=== PATIENT | male | born 1950 | race Caucasian/White ===

== ENCOUNTER 2017-06-10 05:47 | Inpatient (IN) | payer MEDICARE, OTHER ==
[2017-06-10] VITALS (53 sets, daily range): BP systolic 74–131; BP diastolic 60–101
[~2017-06-10] VITALS: Ht 167.6 cm; Wt 81.6 kg
[2017-06-10] MEDS ORDERED: METHYLPREDNISOLONE SOD SUCC 125 MG/2ML VIAL IV STA (05:57)
[2017-06-10] MEDS ORDERED: SODIUM CHLORIDE 0.9% 1000ML 1,000 ML IV STA (05:57)
[2017-06-10] MEDS ORDERED: CEFEPIME HCL 2 GM VIAL IV STA (06:01)
[2017-06-10] MEDS ORDERED: VANCOMYCIN 1GM/NS 250 ML 250 ML IV STA (06:01)
[2017-06-10] MEDS ORDERED: ACETAMINOPHEN 1000 MG/100 ML IV STA (06:11)
[2017-06-10 06:14] LABS: ABG HCO3 30 mmol/L (23-28); ABG PCO2 52 mmHg (41-51); ABG PH 7.37 (7.31-7.41); ABG PO2 81 mmHg (80-105)
[2017-06-10] MEDS ORDERED: LEVALBUTEROL HCL SOLN NEBU 0.63 MG/3 ML NEB INH ONE (06:15)
[2017-06-10] MEDS ORDERED: IPRATROPIUM BROMIDE 0.02% 2.5 ML NEB NEB ONE (06:15)
[2017-06-10 06:18] LABS: BASOPHILS % 0.2 % (0.0-1.0); HEMATOCRIT 38.1 % (38.2-49.6); HEMOGLOBIN 11.7 g/dL (14.0-18.0); LYMPHOCYTES # (AUTO) 0.1 (1.0-3.2); LYMPHOCYTES % 2.5 % (18.0-39.1); MEAN CORPUSCULAR HEMOGLOBIN 25.7 pg (28-32); MEAN CORPUSCULAR HGB CONC 30.7 g/dL (31-35); MEAN CORPUSCULAR VOLUME 83.7 fL (81-99); MONOCYTES # (AUTO) 0.1 (0.2-0.8); MONOCYTES % 2.3 % (4.4-11.3); NEUTROPHILS # (AUTO) 4.5 (2.1-6.9); NEUTROPHILS % 94.8 % (38.7-80.0); PLATELET COUNT 92 x10e3/uL (140-360); RED BLOOD COUNT 4.55 x10e6/uL (4.3-5.7)
[2017-06-10 06:30] LABS: KETONES,URINE NEGATIVE (NEGATIVE); LEUKOCYTE ESTERASE ,URINE TRACE (NEGATIVE); NITRITE,URINE NEGATIVE (NEGATIVE); URINE UROBILINOGEN 12 mg/dL (0.2 - 1)
[2017-06-10 06:31] LABS: BILIRUBIN,URINE 2+ (NEGATIVE); CLARITY,URINE CLOUDY (CLEAR); COLOR,URINE YELLOW (YELLOW); PROTEIN,URINE DIPSTICK 2+ (NEGATIVE)
[2017-06-10 06:32] LABS: INR 1.45; PROTHROMBIN TIME 16.6 seconds (11.9-14.5)
--- NOTE | 2017-06-10 06:35 | Diagnostic Imaging Report ---
EXAM: XR CHEST 1 VIEW DATE: 06/10/2017 5:57 AM INDICATION: Shortness of breath COMPARISON: None FINDINGS: Lines and Tubes: None Heart and Mediastinum: Poorly evaluated due to low lung volumes. Sternotomy wires. Lungs and Pleura: Significant elevation the right hemidiaphragm. Extensive bilateral airspace opacities. Bones and Soft Tissues: No acute findings. IMPRESSION: 1. Extensive bilateral airspace opacities could represent edema and/or pneumonia. Underlying malignancy not excluded. Close follow-up recommended. Signed by: Dr. Malik Lees MD on 06/10/2017 6:31 AM
[2017-06-10 06:39] LABS: ALANINE AMINOTRANSFERASE 43 IU/L (0-55); ALBUMIN 2.3 g/dL (3.5-5.0); ALBUMIN/GLOBULIN RATIO 0.6 (0.8-2.0); ALKALINE PHOSPHATASE 90 IU/L (40-150); BLOOD UREA NITROGEN 48 mg/dL (7-26); BUN/CREATININE RATIO 41 (6-25); CALCIUM 9.1 mg/dL (8.4-10.2); CARBON DIOXIDE 29 mmol/L (22-29); CHLORIDE 97 mmol/L (98-107); CREATINE KINASE 94 IU/L (30-200); CREATININE, SERUM 1.18 mg/dL (0.72-1.25); EST GLOMERULAR FILTRATION RATE > 60 ML/MIN (60-); GLUCOSE 81 mg/dL (74-118); MAGNESIUM 1.9 MG/DL (1.3-2.1); SODIUM 135 mmol/L (136-145)
[2017-06-10 06:43] LABS: B-TYPE NATRIURETIC PEPTIDE2 272.5 pg/mL (0-100)
[2017-06-10 06:45] LABS: RBC,URINE 0-5 /HPF (0-5)
[2017-06-10 06:46] LABS: BACTERIA,URINE MODERATE /HPF; EPITHELIAL CELLS,URINE RARE /LPF
[2017-06-10] MEDS ORDERED: MS CONTIN30 MG PO (06:56)
[2017-06-10] MEDS ORDERED: CYMBALTA30 MG PO (06:56)
[2017-06-10] MEDS ORDERED: SPIRIVA18 MCG INH (06:56)
[2017-06-10] MEDS ORDERED: REGLAN10 MG PO (06:56)
[2017-06-10] MEDS ORDERED: VITAMIN C100 MG PO (06:56)
[2017-06-10] MEDS ORDERED: CARAFATE1 GM/10 ML PO (06:56)
[2017-06-10] MEDS ORDERED: ARICEPT5 MG PO (06:56)
[2017-06-10] MEDS ORDERED: DOXEPIN HCL25 MG PO (06:56)
[2017-06-10] MEDS ORDERED: VITAMIN B12 IM (06:56)
[2017-06-10] MEDS ORDERED: PROAIR HFA INH8.5 GM INH (06:56)
[2017-06-10] MEDS ORDERED: ATORVASTATIN CA10 MG PO (06:56)
[2017-06-10] MEDS ORDERED: GABAPENTIN400 MG PO (06:56)
[2017-06-10] MEDS ORDERED: DEXAMETHASONE4 MG PO (06:56)
[2017-06-10] MEDS ORDERED: MIRALAX17 GM PO (06:56)
[2017-06-10] MEDS ORDERED: MYRBETRIQ25 MG PO (06:56)
[2017-06-10] MEDS ORDERED: PANTOPRAZOLE SO40 MG PO (06:56)
[2017-06-10] MEDS ORDERED: FERROUS SULFAT325 MG PO (06:56)
[2017-06-10] MEDS ORDERED: MELOXICAM7.5 MG PO (06:56)
[2017-06-10] MEDS ORDERED: ASPIR 8181 MG PO (06:56)
[2017-06-10] MEDS ORDERED: POTASSIUM99 MG PO (06:56)
[2017-06-10] MEDS ORDERED: SENNA LAX8.6 MG PO (06:56)
[2017-06-10] MEDS ORDERED: LEVOTHYROXINE50 MCG PO (06:56)
[2017-06-10] MEDS ORDERED: MULTIPLE VITAM1 EAC1 PO (06:56)
[2017-06-10] MEDS ORDERED: FINASTERIDE5 MG PO (06:56)
[2017-06-10] MEDS ORDERED: MORPHINE SULFAT30 M2 PO (06:56)
[2017-06-10] MEDS ORDERED: MIRTAZAPINE15 MG PO (06:56)
[2017-06-10] MEDS ORDERED: IPRATROPIUM BRO15 ML (06:56)
[2017-06-10] MEDS ORDERED: FOLIC ACID1 MG PO (06:56)
[2017-06-10] MEDS ORDERED: GLUCOSAMINE CH1 EAC5 PO (06:56)
[2017-06-10] MEDS ORDERED: FISH OIL 1,0001 EAC2 PO (06:56)
[2017-06-10] MEDS ORDERED: TRELEGY ELLIPTA (06:56)
[2017-06-10] MEDS ORDERED: AZITHROMYCIN 500MG/NS 250 ML 250 ML IV STA (07:05)
[2017-06-10] MEDS: FAMOTIDINE 20 MG/2 ML VIAL IV SCH ×2 (07:30→21:32)
[2017-06-10 07:39] LABS: ANISOCYTOSIS MODERATE; POIKILOCYTOSIS SLIGHT
[2017-06-10 07:40] LABS: ELLIPTOCYTE, RBC SLIGHT; PLATELET ESTIMATE SLIGHTLY DECREASED; RBC MORPHOLOGY COMMENT ABNORMAL
[2017-06-10 07:41] LABS: PLATELET MORPHOLOGY COMMENT FEW GIANT
[2017-06-10] MEDS ORDERED: ETOMIDATE 2 MG/ML 10 ML INJ IV STA (07:54)
[2017-06-10] MEDS ORDERED: SUCCINYLCHOLINE 200 MG/10 ML SYR IV STA (07:54)
[2017-06-10] MEDS ORDERED: MIDAZOLAM HCL 25 MG in SODIUM CHLORIDE 0.9% 50ML 45 ML IV STA (07:54)
--- OUTSIDE RECORDS SUMMARY | 2017-06-10 07:59 | XMS REPORT ---
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 Allergies, Adverse Reactions, Alerts This patient has no known allergies or adverse reactions. Medications This patient has no known medications. Results Test Description Test Time Test Comments Text Results Atomic Results Result Comments MAGNESIUM 2017-01-08 05:07:00 MAGNESIUM (BEAKER) (test rcvz=798) 1.9 mg/dL 1.6-2.6 BASIC METABOLIC [id number] 05:07:00* Test Item Value Reference Range Comments SODIUM (BEAKER) (test taon=161) 140 meq/L 136-145 POTASSIUM (BEAKER) (test jsra=252) 3.8 meq/L 3.5-5.1 CHLORIDE (BEAKER) (test dsfz=018) 97 meq/L 98-107 CO2 (BEAKER) (test eqku=375) 36 meq/L 22-29 BLOOD UREA NITROGEN (BEAKER) (test scpg=913) 16 mg/dL 7-21 CREATININE (BEAKER) (test bztp=185) 0.82 mg/dL 0.57-1.25 GLUCOSE RANDOM (BEAKER) (test wuuh=732) 102 mg/dL 70-105 CALCIUM (BEAKER) (test vjsx=412) 9.0 mg/dL 8.4-10.2 EGFR (BEAKER) (test uyzz=2635) 94 mL/min/1.73 sq m ESTIMATED GFR IS NOT ACCURATE CREATININE CLEARANCE IN PREDICTING GLOMERULAR FILTRATION RATE. ESTIMATED GFR IS NOT APPLICABLE FOR DIALYSIS PATIENTS. RAD, CHEST, 1 VIEW, NON [id number] 09:13:00Reason for exam:->s/p thoracotomyShould this be performed at the bedside?->YesFINAL REPORT Chest one view INDICATION: Status post thoracotomy COMPARISON: IMPRESSION: Two frontal images of the chest were provided. The right diaphragm is elevated. Bilateral mixed interstitial and left greater than right airspace opacities are improved which could reflect decreased edema and atelectasis. Superimposed pneumonitis should be excluded clinically. There is pleural thickening and possible dependent effusions. The cardiomediastinal contours are stable. Median sternotomy changes and spinal stimulator electrodes are noted. No pneumothorax is seen. Signed: Richard Richardson MDReport Verified Date/Time: 01/07/2017 09:13:34 Reading Location: [facility] Radiology Reading Room , CHEST, 1 VIEW, NON [id number] 15:35:00Reason for exam:->s/p thoracotomyShould this be performed at the bedside?->YesFINAL REPORT Comparison: 01/05/2017 TECHNIQUE: Single view of the chest FINDINGS: Lung volumes are low. Prominent interstitial markings bilaterally, nonspecific have somewhat increased. There may be small pleural effusions. No gross pneumothorax. Cardiac silhouette is within normal limits. Postsurgical changes in the mediastinum noted. No acute skeletal abnormality. Signed: Remington Paige MDReport Verified Date/Time: 01/06/2017 15:35:28 Reading Location: [facility] C013 Transitional Reading Room [id number] 12:46:00* Test Item Value Reference Range Comments MAGNESIUM (BEAKER) (test eftq=406) 2.0 mg/dL 1.6-2.6 BASIC METABOLIC [id number] 12:46:00* Test Item Value Reference Range Comments SODIUM (BEAKER) (test qrap=109) 139 meq/L 136-145 POTASSIUM (BEAKER) (test rfjt=609) 4.0 meq/L 3.5-5.1 CHLORIDE (BEAKER) (test wgmf=366) 94 meq/L 98-107 CO2 (BEAKER) (test fxps=989) 38 meq/L 22-29 BLOOD UREA NITROGEN (BEAKER) (test qabj=521) 12 mg/dL 7-21 CREATININE (BEAKER) (test wfox=546) 0.72 mg/dL 0.57-1.25 GLUCOSE RANDOM (BEAKER) (test tmhq=670) 138 mg/dL 70-105 CALCIUM (BEAKER) (test dwtm=026) 9.2 mg/dL 8.4-10.2 EGFR (BEAKER) (test nytq=3877) 109 mL/min/1.73 sq m ESTIMATED GFR IS NOT ACCURATE CREATININE CLEARANCE IN PREDICTING GLOMERULAR FILTRATION RATE. ESTIMATED GFR IS NOT APPLICABLE FOR DIALYSIS PATIENTS. LACTIC ACID, ARTERIAL, WHOLE [id number] 12:42:00* Test Item Value Reference Range Comments LACTATE BLOOD ARTERIAL (2) (BEAKER) (test byuo=0919) 0.7 mmol/L 0.5-2.2 Effective 07/20/2015: Units/Reference Range ChangeNew: 0.5-2.2 mmol/L Previous: 5 -20 mg/dLCBC W/PLT COUNT & AUTO [id number] 12:39:00* Test Item Value Reference Range Comments WHITE BLOOD CELL COUNT (BEAKER) (test lvha=879) 11.9 K/ L 3.5-10.5 RED BLOOD CELL COUNT (BEAKER) (test oone=477) 3.85 M/ L 4.63-6.08 HEMOGLOBIN (BEAKER) (test gukf=194) 9.0 GM/DL 13.7-17.5 HEMATOCRIT (BEAKER) (test gpth=474) 30.8 % 40.1-51.0 MEAN CORPUSCULAR VOLUME (BEAKER) (test fgji=343) 80.0 fL 79.0-92.2 MEAN CORPUSCULAR HEMOGLOBIN (BEAKER) (test tnxl=840) 23.4 pg 25.7-32.2 MEAN CORPUSCULAR HEMOGLOBIN CONC (BEAKER) (test xogi=817) 29.2 GM/DL 32.3- 36.5 RED CELL DISTRIBUTION WIDTH (BEAKER) (test sfhh=978) 15.9 % 11.6-14.4 PLATELET COUNT (BEAKER) (test cxus=582) 263 K/CU MM 150-450 This is a corrected result. Previous result was 189 K/CU MM on 01/06/2017 at 1221 CDT MEAN PLATELET VOLUME (BEAKER) (test wqbr=426) 11.5 fL 9.4-12.4 NUCLEATED RED BLOOD CELLS (BEAKER) (test khto=939) 0 /100 WBC 0-0 NEUTROPHILS RELATIVE PERCENT (BEAKER) (test kwee=714) 88 % LYMPHOCYTES RELATIVE PERCENT (BEAKER) (test dfpb=909) 4 % MONOCYTES RELATIVE PERCENT (BEAKER) (test sjgs=277) 5 % EOSINOPHILS RELATIVE PERCENT (BEAKER) (test izcm=424) 3 % BASOPHILS RELATIVE PERCENT (BEAKER) (test qzyu=378) 1 % NEUTROPHILS ABSOLUTE COUNT (BEAKER) (test mcsj=029) 10.47 K/ L 1.78-5.38 LYMPHOCYTES ABSOLUTE COUNT (BEAKER) (test icrk=396) 0.44 K/ L 1.32-3.57 MONOCYTES ABSOLUTE COUNT (BEAKER) (test jkdu=724) 0.57 K/ L 0.30-0.82 EOSINOPHILS ABSOLUTE COUNT (BEAKER) (test wwrb=753) 0.30 K/ L 0.04-0.54 BASOPHILS ABSOLUTE COUNT (BEAKER) (test oacl=195) 0.07 K/ L 0.01-0.08 IMMATURE GRANULOCYTES-RELATIVE PERCENT (BEAKER) (test ligl=5413) 1 % 0-1 POCT-LACTIC ACID, [id number] 12:21:00* Test Item Value Reference Range Comments POC-LACTIC ACID, ARTERIAL (BEAKER) (test kjra=8303) 0.6 mmol/L 0.4-1.[address] [address] POCT-BLOOD GASES, [id number] 12:21:00* Test Item Value Reference Range Comments TEMP, CELSIUS-POC (BEAKER) (test lfpt=2922) 37.0 FIO2-POC (BEAKER) (test oqfr=2743) TESTED AT [place] [id number] [facility] [address] PH, ARTERIAL-POC (BEAKER) (test ghru=4945) 7.409 7.350-7.450 PCO2, ARTERIAL-POC (BEAKER) (test rkdo=5200) 64.9 mm Hg 35.0-45.0 PO2, ARTERIAL-POC (BEAKER) (test nrbu=6338) 77.0 mm Hg 80.0-90.0 SO2, ARTERIAL-POC (BEAKER) (test zsti=2210) 95.0 % 96.0-97.0 HCO3, ARTERIAL-POC (BEAKER) (test hxak=0362) 41.1 meq/L 21.0-29.0 BASE EXCESS, ARTERIAL-POC (BEAKER) (test jcpe=6614) 16.0 meq/L -2.0-3.0 [id number] 12:21:00* Test Item Value Reference Range Comments POC-SODIUM (BEAKER) (test fuyi=6756) 137 meq/L 135-148 TESTED AT [place] [address] [id number] 12:21:00* Test Item Value Reference Range Comments POC-POTASSIUM (BEAKER) (test rsgm=1309) 3.7 meq/L 3.6-5.5 TESTED AT [place] [id number] 12:21:00* Test Item Value Reference Range Comments POC-GLUCOSE (BEAKER) (test qhhy=1979) 139 mg/dL 70-110 TESTED AT [place] [id number] POCT-CALCIUM [id number] 12:21:00* Test Item Value Reference Range Comments POC-CALCIUM IONIZED (BEAKER) (test hfha=6316) 1.20 mmol/L 1.12-1.27 TESTED AT [place] [id number] 12:21:00* Test Item Value Reference Range Comments POC-HEMATOCRIT (BEAKER) (test nxlr=4290) 30 % 40-50 TESTED AT [place] [id number] [id number] 12:21:00* Test Item Value Reference Range Comments POC-HEMOGLOBIN (BEAKER) (test drlt=8385) 10.2 g/dL 13.0-16.8 TESTED AT [place] [id number] POCT-GLUCOSE [id number] 11:49:00* Test Item Value Reference Range Comments POC-GLUCOSE METER (BEAKER) (test ejnw=6271) 147 mg/dL 70-110 TESTED AT [place] [address] RAD, CHEST, 1 VIEW, NON [id number] 13:08:00Reason for exam:->CT removalShould this be performed at the bedside?->YesFINAL REPORT AP view of the chest dated 01/05/2017 COMPARISON: January 05, 2017 CLINICAL INFORMATION: CT removal Comment: Since prior imaging, there is interval removal of the left chest tube. No pneumothorax is noted. There is pleural thickening in the left hemithorax. Nonspecific parenchymal disease is seen in the left upper lobe may represent scarring or pneumonitis improved since prior study. The rest of the lungs are clear. Right hemidiaphragm remains elevated. Signed: Kulwant Soler MDReport Verified Date/Time: 01/05/2017 13:08:18 Reading Location: [place] [address]X Ortho Consult Reading Room [id number] 12:27: 00* Test Item Value Reference Range Comments POTASSIUM (BEAKER) (test gksk=907) 3.7 meq/L 3.5-5.1 [id number] 12:27:00* Test Item Value Reference Range Comments MAGNESIUM (BEAKER) (test dbxn=796) 1.8 mg/dL 1.6-2.6 CALCIUM, [id number] 12:12:00* Test Item Value Reference Range Comments CALCIUM IONIZED (BEAKER) (test drlw=229) 1.14 mmol/L 1.12-1.27 PH, BLOOD (BEAKER) (test bnhi=8657) 7.37 CBC W/PLT COUNT & AUTO [id number] 06:49:00* Test Item Value Reference Range Comments WHITE BLOOD CELL COUNT (BEAKER) (test qbfm=809) 12.5 K/ L 3.5-10.5 RED BLOOD CELL COUNT (BEAKER) (test brlj=590) 3.69 M/ L 4.63-6.08 HEMOGLOBIN (BEAKER) (test zdbb=286) 8.7 GM/DL 13.7-17.5 HEMATOCRIT (BEAKER) (test gsgp=247) 30.0 % 40.1-51.0 MEAN CORPUSCULAR VOLUME (BEAKER) (test lzgf=437) 81.3 fL 79.0-92.2 MEAN CORPUSCULAR HEMOGLOBIN (BEAKER) (test wdby=739) 23.6 pg 25.7-32.2 MEAN CORPUSCULAR HEMOGLOBIN CONC (BEAKER) (test sxyc=137) 29.0 GM/DL 32.3- 36.5 RED CELL DISTRIBUTION WIDTH (BEAKER) (test gvqv=529) 15.9 % 11.6-14.4 PLATELET COUNT (BEAKER) (test llli=246) 273 K/CU MM 150-450 MEAN PLATELET VOLUME (BEAKER) (test wcvp=093) 10.6 fL 9.4-12.4 NUCLEATED RED BLOOD CELLS (BEAKER) (test cvne=831) 0 /100 WBC 0-0 NEUTROPHILS RELATIVE PERCENT (BEAKER) (test hvam=152) 77 % LYMPHOCYTES RELATIVE PERCENT (BEAKER) (test hmer=544) 8 % MONOCYTES RELATIVE PERCENT (BEAKER) (test wckw=201) 9 % EOSINOPHILS RELATIVE PERCENT (BEAKER) (test ejaf=317) 5 % BASOPHILS RELATIVE PERCENT (BEAKER) (test gzia=186) 1 % NEUTROPHILS ABSOLUTE COUNT (BEAKER) (test trpo=279) 9.59 K/ L 1.78-5.38 LYMPHOCYTES ABSOLUTE COUNT (BEAKER) (test dnsx=677) 0.97 K/ L 1.32-3.57 MONOCYTES ABSOLUTE COUNT (BEAKER) (test dxik=443) 1.15 K/ L 0.30-0.82 EOSINOPHILS ABSOLUTE COUNT (BEAKER) (test ravv=177) 0.67 K/ L 0.04-0.54 BASOPHILS ABSOLUTE COUNT (BEAKER) (test wsuf=864) 0.08 K/ L 0.01-0.08 IMMATURE GRANULOCYTES-RELATIVE PERCENT (BEAKER) (test wujp=6582) 0 % 0-1 RAD, CHEST, 1 VIEW, NON [id number] 06:36:00Reason for exam:->s/p thoracotomyShould this be performed at the bedside?->YesFINAL REPORT RAD, CHEST, 1 VIEW, NON DEPT INDICATION: s/p thoracotomy COMPARISON : Prior day's exam FINDINGS: Portable frontal view of the chest. IMPRESSION: Support Lines: Left thoracostomy tube positioning is unchanged. Lungs and pleura : Inspiratory effort is decreased with associated subsegmental atelectasis and central vascular crowding. Stable eventration of the right hemidiaphragm. Apical pleural capping versus lateral effusions again noted on the left. No pneumothorax.Heart and mediastinum: Stable contours. Stable surgical changes.Additional findings: None. Signed: JR Novak Robert MDReport Verified Date/Time: 01/05/2017 06:36:55 Reading Location: [address] Transitional Reading Room [id number] 05:54:00* Test Item Value Reference Range Comments MAGNESIUM (BEAKER) (test qpsr=725) 1.9 mg/dL 1.6-2.6 BASIC METABOLIC [id number] 05:54:00* Test Item Value Reference Range Comments SODIUM (BEAKER) (test nsdp=413) 137 meq/L 136-145 POTASSIUM (BEAKER) (test lmgf=870) 3.9 meq/L 3.5-5.1 CHLORIDE (BEAKER) (test aapl=217) 95 meq/L 98-107 CO2 (BEAKER) (test ewpq=067) 33 meq/L 22-29 BLOOD UREA NITROGEN (BEAKER) (test fxbq=285) 15 mg/dL 7-21 CREATININE (BEAKER) (test bxwj=526) 0.73 mg/dL 0.57-1.25 GLUCOSE RANDOM (BEAKER) (test xsrq=083) 100 mg/dL 70-105 CALCIUM (BEAKER) (test yrcz=888) 9.0 mg/dL 8.4-10.2 EGFR (BEAKER) (test lrde=8724) 107 mL/min/1.73 sq m ESTIMATED GFR IS NOT ACCURATE CREATININE CLEARANCE IN PREDICTING GLOMERULAR FILTRATION RATE. ESTIMATED GFR IS NOT APPLICABLE FOR DIALYSIS PATIENTS. TISSUE [id number] 11:40:00Surgical Pathology Report Case: [id number] Authorizing Provider: Aramis Álvarez, Collected: 01/01/2017 0947 Ordering Location: [facility] Received: 1001 [employer]OPER[employer] SERVICES Pathologist: Ralph Enciso MD Specimens: A) - Chest, Left, Sub Carinal Node frozen section B) - Chest, Left, subcarinal node #2 frozen section C) - Chest, Left, sub carinal node #3 and peritracheal tissue A. LYMPH NODE, SUBCARINAL, EXCISION: - ONE BENIGN LYMPH NODE (0/1)B. LYMPH NODE, SUBCARINAL#2, EXCISION: - ONE LYMPH NODE POSITIVE FOR METASTATIC SQUAMOUS CELL CARCINOMA (1/1)C. LYMPH NODE, SUBCARINAL#3 AND PERITRACHEAL TISSUE, EXCISION: - ONE LYMPH NODE POSITIVE FOR METASTATIC SQUAMOUS CELL CARCINOMA (1/1) (SEE COMMENT) Signing Pathologist Direct Phone Line: [phone] signed by Ralph Enciso MD on 01/04/2017 at 11:40 [facility] [place]. Immunohistochemistry staining performed with adequate control. The neoplastic cells are positive for P40 that is suggesting a metastatic squamous cell carcinoma.69692 X 3, 65444, 67631Ltmkclxvp neoplasm of upper lobe of left lungA. Chest, left, subcarinal node; B. Chest, left, subcarinal node #2; C. Subcarinal node #3 and peritracheal tissueA. The specimen is received fresh for frozen labeled with the patient's name and accession number as "chest, left" with description "subcarinal node" and consists of a 1.6 x 0.8 x 0.5 cm lymph node. On cut section, it is red-barriga and unremarkable. Small piece of tissue is submitted in RPMI for possible flow cytometry. The rest of the specimen submitted in A1FS for frozen evaluation. B. The specimen is received fixed in formalin labeled with the patient's name and accession number as "chest, left" with description "subcarinal node #2" and consists of multiple fragments of barriga and red soft tissue with an aggregate measurement of 1.5 x 1.5 x 0.4 cm. The specimen is submitted entirely in cassette B1FS. SM/plC. Received fresh labeled "chest, left ", description "subcarinal node #3 and peritracheal tissue" is a 2.1 x 2.0 x 0.3 cm aggregate of pink-barriga to black, anthracotic soft tissue. The specimen is entirely submitted in cassette cassette C1. DB/Godfrey. A1FS - LYMPH NODE, SUBCARINAL, EXCISION: - NEGATIVE FOR CARCINOMAB. B1FS - LYM[PH NODE, SUBCARINAL #2, EXCISION: - POSITIVE FOR MALIGNANCYRESULTS HAVE BEEN REPORTED BY DR. YANG AT 1030. A to C. Performed.The following special studies were performed on this case and the interpretation is incorporated in the diagnostic report above:The immunohistochemistry test was developed and its performance characteristics determined by [facility], Pathology Laboratory. It has not been cleared or approved by the U.S. Food and Drug Administration. The FDA has determined that such clearance or approval is not necessary. The test is used for clinical purposes. It should not be regarded as investigational or for research. This laboratory is certified under the Clinical Laboratory Improvement Amendments of 1988 (CLIA-88) as qualified to perform high complexity clinical laboratory testing.RAD, CHEST, 1 VIEW, NON [id number] 06:35:00Reason for exam:->s/p thoracotomyShould this be performed at the bedside?->YesFINAL REPORT RAD, CHEST, 1 VIEW, NON DEPT INDICATION: s/p thoracotomy COMPARISON: Prior day's exam FINDINGS : Portable frontal view of the chest. IMPRESSION: Support Lines: Stable. Lungs and pleura: Unchanged airspace and pleural opacities. No pneumothorax.Heart and mediastinum: Stable contours. Stable surgical changes.Additional findings: None. Signed: JR Novak Robert MDReport Verified Date/Time: 01/04/2017 06:35:23 Reading Location: [place] [address] CT Body Reading Room [id number] 03:40:00* Test Item Value Reference Range Comments POTASSIUM (BEAKER) (test nlit=175) 4.4 meq/L 3.5-5.1 [id number] 03:40:00* Test Item Value Reference Range Comments MAGNESIUM (BEAKER) (test nsyc=956) 1.8 mg/dL 1.6-2.6 BASIC METABOLIC [id number] 03:40:00* Test Item Value Reference Range Comments SODIUM (BEAKER) (test lspv=050) 139 meq/L 136-145 POTASSIUM (BEAKER) (test auez=502) 4.4 meq/L 3.5-5.1 CHLORIDE (BEAKER) (test nmiu=583) 98 meq/L 98-107 CO2 (BEAKER) (test vuqd=513) 33 meq/L 22-29 BLOOD UREA NITROGEN (BEAKER) (test rkit=906) 13 mg/dL 7-21 CREATININE (BEAKER) (test fttf=185) 0.75 mg/dL 0.57-1.25 GLUCOSE RANDOM (BEAKER) (test gnfa=792) 104 mg/dL 70-105 CALCIUM (BEAKER) (test dsit=050) 8.9 mg/dL 8.4-10.2 EGFR (BEAKER) (test iuhj=0087) 104 mL/min/1.73 sq m ESTIMATED GFR IS NOT ACCURATE CREATININE CLEARANCE IN PREDICTING GLOMERULAR FILTRATION RATE. ESTIMATED GFR IS NOT APPLICABLE FOR DIALYSIS PATIENTS. CBC W/PLT COUNT & AUTO [id number] 03:31:00* Test Item Value Reference Range Comments WHITE BLOOD CELL COUNT (BEAKER) (test xmkz=923) 12.7 K/ L 3.5-10.5 RED BLOOD CELL COUNT (BEAKER) (test tetm=652) 3.62 M/ L 4.63-6.08 HEMOGLOBIN (BEAKER) (test rfpl=414) 8.4 GM/DL 13.7-17.5 HEMATOCRIT (BEAKER) (test iwyd=217) 30.0 % 40.1-51.0 MEAN CORPUSCULAR VOLUME (BEAKER) (test dbio=619) 82.9 fL 79.0-92.2 MEAN CORPUSCULAR HEMOGLOBIN (BEAKER) (test setn=696) 23.2 pg 25.7-32.2 MEAN CORPUSCULAR HEMOGLOBIN CONC (BEAKER) (test qpug=759) 28.0 GM/DL 32.3- 36.5 RED CELL DISTRIBUTION WIDTH (BEAKER) (test vtlm=450) 15.8 % 11.6-14.4 PLATELET COUNT (BEAKER) (test xjqn=389) 204 K/CU MM 150-450 MEAN PLATELET VOLUME (BEAKER) (test lcbr=611) 10.8 fL 9.4-12.4 NUCLEATED RED BLOOD CELLS (BEAKER) (test apot=690) 0 /100 WBC 0-0 NEUTROPHILS RELATIVE PERCENT (BEAKER) (test bwbq=656) 81 % LYMPHOCYTES RELATIVE PERCENT (BEAKER) (test viyb=640) 7 % MONOCYTES RELATIVE PERCENT (BEAKER) (test bsjn=399) 8 % EOSINOPHILS RELATIVE PERCENT (BEAKER) (test osyq=610) 4 % BASOPHILS RELATIVE PERCENT (BEAKER) (test gnbe=362) 0 % NEUTROPHILS ABSOLUTE COUNT (BEAKER) (test lfub=816) 10.25 K/ L 1.78-5.38 LYMPHOCYTES ABSOLUTE COUNT (BEAKER) (test fnji=174) 0.85 K/ L 1.32-3.57 MONOCYTES ABSOLUTE COUNT (BEAKER) (test sedu=746) 1.02 K/ L 0.30-0.82 EOSINOPHILS ABSOLUTE COUNT (BEAKER) (test ycyn=953) 0.48 K/ L 0.04-0.54 BASOPHILS ABSOLUTE COUNT (BEAKER) (test fakl=395) 0.04 K/ L 0.01-0.08 IMMATURE GRANULOCYTES-RELATIVE PERCENT (BEAKER) (test jtkn=6143) 0 % 0-1 CALCIUM, [id number] 03:21:00* Test Item Value Reference Range Comments CALCIUM IONIZED (BEAKER) (test oxvx=540) 1.10 mmol/L 1.12-1.27 PH, BLOOD (BEAKER) (test dxfj=7783) 7.35 POCT-GLUCOSE [id number] 22:25:00* Test Item Value Reference Range Comments POC-GLUCOSE METER (BEAKER) (test vhqc=8742) 171 mg/dL 70-110 TESTED AT [place] [id number] [facility] [address] RAD, CHEST, 1 VIEW, NON [id number] 08:43:00Reason for exam:->s/p thoracotomyShould this be performed at the bedside?->YesFINAL REPORT Chest one view compared to January 02 Discussion: Left greater than right interstitial opacities are similar. Probable left-sided effusion along the upper chest is similar with left chest tube in place. Elevated right hemidiaphragm unchanged. No pneumothorax. IMPRESSIONS: No significant change Signed: Cameron Mccoy Verified Date/Time: 01/03/2017 08:43:03 Reading Location: [facility] Radiology Reading Room C METABOLIC [id number] 03:22 :00* Test Item Value Reference Range Comments SODIUM (BEAKER) (test kfgm=991) 135 meq/L 136-145 POTASSIUM (BEAKER) (test pnhm=012) 4.3 meq/L 3.5-5.1 CHLORIDE (BEAKER) (test icuh=638) 99 meq/L 98-107 CO2 (BEAKER) (test zwue=953) 29 meq/L 22-29 BLOOD UREA NITROGEN (BEAKER) (test eqka=889) 14 mg/dL 7-21 CREATININE (BEAKER) (test tltf=421) 0.76 mg/dL 0.57-1.25 GLUCOSE RANDOM (BEAKER) (test itta=619) 113 mg/dL 70-105 CALCIUM (BEAKER) (test rure=530) 8.9 mg/dL 8.4-10.2 EGFR (BEAKER) (test kacg=3393) 103 mL/min/1.73 sq m ESTIMATED GFR IS NOT ACCURATE CREATININE CLEARANCE IN PREDICTING GLOMERULAR FILTRATION RATE. ESTIMATED GFR IS NOT APPLICABLE FOR DIALYSIS PATIENTS. CBC W/PLT COUNT & AUTO [id number] 03:20:00* Test Item Value Reference Range Comments WHITE BLOOD CELL COUNT (BEAKER) (test eupd=333) 16.9 K/ L 3.5-10.5 RED BLOOD CELL COUNT (BEAKER) (test vodj=467) 3.32 M/ L 4.63-6.08 HEMOGLOBIN (BEAKER) (test fosl=746) 7.8 GM/DL 13.7-17.5 HEMATOCRIT (BEAKER) (test ffha=681) 27.1 % 40.1-51.0 MEAN CORPUSCULAR VOLUME (BEAKER) (test ofkg=643) 81.6 fL 79.0-92.2 MEAN CORPUSCULAR HEMOGLOBIN (BEAKER) (test mlob=349) 23.5 pg 25.7-32.2 MEAN CORPUSCULAR HEMOGLOBIN CONC (BEAKER) (test mcth=577) 28.8 GM/DL 32.3- 36.5 RED CELL DISTRIBUTION WIDTH (BEAKER) (test igzy=477) 15.9 % 11.6-14.4 PLATELET COUNT (BEAKER) (test wotl=530) 234 K/CU MM 150-450 MEAN PLATELET VOLUME (BEAKER) (test jsbr=153) 10.8 fL 9.4-12.4 NUCLEATED RED BLOOD CELLS (BEAKER) (test oabs=988) 0 /100 WBC 0-0 NEUTROPHILS RELATIVE PERCENT (BEAKER) (test ytxg=922) 85 % LYMPHOCYTES RELATIVE PERCENT (BEAKER) (test qjjw=294) 6 % MONOCYTES RELATIVE PERCENT (BEAKER) (test lphp=794) 8 % EOSINOPHILS RELATIVE PERCENT (BEAKER) (test tobf=661) 0 % BASOPHILS RELATIVE PERCENT (BEAKER) (test pepc=919) 0 % NEUTROPHILS ABSOLUTE COUNT (BEAKER) (test lphm=043) 14.35 K/ L 1.78-5.38 LYMPHOCYTES ABSOLUTE COUNT (BEAKER) (test jetk=920) 0.98 K/ L 1.32-3.57 MONOCYTES ABSOLUTE COUNT (BEAKER) (test ggke=670) 1.41 K/ L 0.30-0.82 EOSINOPHILS ABSOLUTE COUNT (BEAKER) (test ycmp=049) 0.06 K/ L 0.04-0.54 BASOPHILS ABSOLUTE COUNT (BEAKER) (test xdjb=774) 0.04 K/ L 0.01-0.08 IMMATURE GRANULOCYTES-RELATIVE PERCENT (BEAKER) (test toej=9328) 0 % 0-1 CALCIUM, [id number] 22:28:00* Test Item Value Reference Range Comments CALCIUM IONIZED (BEAKER) (test bqqg=381) 0.99 mmol/L 1.12-1.27 PH, BLOOD (BEAKER) (test vacw=7888) 7.40 [id number] 22:17:00* Test Item Value Reference Range Comments POTASSIUM (BEAKER) (test pdts=249) 3.8 meq/L 3.5-5.1 [id number] 22:17:00* Test Item Value Reference Range Comments MAGNESIUM (BEAKER) (test qhjj=240) 1.7 mg/dL 1.6-2.6 CALCIUM, [id number] 22:06:00* Test Item Value Reference Range Comments CALCIUM IONIZED (BEAKER) (test yvml=489) 0.66 mmol/L 1.12-1.27 PH, BLOOD (BEAKER) (test bpqg=9016) 7.40 RAD, CHEST, 1 VIEW, NON [id number] 06:20:00Reason for exam:->CTShould this be performed at the bedside?->YesFINAL REPORT RAD, CHEST , 1 VIEW, NON DEPT INDICATION: CT COMPARISON: Prior day's exam FINDINGS: Portable frontal view of the chest. IMPRESSION: Support Lines: Stable positioning of left thoracostomy tube. The endotracheal tube has been removed.Lungs and pleura: Unchanged airspace and pleural opacities. No pneumothorax. Redemonstration of right hemidiaphragmatic eventration.Heart and mediastinum: Stable contours. Stable surgical changes.Additional findings: None. Signed: JR Novak Robert MDReport Verified Date/Time: 01/02/2017 06:20:32 Reading Location: [facility] B1 C013Y CT Body Reading Room C METABOLIC [id number] 05:34:00* Test Item Value Reference Range Comments SODIUM (BEAKER) (test uzcx=457) 138 meq/L 136-145 POTASSIUM (BEAKER) (test iaiw=387) 4.7 meq/L 3.5-5.1 CHLORIDE (BEAKER) (test gaze=127) 105 meq/L 98-107 CO2 (BEAKER) (test vbru=800) 24 meq/L 22-29 BLOOD UREA NITROGEN (BEAKER) (test roec=348) 14 mg/dL 7-21 CREATININE (BEAKER) (test aoyl=557) 0.85 mg/dL 0.57-1.25 GLUCOSE RANDOM (BEAKER) (test uncd=791) 131 mg/dL 70-105 CALCIUM (BEAKER) (test flir=628) 8.5 mg/dL 8.4-10.2 EGFR (BEAKER) (test tvck=2883) 90 mL/min/1.73 sq m ESTIMATED GFR IS NOT ACCURATE CREATININE CLEARANCE IN PREDICTING GLOMERULAR FILTRATION RATE. ESTIMATED GFR IS NOT APPLICABLE FOR DIALYSIS PATIENTS. CBC W/PLT COUNT & AUTO [id number] 05:19:00* Test Item Value Reference Range Comments WHITE BLOOD CELL COUNT (BEAKER) (test ljyi=323) 16.8 K/ L 3.5-10.5 RED BLOOD CELL COUNT (BEAKER) (test dwjq=221) 3.31 M/ L 4.63-6.08 HEMOGLOBIN (BEAKER) (test jsgi=621) 7.9 GM/DL 13.7-17.5 HEMATOCRIT (BEAKER) (test hmji=411) 27.2 % 40.1-51.0 MEAN CORPUSCULAR VOLUME (BEAKER) (test icrk=574) 82.2 fL 79.0-92.2 MEAN CORPUSCULAR HEMOGLOBIN (BEAKER) (test rjth=134) 23.9 pg 25.7-32.2 MEAN CORPUSCULAR HEMOGLOBIN CONC (BEAKER) (test mdtv=891) 29.0 GM/DL 32.3- 36.5 RED CELL DISTRIBUTION WIDTH (BEAKER) (test npxi=551) 15.8 % 11.6-14.4 PLATELET COUNT (BEAKER) (test kbey=346) 219 K/CU MM 150-450 MEAN PLATELET VOLUME (BEAKER) (test foaq=739) 10.8 fL 9.4-12.4 NUCLEATED RED BLOOD CELLS (BEAKER) (test cmho=118) 0 /100 WBC 0-0 NEUTROPHILS RELATIVE PERCENT (BEAKER) (test lgfu=364) 88 % LYMPHOCYTES RELATIVE PERCENT (BEAKER) (test uclx=170) 3 % MONOCYTES RELATIVE PERCENT (BEAKER) (test iest=290) 8 % EOSINOPHILS RELATIVE PERCENT (BEAKER) (test zjnj=163) 0 % BASOPHILS RELATIVE PERCENT (BEAKER) (test azjt=050) 0 % NEUTROPHILS ABSOLUTE COUNT (BEAKER) (test kzxf=900) 14.81 K/ L 1.78-5.38 LYMPHOCYTES ABSOLUTE COUNT (BEAKER) (test bclf=439) 0.58 K/ L 1.32-3.57 MONOCYTES ABSOLUTE COUNT (BEAKER) (test jkvi=861) 1.28 K/ L 0.30-0.82 EOSINOPHILS ABSOLUTE COUNT (BEAKER) (test hpcy=198) 0.01 K/ L 0.04-0.54 BASOPHILS ABSOLUTE COUNT (BEAKER) (test xoat=865) 0.04 K/ L 0.01-0.08 IMMATURE GRANULOCYTES-RELATIVE PERCENT (BEAKER) (test galv=0217) 1 % 0-1 BLOOD GAS, [id number] 14:48:00* Test Item Value Reference Range Comments PH ARTERIAL (BEAKER) (test djkz=774) 7.32 7.35-7.45 PCO2 ARTERIAL (BEAKER) (test ghxf=674) 56 mmHg 35-45 PO2 ARTERIAL (BEAKER) (test lgvh=812) 71 mmHg 80-90 O2 SATURATION ARTERIAL (BEAKER) (test dplp=771) 93.2 % 96.0-97.0 HCO3 ARTERIAL (BEAKER) (test ndqi=230) 29 mmol/L 21-29 BASE EXCESS ARTERIAL (BEAKER) (test jsht=533) 1.8 mmol/L -2.0-3.0 PATIENT TEMPERATURE (BEAKER) (test tgje=5100) 36.4 C FIO2 (BEAKER) (test hxvy=2915) 80.0 % RAD, CHEST, 1 VIEW, NON [id number] 14:38:00Reason for exam:->hypoxiaReason for exam:->intubationShould this be performed at the bedside?->YesFINAL REPORT TECHNIQUE: Frontal chest radiograph dated 01/01/2017. CLINICAL HISTORY: Hypoxia COMPARISON STUDY: Chest radiograph dated 12/28/2016 IMPRESSION:Endotracheal tube is approximately 3 cm above the panfilo. A left- sided chest tube is present. There is subcutaneous emphysema in the lateral left chest wall. A spinal stimulator projects over the mid thoracic spine. There is elevation of the right hemidiaphragm, unchanged. Airspace opacity in the left upper lobe has increased. It is unclear if the lucency seen over the left upper lobe are in the subcutaneous tissues or represent loculated pleural air. There is pulmonary vascular congestion. No pleural effusion. Cardiomediastinal silhouette is normal in size. Midline sternotomy wires are intact and well aligned. Signed: Surjit Galdamezeport Verified Date/Time : 01/01/2017 14:38:11 Reading Location: [facility] Radiology Reading Room [id number] 14:16:00* Test Item Value Reference Range Comments MAGNESIUM (BEAKER) (test jaqq=883) 1.9 mg/dL 1.6-2.6 BASIC METABOLIC [id number] 13:42:00* Test Item Value Reference Range Comments SODIUM (BEAKER) (test tjle=589) 138 meq/L 136-145 POTASSIUM (BEAKER) (test pufp=903) 4.5 meq/L 3.5-5.1 CHLORIDE (BEAKER) (test quzt=492) 107 meq/L 98-107 CO2 (BEAKER) (test nrdz=710) 24 meq/L 22-29 BLOOD UREA NITROGEN (BEAKER) (test lbmx=564) 14 mg/dL 7-21 CREATININE (BEAKER) (test dcqp=253) 0.85 mg/dL 0.57-1.25 GLUCOSE RANDOM (BEAKER) (test khxm=070) 135 mg/dL 70-105 CALCIUM (BEAKER) (test luug=843) 9.2 mg/dL 8.4-10.2 EGFR (BEAKER) (test enqy=6381) 90 mL/min/1.73 sq m ESTIMATED GFR IS NOT ACCURATE CREATININE CLEARANCE IN PREDICTING GLOMERULAR FILTRATION RATE. ESTIMATED GFR IS NOT APPLICABLE FOR DIALYSIS PATIENTS. CBC W/PLT COUNT & AUTO [id number] 13:31:00* Test Item Value Reference Range Comments WHITE BLOOD CELL COUNT (BEAKER) (test frva=717) 13.5 K/ L 3.5-10.5 RED BLOOD CELL COUNT (BEAKER) (test uasq=326) 3.45 M/ L 4.63-6.08 HEMOGLOBIN (BEAKER) (test olla=105) 8.1 GM/DL 13.7-17.5 HEMATOCRIT (BEAKER) (test wkqd=847) 28.4 % 40.1-51.0 MEAN CORPUSCULAR VOLUME (BEAKER) (test rdin=068) 82.3 fL 79.0-92.2 MEAN CORPUSCULAR HEMOGLOBIN (BEAKER) (test fjya=337) 23.5 pg 25.7-32.2 MEAN CORPUSCULAR HEMOGLOBIN CONC (BEAKER) (test qfsr=657) 28.5 GM/DL 32.3- 36.5 RED CELL DISTRIBUTION WIDTH (BEAKER) (test lskw=759) 15.8 % 11.6-14.4 PLATELET COUNT (BEAKER) (test yuhy=299) 238 K/CU MM 150-450 MEAN PLATELET VOLUME (BEAKER) (test pkdn=920) 10.9 fL 9.4-12.4 NUCLEATED RED BLOOD CELLS (BEAKER) (test ston=386) 0 /100 WBC 0-0 NEUTROPHILS RELATIVE PERCENT (BEAKER) (test qqhc=282) 91 % LYMPHOCYTES RELATIVE PERCENT (BEAKER) (test rbzw=740) 4 % MONOCYTES RELATIVE PERCENT (BEAKER) (test tmda=979) 4 % EOSINOPHILS RELATIVE PERCENT (BEAKER) (test gmyf=434) 1 % BASOPHILS RELATIVE PERCENT (BEAKER) (test iuhh=487) 0 % NEUTROPHILS ABSOLUTE COUNT (BEAKER) (test ogwo=360) 12.22 K/ L 1.78-5.38 LYMPHOCYTES ABSOLUTE COUNT (BEAKER) (test pqwf=101) 0.58 K/ L 1.32-3.57 MONOCYTES ABSOLUTE COUNT (BEAKER) (test dyuj=602) 0.52 K/ L 0.30-0.82 EOSINOPHILS ABSOLUTE COUNT (BEAKER) (test onuo=171) 0.08 K/ L 0.04-0.54 BASOPHILS ABSOLUTE COUNT (BEAKER) (test hhwk=758) 0.04 K/ L 0.01-0.08 IMMATURE GRANULOCYTES-RELATIVE PERCENT (BEAKER) (test xvqh=3178) 0 % 0-1 BLOOD GAS, [id number] 13:23:00* Test Item Value Reference Range Comments PH ARTERIAL (BEAKER) (test eqwj=648) 7.45 7.35-7.45 PCO2 ARTERIAL (BEAKER) (test siuk=660) 38 mmHg 35-45 PO2 ARTERIAL (BEAKER) (test fuxu=057) 186 mmHg 80-90 O2 SATURATION ARTERIAL (BEAKER) (test msyh=478) 99.3 % 96.0-97.0 HCO3 ARTERIAL (BEAKER) (test pkhr=500) 26 mmol/L 21-29 BASE EXCESS ARTERIAL (BEAKER) (test xrrm=217) 1.7 mmol/L -2.0-3.0 PATIENT TEMPERATURE (BEAKER) (test bshb=9237) 36.4 C FIO2 (BEAKER) (test uhtx=6373) 60.0 % BLOOD GAS, [id number] 12:39:00* Test Item Value Reference Range Comments PH ARTERIAL (BEAKER) (test dtjn=771) 7.32 7.35-7.45 PCO2 ARTERIAL (BEAKER) (test gntg=063) 52 mmHg 35-45 PO2 ARTERIAL (BEAKER) (test zzsu=619) 88 mmHg 80-90 O2 SATURATION ARTERIAL (BEAKER) (test qlib=328) 96.1 % 96.0-97.0 HCO3 ARTERIAL (BEAKER) (test rsyl=187) 26 mmol/L 21-29 BASE EXCESS ARTERIAL (BEAKER) (test ehqd=039) -0.4 mmol/L -2.0-3.0 PATIENT TEMPERATURE (BEAKER) (test obmy=8802) 36.6 C FIO2 (BEAKER) (test cnkm=6539) 80.0 % GLUCOSE-STAT [id number] 10:27:00* Test Item Value Reference Range Comments GLUCOSE RANDOM (BEAKER) (test oujh=032) 117 mg/dL 70-110 HGB/HCT (H&H) - STAT [id number] 10:27:00* Test Item Value Reference Range Comments HEMOGLOBIN (BEAKER) (test djmb=324) 8.6 g/dL 13.0-16.8 HEMATOCRIT (BEAKER) (test fobs=215) 25.0 % 40.0-50.0 BLOOD GAS, [id number] 10:26:00* Test Item Value Reference Range Comments PH ARTERIAL (BEAKER) (test nyem=703) 7.39 7.35-7.45 PCO2 ARTERIAL (BEAKER) (test stkt=469) 43 mmHg 35-45 PO2 ARTERIAL (BEAKER) (test scuo=798) 82 mmHg 80-90 O2 SATURATION ARTERIAL (BEAKER) (test witz=020) 96.4 % 96.0-97.0 HCO3 ARTERIAL (BEAKER) (test vynm=638) 26 mmol/L 21-29 BASE EXCESS ARTERIAL (BEAKER) (test etnl=743) 0.4 mmol/L -2.0-3.0 PATIENT TEMPERATURE (BEAKER) (test yxra=1094) 36.1 C FIO2 (BEAKER) (test aejx=1446) 100.0 % SODIUM NA-STAT [id number] 10:26:00* Test Item Value Reference Range Comments SODIUM (BEAKER) (test ctli=320) 135 meq/L 135-148 POTASSIUM-STAT [id number] 10:26:00* Test Item Value Reference Range Comments POTASSIUM (BEAKER) (test zmre=249) 3.6 meq/L 3.6-5.5 CALCIUM, [id number] 10:26:00* Test Item Value Reference Range Comments CALCIUM IONIZED (BEAKER) (test fhgj=624) 1.02 mmol/L 1.12-1.27 PH, BLOOD (BEAKER) (test rczh=3214) 7.39 SODIUM NA-STAT [id number] 09:29:00* Test Item Value Reference Range Comments SODIUM (BEAKER) (test pcvy=040) 135 meq/L 135-148 POTASSIUM-STAT [id number] 09:29:00* Test Item Value Reference Range Comments POTASSIUM (BEAKER) (test gdga=471) 4.1 meq/L 3.6-5.5 CALCIUM, [id number] 09:29:00* Test Item Value Reference Range Comments CALCIUM IONIZED (BEAKER) (test uoeg=981) 1.10 mmol/L 1.12-1.27 PH, BLOOD (BEAKER) (test grjy=9555) 7.44 BLOOD GAS, [id number] 09:29:00* Test Item Value Reference Range Comments PH ARTERIAL (BEAKER) (test zcwy=259) 7.44 7.35-7.45 PCO2 ARTERIAL (BEAKER) (test flor=431) 42 mmHg 35-45 PO2 ARTERIAL (BEAKER) (test twkf=130) 64 mmHg 80-90 O2 SATURATION ARTERIAL (BEAKER) (test fmhs=631) 93.7 % 96.0-97.0 HCO3 ARTERIAL (BEAKER) (test auzg=185) 28 mmol/L 21-29 BASE EXCESS ARTERIAL (BEAKER) (test jpjo=782) 3.7 mmol/L -2.0-3.0 PATIENT TEMPERATURE (BEAKER) (test qlse=6443) 36.6 C FIO2 (BEAKER) (test oitp=2195) 100.0 % GLUCOSE-STAT [id number] 09:29:00* Test Item Value Reference Range Comments GLUCOSE RANDOM (BEAKER) (test qnow=816) 117 mg/dL 70-110 HGB/HCT (H&H) - STAT [id number] 09:29:00* Test Item Value Reference Range Comments HEMOGLOBIN (BEAKER) (test ofmj=090) 9.5 g/dL 13.0-16.8 HEMATOCRIT (BEAKER) (test btet=616) 28.0 % 40.0-50.0 CBC W/PLT COUNT & AUTO [id number] 15:15:00* Test Item Value Reference Range Comments WHITE BLOOD CELL COUNT (BEAKER) (test lfxe=272) 11.3 K/ L 3.5-10.5 RED BLOOD CELL COUNT (BEAKER) (test iszi=027) 4.39 M/ L 4.63-6.08 HEMOGLOBIN (BEAKER) (test eilk=303) 10.6 GM/DL 13.7-17.5 HEMATOCRIT (BEAKER) (test lmcn=085) 36.4 % 40.1-51.0 MEAN CORPUSCULAR VOLUME (BEAKER) (test hslq=449) 82.9 fL 79.0-92.2 MEAN CORPUSCULAR HEMOGLOBIN (BEAKER) (test adqv=521) 24.1 pg 25.7-32.2 MEAN CORPUSCULAR HEMOGLOBIN CONC (BEAKER) (test hnex=298) 29.1 GM/DL 32.3- 36.5 RED CELL DISTRIBUTION WIDTH (BEAKER) (test hzux=059) 15.6 % 11.6-14.4 PLATELET COUNT (BEAKER) (test kcwr=183) 283 K/CU MM 150-450 MEAN PLATELET VOLUME (BEAKER) (test bcrn=333) 11.2 fL 9.4-12.4 NUCLEATED RED BLOOD CELLS (BEAKER) (test xkzj=672) 0 /100 WBC 0-0 NEUTROPHILS RELATIVE PERCENT (BEAKER) (test gziy=504) 81 % LYMPHOCYTES RELATIVE PERCENT (BEAKER) (test cabo=181) 8 % MONOCYTES RELATIVE PERCENT (BEAKER) (test njqj=590) 7 % EOSINOPHILS RELATIVE PERCENT (BEAKER) (test xcwe=938) 2 % BASOPHILS RELATIVE PERCENT (BEAKER) (test nrpg=845) 1 % NEUTROPHILS ABSOLUTE COUNT (BEAKER) (test ciaw=975) 9.13 K/ L 1.78-5.38 LYMPHOCYTES ABSOLUTE COUNT (BEAKER) (test enld=081) 0.92 K/ L 1.32-3.57 MONOCYTES ABSOLUTE COUNT (BEAKER) (test bjlr=251) 0.80 K/ L 0.30-0.82 EOSINOPHILS ABSOLUTE COUNT (BEAKER) (test iwuo=506) 0.26 K/ L 0.04-0.54 BASOPHILS ABSOLUTE COUNT (BEAKER) (test vqhk=264) 0.09 K/ L 0.01-0.08 IMMATURE GRANULOCYTES-RELATIVE PERCENT (BEAKER) (test ordd=3952) 1 % 0-1 COMPREHENSIVE METABOLIC [id number] 14:47:00* Test Item Value Reference Range Comments TOTAL PROTEIN (BEAKER) (test hjig=133) 7.5 gm/dL 6.0-8.3 ALBUMIN (BEAKER) (test dsdp=5012) 4.1 g/dL 3.5-5.0 ALKALINE PHOSPHATASE (BEAKER) (test uwwk=129) 156 U/L 40-150 BILIRUBIN TOTAL (BEAKER) (test kmfh=044) 0.5 mg/dL 0.2-1.2 SODIUM (BEAKER) (test jcgg=304) 140 meq/L 136-145 POTASSIUM (BEAKER) (test vimi=450) 3.6 meq/L 3.5-5.1 CHLORIDE (BEAKER) (test cbbj=888) 100 meq/L 98-107 CO2 (BEAKER) (test kobo=058) 29 meq/L 22-29 BLOOD UREA NITROGEN (BEAKER) (test okqi=162) 14 mg/dL 7-21 CREATININE (BEAKER) (test ixhi=435) 0.98 mg/dL 0.57-1.25 GLUCOSE RANDOM (BEAKER) (test pujc=671) 102 mg/dL 70-105 CALCIUM (BEAKER) (test lawz=530) 9.3 mg/dL 8.4-10.2 AST (SGOT) (BEAKER) (test gyoy=282) 20 U/L 5-34 ALT (SGPT) (BEAKER) (test efdk=169) 9 U/L 6-55 EGFR (BEAKER) (test qyis=7497) 77 mL/min/1.73 sq m ESTIMATED GFR IS NOT ACCURATE CREATININE CLEARANCE IN PREDICTING GLOMERULAR FILTRATION RATE. ESTIMATED GFR IS NOT APPLICABLE FOR DIALYSIS PATIENTS. [id number] 14:28:00* Test Item Value Reference Range Comments PROTIME (BEAKER) (test kbpy=033) 14.4 seconds 11.7-14.7 INR (BEAKER) (test mdwv=066) 1.1 <=5.9 PARTIAL THROMBOPLASTIN TIME (BEAKER) (test ggci=841) 24.7 seconds 22.5-36.0 RECOMMENDED COUMADIN/WARFARIN INR THERAPY RANGESSTANDARD DOSE: 2.0 - 3.0 Includes: PROPHYLAXIS for venous thrombosis, systemic embolization; TREATMENT for venous thrombosis and/or pulmonary embolus.HIGH RISK: Target INR is 2.5-3.5 for patients with mechanical heart valves.RAD, CHEST, 2 [id number] 12:58: 00Reason for Exam:->Encounter for preprocedural cardiovascular examinationFINAL REPORT Two views chest compared to October 24 Discussion: Bilateral interstitial opacities are persistent but improved. Focal left upper lobe opacity is more conspicuous than on previous imaging. Etiology is uncertain. There is a blunted right costophrenic angle or small effusion cannot be excluded. No pneumothorax. Thoracic level spinal stimulator in place. IMPRESSIONS: Interstitial opacities are improved but left upper lobe dominant opacity is worse. CT chest is again be ordered if indicated. Imaging discussed with the ordering physician. Signed: Cameron Mccoy Verified Date/Time: 12/28/2016 12:58:21 Reading Location: [facility] Radiology Reading Room OR 5 LEIDEN PCR (THROMBOTIC RISK)2016-10-31 11:16:00* Test Item Value Reference Range Comments FACTOR V LEIDEN (BEAKER) (test lxzh=604) Negative for the R506Q (Factor V Leiden) mutation [id number] (Possible Web) (test mqog=9954) Carla Alford MD (electronic signature) This test is a genotyping assay which evaluates the DNA sequence corresponding to Codon 506 of the Factor V Gene. A region of the Factor V Gene is amplified by polymerase chain reaction followed by fluorescent monitoring of a specific pair of hybridized probes. Since genetic variation and other factors can affect the accuracy of direct mutation testing, these results should be interpreted in light of clinical and familial data.This test was developed and its performance characteristics determined by the [facility] Pathology Department, Section of Molecular Pathology. It has not been cleared or approved by the U.S. Food and Drug Administration (FDA), since FDA approval is not required for clinical use of the test. Validation was done as required by the Clinical Laboratory Improvement Amendments of 1988.POCT-GLUCOSE [id number] 17:10:00* Test Item Value Reference Range Comments POC-GLUCOSE METER (BEAKER) (test eefu=3011) 143 mg/dL 70-[address] [facility] [address] [place] [address] POCT-GLUCOSE [id number] 08:35:00* Test Item Value Reference Range Comments POC-GLUCOSE METER (BEAKER) (test clyy=7582) 111 mg/dL 70-[address] [facility] [address] [facility] [address] CBC W/PLT COUNT & AUTO [id number] 06:16:00* Test Item Value Reference Range Comments WHITE BLOOD CELL COUNT (BEAKER) (test pfnf=149) 12.4 K/ L 3.5-10.5 RED BLOOD CELL COUNT (BEAKER) (test ikcc=731) 3.05 M/ L 4.63-6.08 HEMOGLOBIN (BEAKER) (test sahv=517) 8.5 GM/DL 13.7-17.5 HEMATOCRIT (BEAKER) (test gvez=183) 27.9 % 40.1-51.0 MEAN CORPUSCULAR VOLUME (BEAKER) (test ygrk=021) 91.5 fL 79.0-92.2 MEAN CORPUSCULAR HEMOGLOBIN (BEAKER) (test xfds=925) 27.9 pg 25.7-32.2 MEAN CORPUSCULAR HEMOGLOBIN CONC (BEAKER) (test lbzt=462) 30.5 GM/DL 32.3- 36.5 RED CELL DISTRIBUTION WIDTH (BEAKER) (test onig=591) 15.4 % 11.6-14.4 PLATELET COUNT (BEAKER) (test cwep=911) 227 K/CU MM 150-450 MEAN PLATELET VOLUME (BEAKER) (test wpfp=570) 10.2 fL 9.4-12.4 NUCLEATED RED BLOOD CELLS (BEAKER) (test xrzb=606) 0 /100 WBC 0-0 NEUTROPHILS RELATIVE PERCENT (BEAKER) (test mtqq=459) 76 % LYMPHOCYTES RELATIVE PERCENT (BEAKER) (test xmct=343) 10 % MONOCYTES RELATIVE PERCENT (BEAKER) (test kpma=873) 8 % EOSINOPHILS RELATIVE PERCENT (BEAKER) (test mbvb=312) 4 % BASOPHILS RELATIVE PERCENT (BEAKER) (test krjv=857) 1 % NEUTROPHILS ABSOLUTE COUNT (BEAKER) (test aflk=606) 9.46 K/ L 1.78-5.38 LYMPHOCYTES ABSOLUTE COUNT (BEAKER) (test etcr=772) 1.21 K/ L 1.32-3.57 MONOCYTES ABSOLUTE COUNT (BEAKER) (test pnjq=326) 1.03 K/ L 0.30-0.82 EOSINOPHILS ABSOLUTE COUNT (BEAKER) (test eyzn=561) 0.51 K/ L 0.04-0.54 BASOPHILS ABSOLUTE COUNT (BEAKER) (test lbil=436) 0.07 K/ L 0.01-0.08 IMMATURE GRANULOCYTES-RELATIVE PERCENT (BEAKER) (test sbgf=0336) 1 % 0-1 POCT-GLUCOSE [id number] 21:04:00* Test Item Value Reference Range Comments POC-GLUCOSE METER (BEAKER) (test syjo=9098) 115 mg/dL 70-[address] [facility] [address] [facility] [address] POCT-GLUCOSE [id number] 08:22:00* Test Item Value Reference Range Comments POC-GLUCOSE METER (BEAKER) (test omfp=6443) 121 mg/dL 70-[address] [facility] [address] [facility] [address] [id number] 08:08:00* Test Item Value Reference Range Comments FERRITIN (BEAKER) (test bxnx=238) 94 ng/mL 5-275 Effective 02/02/2014: Reference Range ChangeNew: Male 5-275 Previous: Male 22-322 Female 5-275 Female 10-291 [id number] 07:12 :00* Test Item Value Reference Range Comments FIBRINOGEN LEVEL (BEAKER) (test fdbp=297) 542 mg/dl 225-434 CBC W/PLT COUNT & AUTO [id number] 07:07:00* Test Item Value Reference Range Comments WHITE BLOOD CELL COUNT (BEAKER) (test pxyc=077) 10.5 K/ L 3.5-10.5 RED BLOOD CELL COUNT (BEAKER) (test ctrx=081) 3.16 M/ L 4.63-6.08 HEMOGLOBIN (BEAKER) (test jikd=414) 8.8 GM/DL 13.7-17.5 HEMATOCRIT (BEAKER) (test ekrb=780) 28.3 % 40.1-51.0 MEAN CORPUSCULAR VOLUME (BEAKER) (test ecdb=565) 89.6 fL 79.0-92.2 MEAN CORPUSCULAR HEMOGLOBIN (BEAKER) (test kagx=644) 27.8 pg 25.7-32.2 MEAN CORPUSCULAR HEMOGLOBIN CONC (BEAKER) (test jqti=535) 31.1 GM/DL 32.3- 36.5 RED CELL DISTRIBUTION WIDTH (BEAKER) (test ftab=291) 14.9 % 11.6-14.4 PLATELET COUNT (BEAKER) (test uszv=098) 193 K/CU MM 150-450 MEAN PLATELET VOLUME (BEAKER) (test xeff=250) 10.5 fL 9.4-12.4 NUCLEATED RED BLOOD CELLS (BEAKER) (test tizz=679) 0 /100 WBC 0-0 NEUTROPHILS RELATIVE PERCENT (BEAKER) (test xkir=813) 72 % LYMPHOCYTES RELATIVE PERCENT (BEAKER) (test puub=723) 13 % MONOCYTES RELATIVE PERCENT (BEAKER) (test vtri=155) 9 % EOSINOPHILS RELATIVE PERCENT (BEAKER) (test tiho=361) 5 % BASOPHILS RELATIVE PERCENT (BEAKER) (test ugmc=608) 0 % NEUTROPHILS ABSOLUTE COUNT (BEAKER) (test onir=845) 7.59 K/ L 1.78-5.38 LYMPHOCYTES ABSOLUTE COUNT (BEAKER) (test akbg=611) 1.34 K/ L 1.32-3.57 MONOCYTES ABSOLUTE COUNT (BEAKER) (test adsl=132) 0.91 K/ L 0.30-0.82 EOSINOPHILS ABSOLUTE COUNT (BEAKER) (test tomz=368) 0.49 K/ L 0.04-0.54 BASOPHILS ABSOLUTE COUNT (BEAKER) (test rfew=392) 0.04 K/ L 0.01-0.08 IMMATURE GRANULOCYTES-RELATIVE PERCENT (BEAKER) (test ulmk=4093) 1 % 0-1 POCT-GLUCOSE [id number] 21:17:00* Test Item Value Reference Range Comments POC-GLUCOSE METER (BEAKER) (test jkrt=3474) 101 mg/dL 70-[address] [facility] [address] [facility] [address] POCT-GLUCOSE [id number] 17:27:00* Test Item Value Reference Range Comments POC-GLUCOSE METER (BEAKER) (test bwri=6977) 148 mg/dL 70-[address] [facility] [address] [facility] [address] IRON, TIBC, % SAT. (WITHOUT FERRITIN)2016-10-24 17:08:00* Test Item Value Reference Range Comments IRON (BEAKER) (test gzrl=439) 28 ug/dL 40-160 TOTAL IRON BINDING CAPACITY (BEAKER) (test verd=285) 243 ug/dL 250-450 IRON % SATURATION (2) (BEAKER) (test febe=4810) 12 % 20-55 POCT-GLUCOSE [id number] 11:58:00* Test Item Value Reference Range Comments POC-GLUCOSE METER (BEAKER) (test uldr=2302) 154 mg/dL 70-[address] [facility] [address] [facility] [address] CBC W/PLT COUNT & AUTO [id number] 09:45:00* Test Item Value Reference Range Comments WHITE BLOOD CELL COUNT (BEAKER) (test hibq=447) 9.7 K/ L 3.5-10.5 RED BLOOD CELL COUNT (BEAKER) (test cucn=053) 3.19 M/ L 4.63-6.08 HEMOGLOBIN (BEAKER) (test tcne=328) 9.1 GM/DL 13.7-17.5 HEMATOCRIT (BEAKER) (test ztdo=024) 28.8 % 40.1-51.0 MEAN CORPUSCULAR VOLUME (BEAKER) (test lejn=223) 90.3 fL 79.0-92.2 MEAN CORPUSCULAR HEMOGLOBIN (BEAKER) (test chwm=169) 28.5 pg 25.7-32.2 MEAN CORPUSCULAR HEMOGLOBIN CONC (BEAKER) (test xhsk=500) 31.6 GM/DL 32.3- 36.5 RED CELL DISTRIBUTION WIDTH (BEAKER) (test ojbz=241) 15.0 % 11.6-14.4 PLATELET COUNT (BEAKER) (test pmyv=032) 141 K/CU MM 150-450 MEAN PLATELET VOLUME (BEAKER) (test frem=906) 10.6 fL 9.4-12.4 NUCLEATED RED BLOOD CELLS (BEAKER) (test jukz=453) 0 /100 WBC 0-0 NEUTROPHILS RELATIVE PERCENT (BEAKER) (test tuln=978) 76 % LYMPHOCYTES RELATIVE PERCENT (BEAKER) (test zmlr=908) 12 % MONOCYTES RELATIVE PERCENT (BEAKER) (test acah=332) 7 % EOSINOPHILS RELATIVE PERCENT (BEAKER) (test yhlm=683) 4 % BASOPHILS RELATIVE PERCENT (BEAKER) (test tobm=181) 1 % NEUTROPHILS ABSOLUTE COUNT (BEAKER) (test hcvy=285) 7.36 K/ L 1.78-5.38 LYMPHOCYTES ABSOLUTE COUNT (BEAKER) (test xgbu=124) 1.13 K/ L 1.32-3.57 MONOCYTES ABSOLUTE COUNT (BEAKER) (test fdos=848) 0.71 K/ L 0.30-0.82 EOSINOPHILS ABSOLUTE COUNT (BEAKER) (test rnaj=763) 0.38 K/ L 0.04-0.54 BASOPHILS ABSOLUTE COUNT (BEAKER) (test nzzv=137) 0.05 K/ L 0.01-0.08 IMMATURE GRANULOCYTES-RELATIVE PERCENT (BEAKER) (test mygh=6227) 1 % 0-1 POCT-GLUCOSE [id number] 21:36:00* Test Item Value Reference Range Comments POC-GLUCOSE METER (BECYDNEY) (test rhsz=9884) 130 mg/dL 70-110 [address]ED AT [address] [address] POCT-GLUCOSE [id number] 12:57:00* Test Item Value Reference Range Comments POC-GLUCOSE METER ([facility]) (test plmk=4852) 163 mg/dL 70-110 TESTED AT [address] [address] [id number] 12:50:00* Test Item Value Reference Range Comments HAPTOGLOBIN (ALEXAKER) (test ewaa=477) 231 mg/dL 14-258 Effective 02/02/2014: Reference Range ChangeNew: 14-258 Previous: 36- 195VITAMIN B12 AND [id number] 12:46:00* Test Item Value Reference Range Comments VITAMIN B12 (BEAKER) (test qzye=244) 623 pg/mL 213-816 FOLATE (BEAKER) (test foxq=305) 14.1 ng/mL >=7.0 Effective 02/02/2014: Folate Reference Range ChangeNew: >=7.0 Previous: >= 5.4RETICULOCYTE [id number] 12:29:00* Test Item Value Reference Range Comments RETICULOCYTE COUNT PCT (BEAKER) (test vzwc=468) 2.3 % 0.5-1.8 [id number] 12:10:00* Test Item Value Reference Range Comments D-DIMER QUANTITATIVE (BEAKER) (test rfno=594) 1.86 MG/L FEU <0.50 Intended Use: The D-Dimer Assay can be used to aid in the diagnosis of Deep Vein Thrombosis (DVT) and Pulmonary Embolism Disease (PED).In patients with low pre-test probability, various studies concerning STA Liatest D-dimer test have reported that with a cutoff value of 0.50 MG/L FEU, the Negative Predictive Value (NPV) regarding the exclusion of thrombosis is within 95-100% range.HEPATIC FUNCTION [id number] 11:20:00* Test Item Value Reference Range Comments TOTAL PROTEIN (BEAKER) (test opop=232) 4.6 gm/dL 6.0-8.3 ALBUMIN (BEAKER) (test qdoq=1782) 2.5 g/dL 3.5-5.0 BILIRUBIN TOTAL (BEAKER) (test sxdl=798) 0.4 mg/dL 0.2-1.2 BILIRUBIN DIRECT (BEAKER) (test llbu=758) 0.2 mg/dL 0.1-0.5 ALKALINE PHOSPHATASE (BEAKER) (test ypdu=252) 51 U/L 40-150 AST (SGOT) (BEAKER) (test iwip=505) 32 U/L 5-34 ALT (SGPT) (BEAKER) (test vjmz=165) 21 U/L 6-55 LACTATE DEHYDROGENASE (LDH)2016-10-23 11:20:00* Test Item Value Reference Range Comments LACTATE DEHYDROGENASE (BEAKER) (test kiia=609) 262 U/L 125-220 CBC W/PLT COUNT & AUTO [id number] 06:48:00* Test Item Value Reference Range Comments WHITE BLOOD CELL COUNT (BEAKER) (test bpvt=627) 11.4 K/ L 3.5-10.5 RED BLOOD CELL COUNT (BEAKER) (test zyis=349) 3.01 M/ L 4.63-6.08 HEMOGLOBIN (BEAKER) (test ijsp=808) 8.4 GM/DL 13.7-17.5 HEMATOCRIT (BEAKER) (test conb=845) 27.1 % 40.1-51.0 MEAN CORPUSCULAR VOLUME (BEAKER) (test wukg=683) 90.0 fL 79.0-92.2 MEAN CORPUSCULAR HEMOGLOBIN (BEAKER) (test dteb=175) 27.9 pg 25.7-32.2 MEAN CORPUSCULAR HEMOGLOBIN CONC (BEAKER) (test rajr=170) 31.0 GM/DL 32.3- 36.5 RED CELL DISTRIBUTION WIDTH (BEAKER) (test xruu=669) 14.8 % 11.6-14.4 PLATELET COUNT (BEAKER) (test ihlf=957) 121 K/CU MM 150-450 MEAN PLATELET VOLUME (BEAKER) (test iwxl=775) 10.9 fL 9.4-12.4 NUCLEATED RED BLOOD CELLS (BEAKER) (test pebd=807) 0 /100 WBC 0-0 NEUTROPHILS RELATIVE PERCENT (BEAKER) (test imdi=608) 75 % LYMPHOCYTES RELATIVE PERCENT (BEAKER) (test bvla=716) 13 % MONOCYTES RELATIVE PERCENT (BEAKER) (test cbgi=307) 7 % EOSINOPHILS RELATIVE PERCENT (BEAKER) (test usmv=680) 4 % BASOPHILS RELATIVE PERCENT (BEAKER) (test whll=671) 0 % NEUTROPHILS ABSOLUTE COUNT (BEAKER) (test pklp=159) 8.53 K/ L 1.78-5.38 LYMPHOCYTES ABSOLUTE COUNT (BEAKER) (test cxya=495) 1.43 K/ L 1.32-3.57 MONOCYTES ABSOLUTE COUNT (BEAKER) (test pxyp=368) 0.83 K/ L 0.30-0.82 EOSINOPHILS ABSOLUTE COUNT (BEAKER) (test adzq=076) 0.44 K/ L 0.04-0.54 BASOPHILS ABSOLUTE COUNT (BEAKER) (test jvtj=552) 0.05 K/ L 0.01-0.08 IMMATURE GRANULOCYTES-RELATIVE PERCENT (BEAKER) (test kpfa=1384) 1 % 0-1 BASIC METABOLIC [id number] 06:08:00* Test Item Value Reference Range Comments SODIUM (BEAKER) (test kyna=677) 143 meq/L 136-145 POTASSIUM (BEAKER) (test clfb=182) 3.9 meq/L 3.5-5.1 CHLORIDE (BEAKER) (test aeez=999) 106 meq/L 98-107 CO2 (BEAKER) (test asnh=485) 36 meq/L 22-29 BLOOD UREA NITROGEN (BEAKER) (test odhy=847) 10 mg/dL 7-21 CREATININE (BEAKER) (test ffpn=662) 0.76 mg/dL 0.57-1.25 GLUCOSE RANDOM (BEAKER) (test zbed=174) 87 mg/dL 70-105 CALCIUM (BEAKER) (test iirm=248) 8.2 mg/dL 8.4-10.2 EGFR (BEAKER) (test uxkx=0571) 103 mL/min/1.73 sq m ESTIMATED GFR IS NOT ACCURATE CREATININE CLEARANCE IN PREDICTING GLOMERULAR FILTRATION RATE. ESTIMATED GFR IS NOT APPLICABLE FOR DIALYSIS PATIENTS. POCT-GLUCOSE [id number] 21:01:00* Test Item Value Reference Range Comments POC-GLUCOSE METER (BEAKER) (test zzrg=3299) 153 mg/dL 70-110 TESTED AT [address] [address] [id number] 18:36:00* Test Item Value Reference Range Comments PROTIME (BEAKER) (test cqop=094) 13.7 seconds 11.7-14.7 INR (BEAKER) (test emuu=732) 1.1 <=5.9 PARTIAL THROMBOPLASTIN TIME (BEAKER) (test dhsy=481) 34.2 seconds 22.5-36.0 RECOMMENDED COUMADIN/WARFARIN INR THERAPY RANGESSTANDARD DOSE: 2.0 - 3.0 Includes: PROPHYLAXIS for venous thrombosis, systemic embolization; TREATMENT for venous thrombosis and/or pulmonary embolus.HIGH RISK: Target INR is 2.5-3.5 for patients with mechanical heart valves.POCT-GLUCOSE [id number] 18:15:00 * Test Item Value Reference Range Comments POC-GLUCOSE METER (BEAKER) (test klln=5992) 95 mg/dL 70-110 TESTED AT [address] [address] BASIC METABOLIC [id number] 05:08:00* Test Item Value Reference Range Comments SODIUM (BEAKER) (test axeb=020) 141 meq/L 136-145 POTASSIUM (BEAKER) (test fraq=278) 3.9 meq/L 3.5-5.1 CHLORIDE (BEAKER) (test cier=232) 103 meq/L 98-107 CO2 (BEAKER) (test vucm=725) 34 meq/L 22-29 BLOOD UREA NITROGEN (BEAKER) (test jxif=893) 16 mg/dL 7-21 CREATININE (BEAKER) (test inkd=779) 0.88 mg/dL 0.57-1.25 GLUCOSE RANDOM (BEAKER) (test pjpx=272) 99 mg/dL 70-105 CALCIUM (BEAKER) (test sxqh=494) 8.7 mg/dL 8.4-10.2 EGFR (BEAKER) (test muxf=7637) 87 mL/min/1.73 sq m ESTIMATED GFR IS NOT ACCURATE CREATININE CLEARANCE IN PREDICTING GLOMERULAR FILTRATION RATE. ESTIMATED GFR IS NOT APPLICABLE FOR DIALYSIS PATIENTS. CBC W/PLT COUNT & AUTO [id number] 04:44:00* Test Item Value Reference Range Comments WHITE BLOOD CELL COUNT (BEAKER) (test rtwj=715) 14.5 K/ L 3.5-10.5 RED BLOOD CELL COUNT (BEAKER) (test ukoi=575) 3.31 M/ L 4.63-6.08 HEMOGLOBIN (BEAKER) (test pyaj=713) 9.2 GM/DL 13.7-17.5 HEMATOCRIT (BEAKER) (test omna=741) 29.0 % 40.1-51.0 MEAN CORPUSCULAR VOLUME (BEAKER) (test thxx=876) 87.6 fL 79.0-92.2 MEAN CORPUSCULAR HEMOGLOBIN (BEAKER) (test zvyi=448) 27.8 pg 25.7-32.2 MEAN CORPUSCULAR HEMOGLOBIN CONC (BEAKER) (test qvms=365) 31.7 GM/DL 32.3- 36.5 RED CELL DISTRIBUTION WIDTH (BEAKER) (test nwsa=197) 14.8 % 11.6-14.4 PLATELET COUNT (BEAKER) (test plrz=811) 102 K/CU MM 150-450 MEAN PLATELET VOLUME (BEAKER) (test yiks=231) 11.6 fL 9.4-12.4 NUCLEATED RED BLOOD CELLS (BEAKER) (test nwae=505) 0 /100 WBC 0-0 NEUTROPHILS RELATIVE PERCENT (BEAKER) (test bivm=677) 81 % LYMPHOCYTES RELATIVE PERCENT (BEAKER) (test acrr=947) 9 % MONOCYTES RELATIVE PERCENT (BEAKER) (test apxr=878) 8 % EOSINOPHILS RELATIVE PERCENT (BEAKER) (test spqp=819) 1 % BASOPHILS RELATIVE PERCENT (BEAKER) (test ugvf=580) 0 % NEUTROPHILS ABSOLUTE COUNT (BEAKER) (test eiio=917) 11.67 K/ L 1.78-5.38 LYMPHOCYTES ABSOLUTE COUNT (BEAKER) (test blul=421) 1.33 K/ L 1.32-3.57 MONOCYTES ABSOLUTE COUNT (BEAKER) (test zxdg=584) 1.16 K/ L 0.30-0.82 EOSINOPHILS ABSOLUTE COUNT (BEAKER) (test rhvw=209) 0.17 K/ L 0.04-0.54 BASOPHILS ABSOLUTE COUNT (BEAKER) (test wxjs=186) 0.05 K/ L 0.01-0.08 IMMATURE GRANULOCYTES-RELATIVE PERCENT (BEAKER) (test yrvu=4466) 1 % 0-1 POCT-GLUCOSE [id number] 22:13:00* Test Item Value Reference Range Comments POC-GLUCOSE METER (BEAKER) (test azha=2326) 114 mg/dL 70-[address] [facility] [address] [place] [id number] B-TYPE NATRIURETIC FACTOR (BNP)2016-10-21 21:17:00* Test Item Value Reference Range Comments B-TYPE NATRIURETIC PEPTIDE (BEAKER) (test jwgj=350) 159 pg/mL 0-100 BASIC METABOLIC [id number] 21:10:00* Test Item Value Reference Range Comments SODIUM (BEAKER) (test myms=338) 137 meq/L 136-145 POTASSIUM (BEAKER) (test deqt=520) 4.0 meq/L 3.5-5.1 CHLORIDE (BEAKER) (test wtzq=156) 102 meq/L 98-107 CO2 (BEAKER) (test grkr=098) 30 meq/L 22-29 BLOOD UREA NITROGEN (BEAKER) (test wksb=598) 18 mg/dL 7-21 CREATININE (BEAKER) (test gfwg=674) 0.79 mg/dL 0.57-1.25 GLUCOSE RANDOM (BEAKER) (test rnmx=671) 106 mg/dL 70-105 CALCIUM (BEAKER) (test ecam=698) 8.5 mg/dL 8.4-10.2 EGFR (BEAKER) (test kzuz=2537) 98 mL/min/1.73 sq m ESTIMATED GFR IS NOT ACCURATE CREATININE CLEARANCE IN PREDICTING GLOMERULAR FILTRATION RATE. ESTIMATED GFR IS NOT APPLICABLE FOR DIALYSIS PATIENTS. CBC (HEMOGRAM ONLY)2016-10-21 20:57:00* Test Item Value Reference Range Comments WHITE BLOOD CELL COUNT (BEAKER) (test vbuc=655) 18.3 K/ L 3.5-10.5 RED BLOOD CELL COUNT (BEAKER) (test tuia=764) 3.47 M/ L 4.63-6.08 HEMOGLOBIN (BEAKER) (test dyfw=454) 9.7 GM/DL 13.7-17.5 HEMATOCRIT (BEAKER) (test pazi=849) 30.2 % 40.1-51.0 MEAN CORPUSCULAR VOLUME (BEAKER) (test iwtc=469) 87.0 fL 79.0-92.2 MEAN CORPUSCULAR HEMOGLOBIN (BEAKER) (test ragq=274) 28.0 pg 25.7-32.2 MEAN CORPUSCULAR HEMOGLOBIN CONC (BEAKER) (test cfjh=605) 32.1 GM/DL 32.3- 36.5 RED CELL DISTRIBUTION WIDTH (BEAKER) (test hjtf=340) 14.8 % 11.6-14.4 PLATELET COUNT (BEAKER) (test noer=563) 100 K/CU MM 150-450 MEAN PLATELET VOLUME (BEAKER) (test otfy=543) 11.1 fL 9.4-12.4 NUCLEATED RED BLOOD CELLS (BEAKER) (test gbss=889) 0 /100 WBC 0-0 POCT-GLUCOSE [id number] 06:22:00* Test Item Value Reference Range Comments POC-GLUCOSE METER (BEAKER) (test txuy=8931) 103 mg/dL 70-[address] [facility] [address] [facility] [address] [id number] 03:41:00* Test Item Value Reference Range Comments MAGNESIUM (BEAKER) (test fgmm=385) 1.6 mg/dL 1.6-2.6 BASIC METABOLIC [id number] 03:41:00* Test Item Value Reference Range Comments SODIUM (BEAKER) (test ajyr=676) 138 meq/L 136-145 POTASSIUM (BEAKER) (test dlqb=220) 4.6 meq/L 3.5-5.1 CHLORIDE (BEAKER) (test ijmw=465) 107 meq/L 98-107 CO2 (BEAKER) (test ftfm=293) 27 meq/L 22-29 BLOOD UREA NITROGEN (BEAKER) (test mvmj=059) 20 mg/dL 7-21 CREATININE (BEAKER) (test mmof=600) 0.78 mg/dL 0.57-1.25 GLUCOSE RANDOM (BEAKER) (test yjqg=069) 102 mg/dL 70-105 CALCIUM (BEAKER) (test jlhw=497) 8.4 mg/dL 8.4-10.2 EGFR (BEAKER) (test yrfl=5891) 100 mL/min/1.73 sq m ESTIMATED GFR IS NOT ACCURATE CREATININE CLEARANCE IN PREDICTING GLOMERULAR FILTRATION RATE. ESTIMATED GFR IS NOT APPLICABLE FOR DIALYSIS PATIENTS. CBC (HEMOGRAM ONLY)2016-10-21 03:24:00* Test Item Value Reference Range Comments WHITE BLOOD CELL COUNT (BEAKER) (test eigl=340) 20.1 K/ L 3.5-10.5 RED BLOOD CELL COUNT (BEAKER) (test qwth=120) 3.52 M/ L 4.63-6.08 HEMOGLOBIN (BEAKER) (test rmeu=418) 9.8 GM/DL 13.7-17.5 HEMATOCRIT (BEAKER) (test gkxt=341) 30.2 % 40.1-51.0 MEAN CORPUSCULAR VOLUME (BEAKER) (test wgix=656) 85.8 fL 79.0-92.2 MEAN CORPUSCULAR HEMOGLOBIN (BEAKER) (test ziua=009) 27.8 pg 25.7-32.2 MEAN CORPUSCULAR HEMOGLOBIN CONC (BEAKER) (test ybed=929) 32.5 GM/DL 32.3- 36.5 RED CELL DISTRIBUTION WIDTH (BEAKER) (test imub=809) 14.9 % 11.6-14.4 PLATELET COUNT (BEAKER) (test jlwa=449) 88 K/CU MM 150-450 MEAN PLATELET VOLUME (BEAKER) (test gjxi=173) 11.7 fL 9.4-12.4 NUCLEATED RED BLOOD CELLS (BEAKER) (test doda=947) 0 /100 WBC 0-0 POCT-GLUCOSE [id number] 22:13:00* Test Item Value Reference Range Comments POC-GLUCOSE METER (BEAKER) (test mxyi=5078) 130 mg/dL 70-[address] [facility] [address] [facility] [address] THROMBIN [id number] 21:48:00* Test Item Value Reference Range Comments THROMBIN TIME (BEAKER) (test zxob=716) 14.2 secs 13.8-20.0 Draw coags just prior to next sc heparin [id number] 21:46:00* Test Item Value Reference Range Comments PARTIAL THROMBOPLASTIN TIME (BEAKER) (test ymrw=813) 38.1 seconds 22.5-36.0 Draw coags just prior to next sc heparin dosePROTHROMBIN TIME/[id number] 21: 45:00* Test Item Value Reference Range Comments PROTIME (BEAKER) (test zoag=072) 17.7 seconds 11.7-14.7 INR (BEAKER) (test yeue=221) 1.5 <=5.9 RECOMMENDED COUMADIN/WARFARIN INR THERAPY RANGESSTANDARD DOSE: 2.0 - 3.0 Includes: PROPHYLAXIS for venous thrombosis, systemic embolization; TREATMENT for venous thrombosis and/or pulmonary embolus.HIGH RISK: Target INR is 2.5-3.5 for patients with mechanical heart valves.Draw coags just prior to next sc heparin dosePOCT-GLUCOSE [id number] 09:01:00* Test Item Value Reference Range Comments POC-GLUCOSE METER (BEAKER) (test cplg=0690) 130 mg/dL 70-[address] [facility] [address] [facility] [address] POCT-GLUCOSE [id number] 09:01:00* Test Item Value Reference Range Comments POC-GLUCOSE METER (BEAKER) (test bewn=4776) 159 mg/dL 70-[address] [facility] [address] [facility] [address] POCT-GLUCOSE [id number] 09:01:00* Test Item Value Reference Range Comments POC-GLUCOSE METER (BEAKER) (test vrkc=8674) 169 mg/dL 70-110 TESTED AT [address] [address] [id number] 05:19:00* Test Item Value Reference Range Comments MAGNESIUM (BEAKER) (test bkjd=243) 1.4 mg/dL 1.6-2.6 BASIC METABOLIC [id number] 05:19:00* Test Item Value Reference Range Comments SODIUM (BEAKER) (test hxnl=107) 141 meq/L 136-145 POTASSIUM (BEAKER) (test kpxx=585) 4.7 meq/L 3.5-5.1 CHLORIDE (BEAKER) (test tkdk=761) 110 meq/L 98-107 CO2 (BEAKER) (test boyd=247) 26 meq/L 22-29 BLOOD UREA NITROGEN (BEAKER) (test kdmj=528) 12 mg/dL 7-21 CREATININE (BEAKER) (test chsv=798) 0.84 mg/dL 0.57-1.25 GLUCOSE RANDOM (BEAKER) (test cpzx=923) 132 mg/dL 70-105 CALCIUM (BEAKER) (test gyal=794) 8.9 mg/dL 8.4-10.2 EGFR (BEAKER) (test hcgc=9562) 91 mL/min/1.73 sq m ESTIMATED GFR IS NOT ACCURATE CREATININE CLEARANCE IN PREDICTING GLOMERULAR FILTRATION RATE. ESTIMATED GFR IS NOT APPLICABLE FOR DIALYSIS PATIENTS. OXYGEN SATURATION, [id number] 05:17:00* Test Item Value Reference Range Comments O2 SATURATION (MEASURED) (BEAKER) (test nrzb=0820) 71.4 % BLOOD GAS, [id number] 05:05:00* Test Item Value Reference Range Comments PH ARTERIAL (BEAKER) (test xcib=169) 7.33 7.35-7.45 PCO2 ARTERIAL (BEAKER) (test nzur=041) 51 mmHg 35-45 PO2 ARTERIAL (BEAKER) (test dhls=038) 98 mmHg 80-90 O2 SATURATION ARTERIAL (BEAKER) (test nleh=422) 96.6 % 96.0-97.0 HCO3 ARTERIAL (BEAKER) (test jvhk=772) 26 mmol/L 21-29 BASE EXCESS ARTERIAL (BEAKER) (test olbg=541) 0.1 mmol/L -2.0-3.0 PATIENT TEMPERATURE (BEAKER) (test huth=6796) 38.0 C FIO2 (BEAKER) (test vbuw=4776) 50.0 % LACTIC ACID, ARTERIAL, WHOLE [id number] 05:02:00* Test Item Value Reference Range Comments LACTATE BLOOD ARTERIAL (2) (BEAKER) (test kpjo=4886) 1.9 mmol/L 0.5-2.2 Effective 07/20/2015: Units/Reference Range ChangeNew: 0.5-2.2 mmol/L Previous: 5 -20 mg/dLCBC (HEMOGRAM ONLY)2016-10-20 04:48:00* Test Item Value Reference Range Comments WHITE BLOOD CELL COUNT (BEAKER) (test czdj=017) 22.1 K/ L 3.5-10.5 RED BLOOD CELL COUNT (BEAKER) (test veyg=198) 4.72 M/ L 4.63-6.08 HEMOGLOBIN (BEAKER) (test fmtf=736) 13.2 GM/DL 13.7-17.5 HEMATOCRIT (BEAKER) (test mqro=103) 39.8 % 40.1-51.0 MEAN CORPUSCULAR VOLUME (BEAKER) (test vaim=451) 84.3 fL 79.0-92.2 MEAN CORPUSCULAR HEMOGLOBIN (BEAKER) (test ljcf=396) 28.0 pg 25.7-32.2 MEAN CORPUSCULAR HEMOGLOBIN CONC (BEAKER) (test nscf=971) 33.2 GM/DL 32.3- 36.5 RED CELL DISTRIBUTION WIDTH (BEAKER) (test pyww=210) 14.8 % 11.6-14.4 PLATELET COUNT (BEAKER) (test polc=942) 88 K/CU MM 150-450 MEAN PLATELET VOLUME (BEAKER) (test msxc=125) 11.4 fL 9.4-12.4 NUCLEATED RED BLOOD CELLS (BEAKER) (test joni=733) 0 /100 WBC 0-0 [id number] 04:43:00* Test Item Value Reference Range Comments ACTIVATED CLOTTING TIME (BEAKER) (test otua=787) 114 sec TESTED AT [place] [address] [id number] 04:43:00* Test Item Value Reference Range Comments ACTIVATED CLOTTING TIME (BEAKER) (test hcsp=740) 912 sec TESTED AT [place] [address] [id number] 04:43:00* Test Item Value Reference Range Comments ACTIVATED CLOTTING TIME (BEAKER) (test yuut=213) 417 sec TESTED AT [place] [address] [id number] 04:43:00* Test Item Value Reference Range Comments ACTIVATED CLOTTING TIME (BEAKER) (test waof=411) 329 sec TESTED AT [place] [address] [id number] 04:43:00* Test Item Value Reference Range Comments ACTIVATED CLOTTING TIME (BEAKER) (test pcty=706) 395 sec TESTED AT [address] [address] [id number] 04:43:00* Test Item Value Reference Range Comments ACTIVATED CLOTTING TIME (BEAKER) (test gklu=335) 439 sec TESTED AT [place] [address] [id number] 04:43:00* Test Item Value Reference Range Comments ACTIVATED CLOTTING TIME (BEAKER) (test btji=800) 373 sec TESTED AT [place] [address] [id number] 04:43:00* Test Item Value Reference Range Comments ACTIVATED CLOTTING TIME (BEAKER) (test gqun=708) 444 sec TESTED AT [place] [address] [id number] 04:43:00* Test Item Value Reference Range Comments ACTIVATED CLOTTING TIME (BEAKER) (test fwpb=485) 439 sec TESTED AT [place] [address] [id number] 04:43:00* Test Item Value Reference Range Comments ACTIVATED CLOTTING TIME (BEAKER) (test nlrs=544) 378 sec TESTED AT [place] [address] [id number] 04:43:00* Test Item Value Reference Range Comments ACTIVATED CLOTTING TIME (BEAKER) (test gnxx=865) 433 sec TESTED AT [place] [address] [id number] 04:43:00* Test Item Value Reference Range Comments ACTIVATED CLOTTING TIME (BEAKER) (test usfc=487) 373 sec TESTED AT [place] [address] [id number] 04:43:00* Test Item Value Reference Range Comments ACTIVATED CLOTTING TIME (BEAKER) (test lcnp=829) 345 sec TESTED AT [place] [address] TROPONIN [id number] 02:21:00* Test Item Value Reference Range Comments TROPONIN I (BEAKER) (test sume=224) 1.73 ng/mL 0.00-0.03 Effective 02/02/2014: Reference Range ChangeNew: 0.00-0.03 Previous 0.00- 0.15Troponin I (TnI) levels must be interpreted in the context of the presenting symptoms and the clinical findings. Elevated TnI levels indicate myocardial damage, but are not specific for ischemic heart disease. Elevated TnI levels are seen in patients with other cardiac conditions (including myocarditis and congestive heart failure), and slight TnI elevations occur in patients with other conditions, including sepsis, renal failure, acidosis, acute neurological disease, and persistent tachyarrhythmia.CREATINE KINASE (CK) , TOTAL AND [id number] 01:24:00* Test Item Value Reference Range Comments CREATINE KINASE TOTAL (BEAKER) (test sgti=972) 960 U/L 29-200 CREATINE KINASE-MB (BEAKER) (test uiut=597) 22.2 ng/mL 0.0-6.6 CREATINE KINASE-MB INDEX (BEAKER) (test cxtc=770) 2.3 % Effective 02/02/2014: CK-MB Reference Range ChangeNew: 0.0-6.6 Previous: 0.0- 4.9CK-MB Reference Range:<6.7 Normal6.7-10.0 Borderline>10.0 AbnormalBLOOD GAS, [id number] 00:58:00* Test Item Value Reference Range Comments PH ARTERIAL (BEAKER) (test mgle=775) 7.31 7.35-7.45 PCO2 ARTERIAL (BEAKER) (test ltun=009) 51 mmHg 35-45 PO2 ARTERIAL (BEAKER) (test kxan=989) 77 mmHg 80-90 O2 SATURATION ARTERIAL (BEAKER) (test iaoi=676) 92.9 % 96.0-97.0 HCO3 ARTERIAL (BEAKER) (test ilik=154) 25 mmol/L 21-29 BASE EXCESS ARTERIAL (BEAKER) (test uzha=663) -1.8 mmol/L -2.0-3.0 PATIENT TEMPERATURE (BEAKER) (test kwxi=2765) 38.2 C FIO2 (BEAKER) (test hqbg=5210) 36.0 % GLUCOSE-STAT [id number] 00:58:00* Test Item Value Reference Range Comments GLUCOSE RANDOM (BEAKER) (test jhog=367) 146 mg/dL 70-110 POTASSIUM-STAT [id number] 00:57:00* Test Item Value Reference Range Comments POTASSIUM (BEAKER) (test cgch=405) 4.2 meq/L 3.6-5.5 BLOOD GAS, [id number] 23:18:00* Test Item Value Reference Range Comments PH ARTERIAL (BEAKER) (test fwrn=717) 7.36 7.35-7.45 PCO2 ARTERIAL (BEAKER) (test pgzl=869) 42 mmHg 35-45 PO2 ARTERIAL (BEAKER) (test xdjl=597) 71 mmHg 80-90 O2 SATURATION ARTERIAL (BEAKER) (test qgfl=227) 92.8 % 96.0-97.0 HCO3 ARTERIAL (BEAKER) (test zmjw=571) 23 mmol/L 21-29 BASE EXCESS ARTERIAL (BEAKER) (test cznl=042) -2.4 mmol/L -2.0-3.0 PATIENT TEMPERATURE (BEAKER) (test vbht=6851) 37.9 C FIO2 (BEAKER) (test peeq=6750) 40.0 % TROPONIN [id number] 21:43:00* Test Item Value Reference Range Comments TROPONIN I (BEAKER) (test kuey=221) 1.62 ng/mL 0.00-0.03 Effective 02/02/2014: Reference Range ChangeNew: 0.00-0.03 Previous 0.00- 0.15Troponin I (TnI) levels must be interpreted in the context of the presenting symptoms and the clinical findings. Elevated TnI levels indicate myocardial damage, but are not specific for ischemic heart disease. Elevated TnI levels are seen in patients with other cardiac conditions (including myocarditis and congestive heart failure), and slight TnI elevations occur in patients with other conditions, including sepsis, renal failure, acidosis, acute neurological disease, and persistent tachyarrhythmia.CREATINE KINASE (CK) , TOTAL AND [id number] 21:41:00* Test Item Value Reference Range Comments CREATINE KINASE TOTAL (BEAKER) (test osoo=986) 550 U/L 29-200 CREATINE KINASE-MB (BEAKER) (test essh=772) 19.4 ng/mL 0.0-6.6 CREATINE KINASE-MB INDEX (BEAKER) (test gakd=344) 3.5 % Effective 02/02/2014: CK-MB Reference Range ChangeNew: 0.0-6.6 Previous: 0.0- 4.9CK-MB Reference Range:<6.7 Normal6.7-10.0 Borderline>10.0 AbnormalBLOOD GAS, [id number] 21:21:00* Test Item Value Reference Range Comments PH ARTERIAL (BEAKER) (test xrwd=920) 7.31 7.35-7.45 PCO2 ARTERIAL (BEAKER) (test xiwg=501) 46 mmHg 35-45 PO2 ARTERIAL (BEAKER) (test hgsu=690) 76 mmHg 80-90 O2 SATURATION ARTERIAL (BEAKER) (test gjcq=340) 93.6 % 96.0-97.0 HCO3 ARTERIAL (BEAKER) (test etpt=823) 22 mmol/L 21-29 BASE EXCESS ARTERIAL (BEAKER) (test wlvb=242) -4.0 mmol/L -2.0-3.0 PATIENT TEMPERATURE (BEAKER) (test rido=8813) 37.3 C FIO2 (BEAKER) (test qlsd=0307) 40.0 % GLUCOSE-STAT [id number] 21:21:00* Test Item Value Reference Range Comments GLUCOSE RANDOM (BEAKER) (test lhqe=954) 165 mg/dL 70-110 SODIUM NA-STAT [id number] 21:20:00* Test Item Value Reference Range Comments SODIUM (BEAKER) (test dwpt=056) 137 meq/L 135-148 POTASSIUM-STAT [id number] 21:20:00* Test Item Value Reference Range Comments POTASSIUM (BEAKER) (test wonf=410) 4.7 meq/L 3.6-5.5 HGB/HCT (H&H) - STAT [id number] 21:20:00* Test Item Value Reference Range Comments HEMOGLOBIN (BEAKER) (test fofn=834) 15.9 g/dL 13.0-16.8 HEMATOCRIT (BEAKER) (test skrn=822) 47.0 % 40.0-50.0 THROMBOELASTOGRAPH (TEG)2016-10-19 19:48:00* Test Item Value Reference Range Comments TEG ACTIVATED CLOTTING TIME (BEAKER) (test kxer=7751) 5.4 minutes 4.0-7.0 TEG FIBRINOGEN ACTIVITY (BEAKER) (test xwxd=8933) 49.1 degrees 61.0-73.0 [address]T. AGGREGATION (BEAKER) (test hmyd=0622) 45.2 MM 55.0-65.0 TEG FIBRINOLYSIS (BEAKER) (test fcqg=2379) 0.0 % 0.0-5.0 TGH ACTIVATED CLOTTING TIME (BEAKER) (test ulkx=6051) 5.6 minutes 4.0-7.0 TGH FIBRINOGEN ACTIVITY (BEAKER) (test cjud=2763) 48.6 degrees 61.0-73.0 TGH PLT. AGGREGATION (BEAKER) (test npqm=7376) 44.8 MM 55.0-65.0 TGH FIBRINOLYSIS (BEAKER) (test rebp=8390) 0.0 % 0.0-5.0 BLOOD GAS, [id number] 19:14:00* Test Item Value Reference Range Comments PH ARTERIAL (BEAKER) (test jism=816) 7.33 7.35-7.45 PCO2 ARTERIAL (BEAKER) (test ftau=293) 42 mmHg 35-45 PO2 ARTERIAL (BEAKER) (test xrbd=601) 102 mmHg 80-90 O2 SATURATION ARTERIAL (BEAKER) (test gnum=346) 97.4 % 96.0-97.0 HCO3 ARTERIAL (BEAKER) (test etkv=277) 22 mmol/L 21-29 BASE EXCESS ARTERIAL (BEAKER) (test javo=566) -4.1 mmol/L -2.0-3.0 PATIENT TEMPERATURE (BEAKER) (test fpsv=2828) 36.6 C FIO2 (BEAKER) (test ajxs=1440) 60.0 % CBC W/PLT COUNT & AUTO [id number] 19:00:00* Test Item Value Reference Range Comments WHITE BLOOD CELL COUNT (BEAKER) (test byvy=240) 22.7 K/ L 3.5-10.5 RED BLOOD CELL COUNT (BEAKER) (test mmir=494) 5.07 M/ L 4.63-6.08 HEMOGLOBIN (BEAKER) (test xtxj=964) 14.3 GM/DL 13.7-17.5 HEMATOCRIT (BEAKER) (test emrn=511) 43.9 % 40.1-51.0 MEAN CORPUSCULAR VOLUME (BEAKER) (test rnbl=005) 86.6 fL 79.0-92.2 MEAN CORPUSCULAR HEMOGLOBIN (BEAKER) (test ethe=412) 28.2 pg 25.7-32.2 MEAN CORPUSCULAR HEMOGLOBIN CONC (BEAKER) (test bkas=167) 32.6 GM/DL 32.3- 36.5 RED CELL DISTRIBUTION WIDTH (BEAKER) (test nbdt=549) 14.6 % 11.6-14.4 PLATELET COUNT (BEAKER) (test eszi=532) 75 K/CU MM 150-450 MEAN PLATELET VOLUME (BEAKER) (test lfnr=365) 10.9 fL 9.4-12.4 NUCLEATED RED BLOOD CELLS (BEAKER) (test sxxm=682) 0 /100 WBC 0-0 NEUTROPHILS RELATIVE PERCENT (BEAKER) (test ddok=658) 86 % LYMPHOCYTES RELATIVE PERCENT (BEAKER) (test qboo=162) 5 % MONOCYTES RELATIVE PERCENT (BEAKER) (test nscu=904) 7 % EOSINOPHILS RELATIVE PERCENT (BEAKER) (test fuau=336) 0 % BASOPHILS RELATIVE PERCENT (BEAKER) (test ufdj=667) 0 % NEUTROPHILS ABSOLUTE COUNT (BEAKER) (test muyl=734) 19.56 K/ L 1.78-5.38 LYMPHOCYTES ABSOLUTE COUNT (BEAKER) (test ouvp=520) 1.23 K/ L 1.32-3.57 MONOCYTES ABSOLUTE COUNT (BEAKER) (test crtd=774) 1.66 K/ L 0.30-0.82 EOSINOPHILS ABSOLUTE COUNT (BEAKER) (test rhzi=575) 0.02 K/ L 0.04-0.54 BASOPHILS ABSOLUTE COUNT (BEAKER) (test ayfa=622) 0.07 K/ L 0.01-0.08 IMMATURE GRANULOCYTES-RELATIVE PERCENT (BEAKER) (test ytaf=2018) 1 % 0-1 BASIC METABOLIC [id number] 18:54:00* Test Item Value Reference Range Comments SODIUM (BEAKER) (test lsbs=628) 141 meq/L 136-145 POTASSIUM (BEAKER) (test rvsj=842) 5.2 meq/L 3.5-5.1 Specimen moderately hemolyzed CHLORIDE (BEAKER) (test yqne=932) 112 meq/L 98-107 CO2 (BEAKER) (test yphg=259) 20 meq/L 22-29 BLOOD UREA NITROGEN (BEAKER) (test bvxk=277) 8 mg/dL 7-21 CREATININE (BEAKER) (test xmtp=379) 0.71 mg/dL 0.57-1.25 Specimen moderately hemolyzed GLUCOSE RANDOM (BEAKER) (test clmy=745) 153 mg/dL 70-105 CALCIUM (BEAKER) (test pjpb=855) 9.2 mg/dL 8.4-10.2 EGFR (BEAKER) (test xyyi=2044) 111 mL/min/1.73 sq m ESTIMATED GFR IS NOT ACCURATE CREATININE CLEARANCE IN PREDICTING GLOMERULAR FILTRATION RATE. ESTIMATED GFR IS NOT APPLICABLE FOR DIALYSIS PATIENTS. [id number] 18:53:00* Test Item Value Reference Range Comments FIBRINOGEN LEVEL (BEAKER) (test wonf=030) 122 mg/dl 225-434 LACTIC ACID, ARTERIAL, WHOLE [id number] 18:46:00* Test Item Value Reference Range Comments LACTATE BLOOD ARTERIAL (2) (BEAKER) (test mylo=9240) 2.3 mmol/L 0.5-2.2 Specimen slightly hemolyzed Effective 07/20/2015: Units/Reference Range ChangeNew: 0.5-2.2 mmol/L Previous: 5 -20 mg/dLPROTHROMBIN [id number] 18:44:00* Test Item Value Reference Range Comments PROTIME (BEAKER) (test ffhn=109) 20.5 seconds 11.7-14.7 INR (BEAKER) (test zjlj=014) 1.8 <=5.9 RECOMMENDED COUMADIN/WARFARIN INR THERAPY RANGESSTANDARD DOSE: 2.0 - 3.0 Includes: PROPHYLAXIS for venous thrombosis, systemic embolization; TREATMENT for venous thrombosis and/or pulmonary embolus.HIGH RISK: Target INR is 2.5-3.5 for patients with mechanical heart valves.[id number] 18:44:00* Test Item Value Reference Range Comments PARTIAL THROMBOPLASTIN TIME (BEAKER) (test fqrx=819) 38.3 seconds 22.5-36.0 CALCIUM, [id number] 18:26:00* Test Item Value Reference Range Comments CALCIUM IONIZED (BEAKER) (test rfxp=474) 1.31 mmol/L 1.12-1.27 PH, BLOOD (BEAKER) (test hyyo=3057) 7.26 BLOOD GAS, [id number] 18:25:00* Test Item Value Reference Range Comments PH ARTERIAL (BEAKER) (test mbrk=088) 7.26 7.35-7.45 PCO2 ARTERIAL (BEAKER) (test hnon=163) 58 mmHg 35-45 PO2 ARTERIAL (BEAKER) (test cihg=062) 89 mmHg 80-90 O2 SATURATION ARTERIAL (BEAKER) (test flbe=089) 95.7 % 96.0-97.0 HCO3 ARTERIAL (BEAKER) (test rdsu=403) 26 mmol/L 21-29 BASE EXCESS ARTERIAL (BEAKER) (test ghcw=012) -3.0 mmol/L -2.0-3.0 PATIENT TEMPERATURE (BEAKER) (test xeqw=2148) 36.2 C FIO2 (BEAKER) (test zfjc=0929) 60.0 % GLUCOSE-STAT [id number] 18:25:00* Test Item Value Reference Range Comments GLUCOSE RANDOM (BEAKER) (test tlwv=809) 154 mg/dL 70-110 HGB/HCT (H&H) - STAT [id number] 18:25:00* Test Item Value Reference Range Comments HEMOGLOBIN (BEAKER) (test rmoa=778) 15.3 g/dL 13.0-16.8 HEMATOCRIT (BEAKER) (test phkq=699) 45.0 % 40.0-50.0 OXYGEN SATURATION, [id number] 18:24:00* Test Item Value Reference Range Comments O2 SATURATION (MEASURED) (BEAKER) (test adpr=3601) 71.3 % SODIUM NA-STAT [id number] 18:24:00* Test Item Value Reference Range Comments SODIUM (BEAKER) (test beqw=925) 137 meq/L 135-148 POTASSIUM-STAT [id number] 18:24:00* Test Item Value Reference Range Comments POTASSIUM (BEAKER) (test cljx=586) 4.6 meq/L 3.6-5.5 BLOOD GAS, [id number] 16:08:00* Test Item Value Reference Range Comments PH ARTERIAL (BEAKER) (test fjsv=823) 7.32 7.35-7.45 PCO2 ARTERIAL (BEAKER) (test hhjs=699) 48 mmHg 35-45 PO2 ARTERIAL (BEAKER) (test xhai=250) 110 mmHg 80-90 O2 SATURATION ARTERIAL (BEAKER) (test vkmg=760) 98.0 % 96.0-97.0 HCO3 ARTERIAL (BEAKER) (test mxuy=218) 25 mmol/L 21-29 BASE EXCESS ARTERIAL (BEAKER) (test kahb=946) -1.8 mmol/L -2.0-3.0 PATIENT TEMPERATURE (BEAKER) (test lkxe=8512) 35.2 C FIO2 (BEAKER) (test zwal=7744) 97.0 % GLUCOSE-STAT [id number] 16:08:00* Test Item Value Reference Range Comments GLUCOSE RANDOM (BEAKER) (test vfpe=439) 186 mg/dL 70-110 HGB/HCT (H&H) - STAT [id number] 16:08:00* Test Item Value Reference Range Comments HEMOGLOBIN (BEAKER) (test wkvv=446) 9.8 g/dL 13.0-16.8 HEMATOCRIT (BEAKER) (test vvtj=174) 29.0 % 40.0-50.0 CALCIUM, [id number] 16:08:00* Test Item Value Reference Range Comments CALCIUM IONIZED (BEAKER) (test uenz=058) 1.72 mmol/L 1.12-1.27 PH, BLOOD (BEAKER) (test zhuc=6623) 7.30 SODIUM NA-STAT [id number] 16:07:00* Test Item Value Reference Range Comments SODIUM (BEAKER) (test exfp=091) 137 meq/L 135-148 POTASSIUM-STAT [id number] 16:07:00* Test Item Value Reference Range Comments POTASSIUM (BEAKER) (test xpvn=516) 4.1 meq/L 3.6-5.5 BLOOD GAS, [id number] 15:16:00* Test Item Value Reference Range Comments PH VENOUS (BEAKER) (test kmav=620) 6.98 7.32-7.42 PCO2 VENOUS (BEAKER) (test gpts=621) 79 mmHg 41-51 PO2 VENOUS (BEAKER) (test jkkx=060) 37 mmHg 25-40 O2 SATURATION VENOUS (BEAKER) (test nqzb=072) 50.7 % 40.0-70.0 HCO3 VENOUS (BEAKER) (test cdmd=591) 19 mmol/L 21-29 BASE EXCESS VENOUS (BEAKER) (test sfls=885) -14.8 mmol/L -2.0-3.0 PATIENT TEMPERATURE (BEAKER) (test hmum=4065) 35.1 C FIO2 (BEAKER) (test oepb=1313) 97.0 % HGB/HCT (H&H) - STAT [id number] 14:51:00* Test Item Value Reference Range Comments HEMOGLOBIN (BEAKER) (test fofg=262) 8.1 g/dL 13.0-16.8 HEMATOCRIT (BEAKER) (test oggv=053) 24.0 % 40.0-50.0 BLOOD GAS, [id number] 14:42:00* Test Item Value Reference Range Comments PH VENOUS (BEAKER) (test wmoj=673) 7.02 7.32-7.42 PCO2 VENOUS (BEAKER) (test wpvl=548) 37 mmHg 41-51 PO2 VENOUS (BEAKER) (test xpjy=907) 104 mmHg 25-40 O2 SATURATION VENOUS (BEAKER) (test snkr=788) 95.6 % 40.0-70.0 HCO3 VENOUS (BEAKER) (test encc=140) 10 mmol/L 21-29 BASE EXCESS VENOUS (BEAKER) (test ridb=866) -20.9 mmol/L -2.0-3.0 PATIENT TEMPERATURE (BEAKER) (test byxe=3116) 35.1 C FIO2 (BEAKER) (test kztn=6431) 100.0 % CALCIUM, [id number] 14:42:00* Test Item Value Reference Range Comments CALCIUM IONIZED (BEAKER) (test bats=660) 0.63 mmol/L 1.12-1.27 PH, BLOOD (BEAKER) (test rdkv=2053) 6.99 BLOOD GAS, [id number] 14:16:00* Test Item Value Reference Range Comments PH ARTERIAL (BEAKER) (test wgyj=250) 7.29 7.35-7.45 PCO2 ARTERIAL (BEAKER) (test wvzp=846) 49 mmHg 35-45 PO2 ARTERIAL (BEAKER) (test peud=897) 179 mmHg 80-90 O2 SATURATION ARTERIAL (BEAKER) (test plxk=588) 99.1 % 96.0-97.0 HCO3 ARTERIAL (BEAKER) (test tuea=353) 24 mmol/L 21-29 BASE EXCESS ARTERIAL (BEAKER) (test obfd=351) -3.5 mmol/L -2.0-3.0 PATIENT TEMPERATURE (BEAKER) (test xaea=8699) 35.1 C FIO2 (BEAKER) (test unoj=3112) 97.0 % SODIUM NA-STAT [id number] 14:16:00* Test Item Value Reference Range Comments SODIUM (BEAKER) (test pgte=660) 136 meq/L 135-148 POTASSIUM-STAT [id number] 14:16:00* Test Item Value Reference Range Comments POTASSIUM (BEAKER) (test llad=566) 4.2 meq/L 3.6-5.5 GLUCOSE-STAT [id number] 14:16:00* Test Item Value Reference Range Comments GLUCOSE RANDOM (BEAKER) (test qqgi=927) 191 mg/dL 70-110 HGB/HCT (H&H) - STAT [id number] 14:16:00* Test Item Value Reference Range Comments HEMOGLOBIN (BEAKER) (test knam=242) 8.1 g/dL 13.0-16.8 HEMATOCRIT (BEAKER) (test xfpf=469) 24.0 % 40.0-50.0 CALCIUM, [id number] 14:16:00* Test Item Value Reference Range Comments CALCIUM IONIZED (BEAKER) (test kukg=692) 1.06 mmol/L 1.12-1.27 PH, BLOOD (BEAKER) (test syqw=4802) 7.26 POTASSIUM-STAT [id number] 13:55:00* Test Item Value Reference Range Comments POTASSIUM (BEAKER) (test vcyc=536) 2.1 meq/L 3.6-5.5 CALCIUM, [id number] 13:54:00* Test Item Value Reference Range Comments CALCIUM IONIZED (BEAKER) (test kuqo=510) 0.49 mmol/L 1.12-1.27 PH, BLOOD (BEAKER) (test ffpt=4765) 7.25 HGB/HCT (H&H) - STAT [id number] 13:54:00* Test Item Value Reference Range Comments HEMOGLOBIN (BEAKER) (test ayce=751) 5.5 g/dL 13.0-16.8 HEMATOCRIT (BEAKER) (test gsrv=109) 16.0 % 40.0-50.0 BLOOD GAS, [id number] 13:53:00* Test Item Value Reference Range Comments PH ARTERIAL (BEAKER) (test umkq=648) 7.28 7.35-7.45 PCO2 ARTERIAL (BEAKER) (test slqi=424) 31 mmHg 35-45 PO2 ARTERIAL (BEAKER) (test fdrf=371) 195 mmHg 80-90 O2 SATURATION ARTERIAL (BEAKER) (test qdrh=255) 99.2 % 96.0-97.0 HCO3 ARTERIAL (BEAKER) (test kqvx=500) 15 mmol/L 21-29 BASE EXCESS ARTERIAL (BEAKER) (test mqdx=839) -11.5 mmol/L -2.0-3.0 PATIENT TEMPERATURE (BEAKER) (test dfuh=7224) 35.1 C FIO2 (BEAKER) (test hqsr=3175) 97.0 % SODIUM NA-STAT [id number] 13:53:00* Test Item Value Reference Range Comments SODIUM (BEAKER) (test kazf=326) 149 meq/L 135-148 GLUCOSE-STAT [id number] 13:53:00* Test Item Value Reference Range Comments GLUCOSE RANDOM (BEAKER) (test zcbk=368) 122 mg/dL 70-110 BLOOD GAS, [id number] 12:21:00* Test Item Value Reference Range Comments PH ARTERIAL (BEAKER) (test rwid=719) 7.37 7.35-7.45 PCO2 ARTERIAL (BEAKER) (test bnda=398) 47 mmHg 35-45 PO2 ARTERIAL (BEAKER) (test dqkl=068) 133 mmHg 80-90 O2 SATURATION ARTERIAL (BEAKER) (test lwwe=249) 98.7 % 96.0-97.0 HCO3 ARTERIAL (BEAKER) (test uhjc=174) 27 mmol/L 21-29 BASE EXCESS ARTERIAL (BEAKER) (test gqux=628) 0.8 mmol/L -2.0-3.0 PATIENT TEMPERATURE (BEAKER) (test qzdx=5851) 35.3 C FIO2 (BEAKER) (test hjlg=3974) 100.0 % SODIUM NA-STAT [id number] 12:21:00* Test Item Value Reference Range Comments SODIUM (BEAKER) (test xxvx=354) 137 meq/L 135-148 GLUCOSE-STAT [id number] 12:21:00* Test Item Value Reference Range Comments GLUCOSE RANDOM (BEAKER) (test mvkg=847) 152 mg/dL 70-110 HGB/HCT (H&H) - STAT [id number] 12:21:00* Test Item Value Reference Range Comments HEMOGLOBIN (BEAKER) (test axae=693) 9.2 g/dL 13.0-16.8 HEMATOCRIT (BEAKER) (test zrke=563) 27.0 % 40.0-50.0 CALCIUM, [id number] 12:21:00* Test Item Value Reference Range Comments CALCIUM IONIZED (BEAKER) (test itiz=778) 1.05 mmol/L 1.12-1.27 PH, BLOOD (BEAKER) (test hjxt=4420) 7.34 POTASSIUM-STAT [id number] 12:20:00* Test Item Value Reference Range Comments POTASSIUM (BEAKER) (test fuhl=896) 3.7 meq/L 3.6-5.5 BLOOD GAS, [id number] 12:04:00* Test Item Value Reference Range Comments PH ARTERIAL (BEAKER) (test clxy=770) 7.32 7.35-7.45 PCO2 ARTERIAL (BEAKER) (test fowr=977) 37 mmHg 35-45 PO2 ARTERIAL (BEAKER) (test pisv=735) 150 mmHg 80-90 O2 SATURATION ARTERIAL (BEAKER) (test nybg=781) 98.9 % 96.0-97.0 HCO3 ARTERIAL (BEAKER) (test unnd=908) 19 mmol/L 21-29 BASE EXCESS ARTERIAL (BEAKER) (test hoaz=659) -6.7 mmol/L -2.0-3.0 PATIENT TEMPERATURE (BEAKER) (test ojwm=8332) 35.4 C FIO2 (BEAKER) (test ptjt=6451) 100.0 % SODIUM NA-STAT [id number] 12:04:00* Test Item Value Reference Range Comments SODIUM (BEAKER) (test nzag=328) 146 meq/L 135-148 HGB/HCT (H&H) - STAT [id number] 12:04:00* Test Item Value Reference Range Comments HEMOGLOBIN (BEAKER) (test ofhn=533) 7.2 g/dL 13.0-16.8 HEMATOCRIT (BEAKER) (test yomx=207) 21.0 % 40.0-50.0 POTASSIUM-STAT [id number] 12:04:00* Test Item Value Reference Range Comments POTASSIUM (BEAKER) (test qklr=527) 2.4 meq/L 3.6-5.5 GLUCOSE-STAT [id number] 12:02:00* Test Item Value Reference Range Comments GLUCOSE RANDOM (BEAKER) (test nydj=745) 108 mg/dL 70-110 GLUCOSE-STAT [id number] 10:49:00* Test Item Value Reference Range Comments GLUCOSE RANDOM (BEAKER) (test dkdj=800) 102 mg/dL 70-110 SODIUM NA-STAT [id number] 10:49:00* Test Item Value Reference Range Comments SODIUM (BEAKER) (test olqy=361) 136 meq/L 135-148 POTASSIUM-STAT [id number] 10:49:00* Test Item Value Reference Range Comments POTASSIUM (BEAKER) (test vlbe=950) 3.8 meq/L 3.6-5.5 BLOOD GAS, [id number] 10:49:00* Test Item Value Reference Range Comments PH ARTERIAL (BEAKER) (test lulx=743) 7.42 7.35-7.45 PCO2 ARTERIAL (BEAKER) (test ruzb=790) 46 mmHg 35-45 PO2 ARTERIAL (BEAKER) (test ukol=141) 213 mmHg 80-90 O2 SATURATION ARTERIAL (BEAKER) (test myky=735) 99.4 % 96.0-97.0 HCO3 ARTERIAL (BEAKER) (test hpkg=687) 29 mmol/L 21-29 BASE EXCESS ARTERIAL (BEAKER) (test omes=491) 3.7 mmol/L -2.0-3.0 PATIENT TEMPERATURE (BEAKER) (test bmua=8590) 36.0 C FIO2 (BEAKER) (test gfla=2533) 97.0 % HGB/HCT (H&H) - STAT [id number] 10:49:00* Test Item Value Reference Range Comments HEMOGLOBIN (BEAKER) (test ohks=598) 10.7 g/dL 13.0-16.8 HEMATOCRIT (BEAKER) (test mlug=779) 31.0 % 40.0-50.0 [id number] 10:46:00* Test Item Value Reference Range Comments SODIUM (BEAKER) (test sdet=458) 137 meq/L 136-145 POTASSIUM (BEAKER) (test fuhv=586) 4.3 meq/L 3.5-5.1 CHLORIDE (BEAKER) (test vlhj=116) 101 meq/L 98-107 CO2 (BEAKER) (test kuid=738) 31 meq/L 22-29 BUN AND [id number] 10:46:00* Test Item Value Reference Range Comments BLOOD UREA NITROGEN (BEAKER) (test wglf=271) 9 mg/dL 7-21 CREATININE (BEAKER) (test cyiy=854) 0.91 mg/dL 0.57-1.25 EGFR (BEAKER) (test nisr=2672) 83 mL/min/1.73 sq m ESTIMATED GFR IS NOT ACCURATE CREATININE CLEARANCE IN PREDICTING GLOMERULAR FILTRATION RATE. ESTIMATED GFR IS NOT APPLICABLE FOR DIALYSIS PATIENTS. [id number] 10:38:00* Test Item Value Reference Range Comments HEMOGLOBIN (BEAKER) (test lkel=230) 11.4 GM/DL 13.7-17.5 PLATELET [id number] 10:38:00* Test Item Value Reference Range Comments PLATELET COUNT (BEAKER) (test mkho=906) 194 K/CU MM 150-450 BASIC METABOLIC [id number] 17:02:00* Test Item Value Reference Range Comments SODIUM (BEAKER) (test phjn=229) 139 meq/L 136-145 POTASSIUM (BEAKER) (test xpck=926) 4.6 meq/L 3.5-5.1 CHLORIDE (BEAKER) (test foxp=638) 103 meq/L 98-107 CO2 (BEAKER) (test qlev=078) 30 meq/L 22-29 BLOOD UREA NITROGEN (BEAKER) (test vppp=030) 10 mg/dL 7-21 CREATININE (BEAKER) (test lxoe=703) 0.94 mg/dL 0.57-1.25 GLUCOSE RANDOM (BEAKER) (test vrbd=360) 113 mg/dL 70-105 CALCIUM (BEAKER) (test pvvv=998) 9.2 mg/dL 8.4-10.2 EGFR (BEAKER) (test cgdg=5511) 80 mL/min/1.73 sq m ESTIMATED GFR IS NOT ACCURATE CREATININE CLEARANCE IN PREDICTING GLOMERULAR FILTRATION RATE. ESTIMATED GFR IS NOT APPLICABLE FOR DIALYSIS PATIENTS. [id number] 16:53:00* Test Item Value Reference Range Comments HEMOGLOBIN (BEAKER) (test mqtw=107) 12.0 GM/DL 13.0-16.8 PLATELET [id number] 16:53:00* Test Item Value Reference Range Comments PLATELET COUNT (BEAKER) (test ypeh=768) 209 K/CU MM 150-430 CHEST SINGLE (PORTABLE) [facility] [address] [place] [address] Patient Name: JOSE BARRIOS MR #: [id number] : 1950 Age/Sex: 67/M Req #: [id number] Adm Physician: Ordered by: RICHY ESQUIVEL MD Report #: [id number] Location: ER Room/Bed: Procedure: [id number] DX/CHEST SINGLE (PORTABLE) Exam Date: 06/10/17 Exam Time: 0615 REPORT STATUS: Signed EXAM: XR CHEST 1 VIEW DATE: 2017 5:57 AM INDICATION: Shortness of breath COMPARISON: None FINDINGS: Lines and Tubes: None Heart and Mediastinum: Poorly evaluated due to low lung volumes. Sternotomy wires. Lungs and Pleura: Significant elevation the right hemidiaphragm. Extensive bilateral airspace opacities. Bones and Soft Tissues: No acute findings. IMPRESSION: 1. Extensive bilateral airspace opacities could represent edema and/or pneumonia. Underlying malignancy not excluded. Close follow-up recommended. Signed by: Dr. Jonatan Lees MD on 06/10/2017 6:31 AM Dictated By: JONATAN LEES MD 0 Transcribed By: JOANNA on 06/10/17630 COPY TO: RICHY ESQUIVEL MD
[2017-06-10] MEDS ORDERED: ROCURONIUM BROMIDE 10 MG/ML 5ML VIAL IV ONE (08:00)
[2017-06-10] MEDS ORDERED: MIDAZOLAM HCL 25 MG in SODIUM CHLORIDE 0.9% 45 ML IV STA (08:08)
[2017-06-10] MEDS ORDERED: ROCURONIUM BROMIDE 1 ML ONE (08:11)
[2017-06-10] MEDS ORDERED: MIDAZOLAM HCL 25 MG in SODIUM CHLORIDE 0.9% 50ML 45 ML IV PRN (08:30)
[2017-06-10] MEDS ORDERED: NOREPINEPHRINE INJ 4MG/4ML 8 MG in DEXTROSE 5% 250ML 250 ML IV PRN (09:15)
[2017-06-10] MEDS ORDERED: SODIUM CHLORIDE 0.9% 1000ML 1,000 ML IV ONE ×2 (09:15)
[2017-06-10] MEDS ORDERED: NOREPINEPHRINE 8 MG/D5W 250 ML 250 ML IV PRN (09:30)
[2017-06-10 10:09] LABS: ABG HCO3 24 mmol/L (23-28); ABG PCO2 42 mmHg (41-51); ABG PH 7.36 (7.31-7.41); ABG PO2 91 mmHg (80-105)
[2017-06-10] MEDS: LEVALBUTEROL HCL SOLN NEBU 0.63 MG/3 ML NEB INH SCH ×4 (11:00→23:30)
[2017-06-10] MEDS: IPRATROPIUM BROMIDE 0.02% 2.5 ML NEB NEB SCH ×4 (11:00→23:30)
--- NOTE | 2017-06-10 12:41 | Consultation ---
DATE OF CONSULTATION: June 10, 2017 PULMONARY MEDICINE/CRITICAL CARE MEDICINE CONSULT REFERRING PHYSICIAN: Dr. Martins. REASON FOR REFERRAL: Respiratory failure. HISTORY: Mr. Luna is a pleasant 67-year-old gentleman well known to me from clinical care with acute respiratory failure. Patient was in recent usual state of health. Patient normally ambulates inside the house but takes wheelchair outside of the house to mobilize. Patient on home oxygen with combined COPD and some restrictive lung disease with hemidiaphragm elevation. Patient with known cancer and was under a recent study where it was unblinded that he is currently on dexamethasone steroid starting at 4 mg b.i.d. and he was just going to cut down to 2 mg b.i.d. as part of the study regarding dexamethasone effect in dyspnea in patients with cancer and COPD. Patient was at home on Saturday when he started to feel worse. He was having a lot of nasal congestion. Some shortness of breath that he got better from. On Saturday he went to sleep not feeling so well but without significant escalated condition. However, in the middle of the night his woke up at 3:30 a.m. and found him half-way out of the bed and unarousable. Oxygen saturation 76% on his home oxygen at 6 liters per minute. He was given nonrebreather and a BiPAP trial in the emergency room. However, patient was eventually intubated due to failure of BiPAP. Patient with well-known left upper lobe lung cancer with hilar and mediastinal lymph node spread that prevented full resective surgery. Station 4L has been known to be positive when he underwent exploratory mediastinoscopy. However, he had a CAT scan on May 14, 2016, showing decreased AP node lymph node which has resolved and decreased size of the left upper lobe cancerous lesion. PAST MEDICAL HISTORY: Hypertension, heart disease status post CABG, pneumonia, emphysema, lung cancer, hypothyroid, BPH, early Alzheimer's. MEDICATIONS: Medication list reviewed per electronic record. ALLERGIES: PENICILLIN NOTED. SOCIAL HISTORY: Patient formerly smoked but quit. No alcohol, no drugs. Lives with his . FAMILY HISTORY: Noncontributory to this. REVIEW OF SYSTEMS: Cannot get reliably as he is not talking. PHYSICAL EXAMINATION VITAL SIGNS: Noted, unstable per record. He has now been escalated to pressors. Intubated with IV fluid boluses going in. GENERALLY: Pale, in bed but well sedated. LUNGS: Bilateral air entry is decreased. A few rhonchi. CARDIOVASCULAR: S1 and S2. No murmurs, rubs or gallops. ABDOMINAL: Soft, obese. EXTREMITIES: There is 1+ edema. INTEGUMENT: No rash, no purpura. LABS: Potassium 5.0, BUN 48, creatinine 1.1. White count 4.8, hematocrit 38. Albumin 2.3. BNP 272. IMPRESSION AND PLAN 1. Acute respiratory failure. 2. Pneumonitis, left lung marked. Either opportunistic pneumonia versus aspiration due to obtundation. 3. Recently on steroids, immunosuppressed. 4. Chronic obstructive pulmonary disease. 5. Restrictive lung disease, hemidiaphragm elevation. 6. Lung cancer, mediastinal lymph node positive status post radiation therapy. 7. Coronary artery disease status post coronary artery bypass graft. 8. Borderline low urine output, acute kidney injury risk. 9. Shock. 10. Encephalopathy, under evaluation. Continue stabilization of blood pressure. Will do serial neurologic exams. Eventually he needs to go for a CAT scan of chest and the head. Patient has 7.5 ET tube at this time, and we will consider bronchoscopy to ensure there is no obstruction of the airways intrinsically. Given he has had recent improvement in the lung cancer and he is on recent steroids, it is more likely that he has infection rather than progression of cancer causing this. Will follow along closely. I discussed at length with the family. Reviewed outside records. Thank you very much, Dr. Martins, for allowing me the chance to participate in the care of Mr. Luna. Do not hesitate to contact me if I could help in any way. Greater than 30 minutes of direct care today, multiple evaluations and coordination. Job#: [id number] EV
--- NOTE | 2017-06-10 13:48 | Diagnostic Imaging Report ---
PROCEDURE: CHEST XRAY LINE PLACEMENT COMPARISON: 06/10/2017 at 0835 hours INDICATIONS: STATUS POST CENTRAL LINE PLACEMENT FINDINGS: See conclusion CONCLUSION: Interval placement of a right internal jugular central venous catheter, with the tip projecting over the superior cavoatrial junction. No pneumothorax. Endotracheal and enteric tube are unchanged in position. No interval change in bilateral consolidative opacities relative to 06/10/2017 at 0835 hours. Dictated by: Kole Barrett M.D. on 06/10/2017 at 13:48 Electronically approved by: Kole Barrett M.D. on 06/10/2017 at 13:48
--- NOTE | 2017-06-10 14:43 | Diagnostic Imaging Report ---
PROCEDURE:ULTRASOUND GUIDANCE FOR VASCULAR ACCESS COMPARISON:None. INDICATIONS:CENTRAL LINE PLACEMENT FINDINGS:Right internal jugular vein is noted to be patent. Ultrasound guidance was utilized for access for central line placement. CONCLUSION:Patent right internal jugular vein. Successful ultrasound guidance for central line placement. Dictated by: Kole Barrett M.D. on 06/10/2017 at 14:43 Electronically approved by: Kole Barrett M.D. on 06/10/2017 at 14:43
--- NOTE | 2017-06-10 14:43 | Diagnostic Imaging Report ---
PROCEDURE:NON-TUNNELLED CVC CATH PLACMNT COMPARISON:None. INDICATIONS: Poor intravenous access, lung cancer, pneumonia. COMPLICATIONS: No immediate Blood products administered: None Specimens: None Implants/grafts: 7 Korean 16 cm triple lumen central venous catheter MEDICATIONS: Lidocaine 1% for local anesthesia BLOOD LOSS: Minimal Condition on completion of procedure: Stable Disposition: Remain in ICU PROCEDURE: Informed consent was obtained from the patient's next of kin and documented in the medical record after discussion of risks and benefits. Preliminary sonographic evaluation confirmed patency of the right internal jugular vein, evidenced by compressibility. The right cervical region was then prepped and draped in the standard sterile fashion. 1% lidocaine was infiltrated into the skin and subcutaneous tissues for local anesthesia. Then under continuous sonographic guidance, an 18 gauge single wall needle was used to access the right internal jugular vein. A permanent sonographic image was stored in the medical record. A 0.035 inch J-wire was advanced centrally to a depth of 25 cm with continuous cardiac rhythm monitoring. The needle was removed and the tract was dilated. Then, a 7 Korean, 16 cm triple-lumen central venous catheter was advanced over the wire to full depth. The wire was removed. Each lumen showed adequate bidirectional flow and was flushed with sterile saline. The catheter was secured to skin with monofilament nylon suture and a sterile dressing was applied. The patient tolerated the procedure well without immediate complication. Findings: Patent right internal jugular vein. CONCLUSION: Successful placement of a 7 Korean, 16 cm triple lumen central venous catheter via a right internal jugular approach under sonographic guidance. A portable chest radiograph was requested upon completion of the procedure to document line positioning prior to use. Dictated by: Kole Barrett M.D. on 06/10/2017 at 14:42 Electronically approved by: Kole Barrett M.D. on 06/10/2017 at 14:42
[2017-06-10] MEDS ORDERED: SUCCINYLCHOLINE CHLORIDE 20 MG/ML 10ML VIAL ONE (15:07)
[2017-06-10] MEDS ORDERED: ETOMIDATE 40 MG/ 20ML VIAL IV ONE (15:07)
[2017-06-10] MEDS: MIDAZOLAM HCL 25 MG in SODIUM CHLORIDE 0.9% 45 ML IV PRN ×3 (16:23→23:58)
[2017-06-10] MEDS: ENOXAPARIN SOD INJ 40 MG/0.4 ML SYR SC SCH (18:00)
[2017-06-10] MEDS: PIPER-TAZ 3.375 GM 50 ML IV SCH ×2 (18:00→23:56)
[2017-06-10] MEDS ORDERED: SODIUM CHLORIDE 0.9% 1000ML 300 ML IV ONE (18:15)
[2017-06-10] MEDS ORDERED: DEXTROSE 50% SYRINGE 50 ML IV PRN (18:15)
[2017-06-10 19:16] LABS: CREATINE KINASE MB 0.8 ng/mL (0-5.0)
--- NOTE | 2017-06-10 21:35 | Diagnostic Imaging Report ---
ABDOMEN-1VIEW (KUB) Clinical history: Obstruction, blockage, verify NG tube Technique: AP view abdomen Comparison: None Findings: Limited by motion artifact, portable technique and body habitus. Right hemiabdomen/diaphragm is excluded from view. NG/OG tube terminates over the left upper quadrant. Neurostimulator device and leads are noted. No dilated loops of bowel. Impression: 1. NG/OG tube terminates over the expected stomach. 2. Limited study. Grossly nonobstructive bowel gas pattern. Signed by: Dr Jamila Rivera MD on 06/10/2017 9:32 PM
[2017-06-10] MEDS: SODIUM CHLORIDE 0.45% 1,000 ML IV SCH (21:41)
[2017-06-10] MEDS: MORPHINE SULFATE 2 MG/ML SYR IV PRN (22:30)
--- NOTE | 2017-06-10 23:03 | Diagnostic Imaging Report ---
History:Dementia Comparison studies:Head CT on 05/19/2014 Technique: Axial images were obtained from the skull base to the vertex. Coronal and sagittal images reconstructed from the axial data. Intravenous contrast: None Findings: Scalp/skull: No abnormalities. Extra-axial spaces: No masses. No fluid collections. Brain sulci: Mildly prominent. Ventricles: Mild compensatory dilatation. No hydrocephalus. Parenchyma: Subtle hypodensities in the supratentorial white matter are small vessel ischemic changes. No masses, hemorrhage, acute or chronic cortical vascular insults. Sellar/suprasellar region: No abnormalities. Craniocervical junction: Patent foramen magnum. No Chiari one malformation. Incidental findings: Atherosclerotic calcifications in the carotid siphons and left vertebral artery. Impression: No acute abnormalities. No changes when compared to the head CT on 05/19/2014. Chronic findings: 1. Mild generalized volume loss. 2. Mild supratentorial white matter small vessel ischemic changes. Signed by: Dr. Noe Ty M.D. on 06/10/2017 10:59 PM
[2017-06-11] VITALS (79 sets, daily range): BP systolic 101–130; BP diastolic 76–102
--- NOTE | 2017-06-11 00:22 | Diagnostic Imaging Report ---
EXAM: CT CHEST WO DATE: 06/10/2017 12:20 PM INDICATION: Dimension, Lung cancer, reportedly in the left upper lobe status post radiation treatment COMPARISON: None TECHNIQUE: Multidetector CT scanning of the chest was performed. Coronal and sagittal multiplanar reformations were obtained. IV Contrast: 0 ml Isovue 370/300 FINDINGS: The endotracheal tube is at the panfilo and should be retracted. NG tube terminates within the gastric body. Right IJ central venous catheter terminates in the distal SVC. LUNGS AND PLEURA: There is underlying emphysema. There are extensive bilateral pulmonary opacities involving the right greater than left lung. A more discrete 3.3 x 2.5 cm mass is seen in the left upper lobe on image 19 which presumably corresponds to primary malignancy. Small left pleural effusion and trace right pleural fluid. HEART, MEDIASTINUM, VESSELS: Normal heart size with coronary artery calcifications status post sternotomy. No pericardial effusion. Main pulmonary artery is mildly enlarged, 3.1 cm. Tortuous aorta with prominent ductus bump and atherosclerotic calcification. Difficult to evaluate for adenopathy given noncontrast evaluation; scattered prominent mediastinal nodes for example 1.1 cm precarinal node. UPPER ABDOMEN: Elevated right hemidiaphragm. Trace perihepatic ascites. MUSCULOSKELETAL: Multilevel degenerative changes. Healed right second rib fracture and left thoracotomy. Partially imaged neurostimulator within the back soft tissues and leads within the thoracic spinal canal IMPRESSION: Note the ET tube is at the panfilo and should be retracted. 1. Extensive bilateral pulmonary opacities most suspicious for infection in the setting of emphysema. 2. Left upper lobe mass presumably corresponds to known malignancy. Recommend comparison with priors and attention on follow-up with IV contrast after the acute insult has resolved to better assess. Signed by: Dr Jamila Rivera MD on 06/11/2017 12:18 AM
[2017-06-11] MEDS: MORPHINE SULFATE 2 MG/ML SYR IV PRN ×7 (02:10→21:09)
[2017-06-11] MEDS: LEVALBUTEROL HCL SOLN NEBU 0.63 MG/3 ML NEB INH SCH ×5 (02:45→19:45)
[2017-06-11] MEDS: IPRATROPIUM BROMIDE 0.02% 2.5 ML NEB NEB SCH ×5 (02:45→19:45)
[2017-06-11] MEDS: MIDAZOLAM HCL 25 MG in SODIUM CHLORIDE 0.9% 45 ML IV PRN ×7 (04:21→23:08)
[2017-06-11] MEDS: FENTANYL CITRATE/PF 100MCG/2 ML INJ IV PRN ×3 (04:21→22:50)
[2017-06-11 04:51] LABS: BASOPHILS # (AUTO) 0.1 (0.0-0.1); BASOPHILS % 1.1 % (0.0-1.0); HEMATOCRIT 30.7 % (38.2-49.6); HEMOGLOBIN 9.7 g/dL (14.0-18.0); LYMPHOCYTES # (AUTO) 0.1 (1.0-3.2); LYMPHOCYTES % 2.1 % (18.0-39.1); MEAN CORPUSCULAR HEMOGLOBIN 25.9 pg (28-32); MEAN CORPUSCULAR HGB CONC 31.6 g/dL (31-35); MEAN CORPUSCULAR VOLUME 82.1 fL (81-99); MONOCYTES # (AUTO) 0.2 (0.2-0.8); MONOCYTES % 3.2 % (4.4-11.3); NEUTROPHILS # (AUTO) 4.3 (2.1-6.9); NEUTROPHILS % 92.7 % (38.7-80.0); PLATELET COUNT 73 x10e3/uL (140-360); RED BLOOD COUNT 3.74 x10e6/uL (4.3-5.7); RED CELL DISTRIBUTION WIDTH 18.7 % (11.7-14.4)
[2017-06-11 05:12] LABS: ALANINE AMINOTRANSFERASE 32 IU/L (0-55); ALBUMIN 1.7 g/dL (3.5-5.0); ALBUMIN/GLOBULIN RATIO 0.5 (0.8-2.0); ALKALINE PHOSPHATASE 74 IU/L (40-150); ANION GAP 12.5 mmol/L (8-16); BLOOD UREA NITROGEN 44 mg/dL (7-26); BUN/CREATININE RATIO 56 (6-25); CALCIUM 9.2 mg/dL (8.4-10.2); CARBON DIOXIDE 26 mmol/L (22-29); CHLORIDE 106 mmol/L (98-107); CHOLESTEROL 87 MD/DL (0-199); CREATININE, SERUM 0.79 mg/dL (0.72-1.25); EST GLOMERULAR FILTRATION RATE > 60 ML/MIN (60-); GLUCOSE 105 mg/dL (74-118); HDL CHOLESTEROL 43 MG/DL (40-60); LDL CHOLESTEROL 31 MG/DL (60-130); POTASSIUM 4.5 mmol/L (3.5-5.1); SODIUM 140 mmol/L (136-145); TRIGLYCERIDES 66 MG/DL (0-149)
[2017-06-11 05:19] LABS: CREATINE KINASE MB 0.5 ng/mL (0-5.0)
[2017-06-11 05:31] LABS: ANISOCYTOSIS SLIGHT; OVALOCYTES FEW; PLATELET ESTIMATE MODERATELY DECREASED; PLATELET MORPHOLOGY COMMENT NORMAL; RBC MORPHOLOGY COMMENT ABNORMAL
[2017-06-11 05:32] LABS: HYPOCHROMASIA SLIGHT
--- NOTE | 2017-06-11 06:24 | Diagnostic Imaging Report ---
CHEST SINGLE (PORTABLE), 06/11/2017 5:00 AM Technique: CHEST SINGLE (PORTABLE) Comparison: CT 06/10/2017 Clinical history: Respiratory failure Findings: See Impression Impression: Limited portable technique with motion artifact 1. Lines/Tubes: NG tube extends subdiaphragmatically. ET tube approximately 3 cm above the panfilo. Right IJ CVC projects near the cavoatrial junction. 2. Elevated right hemidiaphragm with bilateral pulmonary opacities which may be due to infection. Known left upper lobe malignancy better assessed on recent CT. Small effusions. 3. Normal heart size status post sternotomy. Signed by: Dr Jamila Rivera MD on 06/11/2017 6:21 AM
[2017-06-11] MEDS: PIPER-TAZ 3.375 GM 50 ML IV SCH ×4 (06:38→23:28)
[2017-06-11] MEDS: VANCOMYCIN 1GM/NS 250 ML 250 ML IV SCH (06:38)
[2017-06-11] MEDS ORDERED: METHYLPREDNISOLONE SOD SUCC 40 MG/ML VIAL IV ONE (09:00)
[2017-06-11] MEDS: FAMOTIDINE 20 MG/2 ML VIAL IV SCH ×2 (09:45→20:16)
[2017-06-11] MEDS ORDERED: FUROSEMIDE INJ 10 MG/ML 2 ML VIAL IV ONE (11:00)
[2017-06-11] MEDS ORDERED: METHYLPREDNISOLONE SOD SUCC 40 MG/ML VIAL ONE (12:15)
--- NOTE | 2017-06-11 13:15 | Progress Note ---
DATE: June 11, 2017 PULMONARY MEDICINE PROGRESS NOTE SUBJECTIVE: Mr. Luna was seen and examined at bedside. He continues to have ventilator dependence. He is sedated with Versed 10 mg per hour. He is getting intermittent fentanyl. His urine output did miner pick yesterday after more fluids, and currently he is on one-half NS continuous at 50 mL per hour IV fluids. Ventilator at 18/500/70%/8. Minute ventilation 10 L per minute. Respiratory rate 20. Peak pressure 24. Moderate amount of secretions. CT head reviewed which was good with no acute findings. CT of the chest is consistent with bilateral significant pneumonitis. REVIEW OF SYSTEMS: Cannot get as he is on a ventilator. OBJECTIVE VITALS: Afebrile. Vital signs noted per electronic record. Levophed came off at 9 a.m. today. GENERAL: He reportedly awoke with nursing. HEENT: Normocephalic and atraumatic. NECK: Supple. Throat is midline. LUNGS: Bilateral air entry, a few rhonchi, mostly decreased breath sounds. CARDIOVASCULAR: S1 and S2. No murmurs, rubs or gallops. ABDOMEN: Soft, nontender. EXTREMITIES: No clubbing. No cyanosis. There is trace edema in the legs. INTEGUMENT: No rash, no purpura. LABS: 44 BUN, 0.8 creatinine, 4.5 potassium, 5 white count, 31 hematocrit, 73 platelets. IMPRESSION AND PLAN 1. Acute respiratory failure, intubated. 2. Endotracheal tube malpositioned, corrected. 3. Shock, resolved. 4. Bilateral pneumonitis. 5. Early acute kidney failure, improved. 6. Lung cancer, recently in remission, last evaluated 1 month ago. 7. Baseline debility and weakness. Continue IV antibiotics for pneumonia. Consider checking vancomycin level 1 or 2 days. Start tube feeds. Wean down the oxygen and ventilator. Trial of 1 dose of Lasix. The patient will continue to get comfort medications. Considerations were discussed with the , and she was notified that this hospitalization may not be easy given his baseline weakness. While this is likely survivable, it is unclear how long he will need to rehab from it. Continue to toilet the airway. No early bronchoscopy for now as CAT scan suggested this is likely just infectious. It is unlikely to be a radiation pneumonitis since it is in both lungs. The patient remains in critical condition. I discussed with the at length. DAVID: 06/11/2017 12:31 Job#: [id number] MH
[2017-06-11] MEDS: ENOXAPARIN SOD INJ 40 MG/0.4 ML SYR SC SCH (18:25)
[2017-06-11] MEDS: ONDANSETRON HCL INJ 2 MG/ML VIAL IV PRN (19:50)
[2017-06-11] MEDS: SODIUM CHLORIDE 0.45% 1,000 ML IV SCH (20:16)
[2017-06-12] VITALS (43 sets, daily range): BP systolic 105–132; BP diastolic 77–96
--- NOTE | 2017-06-12 00:39 | Diagnostic Imaging Report ---
CHEST SINGLE (PORTABLE), 06/11/2017 11:42 PM Technique: CHEST SINGLE (PORTABLE) Comparison: Previous day Clinical history: ET tube verification Findings: See Impression Impression: Markedly limited by portable technique and body habitus and rotation 1. Lines/Tubes: NG tube extends subdiaphragmatically. ET tube tip and panfilo poorly seen, but about 2 cm above the expected panfilo. Right IJ CVC projects near the cavoatrial junction. 2. Otherwise stable with elevated right hemidiaphragm, bilateral pulmonary opacities, known left lung malignancy and small effusions. Signed by: Dr Jamila Rivera MD on 06/12/2017 12:36 AM
[2017-06-12] MEDS: FENTANYL CITRATE/PF 100MCG/2 ML INJ IV PRN ×10 (00:50→21:08)
[2017-06-12] MEDS: MIDAZOLAM HCL 25 MG in SODIUM CHLORIDE 0.9% 45 ML IV PRN ×5 (01:20→23:35)
[2017-06-12] MEDS: MORPHINE SULFATE 2 MG/ML SYR IV PRN ×3 (02:58→06:20)
[2017-06-12] MEDS: IPRATROPIUM BROMIDE 0.02% 2.5 ML NEB NEB SCH ×7 (03:00→23:20)
[2017-06-12] MEDS: LEVALBUTEROL HCL SOLN NEBU 0.63 MG/3 ML NEB INH SCH ×7 (03:00→23:20)
[2017-06-12] MEDS: ONDANSETRON HCL INJ 2 MG/ML VIAL IV PRN (04:19)
[2017-06-12] MEDS: VANCOMYCIN 1GM/NS 250 ML 250 ML IV SCH (05:14)
[2017-06-12] MEDS: PIPER-TAZ 3.375 GM 50 ML IV SCH ×3 (05:14→17:16)
--- NOTE | 2017-06-12 05:42 | Diagnostic Imaging Report ---
CHEST SINGLE (PORTABLE), 06/12/2017 5:00 AM Technique: CHEST SINGLE (PORTABLE) Comparison: Previous day Clinical history: Respiratory failure Findings: See Impression Impression: Markedly limited by portable technique and body habitus and rotation 1. Lines/Tubes: NG tube extends subdiaphragmatically. ET tube 4.5 cm above the panfilo. Right IJ CVC projects near the cavoatrial junction. Median sternotomy wires and neurostimulator leads. 2. No significant change. Elevated right hemidiaphragm, bilateral pulmonary opacities, known left lung malignancy and small effusions. Signed by: Dr Jamila Rivera MD on 06/12/2017 5:39 AM
[2017-06-12 05:54] LABS: BASOPHILS % 0.5 % (0.0-1.0); HEMATOCRIT 29.7 % (38.2-49.6); HEMOGLOBIN 9.5 g/dL (14.0-18.0); LYMPHOCYTES # (AUTO) 0.1 (1.0-3.2); LYMPHOCYTES % 1.9 % (18.0-39.1); MEAN CORPUSCULAR VOLUME 81.4 fL (81-99); MONOCYTES # (AUTO) 0.2 (0.2-0.8); MONOCYTES % 3.8 % (4.4-11.3); NEUTROPHILS # (AUTO) 3.9 (2.1-6.9); NEUTROPHILS % 92.1 % (38.7-80.0); PLATELET COUNT 78 x10e3/uL (140-360); RED BLOOD COUNT 3.65 x10e6/uL (4.3-5.7); RED CELL DISTRIBUTION WIDTH 18.9 % (11.7-14.4)
[2017-06-12 06:11] LABS: ANION GAP 11.9 mmol/L (8-16); BLOOD UREA NITROGEN 48 mg/dL (7-26); BUN/CREATININE RATIO 59 (6-25); CALCIUM 9.5 mg/dL (8.4-10.2); CARBON DIOXIDE 28 mmol/L (22-29); CHLORIDE 103 mmol/L (98-107); CREATININE, SERUM 0.81 mg/dL (0.72-1.25); EST GLOMERULAR FILTRATION RATE > 60 ML/MIN (60-); GLUCOSE 84 mg/dL (74-118); POTASSIUM 3.9 mmol/L (3.5-5.1); SODIUM 139 mmol/L (136-145)
[2017-06-12 07:48] LABS: BAND NEUTROPHILS % (MANUAL) 1 %; EOSINOPHILS % (MANUAL) 1 % (0-7); LYMPHOCYTES % (MANUAL) 2 % (19-48); METAMYELOCYTES % (MANUAL) 1 % (0-0); NEUTROPHILS % (MANUAL) 95 % (40-74)
[2017-06-12 07:49] LABS: ANISOCYTOSIS SLIGHT; ELLIPTOCYTE, RBC SLIGHT; OVALOCYTES FEW; POIKILOCYTOSIS SLIGHT; RBC MORPHOLOGY COMMENT ABNORMAL
[2017-06-12 07:50] LABS: PLATELET ESTIMATE MODERATELY DECREASED; PLATELET MORPHOLOGY COMMENT NORMAL
[2017-06-12] MEDS: FAMOTIDINE 20 MG/2 ML VIAL IV SCH ×2 (08:30→18:01)
[2017-06-12] MEDS: SODIUM CHLORIDE 0.45% 1,000 ML IV SCH (10:24)
[2017-06-12] MEDS: ENOXAPARIN SOD INJ 40 MG/0.4 ML SYR SC SCH (16:19)
[2017-06-12] MEDS: DEXMEDETOMIDINE HCL 200 MCG in SODIUM CHLORIDE 0.9% 50ML 48 ML IV PRN (20:28)
[2017-06-12] MEDS ORDERED: FENTANYL CITRATE/PF 100MCG/2 ML INJ IV PRN (21:15)
[2017-06-12] MEDS ORDERED: POTASSIUM CHLORIDE 20MEQ/15ML UDC NG NR (21:30)
[2017-06-12] MEDS ORDERED: FUROSEMIDE INJ 10 MG/ML 2 ML VIAL IV NR (21:30)
[2017-06-12] MEDS ORDERED: MORPHINE SULFATE 2 MG/ML SYR IV PRN (22:30)
--- NOTE | 2017-06-12 23:05 | Progress Note ---
DATE: June 12, 2017 PULMONARY MEDICINE PROGRESS NOTE SUBJECTIVE: Mr. Luna was seen and examined at bedside. He continues to be on a ventilator. He is on Versed at 10 mg per hour. Intermittent fentanyl being given. He is on IV fluid at 50 per hour. Feeds have been increased and started to 40 mL an hour. He had 2 bowel movements. Secretions are not excessive. Chest x-ray continues to have a lot of infiltrate being present. Oxygen weaned down to 55% FIO2 with 8 of PEEP. REVIEW OF SYSTEMS: Cannot get as he is on a ventilator. OBJECTIVE VITAL SIGNS: Afebrile. Vital signs noted per electronic record. GENERALLY: No acute distress, well sedated. HEENT: Normocephalic, atraumatic. NECK: Supple. Throat midline. LUNGS: Bilateral air entry, a few rhonchi. CARDIOVASCULAR: S1 and S2. No murmurs, rubs or gallops. ABDOMINAL: Soft, nontender. EXTREMITIES: No clubbing, no cyanosis. There is trace edema. INTEGUMENT: No rash. No purpura. LABS: Potassium 3.9, bicarbonate 20, BUN 48, creatinine 0.8. White count 4.2, hematocrit 38, platelets 78. Chest radiography with good ET tube placement, still with bilateral infiltrates. IMPRESSION AND PLAN 1. Acute respiratory failure, intubated. 2. Bilateral acute infectious pneumonitis. 3. Shock, resolved. 4. Acute kidney injury, resolved. 5. Known left upper lobe lung cancer in remission. 6. Chronic pain. 7. Baseline debility and weakness. 8. Chronic hypoxemic respiratory failure. Continue ventilator support. I have updated the . Patient remained on sedation. Continue IV antibiotics. Await sputum cultures for better evaluation of the respiratory jigar, but for now there is no growth to date that is significant. Blood cultures still no growth to date. Continue to wean down the oxygen is a proximal goal of our situation. It is the hope that we try to extubate early although given the size of pneumonia, it may not be feasible. Increase tube feeds slightly and decrease IV fluid. Very guarded prognosis as it has become patient will have difficulty rehabilitating. Job#: [id number] EV
[2017-06-12] MEDS: AZITHROMYCIN 500MG/NS 250 ML 250 ML IV SCH (23:09)
[2017-06-13] VITALS (49 sets, daily range): BP systolic 98–133; BP diastolic 70–101
[2017-06-13] MEDS: PIPER-TAZ 3.375 GM 50 ML IV SCH ×5 (01:13→23:03)
[2017-06-13] MEDS: DEXMEDETOMIDINE HCL 200 MCG in SODIUM CHLORIDE 0.9% 50ML 48 ML IV PRN ×2 (01:19→22:59)
[2017-06-13] MEDS: MIDAZOLAM HCL 25 MG in SODIUM CHLORIDE 0.9% 45 ML IV PRN ×5 (01:20→22:59)
[2017-06-13] MEDS: LEVALBUTEROL HCL SOLN NEBU 0.63 MG/3 ML NEB INH SCH ×6 (03:11→23:30)
[2017-06-13] MEDS: IPRATROPIUM BROMIDE 0.02% 2.5 ML NEB NEB SCH ×6 (03:11→23:30)
[2017-06-13 05:57] LABS: BASOPHILS % 0.4 % (0.0-1.0); EOSINOPHILS % 0.4 % (0.0-6.0); HEMATOCRIT 32.6 % (38.2-49.6); HEMOGLOBIN 10.4 g/dL (14.0-18.0); LYMPHOCYTES # (AUTO) 0.1 (1.0-3.2); LYMPHOCYTES % 2.1 % (18.0-39.1); MEAN CORPUSCULAR HEMOGLOBIN 25.7 pg (28-32); MEAN CORPUSCULAR HGB CONC 31.9 g/dL (31-35); MEAN CORPUSCULAR VOLUME 80.7 fL (81-99); MONOCYTES # (AUTO) 0.2 (0.2-0.8); MONOCYTES % 3.5 % (4.4-11.3); NEUTROPHILS # (AUTO) 4.8 (2.1-6.9); NEUTROPHILS % 92.4 % (38.7-80.0); PLATELET COUNT 90 x10e3/uL (140-360); RED BLOOD COUNT 4.04 x10e6/uL (4.3-5.7); RED CELL DISTRIBUTION WIDTH 18.9 % (11.7-14.4)
--- NOTE | 2017-06-13 06:13 | Diagnostic Imaging Report ---
CHEST SINGLE (PORTABLE), 06/13/2017 5:00 AM Technique: CHEST SINGLE (PORTABLE) Comparison: Previous day Clinical history: Pneumonia Findings: See Impression Impression: Markedly limited by portable technique and body habitus and rotation 1. Lines/Tubes: Grossly stable visualized NG tube, ET tube, right IJ CVC. Median sternotomy wires and neurostimulator leads. 2. No significant change. Elevated right hemidiaphragm, bilateral pulmonary opacities, known left lung malignancy and small effusions. Signed by: Dr Jamila Rivera MD on 06/13/2017 6:09 AM
[2017-06-13 06:18] LABS: ALANINE AMINOTRANSFERASE 34 IU/L (0-55); ALBUMIN 1.8 g/dL (3.5-5.0); ALBUMIN/GLOBULIN RATIO 0.5 (0.8-2.0); ALKALINE PHOSPHATASE 74 IU/L (40-150); ANION GAP 11.7 mmol/L (8-16); BLOOD UREA NITROGEN 43 mg/dL (7-26); BUN/CREATININE RATIO 51 (6-25); CARBON DIOXIDE 28 mmol/L (22-29); CHLORIDE 105 mmol/L (98-107); CREATININE, SERUM 0.84 mg/dL (0.72-1.25); EST GLOMERULAR FILTRATION RATE > 60 ML/MIN (60-); GLUCOSE 92 mg/dL (74-118); MAGNESIUM 1.5 MG/DL (1.3-2.1); PHOSPHORUS 2.7 MG/DL (2.3-4.7); POTASSIUM 3.7 mmol/L (3.5-5.1); SODIUM 141 mmol/L (136-145)
[2017-06-13] MEDS: FAMOTIDINE 20 MG/2 ML VIAL IV SCH ×2 (08:02→19:11)
[2017-06-13] MEDS: VANCOMYCIN 1GM/NS 250 ML 250 ML IV SCH (08:02)
--- NOTE | 2017-06-13 11:11 | Progress Note ---
DATE: June 13, 2017 PULMONARY MEDICINE PROGRESS NOTE SUBJECTIVE: Mr. Luna was seen and examined at bedside. Feeds are ongoing at 40 mL per hour and are tolerated. Water at 150 mL every 6 hours tolerated. Patient with intermittent secretions usually dry but sometimes with a moderate amount being suctioned. He remains orally intubated on the ventilator. He is intermittently awakening on medicine so we have added Precedex to help moderate some of the behavior control. The FiO2 was increased to 60% due to desaturation that is transient and not common but occurred when the patient was being manipulated. REVIEW OF SYSTEMS: Cannot get as he is on a ventilator. OBJECTIVE VITAL SIGNS: Afebrile. Vital signs noted per electronic record. GENERAL: No acute distress, alert and calm. HEENT: Normocephalic, atraumatic. NECK: Supple. Throat midline. LUNGS: Bilateral air entry, a few small rhonchi. CARDIOVASCULAR: S1 and S2. No murmurs, rubs or gallops. ABDOMEN: Soft, nontender. EXTREMITIES: No clubbing, no cyanosis. There is no edema. INTEGUMENT: No rash. No purpura. LABS: 2.7 potassium, 43 BUN, creatinine 0.8, 5 white count, 90 platelets, 33 hematocrit. IMPRESSION AND PLAN 1. Acute respiratory failure. 2. Severe pneumonia. 3. Chronic obstructive pulmonary disease with exacerbation. 4. Additional lung cancer in remission as of last assessment 1 month ago at outside hospital and with no evidence of recurrence based on what studies we have so far. 5. Acute kidney injury, better. 6. Shock, septic, better. Will modify the water intake and decrease the IV fluids as he is getting good amounts consistently by GI tract. The patient furthermore with continued efforts to try to wean the FiO2. The patient is not extubatable today, but we will try to get the oxygen down. Wean attempts to begin as oxygenation improves. Continue enhancement of sensory behavior and continue nutrition. Job#: [id number]
[2017-06-13] MEDS: SODIUM CHLORIDE 0.45% 1,000 ML IV SCH (12:45)
[2017-06-13] MEDS: ENOXAPARIN SOD INJ 40 MG/0.4 ML SYR SC SCH (19:19)
[2017-06-13] MEDS: AZITHROMYCIN 500MG/NS 250 ML 250 ML IV SCH (20:18)
[2017-06-13] MEDS ORDERED: POTASSIUM CHLORIDE 20MEQ/15ML UDC NG ONE (22:30)
[2017-06-14] VITALS (56 sets, daily range): BP systolic 95–133; BP diastolic 65–126
[2017-06-14] MEDS: IPRATROPIUM BROMIDE 0.02% 2.5 ML NEB NEB SCH ×6 (02:45→23:02)
[2017-06-14] MEDS: LEVALBUTEROL HCL SOLN NEBU 0.63 MG/3 ML NEB INH SCH ×6 (02:45→23:02)
[2017-06-14] MEDS: MIDAZOLAM HCL 25 MG in SODIUM CHLORIDE 0.9% 45 ML IV PRN ×5 (02:58→18:18)
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
[2017-06-14] MEDS: PIPER-TAZ 3.375 GM 50 ML IV SCH ×4 (06:00→23:57)
[2017-06-14 07:17] LABS: ANION GAP 9.6 mmol/L (8-16); BLOOD UREA NITROGEN 23 mg/dL (7-26); BUN/CREATININE RATIO 33 (6-25); CALCIUM 8.5 mg/dL (8.4-10.2); CARBON DIOXIDE 30 mmol/L (22-29); CHLORIDE 101 mmol/L (98-107); CREATININE, SERUM 0.69 mg/dL (0.72-1.25); EST GLOMERULAR FILTRATION RATE > 60 ML/MIN (60-); GLUCOSE 89 mg/dL (74-118); POTASSIUM 3.6 mmol/L (3.5-5.1); SODIUM 137 mmol/L (136-145)
[2017-06-14] MEDS: FAMOTIDINE 20 MG/2 ML VIAL IV SCH ×2 (07:30→19:49)
[2017-06-14] MEDS: DEXMEDETOMIDINE HCL 200 MCG in SODIUM CHLORIDE 0.9% 50ML 48 ML IV PRN ×2 (15:38→18:10)
[2017-06-14] MEDS: ENOXAPARIN SOD INJ 40 MG/0.4 ML SYR SC SCH (17:00)
--- NOTE | 2017-06-14 17:07 | Diagnostic Imaging Report ---
PROCEDURE: A single AP view of the chest. COMPARISON: Chest radiograph 06/14/2017 at 5:18 AM. INDICATIONS: ETT ADJUSTMENT FINDINGS: See impression. IMPRESSION: Limited by portable technique and body habitus and rotation. 1. Lines/Tubes: * ET tube 4.6 cm above the panfilo. * NG tube extends below the diaphragm, out of the field of view. * Right IJ CVC tip projects over the superior vena cava. * Median sternotomy wires and neurostimulator leads. 2. Elevated right hemidiaphragm. Bilateral pulmonary opacities, slightly increased on the left and decreased on the right, in keeping with pneumonia. 3. Known left lung malignancy obscured. Dictated by: Darci Ernandez M.D. on 06/14/2017 at 17:07 Electronically approved by: Darci Ernandez M.D. on 06/14/2017 at 17:07
[2017-06-14] MEDS ORDERED: POTASSIUM CHLORIDE 20MEQ/15ML UDC NG SCH (20:29)
[2017-06-14] MEDS ORDERED: FUROSEMIDE INJ 10 MG/ML 2 ML VIAL IV SCH (20:30)
[2017-06-14] MEDS: AZITHROMYCIN 500MG/NS 250 ML 250 ML IV SCH (21:24)
[2017-06-15] VITALS (49 sets, daily range): BP systolic 100–135; BP diastolic 69–98
[2017-06-15] MEDS ORDERED: POTASSIUM CHLORIDE 20MEQ/15ML UDC NG SCH (02:00)
[2017-06-15] MEDS: IPRATROPIUM BROMIDE 0.02% 2.5 ML NEB NEB SCH ×4 (03:10→22:40)
[2017-06-15] MEDS: LEVALBUTEROL HCL SOLN NEBU 0.63 MG/3 ML NEB INH SCH ×5 (03:10→22:40)
[2017-06-15] MEDS: PIPER-TAZ 3.375 GM 50 ML IV SCH ×3 (05:37→18:44)
[2017-06-15 06:07] LABS: BASOPHILS # (AUTO) 0.1 (0.0-0.1); BASOPHILS % 0.7 % (0.0-1.0); EOSINOPHILS # (AUTO) 0.1 (0.0-0.4); EOSINOPHILS % 1.7 % (0.0-6.0); HEMATOCRIT 35.9 % (38.2-49.6); HEMOGLOBIN 11.4 g/dL (14.0-18.0); LYMPHOCYTES # (AUTO) 0.4 (1.0-3.2); LYMPHOCYTES % 4.6 % (18.0-39.1); MEAN CORPUSCULAR HEMOGLOBIN 25.6 pg (28-32); MEAN CORPUSCULAR HGB CONC 31.8 g/dL (31-35); MEAN CORPUSCULAR VOLUME 80.7 fL (81-99); MONOCYTES # (AUTO) 0.1 (0.2-0.8); MONOCYTES % 1.7 % (4.4-11.3); NEUTROPHILS # (AUTO) 6.9 (2.1-6.9); NEUTROPHILS % 82.8 % (38.7-80.0); PLATELET COUNT 106 x10e3/uL (140-360); RED BLOOD COUNT 4.45 x10e6/uL (4.3-5.7); RED CELL DISTRIBUTION WIDTH 19.3 % (11.7-14.4)
--- NOTE | 2017-06-15 06:10 | Diagnostic Imaging Report ---
CHEST SINGLE (PORTABLE), 06/15/2017 5:00 AM Technique: CHEST SINGLE (PORTABLE) Comparison: Previous day Clinical history: Respiratory failure Findings: See Impression Impression: Limited by portable technique and body habitus 1. Lines/Tubes: ET tube 3.4 cm above the panfilo. Stable visualized NG tube, right IJ CVC. Median sternotomy wires and neurostimulator leads. 2. Stable bilateral pulmonary opacities, in keeping with pneumonia. Known left lung malignancy obscured. Signed by: Dr Jamila Rivera MD on 06/15/2017 6:07 AM
[2017-06-15 06:25] LABS: ANION GAP 12.7 mmol/L (8-16); BLOOD UREA NITROGEN 17 mg/dL (7-26); BUN/CREATININE RATIO 22 (6-25); CALCIUM 8.9 mg/dL (8.4-10.2); CARBON DIOXIDE 29 mmol/L (22-29); CHLORIDE 99 mmol/L (98-107); CREATININE, SERUM 0.76 mg/dL (0.72-1.25); EST GLOMERULAR FILTRATION RATE > 60 ML/MIN (60-); GLUCOSE 99 mg/dL (74-118); POTASSIUM 3.7 mmol/L (3.5-5.1); SODIUM 137 mmol/L (136-145)
[2017-06-15] MEDS: FAMOTIDINE 20 MG/2 ML VIAL IV SCH ×2 (09:25→20:04)
[2017-06-15 11:45] LABS: BAND NEUTROPHILS % (MANUAL) 2 %; EOSINOPHILS % (MANUAL) 1 % (0-7); LYMPHOCYTES % (MANUAL) 6 % (19-48); METAMYELOCYTES % (MANUAL) 1 % (0-0); MONOCYTES % (MANUAL) 3 % (3.4-9.0); MYELOCYTES % (MANUAL) 1 % (0-0); NEUTROPHILS % (MANUAL) 84 % (40-74); PLATELET ESTIMATE SLIGHTLY DECREASED; PLATELET MORPHOLOGY COMMENT NORMAL; RBC MORPHOLOGY COMMENT NORMAL
--- NOTE | 2017-06-15 13:03 | Progress Note ---
DATE: June 14, 2017 PULMONARY MEDICINE PROGRESS NOTE SUBJECTIVE: Mr. Luna was seen and examined at bedside. Chest x-ray shows continued improvement in the bilateral infiltrates. Ultrasound showed no evidence of DVT. Echo with good ejection fraction. Currently on Versed of 7 mg per hour, Precedex 0.2 mcg/kg per minute. Patient with a high amount of urine output by Summers. Feeds at 45 mL per hour with very small water flushes. Remains intubated on ventilator. REVIEW OF SYSTEMS: Cannot get as he is intubated. OBJECTIVE VITAL SIGNS: Afebrile. Vital signs noted per electronic record. GENERALLY: No acute distress, alert on excess stimulation but now sedated. HEENT: Normocephalic, atraumatic. NECK: Supple. Throat midline. LUNGS: Bilateral air entry, decreased breath sounds, rare rhonchi. CARDIOVASCULAR: S1 and S2. No murmurs, rubs or gallops. ABDOMINAL: Soft, nontender. EXTREMITIES: No clubbing, no cyanosis. There is trace edema. INTEGUMENT: No rash. No purpura. LABS: White count 5, hematocrit 33, platelets 90. Potassium 3.6, bicarbonate 30, BUN 22, creatinine 0.7. IMPRESSION AND PLAN 1. Acute respiratory failure, intubated. 2. Bilateral pneumonitis. 3. Chronic obstructive pulmonary disease with exacerbation. 4. Underlying lung cancer regional, but under remission. 5. Cardiomyopathy, 40% to 45% left ventricular ejection fraction. 6. Acute kidney failure, resolving. 7. Obesity. 8. Septic shock, resolved. placed today. Give additional potassium. Start weaning on ventilator. Extubation will be considered as early as tomorrow. Continue tube feeds. Follow up on current treatment. Antibiotics as indicated including Zosyn and azithromycin. Vancomycin was stopped since cultures have not shown any resistant gram-positives. Job#: [id number] EV
[2017-06-15] MEDS ORDERED: POTASSIUM CHLORIDE 20MEQ/100ML 100 ML IV ONE (15:30)
--- NOTE | 2017-06-15 15:57 | Progress Note ---
DATE: June 15, 2017 PULMONARY MEDICINE PROGRESS NOTE SUBJECTIVE: Mr. Luna was seen and examined at bedside. He continues to have steady progress. Chest x-ray continues to show improvement. Today, on weaning he had RSVI of 85. His NIF was negative 50 cm water pressure. The patient with cuff leak active. He was given a chance to awaken fully and then we had him extubated. He was seen to spontaneously breathe and do okay over the next hour and a half. The patient with 3.2 liters incoming and 6.0 liters out. Secretions are small to moderate. REVIEW OF SYSTEMS: Cannot get reliably as he is not speaking yet and was intubated most of the day. OBJECTIVE VITAL SIGNS: Afebrile. Vital signs noted per electronic record. GENERAL: No acute distress. Alert. Eventually extubated and off the ventilator towards the HEENT: Normocephalic, atraumatic. NECK: Supple. Throat midline. LUNGS: Bilateral air entry, few rhonchi. CARDIOVASCULAR: S1 and S2 and no murmurs, rubs or gallops. ABDOMEN: Soft and nontender. EXTREMITIES: No cyanosis, clubbing. There is really no edema. INTEGUMENT: No rash, no purpura. LABORATORY DATA: Potassium 3.7, BUN 17, creatinine 0.8, white count 8, hematocrit 35, platelets 106,000. IMPRESSION 1. Acute respiratory failure, intubated, then extubated later today. 2. Bilateral large pneumonitis. 3. Chronic obstructive pulmonary disease exacerbation. 4. Underlying regional lung cancer, under remission. 5. Cardiomyopathy, 45% LVEF. 6. Acute kidney injury, resolved. 7. Shock, resolved. 8. Elevated right hemidiaphragm, ____, thoracic restriction. PLAN: The patient given trial of extubation today after evaluation. Give more potassium. We will work on lung expansion protocol. If the patient gets short of breath, the patient will benefit from having extra PEEP by any modality to maintain lung opening and decreased airway shunting. Continue close followup. IV antibiotics will be continued. Will follow along closely. Greater than 30 minutes of direct care today, multiple evaluations. Job#: [id number]
[2017-06-15] MEDS: ENOXAPARIN SOD INJ 40 MG/0.4 ML SYR SC SCH (18:44)
[2017-06-15] MEDS: AZITHROMYCIN 500MG/NS 250 ML 250 ML IV SCH (21:00)
[2017-06-16] VITALS (48 sets, daily range): BP systolic 101–137; BP diastolic 71–96
[2017-06-16] MEDS: PIPER-TAZ 3.375 GM 50 ML IV SCH ×4 (00:46→17:14)
[2017-06-16] MEDS: LEVALBUTEROL HCL SOLN NEBU 0.63 MG/3 ML NEB INH SCH ×7 (02:29→22:55)
[2017-06-16] MEDS: IPRATROPIUM BROMIDE 0.02% 2.5 ML NEB NEB SCH ×6 (02:59→22:55)
[2017-06-16 06:33] LABS: BASOPHILS % 0.2 % (0.0-1.0); EOSINOPHILS # (AUTO) 0.2 (0.0-0.4); EOSINOPHILS % 1.9 % (0.0-6.0); HEMATOCRIT 37.2 % (38.2-49.6); HEMOGLOBIN 11.8 g/dL (14.0-18.0); LYMPHOCYTES # (AUTO) 0.6 (1.0-3.2); LYMPHOCYTES % 5.6 % (18.0-39.1); MEAN CORPUSCULAR HGB CONC 31.7 g/dL (31-35); MEAN CORPUSCULAR VOLUME 82.1 fL (81-99); MONOCYTES # (AUTO) 0.3 (0.2-0.8); MONOCYTES % 2.5 % (4.4-11.3); NEUTROPHILS # (AUTO) 7.9 (2.1-6.9); PLATELET COUNT 152 x10e3/uL (140-360); RED BLOOD COUNT 4.53 x10e6/uL (4.3-5.7)
[2017-06-16 07:11] LABS: ANION GAP 11.9 mmol/L (8-16); BLOOD UREA NITROGEN 17 mg/dL (7-26); BUN/CREATININE RATIO 25 (6-25); CALCIUM 9.1 mg/dL (8.4-10.2); CARBON DIOXIDE 28 mmol/L (22-29); CHLORIDE 101 mmol/L (98-107); CREATININE, SERUM 0.69 mg/dL (0.72-1.25); EST GLOMERULAR FILTRATION RATE > 60 ML/MIN (60-); GLUCOSE 81 mg/dL (74-118); POTASSIUM 3.9 mmol/L (3.5-5.1); SODIUM 137 mmol/L (136-145)
[2017-06-16] MEDS ORDERED: FUROSEMIDE INJ 10 MG/ML 4 ML VIAL IV ONE (07:45)
[2017-06-16] MEDS: FAMOTIDINE 20 MG/2 ML VIAL IV SCH ×2 (07:46→20:41)
--- NOTE | 2017-06-16 08:03 | Diagnostic Imaging Report ---
EXAMINATION: CHEST SINGLE (PORTABLE) INDICATION: \S\pneumonia \S\[id number] \S\0635 COMPARISON: 06/15/2017 FINDINGS: AP view TUBES and LINES: Stable right internal jugular central line. Interval removal of endotracheal and nasogastric tubes. Unchanged median sternotomy wires and distal leads of spine stimulator device. See impression. IMPRESSION: Unchanged elevated right hemidiaphragm with bilateral bandlike airspace opacities, representing atelectasis/scarring and/or pneumonia. Other differential consideration is malignancy, considering history. Small right pleural effusion suspected. Enlarged cardiac mediastinal silhouette. Signed by: Dr. Richard Molina MD on 06/16/2017 7:59 AM
[2017-06-16] MEDS ORDERED: CYANOCOBALAMIN INJ 1,000 MCG/ML VIAL IM SCH (08:30)
[2017-06-16 11:30] LABS: BAND NEUTROPHILS % (MANUAL) 9 %; EOSINOPHILS % (MANUAL) 1 % (0-7); LYMPHOCYTES % (MANUAL) 9 % (19-48); MONOCYTES % (MANUAL) 7 % (3.4-9.0); NEUTROPHILS % (MANUAL) 74 % (40-74); PLATELET ESTIMATE ADEQUATE; PLATELET MORPHOLOGY COMMENT NORMAL; RBC MORPHOLOGY COMMENT NORMAL
[2017-06-16] MEDS: ONDANSETRON HCL INJ 2 MG/ML VIAL IV PRN (13:35)
[2017-06-16] MEDS: MORPHINE SULFATE 2 MG/ML SYR IV PRN (14:09)
[2017-06-16] MEDS: ENOXAPARIN SOD INJ 40 MG/0.4 ML SYR SC SCH (17:14)
[2017-06-16] MEDS: ACETAMINOPHEN 325 MG TAB PO PRN (19:03)
[2017-06-16] MEDS ORDERED: POTASSIUM CHLORIDE 20 MEQ TAB CR PO STA (20:04)
[2017-06-16] MEDS: DONEPEZIL HCL 5 MG TAB PO SCH (20:41)
[2017-06-16] MEDS: AZITHROMYCIN 500MG/NS 250 ML 250 ML IV SCH (20:41)
[2017-06-16] MEDS ORDERED: GABAPENTIN 400 MG CAP PO SCH (21:00)
[2017-06-17] VITALS (45 sets, daily range): BP systolic 82–126; BP diastolic 48–96
[2017-06-17] MEDS: PIPER-TAZ 3.375 GM 50 ML IV SCH ×3 (00:40→12:27)
--- NOTE | 2017-06-17 01:04 | Progress Note ---
DATE: June 16, 2017 PULMONARY MEDICINE PROGRESS NOTE SUBJECTIVE: Mr. Luna was seen and examined at bedside. Patient sat up and dangled at bedside yesterday, but he requires moderate assist. He has an episode of increased shortness of breath and he has to go back on respiratory failure prevention with BiPAP salvage. However, we gave him Lasix and he diuresed a lot. Chest x-ray showed slightly decreased air entry today. REVIEW OF SYSTEMS: No headaches, no bleeding. OBJECTIVE: VITAL SIGNS: Afebrile, vital signs noted per electronic record. GENERAL: In no acute distress, alert and calm when I see him now. Extremely weak. HEENT: Normocephalic, atraumatic. NECK: Supple. Throat midline. LUNGS: Bilateral air entry is limited and decreased to the right base, rare rhonchi. CARDIOVASCULAR: S1, S2. No murmurs, rubs, or gallops. ABDOMEN: Soft, nontender. EXTREMITIES: No clubbing, no cyanosis, no edema. INTEGUMENT: No rash, no purpura. LABS: 10 white count, 37 hematocrit, 152 platelets. 3.9 potassium, 0.7 creatinine. Glucose 207. IMPRESSION AND PLAN: 1. Acute respiratory failure, recurrent, status post extubation and then bilevel positive airway pressure salvage. 2. Possible fluid overload. 3. Significant atelectasis and restrictive thoracic disorder with elevated diaphragm. 4. Bilateral pneumonitis, significant. 5. Weakness. 6. Lung cancer, regional, left upper lobe, and lymph nodes, but in remission. Give more Lasix. Increase diet to full liquids. Restart some pain medicines at a lower dose and his home medicines. Will follow along closely. Deep venous thrombosis prophylaxis. Continue antibiotics for his severe infection. Aggressive physical therapy and occupational therapy. Job#: [id number]
[2017-06-17] MEDS: IPRATROPIUM BROMIDE 0.02% 2.5 ML NEB NEB SCH ×6 (02:29→22:53)
[2017-06-17] MEDS: FLUCONAZOLE 100 MG/NS 50 ML 50 ML IV SCH ×2 (04:30→06:30)
[2017-06-17] MEDS ORDERED: SUCRALFATE 1 GM/10 ML SUSP PO PRN (06:00)
[2017-06-17] MEDS: LEVOTHYROXINE SODIUM 100 MCG TAB PO SCH (06:15)
--- NOTE | 2017-06-17 06:28 | Diagnostic Imaging Report ---
CHEST SINGLE (PORTABLE), 06/17/2017 5:00 AM Technique: CHEST SINGLE (PORTABLE) Comparison: Previous day Clinical history: Pneumonia Findings: See Impression Impression: Limited by portable technique and body habitus 1. Lines/Tubes: Stable right IJ CVC. Median sternotomy wires and neurostimulator leads. 2. Persistent bilateral pulmonary opacities, in keeping with pneumonia. Known left lung malignancy obscured. Signed by: Dr Jamila Rivera MD on 06/17/2017 6:24 AM
[2017-06-17 06:32] LABS: ANION GAP 10.1 mmol/L (8-16); BLOOD UREA NITROGEN 16 mg/dL (7-26); BUN/CREATININE RATIO 21 (6-25); CALCIUM 8.8 mg/dL (8.4-10.2); CARBON DIOXIDE 32 mmol/L (22-29); CHLORIDE 102 mmol/L (98-107); CREATININE, SERUM 0.78 mg/dL (0.72-1.25); EST GLOMERULAR FILTRATION RATE > 60 ML/MIN (60-); GLUCOSE 86 mg/dL (74-118); MAGNESIUM 1.8 MG/DL (1.3-2.1); POTASSIUM 4.1 mmol/L (3.5-5.1); SODIUM 140 mmol/L (136-145)
[2017-06-17] MEDS: LEVALBUTEROL HCL SOLN NEBU 0.63 MG/3 ML NEB INH SCH ×5 (06:53→22:53)
[2017-06-17] MEDS ORDERED: TIOTROPIUM 18 MCG INH POWDER INH SCH (09:00)
[2017-06-17] MEDS: MORPHINE SULFATE 2 MG/ML SYR IV PRN ×2 (09:35→20:10)
[2017-06-17] MEDS: ASPIRIN 81 MG CHEW TAB PO SCH (09:42)
[2017-06-17] MEDS: FUROSEMIDE INJ 10 MG/ML 2 ML VIAL IV SCH (09:42)
[2017-06-17] MEDS: ONDANSETRON HCL INJ 2 MG/ML VIAL IV PRN (09:42)
[2017-06-17] MEDS: FAMOTIDINE 20 MG/2 ML VIAL IV SCH ×2 (09:42→21:30)
[2017-06-17] MEDS: FINASTERIDE 5 MG TAB PO SCH (09:43)
[2017-06-17] MEDS: METOCLOPRAMIDE HCL 10 MG TAB PO SCH ×3 (09:43→21:30)
[2017-06-17] MEDS: GABAPENTIN 400 MG CAP PO SCH ×3 (09:43→21:30)
[2017-06-17] MEDS: FOLIC ACID 1 MG TAB PO SCH (09:43)
[2017-06-17] MEDS: ACETAMINOPHEN 325 MG TAB PO PRN (20:09)
[2017-06-17] MEDS: AZITHROMYCIN 500MG/NS 250 ML 250 ML IV SCH (20:45)
[2017-06-17] MEDS: DONEPEZIL HCL 5 MG TAB PO SCH (21:30)
[2017-06-17] MEDS: ATORVASTATIN 10 MG TAB PO SCH (21:30)
[2017-06-17] MEDS: DULOXETINE HCL 30 MG DELAYED RELEASE PO SCH (21:30)
[2017-06-17] MEDS: MIRTAZAPINE 15 MG TAB PO SCH (21:30)
[2017-06-17] MEDS: FERROUS SULFATE 325 MG TAB PO SCH (21:30)
[2017-06-17] MEDS: DOXEPIN HCL 25 MG CAP PO SCH (21:30)
--- NOTE | 2017-06-17 21:38 | Progress Note ---
DATE: June 17, 2017 PULMONARY MEDICINE PROGRESS NOTE SUBJECTIVE: Mr. Luna was seen and examined at bedside. He continues to have a lot of weakness; however, there is slight progress. Today, he was able to sit up for 4 hours out of bed. He is max assist in bed and [id number] assist standing. Patient was able to use BiPAP at night with good adherence. Chest x-ray looking stable with stable bilateral pulmonary opacities. Urine output reasonable from Summers catheter. REVIEW OF SYSTEMS: No headaches, no rash. OBJECTIVE VITAL SIGNS: Noted per electronic record. GENERAL: In no acute distress, alert and calm, looks weak. HEENT: Normocephalic, atraumatic. NECK: Supple. Throat midline. LUNGS: Bilateral air entry, few rhonchi. CARDIOVASCULAR: S1, S2. No murmurs, rubs or gallops. ABDOMEN: Soft, nontender. EXTREMITIES: No clubbing, no cyanosis, there is no edema. INTEGUMENT: No rash, no purpura. LABS: 4.1 potassium, 16 BUN, 0.8 creatinine, 32 bicarbonate, 10 white count, 37 hematocrit, 152,000 platelets. CHEST X-RAY: Stable bilateral opacities. IMPRESSIONS AND PLAN 1. Significant weakness. 2. Chronic hypoxemia. 3. Acute respiratory failure, slowly resolving. 4. Chronic obstructive pulmonary disease with exacerbation. 5. Bilateral pneumonitis, acute community-acquired organisms. 6. Functionally immunosuppressed, on recent steroids from study. 7. Mild fluid overload component, intermittent. 8. 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 9. History of lung cancer. Continue aggressive PT and OT. We discussed with rehab expert regarding maximizing care and maximizing devices as family and patient have a few precise considerations as they need for continued rehab. Tylenol for headaches. Wean steroids and this time, will continue budesonide startup. Will follow along closely. Job#: [id number] CQ
[2017-06-18] VITALS (50 sets, daily range): BP systolic 78–124; BP diastolic 48–95
[2017-06-18] MEDS: LEVALBUTEROL HCL SOLN NEBU 0.63 MG/3 ML NEB INH SCH ×6 (03:02→22:20)
[2017-06-18] MEDS: IPRATROPIUM BROMIDE 0.02% 2.5 ML NEB NEB SCH ×6 (03:02→22:20)
[2017-06-18] MEDS: LEVOTHYROXINE SODIUM 100 MCG TAB PO SCH (06:29)
[2017-06-18] MEDS: FLUCONAZOLE 100 MG/NS 50 ML 50 ML IV SCH (06:29)
--- NOTE | 2017-06-18 06:32 | Diagnostic Imaging Report ---
EXAMINATION: CHEST SINGLE (PORTABLE) INDICATION: Pneumonia. COMPARISON: 06/17/2017 and 06/16/2017 FINDINGS: TUBES and LINES: Right IJ central line catheter is stable in good position. Partially visualized spinal stimulators reaching the level of the mid thoracic spine. LUNGS: Lungs are not well inflated. There are bibasilar atelectasis. Confluent opacities in the left upper lobe and into a lesser extent right upper lobe. PLEURA: No pleural effusion or pneumothorax. HEART AND MEDIASTINUM: The cardiomediastinal silhouette is unremarkable. There are atherosclerotic calcifications within the aorta. BONES AND SOFT TISSUES: No acute osseous lesion. Soft tissues are unremarkable. UPPER ABDOMEN: No free air under the diaphragm. IMPRESSION: Findings are compatible with stable bilateral multifocal pneumonia. Low lung volumes. Signed by: Dr. Odin Sherman M.D. on 06/18/2017 6:28 AM
[2017-06-18] MEDS ORDERED: CHLORASEPTIC SPRAY 177 ML BTL MM PRN (06:45)
[2017-06-18 07:01] LABS: ANION GAP 9.8 mmol/L (8-16); BLOOD UREA NITROGEN 17 mg/dL (7-26); BUN/CREATININE RATIO 20 (6-25); CALCIUM 8.6 mg/dL (8.4-10.2); CARBON DIOXIDE 33 mmol/L (22-29); CHLORIDE 103 mmol/L (98-107); CREATININE, SERUM 0.83 mg/dL (0.72-1.25); EST GLOMERULAR FILTRATION RATE > 60 ML/MIN (60-); GLUCOSE 87 mg/dL (74-118); MAGNESIUM 1.9 MG/DL (1.3-2.1); POTASSIUM 3.8 mmol/L (3.5-5.1); SODIUM 142 mmol/L (136-145)
[2017-06-18] MEDS ORDERED: MORPHINE SULFATE 2 MG/ML SYR IV STA (07:28)
[2017-06-18] MEDS ORDERED: MORPHINE SULFATE 2 MG/ML SYR ONE (07:50)
[2017-06-18] MEDS: FUROSEMIDE INJ 10 MG/ML 2 ML VIAL IV SCH (09:43)
[2017-06-18] MEDS: MORPHINE SULFATE 30 MG TAB ER PO SCH (09:43)
[2017-06-18] MEDS: FAMOTIDINE 20 MG/2 ML VIAL IV SCH ×2 (09:43→19:15)
[2017-06-18] MEDS: ASPIRIN 81 MG CHEW TAB PO SCH ×3 (09:43→17:49)
[2017-06-18] MEDS: METOCLOPRAMIDE HCL 10 MG TAB PO SCH ×3 (09:44→21:06)
[2017-06-18] MEDS: GABAPENTIN 400 MG CAP PO SCH ×3 (09:44→21:06)
[2017-06-18] MEDS: FINASTERIDE 5 MG TAB PO SCH (09:44)
[2017-06-18] MEDS: FOLIC ACID 1 MG TAB PO SCH (17:53)
[2017-06-18] MEDS ORDERED: MORPHINE SULFATE 30 MG TAB ER PO SCH (21:00)
[2017-06-18] MEDS: FERROUS SULFATE 325 MG TAB PO SCH (21:05)
[2017-06-18] MEDS: ATORVASTATIN 10 MG TAB PO SCH (21:05)
[2017-06-18] MEDS: DULOXETINE HCL 30 MG DELAYED RELEASE PO SCH (21:05)
[2017-06-18] MEDS: DONEPEZIL HCL 5 MG TAB PO SCH (21:05)
[2017-06-18] MEDS: DOXEPIN HCL 25 MG CAP PO SCH (21:06)
[2017-06-18] MEDS: MIRTAZAPINE 15 MG TAB PO SCH (21:06)
[2017-06-18] MEDS: AZITHROMYCIN 500MG/NS 250 ML 250 ML IV SCH (21:14)
[2017-06-18] MEDS ORDERED: POTASSIUM CHLORIDE 20 MEQ TAB CR PO ONE (22:05)
--- NOTE | 2017-06-18 22:49 | Progress Note ---
DATE: June 18, 2017 PULMONARY MEDICINE PROGRESS NOTE SUBJECTIVE: Mr. Luna was seen and examined at bedside. He was able to stand up. He sat up for 3 hours. Summers came out. He does not like BiPAP very much, he has trouble tolerating. Other than that, he is eating very well. No bowel movements yet. REVIEW OF SYSTEMS: No headaches, no double vision. OBJECTIVE VITAL SIGNS: Afebrile. Vital signs noted per electronic record. GENERAL: No acute distress. Alert and calm. HEENT: Normocephalic, atraumatic. NECK: Supple. Throat midline. LUNGS: Bilateral air entry, a few rhonchi. Decreased breath sounds especially at the right base. CARDIOVASCULAR: S1, S2. No murmurs, rubs or gallops. ABDOMEN: Soft, nontender. EXTREMITIES: No clubbing, no cyanosis. There is no edema. INTEGUMENT: No rash. No purpura. LABS: BUN 17, creatinine 0.8, potassium 3.8. White count 7, hematocrit 32. IMPRESSION 1. Slow constipation, worsening. 2. Chronic pain. 3. Severe bilateral pneumonitis. 4. Acute respiratory failure, exacerbated. 5. Lung cancer, regional, but in remission. 6. Shock, resolved. 7. Acute kidney failure, resolved. 8. Chronic obstructive pulmonary disease with exacerbation. 9. Restrictive lung, right hemidiaphragm elevation. PLAN: Continue to mobilize the patient. PT and OT continue. Increase constipation preventive medications. Patient gradually with more and more pain medicines being restarted. Will follow along closely. He can leave the ICU. Follow up to ensure appropriate voiding. Job#: [id number]
[2017-06-19] VITALS: BP 93/55
[2017-06-19] MEDS: PIPER-TAZ 3.375 GM 50 ML IV SCH ×4 (01:00→18:00)
[2017-06-19] MEDS ORDERED: SODIUM CHLORIDE 0.9% 100 ML 100 ML ONE (01:01)
[2017-06-19] MEDS: LEVALBUTEROL HCL SOLN NEBU 0.63 MG/3 ML NEB INH SCH ×5 (03:00→20:52)
[2017-06-19 04:00] VITALS: BP 107/64
[2017-06-19] MEDS: FLUCONAZOLE 100 MG/NS 50 ML 50 ML IV SCH (05:16)
[2017-06-19] MEDS: LEVOTHYROXINE SODIUM 100 MCG TAB PO SCH (06:15)
[2017-06-19] MEDS: IPRATROPIUM BROMIDE 0.02% 2.5 ML NEB NEB SCH ×4 (07:00→20:54)
[2017-06-19] MEDS ORDERED: SODIUM CHLORIDE 0.9% 250ML 250 ML ONE (08:12)
[2017-06-19] MEDS: FAMOTIDINE 20 MG/2 ML VIAL IV SCH (08:30)
[2017-06-19] MEDS ORDERED: POLYETHYLENE GLYCOL 3350 17 GM PACK PO SCH (09:00)
[2017-06-19] MEDS ORDERED: SENNOSIDES 8.6 MG TAB PO SCH (09:00)
[2017-06-19 09:24] VITALS: BP 113/66
[2017-06-19] MEDS: GABAPENTIN 400 MG CAP PO SCH ×2 (09:45→16:00)
[2017-06-19] MEDS: METOCLOPRAMIDE HCL 10 MG TAB PO SCH ×2 (09:45→16:00)
[2017-06-19] MEDS: MORPHINE SULFATE 30 MG TAB ER PO SCH (09:45)
[2017-06-19] MEDS: ASPIRIN 81 MG CHEW TAB PO SCH ×2 (09:45→18:00)
[2017-06-19] MEDS: FINASTERIDE 5 MG TAB PO SCH (09:45)
[2017-06-19] MEDS: FUROSEMIDE INJ 10 MG/ML 2 ML VIAL IV SCH (09:45)
[2017-06-19] MEDS: FOLIC ACID 1 MG TAB PO SCH (09:45)
[2017-06-19 10:00] VITALS: BP 113/66
[2017-06-19 13:35] VITALS: BP 105/68
[2017-06-19] MEDS ORDERED: LEVAQUIN500 MG PO (17:11)
[2017-06-19] MEDS ORDERED: FAMOTIDINE 20 MG TAB PO SCH (19:30)
[2017-06-19 20:00] VITALS: BP 102/60
--- NOTE | 2017-06-20 01:59 | Progress Note ---
DATE: June 19, 2017 PULMONARY MEDICINE PROGRESS NOTE SUBJECTIVE: Mr. Luna was seen and examined at bedside. He was able to walk 300 feet. He is on 5 liters per minute nasal cannula. He did desaturate to 80% while walking, but he was only on 3 liters per minute nasal cannula. Of note, patient with 6 liter per minute oxygen concentrator device at home. He continues to feel better. Eating well and having bowel movements. REVIEW OF SYSTEMS: No bleeding. OBJECTIVE: VITAL SIGNS: Afebrile, vital signs noted per electronic record. GENERAL: In no acute distress. HEENT: Normocephalic. NECK: Supple. LUNGS: Bilateral air entry. CARDIOVASCULAR: S1, S2. ABDOMEN: Soft. EXTREMITIES: No edema. INTEGUMENT: No rash. IMPRESSION AND PLAN: 1. Lung cancer, in remission. 2. Advanced chronic obstructive pulmonary disease with exacerbation. 3. Bilateral large pneumonia. 4. Weakness, recovering well. 5. Chronic hypoxemia. Continue to mobilize patient. Continue pain medicines. Treat and prevent constipation. Will follow along closely. He will be discharged later today likely. He will continue pulmonary rehabilitation. Job#: [id number]
== END 2017-06-19 20:42 | disposition home or self-care (01) | DRG 870 ==
LOC: ER 05:47 → ERHOLD 07:56 → ICU 09:20 → MED/SURG 06-18 23:50
PROVIDERS: ADMIT Internal Medicine; ATTEND Internal Medicine
PROC: 0BH17EZ Insertion of Endotracheal Airway into Trachea, Via Natural or Artificial Opening (ICD-10-PCS; principal; 2017-06-10)
PROC: 5A1955Z Respiratory Ventilation, Greater than 96 Consecutive Hours (ICD-10-PCS; 2017-06-10)
PROC: 02HV33Z Insertion of Infusion Device into Superior Vena Cava, Percutaneous Approach (ICD-10-PCS; 2017-06-10)
PROC: 3E043XZ Introduction of Vasopressor into Central Vein, Percutaneous Approach (ICD-10-PCS; 2017-06-10)
PROC: 5A09357 Assistance with Respiratory Ventilation, Less than 24 Consecutive Hours, Continuous Positive Airway Pressure (ICD-10-PCS; 2017-06-16)
DX: A41.9 Sepsis, unspecified organism (principal); J96.21 Acute and chronic respiratory failure with hypoxia; R65.21 Severe sepsis with septic shock; G93.40 Encephalopathy, unspecified; I50.23 Acute on chronic systolic (congestive) heart failure; Q79.1 Other congenital malformations of diaphragm; J18.9 Pneumonia, unspecified organism; N17.9 Acute kidney failure, unspecified; J44.1 Chronic obstructive pulmonary disease with (acute) exacerbation; J44.0 Chronic obstructive pulmonary disease with (acute) lower respiratory infection; J98.11 Atelectasis; I11.0 Hypertensive heart disease with heart failure; I25.10 Atherosclerotic heart disease of native coronary artery without angina pectoris; Z95.1 Presence of aortocoronary bypass graft; Z78.1 Physical restraint status; D64.9 Anemia, unspecified; E03.9 Hypothyroidism, unspecified; N40.0 Benign prostatic hyperplasia without lower urinary tract symptoms; G30.9 Alzheimer's disease, unspecified; F02.80 Dementia in other diseases classified elsewhere, unspecified severity, without behavioral disturbance, psychotic disturbance, mood disturbance, and anxiety; Z87.891 Personal history of nicotine dependence; Z85.118 Personal history of other malignant neoplasm of bronchus and lung; R53.81 Other malaise; Z99.81 Dependence on supplemental oxygen; K59.00 Constipation, unspecified; E66.9 Obesity, unspecified; Z68.29 Body mass index [BMI] 29.0-29.9, adult; Z79.82 Long term (current) use of aspirin
CPT/HCPCS: 31500; 36415; 36556; 36600; 70450; 71045; 71250; 74018; 74470; 76937; 80048; 80053; 80061; 80202; 81001; 82140; 82550; 82553; 82805; 82948; 83605; 83735; 83880; 84100; 84484; 85025; 85610; 85730; 86850; 86900; 87040; 87070; 87086; 87205; 87400; 93005; 93306; 93970; 94002; 94003; 94640; 94660; 96361; 96366; 96367; 96372; 96375; 96376; 97139; 99285; C1751; J0330; J0456; J0692; J1450; J1650; J1940; J2250; J2270; J2405; J2543; J2920; J2930; J3370; J3420; J3480; J7030; J7050; J7799

== ENCOUNTER → 2017-07-15 | Outpatient (CLI) | payer MEDICARE, OTHER ==
[~2017-07-15] MED LIST: ARICEPT5 MG PO; ASPIR 8181 MG PO; ATORVASTATIN CA10 MG PO; CARAFATE1 GM/10 ML PO; CYMBALTA30 MG PO; DEXAMETHASONE4 MG PO; DOXEPIN HCL25 MG PO; FERROUS SULFAT325 MG PO; FINASTERIDE5 MG PO; FISH OIL 1,0001 EAC2 PO; FOLIC ACID1 MG PO; GABAPENTIN400 MG PO; GLUCOSAMINE CH1 EAC5 PO; IPRATROPIUM BRO15 ML; LEVAQUIN500 MG PO; LEVOTHYROXINE50 MCG PO; MELOXICAM7.5 MG PO; MIRALAX17 GM PO; MIRTAZAPINE15 MG PO; MORPHINE SULFAT30 M2 PO; MS CONTIN30 MG PO; MULTIPLE VITAM1 EAC1 PO; MYRBETRIQ25 MG PO; PANTOPRAZOLE SO40 MG PO; POTASSIUM99 MG PO; PROAIR HFA INH8.5 GM INH; REGLAN10 MG PO; SENNA LAX8.6 MG PO; SPIRIVA18 MCG INH; TRELEGY ELLIPTA; VITAMIN B12 IM; VITAMIN C100 MG PO
--- NOTE | 2017-07-15 15:56 | Diagnostic Imaging Report ---
PROCEDURE: Frontal and lateral views of the chest. COMPARISON: Patients [facility], DX, CHEST SINGLE (PORTABLE), 06/18/2017, 6:36. INDICATIONS: PNEUMONIA FINDINGS: Lines/tubes: None. Right IJ central venous catheter has been removed. Lungs: Interval increase in patchy density in the right upper lobe with volume loss and moderate elevation of the right hemidiaphragm. No significant change in patchy consolidation in the left midlung with air bronchograms. Pleura: There is no pleural effusion or pneumothorax. Heart and mediastinum: The cardiac silhouette is normal in size. Calcification of the aortic arch. Median sternotomy wires.. Bones: No acute bony abnormality. IMPRESSION: 1. Interval increase in patchy density in the right upper lobe with volume loss and moderate elevation of the right hemidiaphragm. No significant change in patchy consolidation in the left midlung with air bronchograms. Ken Malin M.D. Dictated by: Ken Malin M.D. on 07/15/2017 at 15:57 Electronically approved by: Ken Malin M.D. on 07/15/2017 at 15:57
== END ==
LOC: RAD 15:00
PROVIDERS: ATTEND Internal Medicine
DX: J18.9 Pneumonia, unspecified organism (principal)
CPT/HCPCS: 71046

== ENCOUNTER → 2017-07-23 | Outpatient (CLI) | payer MEDICARE, OTHER ==
[~2017-07-23] MED LIST changes: +IOPAMIDOL 370 MG/ML 200 ML INFUS..BTL INJ ONE; +SODIUM CHLORIDE 0.9% 50ML 50 ML ONE
[2017-07-23 08:57] LABS: BLOOD UREA NITROGEN 10 mg/dL (7-26); BUN/CREATININE RATIO 13 (6-25); CREATININE, SERUM 0.78 mg/dL (0.72-1.25); EST GLOMERULAR FILTRATION RATE > 60 ML/MIN (60-)
--- NOTE | 2017-07-23 11:08 | Diagnostic Imaging Report ---
PROCEDURE:CT CHEST WITH CONTRAST COMPARISON:Patients [facility], DX, CHEST SINGLE (PORTABLE), 06/11/2017, 5:52. [facility], DX, CHEST 2 VIEWS, 07/15/2017, 15:09. INDICATIONS:Shortness of breath TECHNIQUE: Routine protocol Volumetric CT chest after administration of 100 mL Isovue 370 intravenous contrast. Multiplanar reformatted images. DLP: 531.19 FINDINGS: Lungs: Upper lobe predominant cystic and cavitary changes, with thin, smooth barreto. Combination atelectasis and air space opacity predominantly within the left upper lobe, and lesser so within the right upper lobe and right lower lobe. No focal cavitation. Pleura: Small pleural effusions bilaterally. Right hemidiaphragm elevation. Airways: Patent; normal caliber. Lymph nodes: 1.3 cm nodes in the AP window, with additional small nodes in the mediastinum. Pulmonary arteries: Normal caliber. No filling defects. Thoracic aorta and great vessels: Normal caliber. Mild atherosclerosis. Tortuous descending thoracic aorta. Heart: Postoperative sequela of CABG. Extensive qagan tayagungin coronary artery calcification. Subdiaphragmatic organs: Unremarkable. Skeleton: Intact. Indwelling spine stimulator. Soft tissues: Normal CONCLUSION: 1. Bilateral (left upper lobe predominant) airspace opacities consistent with a combination of atelectasis and pneumonia. Thin-walled cysts in the upper lobes bilaterally (right greater than left) are most in keeping with sequela of infection. 2. Small pleural effusions. Right hemidiaphragm elevation. 3. Mediastinal lymphadenopathy is likely reactive in the setting of pneumonia. Dictated by: Lonnie Ponce M.D. on 07/23/2017 at 11:10 Electronically approved by: Lonnie Ponce M.D. on 07/23/2017 at 11:10
== END ==
LOC: CT 08:14
PROVIDERS: ATTEND Internal Medicine Critical Care Medicine
DX: C34.90 Malignant neoplasm of unspecified part of unspecified bronchus or lung (principal); R09.02 Hypoxemia; R06.02 Shortness of breath; Q79.1 Other congenital malformations of diaphragm; G30.9 Alzheimer's disease, unspecified; M13.0 Polyarthritis, unspecified; E66.9 Obesity, unspecified; G89.29 Other chronic pain; I67.89 Other cerebrovascular disease; R22.2 Localized swelling, mass and lump, trunk; R76.9 Abnormal immunological finding in serum, unspecified; R94.2 Abnormal results of pulmonary function studies; Z87.891 Personal history of nicotine dependence
CPT/HCPCS: 36415; 71260; 82565; 84520; Q9967

== ENCOUNTER 2018-03-08 13:58 | Inpatient (IN) | payer MEDICARE, OTHER ==
[~2018-03-08] VITALS: Ht 167.6 cm; Wt 100.5 kg
[~2018-03-08 13:58] MED LIST changes: -IOPAMIDOL 370 MG/ML 200 ML INFUS..BTL INJ ONE; -SODIUM CHLORIDE 0.9% 50ML 50 ML ONE
--- OUTSIDE RECORDS SUMMARY | 2018-03-08 14:01 | XMS REPORT | Clinical Summary ---
Author Author MOHIT [employer] [facility] [place] [facility] Address Unknown Phone Unavailable Care Team Providers Care Machine Sneller Name Role Phone Sabas Celeste A PCP Raji Reid Samantha Unavailable Allergies Comments Active Allergy Reactions Severity Noted Date Adhesive Tape Swelling, Low 07/11/2016 Rash Unknown reaction as child Penicillins Other (See 07/11/2016 Comments) Medications End Date Status Medication Sig Dispensed Refills Start Date Active atorvastatin (LIPITOR) 10 Take 10 mg by 0 MG tablet mouth daily. Active fluticasone-vilanterol Inhale 1 puff 0 (BREO ELLIPTA) 100-25 by mouth via mcg/dose DsDv inhaler daily. Active cyanocobalamin (VITAMIN Inject 1,000 0 B-12) 1,000 mcg/mL mcg injection intramuscular ly every 14 (fourteen) days. Active donepezil (ARICEPT) 10 MG Take 10 mg by 0 tablet mouth daily. Active doxepin (SINEQUAN) 75 MG Take 75 mg by 0 capsule mouth nightly. Active finasteride (PROSCAR) 5 Take 5 mg by 0 mg tablet mouth daily. Active folic acid (FOLVITE) 1 MG Take 1 mg by 0 tablet mouth 5 (five) times daily. Active gabapentin (NEURONTIN) Take 400 mg 0 400 MG capsule by mouth 3 (three) times daily. Active levothyroxine (SYNTHROID, Take 100 mcg 0 LEVOTHROID) 100 MCG by mouth tablet Every morning on an empty stomach. Active meclizine (ANTIVERT) 12.5 Take 12.5 mg 0 mg tablet by mouth 2 (two) times daily. Active meloxicam (MOBIC) 15 MG Take 15 mg by 0 tablet mouth daily. Active morphine (MSIR) 30 MG Take 30 mg by 0 tablet mouth every 4 (four) hours as needed for Pain. Active morphine (AVINZA) 60 MG Take 60 mg by 0 24 hr capsule mouth nightly. Active mirabegron (MYRBETRIQ) 25 Take by mouth 0 mg Tb24 ER tablet daily. Active pantoprazole (PROTONIX) Take 40 mg by 0 40 MG tablet mouth nightly. Active traMADol (ULTRAM) 50 mg Take 50 mg by 0 tablet mouth every 6 (six) hours as needed for Pain. Active aspirin 81 MG EC tablet Take 81 mg by 0 mouth 2 (two) times daily. Active PSYLLIUM SEED (FIBER Take by mouth 0 THERAPY, PSYLLIUM, ORAL) 3 (three) times daily. Active omega-3 fatty Take 1 0 acids-vitamin E (FISH capsule by OIL) 1,000 mg Cap mouth every evening. Active GINKGO BILOBA ORAL Take 1 tablet 0 by mouth 2 (two) times daily. Active GLUC MALONE/CHONDRO MALONE A/VIT Take 1 tablet 0 C/MN (GLUCOSAMINE by mouth 2 CHONDROITIN MAXSTR ORAL) (two) times daily. Active melatonin 10 mg Cap Take 2 0 capsules by mouth nightly. Active multivitamin per tablet Take 1 tablet 0 by mouth daily. Active ascorbic acid, vitamin C, Take 1,000 mg 0 (ASCORBIC ACID WITH MELY by mouth HIPS) 1000 MG tablet nightly. Active sucralfate (CARAFATE) 100 Take 1 g by 0 mg/mL suspension mouth 4 (four) times daily. Active lidocaine (XYLOCAINE) 4 % Use as 0 (40 mg/mL) mucosal directed in solution the mouth or throat as needed. Active albuterol HFA (VENTOLIN Inhale 1 puff 0 HFA) 90 mcg/actuation by mouth via inhaler inhaler every 6 (six) hours as needed for Wheezing. Active salmeterol (SEREVENT) 50 Inhale 1 puff 0 mcg/dose diskus inhaler by mouth via inhaler 2 (two) times daily. Active triamcinolone (KENALOG) Apply 0 0.05 % ointment topically as needed. 01/08/2018 metoprolol (LOPRESSOR) 25 Take 0.5 30 tablet 1 01/08/201 MG tablet tablets (12.5 7 mg total) by mouth 2 (two) times daily. Active Problems Problem Noted Date Lung cancer 01/01/2017 Respiratory insufficiency 01/01/2017 Acute postoperative respiratory insufficiency 01/01/2017 Chronic pain syndrome 10/20/2016 Acquired hypothyroidism 10/20/2016 Acute postoperative pain 10/20/2016 SIRS (systemic inflammatory response syndrome) 10/20/2016 Opiate dependence, continuous 10/20/2016 CAD (coronary artery disease) 10/19/2016 Acute pulmonary insufficiency following thoracic surgery 10/19/2016 Shock circulatory 10/19/2016 Hyperglycemia 10/19/2016 Postoperative anemia due to acute blood loss 10/19/2016 Factor V deficiency 10/19/2016 Thrombocytopenia 10/19/2016 Social History Date Tobacco Use Types Packs/Day Years Used Quit: 08/2013 Former Smoker Smokeless Tobacco: Never Used Alcohol Use Drinks/Week oz/Week Comments Yes rarely Sex Assigned at Date Recorded Not on file Industry Job Start Date Occupation Not on file Not on file Not on file Travel End Travel History Travel Start No recent travel history available. Last Filed Vital Signs Not on file Plan of Treatment Not on file Results Not on fileafter 03/07/2017 Insurance Payer Benefit Subscriber ID Type Phone Address Plan / Group MEDICARE MEDICARE A xxxxxxxxxx Medicare B [facility] [place] xxxxxxxxx CARE COMMERCIAL HEALTHCARE INDEMNITY Advance Directives Patient has advance care planning documents, and code status on file. For more i nformation, please contact: [facility] [address] [place] [address] Date Inactivated Comments Code Status Date Activated 10/26/2016 6:38 PM Full Code 10/19/2016 6:01 PM This code status was determined by: Person holding Power of Patient Accounts Specialist 10/19/2016 6:01 PM Full Code 10/19/2016 6:06 AM This code status was determined by: Patient
[2018-03-08] MEDS ORDERED: ASPIRIN 81 MG CHEW TAB PO ONE (14:15)
--- NOTE | 2018-03-08 14:42 | NUR ---
Xray is currently in with the pt.
[2018-03-08 14:55] LABS: BASOPHILS # (AUTO) 0.1 (0.0-0.1); BASOPHILS % 0.6 % (0.0-1.0); EOSINOPHILS # (AUTO) 0.1 (0.0-0.4); EOSINOPHILS % 1.6 % (0.0-6.0); HEMATOCRIT 37.4 % (38.2-49.6); LYMPHOCYTES # (AUTO) 0.4 (1.0-3.2); LYMPHOCYTES % 4.7 % (18.0-39.1); MEAN CORPUSCULAR HEMOGLOBIN 27.4 pg (28-32); MEAN CORPUSCULAR HGB CONC 29.4 g/dL (31-35); MEAN CORPUSCULAR VOLUME 93.3 fL (81-99); MONOCYTES # (AUTO) 0.7 (0.2-0.8); MONOCYTES % 8.8 % (4.4-11.3); NEUTROPHILS # (AUTO) 6.6 (2.1-6.9); NEUTROPHILS % 83.5 % (38.7-80.0); PLATELET COUNT 214 x10e3/uL (140-360); RED BLOOD COUNT 4.01 x10e6/uL (4.3-5.7); RED CELL DISTRIBUTION WIDTH 15.3 % (11.7-14.4)
[2018-03-08] MEDS ORDERED: ONDANSETRON HCL INJ 2 MG/ML VIAL IV ONE (15:00)
[2018-03-08] MEDS ORDERED: HYDROMORPHONE 1MG/1ML INJ IV ONE (15:00)
[2018-03-08 15:08] LABS: INR 1.15; PARTIAL THROMBOPLASTIN TIME 37.7 seconds (23.8-35.5); PROTHROMBIN TIME 15.7 seconds (11.9-14.5)
[2018-03-08 15:16] LABS: ALANINE AMINOTRANSFERASE 15 IU/L (0-55); ALBUMIN 3.3 g/dL (3.5-5.0); ALBUMIN/GLOBULIN RATIO 0.9 (0.8-2.0); ALKALINE PHOSPHATASE 84 IU/L (40-150); BLOOD UREA NITROGEN 19 mg/dL (7-26); BUN/CREATININE RATIO 21 (6-25); CALCIUM 9.5 mg/dL (8.4-10.2); CHLORIDE 94 mmol/L (98-107); CREATINE KINASE 31 IU/L (30-200); CREATININE, SERUM 0.91 mg/dL (0.72-1.25); EST GLOMERULAR FILTRATION RATE > 60 ML/MIN (60-); GLUCOSE 147 mg/dL (74-118); LIPASE 113 U/L (8-78); MAGNESIUM 2.2 MG/DL (1.3-2.1); POTASSIUM 3.6 mmol/L (3.5-5.1); SODIUM 142 mmol/L (136-145)
--- NOTE | 2018-03-08 15:25 | Diagnostic Imaging Report ---
EXAMINATION: CHEST SINGLE (PORTABLE) INDICATION: Chest pain and shortness of breath ^ERMD ORDER ^[id number] ^[id number] ^Y COMPARISON: Chest CT dated 07/23/2017 FINDINGS: AP view TUBES and LINES: None. LUNGS: Limited by body habitus. Elevated right hemidiaphragm. Left upper lobe opacification. Pulmonary vascular congestion and mild interstitial edema. PLEURA: No visible pneumothorax. Trace bilateral pleural effusions suspected. HEART AND MEDIASTINUM: The cardiomediastinal silhouette is unremarkable. BONES AND SOFT TISSUES: No acute osseous lesion. Soft tissues are unremarkable. UPPER ABDOMEN: No free air under the diaphragm. IMPRESSION: Limited by body habitus. Left upper lobe opacification, representing atelectasis and/or pneumonia. Pulmonary vascular congestion and mild interstitial edema. Trace bilateral pleural effusions suspected. Again seen elevated right hemidiaphragm. Signed by: Dr. Richard Molina MD on 03/08/2018 3:22 PM
[2018-03-08 15:27] LABS: ANION GAP 12.6 mmol/L (8-16); CARBON DIOXIDE 39 mmol/L (22-29)
[2018-03-08] MEDS ORDERED: CEFTRIAXONE SOD 1 GM VIAL IV SCH (16:00)
[2018-03-08] MEDS ORDERED: SODIUM CHLORIDE 0.9% 500ML 500 ML IV ONE (16:00)
--- NOTE | 2018-03-08 16:21 | NUR ---
Pt taken to CT by Radiology via stretcher
[2018-03-08 16:58] LABS: CLARITY,URINE HAZY (CLEAR); COLOR,URINE YELLOW (YELLOW); LEUKOCYTE ESTERASE ,URINE TRACE (NEGATIVE); NITRITE,URINE NEGATIVE (NEGATIVE); PROTEIN,URINE DIPSTICK TRACE (NEGATIVE)
[2018-03-08 16:59] LABS: BILIRUBIN,URINE NEGATIVE (NEGATIVE); KETONES,URINE TRACE (NEGATIVE); URINE UROBILINOGEN 8 mg/dL (0.2 - 1)
[2018-03-08] MEDS ORDERED: HYDROMORPHONE 2MG/ML 2 MG/ML ML IV ONE (17:00)
[2018-03-08 17:04] LABS: RBC,URINE 0-5 /HPF (0-5)
[2018-03-08 17:05] LABS: BACTERIA,URINE RARE /HPF; MUCUS,URINE MODERATE (RARE)
--- NOTE | 2018-03-08 17:24 | NUR ---
Pt states "my pain is a 5, but I can rest comfortably at a five." Pt is resting comfortably in bed at this time watching a movie on his cellphone.
[2018-03-08] MEDS: CEFTRIAXONE SOD 1 GM/NS 50 ML 50 ML IV SCH (17:31)
--- NOTE | 2018-03-08 17:31 | Diagnostic Imaging Report ---
EXAM: CT Chest WITH contrast 03/08/2018 3:50 PM INDICATION: ^PE PROTOCOL, LEFT PLEURITIC CP, POS D-DIMER, H/O LUNG CA ^[id number] ^[id number] COMPARISON: Chest CT dated 07/23/2017 TECHNIQUE: Chest was scanned utilizing a multidetector helical scanner from the lung apex through the level of the diaphragm after administration of IV contrast. Thin section reconstructions were obtained with special concentration on the pulmonary arteries. Coronal and sagittal reformations were obtained. Dose modulation, iterative reconstruction, and/or weight based adjustment of the mA/kV was utilized to reduce the radiation dose to as low as reasonably achievable. Pulmonary embolism protocol was performed. IV CONTRAST: 100 mL of Isovue-370 COMPLICATIONS: None RADIATION DOSE: Total DLP: 627.96 mGy*cm Estimated effective dose: (DLP x 0.014 x size factor) mSv CTDIvol has been reviewed. It is below the limits set by the Radiation Protocol Committee (RPC). FINDINGS: LINES/ TUBES: None. LUNGS, PLEURA, AND AIRWAYS: No filling defects within pulmonary arteries up to subsegmental levels. Bilateral small pleural effusions, left more than with adjacent compressive atelectasis. Atelectasis of the most of the left upper lobe with mediastinal shift to the left, obscuring the previously noted left upper lobe mass. Pulmonary vascular congestion and mild interstitial edema. Right upper lobe cystic changes are again seen. Airways are normal. PLEURA: The pleural spaces are clear. HEART AND MEDIASTINUM: The thyroid gland is normal. Scattered nonspecific subcentimeter mediastinal lymph nodes. No mediastinal, hilar or axillary lymphadenopathy. The heart is normal in size.. There is no pericardial effusion. Main pulmonary artery measures 3 cm. Severe atherosclerotic calcification of coronary arteries. UPPER ABDOMEN: Again seen elevated right hemidiaphragm. BONES: Multilevel advanced degenerative changes of thoracic spine. Median sternotomy wires. Distal tip of the spine stimulator device is visualized. SOFT TISSUES: Unremarkable. IMPRESSION: No evidence of pulmonary embolism. Atelectasis of the most of the left upper lobe with mediastinal shift to the left. Small bilateral pleural effusions, left greater than right. Pulmonary vascular congestion and mild interstitial edema. Unchanged elevated right hemidiaphragm. Signed by: Dr. Richard Molina MD on 03/08/2018 5:28 PM
[2018-03-08] MEDS ORDERED: IOPAMIDOL 370 MG/ML 200 ML INFUS..BTL INJ ONE (18:07)
[2018-03-08] MEDS ORDERED: SODIUM CHLORIDE 0.9% 50ML 50 ML ONE (18:08)
[2018-03-08] MEDS: AZITHROMYCIN 500MG/NS 250 ML 250 ML IV SCH (18:30)
[2018-03-08] MEDS ORDERED: CLINDAMYCIN PHOS 900MG/ 50ML 50 ML IV SCH ×2 (18:45→21:00)
[2018-03-08] MEDS ORDERED: FAMOTIDINE 20 MG/2 ML VIAL IV SCH (19:00)
--- NOTE | 2018-03-08 19:00 | NUR ---
Pt report handoff at bedside
--- OUTSIDE RECORDS SUMMARY | 2018-03-08 19:08 | XMS REPORT | Clinical Summary ---
Author Author MOHIT [employer] [facility] [employer] [facility] Address Unknown Phone Unavailable Care Team Providers Care Online Trader Name Role Phone Sabas Celeste A PCP [...] Group MEDICARE MEDICARE A xxxxxxxxxx Medicare B [facility] xxxxxxxxx CARE COMMERCIAL HEALTHCARE INDEMNITY Advance Directives Patient has advance care planning documents, and code status on file. For more i nformation, please contact: [facility] [address] [place] [address] Date Inactivated Comments Code Status Date Activated 10/26/2016 6:38 PM Full Code 10/19/2016 6:01 PM This code status was determined by: Person holding Power of Resident Surgeon 10/19/2016 6:01 PM Full Code 10/19/2016 6:06 AM This code status was determined by: Patient
--- NOTE | 2018-03-08 19:11 | NUR ---
RT notified of neb treatment.
[2018-03-08] MEDS: HYDROMORPHONE 2MG/ML 2 MG/ML ML IV PRN ×2 (19:45→23:17)
--- NOTE | 2018-03-08 19:48 | NUR ---
MEDICATED PT FOR PAIN ORDERED. ROOM ASSIGNMENT GIVEN AND PT AWARE OF THIS.
--- NOTE | 2018-03-08 19:50 | NUR ---
attempted to call report to second floor
[2018-03-08] MEDS: ALBUTEROL SULF 0.083% NEB SOLN 3 ML NEB NEB SCH ×2 (20:05→23:20)
[2018-03-08] MEDS: IPRATROPIUM BROMIDE 0.02% 2.5 ML NEB NEB SCH ×2 (20:05→23:20)
[2018-03-08] MEDS ORDERED: PREDNISONE5 MG (20:57)
[2018-03-08] MEDS ORDERED: LASIX20 MG PO (20:57)
[2018-03-08] MEDS ORDERED: DILTIAZEM 24HR120 MG (20:57)
[2018-03-08 21:10] VITALS: BP 114/92
--- NOTE | 2018-03-08 21:15 | NUR ---
PATIENT RECEIVED FROM ER. PATIENT IS RESTING IN BED, AAOX3. RESP EVEN AND UNLABORED. NO ACUTE DISTRESS NOTED. TELE IN PLACE. ORIENTED TO ROOM. CALL LIGHT WITHIN REACH. INSTRUCT TO CALL FOR ASSISTANCE. BED LOW/LOCKED. CONTINUE TO MONITOR CLOSELY
--- NOTE | 2018-03-08 21:27 | NUR ---
SPOKE TO DR SALINAS ABOUT CONSULTATION. PATIENT IS STABLE AT THIS TIME. NO ORDER RECEIVED
[2018-03-08] MEDS ORDERED: SODIUM CHLORIDE 0.9% 250ML 250 ML ONE (22:44)
[2018-03-08] MEDS: FAMOTIDINE 20 MG/2 ML VIAL IV SCH (22:45)
[2018-03-08] MEDS: ONDANSETRON HCL INJ 2 MG/ML VIAL IV PRN (23:17)
[2018-03-09] VITALS (7 sets, daily range): BP systolic 98–133; BP diastolic 53–82
[2018-03-09] MEDS: ALBUTEROL SULF 0.083% NEB SOLN 3 ML NEB NEB SCH ×6 (02:50→23:20)
[2018-03-09] MEDS: IPRATROPIUM BROMIDE 0.02% 2.5 ML NEB NEB SCH ×6 (02:50→23:20)
[2018-03-09] MEDS: ONDANSETRON HCL INJ 2 MG/ML VIAL IV PRN (04:45)
[2018-03-09] MEDS: HYDROMORPHONE 2MG/ML 2 MG/ML ML IV PRN (04:45)
[2018-03-09 05:18] LABS: BASOPHILS # (AUTO) 0.1 (0.0-0.1); BASOPHILS % 0.6 % (0.0-1.0); EOSINOPHILS # (AUTO) 0.2 (0.0-0.4); EOSINOPHILS % 1.8 % (0.0-6.0); HEMATOCRIT 33.8 % (38.2-49.6); HEMOGLOBIN 9.7 g/dL (14.0-18.0); LYMPHOCYTES # (AUTO) 0.4 (1.0-3.2); LYMPHOCYTES % 4.8 % (18.0-39.1); MEAN CORPUSCULAR HEMOGLOBIN 26.8 pg (28-32); MEAN CORPUSCULAR HGB CONC 28.7 g/dL (31-35); MEAN CORPUSCULAR VOLUME 93.4 fL (81-99); MONOCYTES # (AUTO) 0.9 (0.2-0.8); NEUTROPHILS % 82.2 % (38.7-80.0); PLATELET COUNT 195 x10e3/uL (140-360); RED BLOOD COUNT 3.62 x10e6/uL (4.3-5.7); RED CELL DISTRIBUTION WIDTH 15.7 % (11.7-14.4)
[2018-03-09 05:49] LABS: CREATINE KINASE 44 IU/L (30-200)
[2018-03-09 05:57] LABS: ALANINE AMINOTRANSFERASE 12 IU/L (0-55); ALBUMIN 2.9 g/dL (3.5-5.0); ALBUMIN/GLOBULIN RATIO 0.9 (0.8-2.0); ALKALINE PHOSPHATASE 78 IU/L (40-150); ANION GAP 13.3 mmol/L (8-16); BLOOD UREA NITROGEN 23 mg/dL (7-26); BUN/CREATININE RATIO 27 (6-25); CALCIUM 9.1 mg/dL (8.4-10.2); CARBON DIOXIDE 35 mmol/L (22-29); CHLORIDE 97 mmol/L (98-107); CHOL/HDL RATIO 1.9 (3.9-4.7); CHOLESTEROL 118 MD/DL (0-199); CREATININE, SERUM 0.84 mg/dL (0.72-1.25); EST GLOMERULAR FILTRATION RATE > 60 ML/MIN (60-); GLUCOSE 103 mg/dL (74-118); HDL CHOLESTEROL 61 MG/DL (40-60); LDL CHOLESTEROL 46 MG/DL (60-130); POTASSIUM 4.3 mmol/L (3.5-5.1); SODIUM 141 mmol/L (136-145); TRIGLYCERIDES 53 MG/DL (0-149)
--- NOTE | 2018-03-09 06:20 | Diagnostic Imaging Report ---
CHEST SINGLE (PORTABLE), 03/09/2018 5:00 AM Technique: CHEST SINGLE (PORTABLE) Comparison: Previous day Clinical history: Left upper lobe atelectasis Findings: See Impression Impression: 1. Lines/Tubes: Median sternotomy wires again noted. Neurostimulator leads overlie the spine. 2. Stable appearance of the chest. Dominant left upper lobe opacity, minimal right lung opacity and small underlying pleural effusions. Signed by: Dr Jamila Rivera MD on 03/09/2018 6:17 AM
[2018-03-09 07:34] LABS: LYMPHOCYTES % (MANUAL) 4 % (19-48); MONOCYTES % (MANUAL) 7 % (3.4-9.0); NEUTROPHILS % (MANUAL) 87 % (40-74); RBC MORPHOLOGY COMMENT ABNORMAL
[2018-03-09 07:35] LABS: HYPOCHROMASIA SLIGHT; PLATELET ESTIMATE ADEQUATE; PLATELET MORPHOLOGY COMMENT NORMAL
[2018-03-09] MEDS ORDERED: ALBUTEROL SULFATE HFA 8GM INHALATION AEROSOL INH PRN (07:45)
[2018-03-09] MEDS ORDERED: IPRATROPIUM BROMIDE 0.06% 42 MCG NASPR NS PRN (07:45)
[2018-03-09] MEDS ORDERED: SUCRALFATE 1 GM/10 ML SUSP PO PRN (07:45)
--- NOTE | 2018-03-09 07:45 | NUR ---
PT RECEIVED FROM OUT GOING NURSE, ALERT AND AWAKE, NO DISTRESS NOTED
[2018-03-09] MEDS ORDERED: TIOTROPIUM 18 MCG INH POWDER INH SCH (09:00)
[2018-03-09] MEDS ORDERED: LEVOTHYROXINE SODIUM 50 MCG TAB PO SCH (09:00)
[2018-03-09] MEDS: FUROSEMIDE 20 MG TAB PO SCH (09:11)
[2018-03-09] MEDS: POLYETHYLENE GLYCOL 3350 17 GM PACK PO SCH (09:11)
[2018-03-09] MEDS: ASPIRIN 81 MG CHEW TAB PO SCH ×2 (09:11→17:55)
[2018-03-09] MEDS: FAMOTIDINE 20 MG/2 ML VIAL IV SCH ×2 (09:11→21:40)
[2018-03-09] MEDS: FOLIC ACID 1 MG TAB PO SCH (09:11)
[2018-03-09] MEDS: SENNOSIDES 8.6 MG TAB PO SCH (09:12)
[2018-03-09] MEDS: METOCLOPRAMIDE HCL 10 MG TAB PO SCH ×3 (09:12→21:40)
[2018-03-09] MEDS: GABAPENTIN 400 MG CAP PO SCH ×3 (09:12→21:40)
[2018-03-09] MEDS: FINASTERIDE 5 MG TAB PO SCH (09:12)
[2018-03-09] MEDS: MORPHINE SULFATE 30 MG TAB ER PO SCH ×2 (09:12→21:40)
[2018-03-09] MEDS: CLINDAMYCIN PHOS 900MG/ 50ML 50 ML IV SCH ×2 (09:30→18:50)
--- NOTE | 2018-03-09 10:24 | History and Physical ---
CHIEF COMPLAINT: This is a 67-year-old gentleman, comes in with chest pain. HISTORY OF PRESENTING ILLNESS: This is Mr. Liam Luna who is status post CABG, who was in his usual state of health until about 2 days prior to admission. The patient started with chest pain during rest. The patient's pain is located in the substernal area, left side, radiating to the shoulder and to the upper back with intensity of 7/10. It waxes and wanes, comes and goes, and the patient said it is worsened by exertion, deep breaths, and also positional to supine position. Patient's chest pain is not relieved by rest. Patient has had no diaphoresis, no shortness of breath, and no other symptoms associated with this. PAST MEDICAL HISTORY: History of COPD, history of Alzheimer's disease, history of benign prostatic hypertrophy, history of reflux esophagitis, history of hyperlipidemia, history of CABG, history of atrial fibrillation, history of coronary artery disease, history of lung cancer being removed. PAST SURGICAL HISTORY: History of CABG, history of appendectomy, and history of tonsillectomy. MEDICATIONS: Includes atorvastatin 10 mg, cyanocobalamin 1000 mg weekly, dicyclomine 20 mg 3 times a day as needed, Aricept 10 mg once a day, doxepin 75 mg at nighttime, duloxetine 60 mg once a day, Eliquis 2.5 mg twice a day, finasteride 5 mg once a day, fish oil twice a day, folic acid once a day, Lasix 20 mg once a day, gabapentin 400 mg 3 times a day, glucosamine chondroitin 3 times a day, iron sulfate 325 mg once a day, levothyroxine 100 mcg daily, meclizine as needed for nausea 25 mg, meloxicam 15 mg daily, memantine (Namenda) half tablet in the morning and half tablet in the evening of the 10 mg, Reglan 10 mg 4 times a day, and mirtazapine 15 mg. He takes morphine sulfate 30 mg one tablet in the morning and 2 in the evening, Myrbetriq 1 tablet 25 mg daily. The patient is taking pantoprazole 40 mg daily, polyethylene glycol for constipation one packet daily, potassium 99 mg, prednisone 5 mg daily, senna 8.6 mg daily, vitamin C 400 mg, vitamin D 25 mcg, and Carafate 2 teaspoons as needed. Also, patient uses ProAir as needed. REVIEW OF SYSTEMS: Positive for chest pain. No shortness of breath. No nausea, vomiting, or diarrhea. Positive for constipation. No rectal bleeding. No hematochezia. No hematemesis. SOCIAL HISTORY: No ETOH. Positive for history of smoking in the past. Lives with . No drug abuse. PHYSICAL EXAMINATION VITAL SIGNS: Temperature is 98.1, pulse of 90, respirations of 20, blood pressure is 98/53, pulse oximetry 96%. HEENT: Normocephalic, atraumatic. Pupils are reactive to light and accommodation. LUNGS: Positive for decreased air entry to left side of the lung. Positive for some crackles in the left side and also inspiratory wheezes. ABDOMEN: Nontender, nondistended. EXTREMITIES: Positive for trace edema. LABORATORY VALUES: Initial white count was 7.95, hemoglobin of 11, and hematocrit of 37.4. Chemistries: Sodium is 141, potassium is 4.3, BUN of 23, and creatinine of 0.84, with a GFR above 60. Lactic acid was normal. Troponin was negative. Total protein 6.2, LDL was 46, HDL of 61, lipase was not done. TSH is 1.24. IMAGING STUDIES: Initial chest x-ray done yesterday showed left upper lobe opacification representing atelectasis or pneumonia, pulmonary vascular congestion and interstitial edema, trace bilateral pleural effusion, and right pleural effusion. Patient's repeat chest x-ray this morning shows stable appearance of chest, dominant left upper lobe opacity, right lung opacity, and small underlying effusions. ASSESSMENT AND PLAN: The patient has been admitted for chest pain. Troponin will be trended. I do not think this is cardiac, but Dr. Fontana has been consulted. Patient also has been started on empiric antibiotic. Patient is on clindamycin and azithromycin and Rocephin. We will continue medication. Dr. Chaney, his nursing secretary, has been consulted. I doubt pneumonia. Patient has some mediastinal shift and that is probably secondary to fibrotic tissue and chest pain is probably secondary to fibrotic tissue. We will continue to monitor the patient. Patient has other comorbidities including coronary artery disease, atrial fibrillation, hypertension, and dementia. We will restart all his medications. Further recommendations per clinical course. The patient appears stable enough. Right now, we will continue antibiotics and depending on the consultants views, we will probably discharge the patient in 1 to 2 days. For further information, look in the chart and the medicines will reconsulted today. Job#: [id number] RAHEL
[2018-03-09 13:46] LABS: CREATINE KINASE MB 2.1 ng/mL (0-5.0)
[2018-03-09] MEDS ORDERED: CYANOCOBALAMIN INJ 1,000 MCG/ML VIAL SC ONE (15:00)
[2018-03-09] MEDS: AZITHROMYCIN 500MG/NS 250 ML 250 ML IV SCH (16:16)
[2018-03-09] MEDS: DILTIAZEM HCL ER 120 MG CAPCR PO SCH (16:17)
[2018-03-09] MEDS: MEMANTINE 10 MG TAB PO SCH (16:18)
[2018-03-09] MEDS: PREDNISONE 5 MG TAB PO SCH (17:55)
--- NOTE | 2018-03-09 18:20 | NUR ---
PT IN BED NO S/S OF DISTRESS NOTED. PT TO BE NPO AFTER MIDNIGHT, PT AWARE OF ORDERS. SPOUSE IN WITH HIM
[2018-03-09] MEDS: CEFTRIAXONE SOD 1 GM/NS 50 ML 50 ML IV SCH ×2 (19:00→21:40)
--- NOTE | 2018-03-09 19:06 | Consultation ---
DATE OF CONSULTATION: March 09, 2018 PULMONARY MEDICINE CONSULT REFERRING PHYSICIAN: Dr. Fleming. REASON FOR REFERRAL: Lung cancer. HISTORY: Mr. Luna is a pleasant 67-year-old gentleman with shortness of breath. Patient presented to [facility] on March 08, 2018 with chest pain. Patient is getting an early cardiac workup, which so far is not too remarkable. Patient did have CAT scan done, which demonstrates progression of left upper lobe collapse, mildly increased left-sided pleural effusion. Patient is known to have lung cancer with mediastinal lymph node involvement and he received radiation therapy. He had some complications of radiation pneumonitis and was placed on prednisone for this. Patient had last surveillance in December 2017 where the family said that the CAT scan looked good and there was no progression of disease. Patient further on was seen by Dr. Fontana of cardiology and he was given Eliquis and diltiazem for new diagnosis of atrial fibrillation in January. Last dose of Eliquis was on the morning of March 08, 2018, Saturday. PAST MEDICAL HISTORY: Hypertension, coronary artery disease status post CABG, pneumonia, lung cancer, hypothyroidism, BPH, early Alzheimer's, chronic respiratory failure, on home oxygen. MEDICATIONS: Medication list reviewed per record. ALLERGIES: ALLERGIES TO PENICILLIN AND ADHESIVE TAPE. SOCIAL HISTORY: Former smoker, but quit. No alcohol, no drugs. He lives with his . FAMILY HISTORY: Noncontributory. REVIEW OF SYSTEMS GENERAL: No weight changes. OPHTHALMOLOGIC: No double vision. ENT: No mouth ulcers. ENDOCRINE: No thyroid disorder. CARDIAC: No recent heart attacks. PULMONARY: No hemoptysis. GI: No constipation. : No blood in urine. NEUROLOGIC: No seizures. PSYCHIATRIC: No depression. PHYSICAL EXAMINATION VITALS: Afebrile. Vital signs noted per electronic record. GENERAL: In no acute distress, alert, and calm. HEENT: Normocephalic, atraumatic. NECK: Supple. Throat midline. LUNGS: Bilateral air entry, decreased breath sounds throughout, rare rhonchi. CARDIOVASCULAR: S1, S2. No murmurs, rubs, or gallops. ABDOMEN: Soft, nontender. EXTREMITIES: No clubbing, no cyanosis. There is no edema. INTEGUMENT: No rash. No purpura. LABS: Potassium 4.3, BUN 73, creatinine 0.8. White count 8.5, hematocrit 34, platelets 195. IMPRESSION AND PLAN 1. Chest pain, not otherwise specified. Under evaluation by other physician. 2. Abnormal chest radiography, mildly increased left-sided pleural effusion. 3. Abnormal chest radiography, progressive atelectasis, left upper lobe. 4. Possible infectious pneumonia. 5. History of radiation pneumonitis and probably some element of radiation fibrosis to the radiation window. 6. Prior steroid use, recently on 5 mg per day prednisone only. 7. Restrictive lung diseasem, hemidiaphragm elevation, right side. 8. Chronic hypoxemia. 9. Blood cancer with mediastinal lymph node positive, status post radiation therapy. 10. Coronary artery disease, status post coronary artery bypass graft. 11. Atrial fibrillation. 12. Other comorbidities as stated. Make him n.p.o. Patient will have ultrasound thoracentesis of left pleural effusion. Thereafter based on symptoms and postoperative x-ray, we will consider a need for a surveillance bronchoscopy. At this point, patient was decided about surveillance bronchoscopy here versus going straight to [facility]. Patient voices that he needs intervention and prefer interventional pulmonology at [facility], so we will follow up based on findings. I agree with antibiotics for the short-term cover for postobstructive pneumonia given the chest pain and increased pleural effusion. Follow along closely. Thank you very much, Dr. Fleming for allowing me the chance to participate in the care of Mr. Luna. Do not hesitate to contact me if I can help in any way. Job#: [id number] RTY
--- NOTE | 2018-03-09 19:30 | NUR ---
Bedside rounds with morning nurse completed. Pt lying in bed HOB 30 degrees. Alert to name. c/o 5/10 generalized pain. No acute distress noted. Family at bedside. Call de la cruz within reach.
[2018-03-09] MEDS: DONEPEZIL HCL 5 MG TAB PO SCH (21:00)
[2018-03-09] MEDS: ATORVASTATIN 10 MG TAB PO SCH (21:40)
[2018-03-09] MEDS: FERROUS SULFATE 325 MG TAB PO SCH (21:40)
[2018-03-09] MEDS: DOXEPIN HCL 25 MG CAP PO SCH (21:40)
[2018-03-09] MEDS: MIRTAZAPINE 15 MG TAB PO SCH (21:40)
[2018-03-09] MEDS: PANTOPRAZOLE SOD 40 MG TABEC PO SCH (21:40)
[2018-03-09] MEDS: DULOXETINE HCL 30 MG DELAYED RELEASE PO SCH (21:40)
[2018-03-10] VITALS (8 sets, daily range): BP systolic 102–123; BP diastolic 68–95
[2018-03-10] MEDS: CLINDAMYCIN PHOS 900MG/ 50ML 50 ML IV SCH ×3 (01:50→16:54)
[2018-03-10] MEDS: ALBUTEROL SULF 0.083% NEB SOLN 3 ML NEB NEB SCH ×6 (03:12→23:40)
[2018-03-10] MEDS: IPRATROPIUM BROMIDE 0.02% 2.5 ML NEB NEB SCH ×6 (03:12→23:40)
[2018-03-10 05:31] LABS: BASOPHILS % 0.5 % (0.0-1.0); EOSINOPHILS # (AUTO) 0.1 (0.0-0.4); EOSINOPHILS % 1.4 % (0.0-6.0); HEMATOCRIT 30.4 % (38.2-49.6); LYMPHOCYTES # (AUTO) 0.3 (1.0-3.2); MEAN CORPUSCULAR HEMOGLOBIN 27.4 pg (28-32); MEAN CORPUSCULAR HGB CONC 29.6 g/dL (31-35); MEAN CORPUSCULAR VOLUME 92.7 fL (81-99); MONOCYTES # (AUTO) 0.6 (0.2-0.8); MONOCYTES % 9.6 % (4.4-11.3); NEUTROPHILS # (AUTO) 5.3 (2.1-6.9); PLATELET COUNT 168 x10e3/uL (140-360); RED BLOOD COUNT 3.28 x10e6/uL (4.3-5.7); RED CELL DISTRIBUTION WIDTH 15.3 % (11.7-14.4)
[2018-03-10 05:47] LABS: ANION GAP 13.1 mmol/L (8-16); BLOOD UREA NITROGEN 17 mg/dL (7-26); BUN/CREATININE RATIO 22 (6-25); CARBON DIOXIDE 34 mmol/L (22-29); CHLORIDE 96 mmol/L (98-107); CREATININE, SERUM 0.79 mg/dL (0.72-1.25); EST GLOMERULAR FILTRATION RATE > 60 ML/MIN (60-); GLUCOSE 97 mg/dL (74-118); POTASSIUM 4.1 mmol/L (3.5-5.1); SODIUM 139 mmol/L (136-145)
[2018-03-10] MEDS: LEVOTHYROXINE SODIUM 100 MCG TAB PO SCH (06:00)
[2018-03-10 06:11] LABS: ALBUMIN 2.8 g/dL (3.5-5.0); BILIRUBIN,DIRECT 0.3 mg/dL (0.0-0.5)
[2018-03-10] MEDS ORDERED: KCL 20MEQ/.9 SOD CHL 1,000 ML IV SCH (07:00)
[2018-03-10] MEDS: TIOTROPIUM 18 MCG INH POWDER INH SCH (07:30)
--- NOTE | 2018-03-10 07:48 | Progress Note ---
DATE: March 10, 2018 Patient is here for left-sided chest pain. Currently, the patient is chest pain free. No complaints. Sleeping comfortably. OBJECTIVE VITAL SIGNS: Temperature is 96, pulse of 87, respirations of 20, blood pressure is 120/68, pulse oximetry is 94%. HEENT: Normocephalic and atraumatic. NECK: No JVD present. Supple. Throat midline. LUNGS: Bilateral air entry is decreased. Few rhonchi on the left side. CARDIOVASCULAR: S1 and S2 normal. Regular rate and rhythm. ABDOMEN: Soft and nontender. EXTREMITIES: No clubbing. No cyanosis. No edema. LABS: Today, white count is 6.43, hemoglobin of 9, hematocrit of 30.4. Chemistries: Sodium of 139, BUN of 17, creatinine is 0.79. Troponins have been trended to negative. HDL 61, LDL 46. ASSESSMENT 1. Left-sided chest pain possibly secondary to lung pathology and etiology: Dr. Chaney has been consulted. Chest x-ray and computerized tomography scan shows mild pleural effusion. A bronchoscopy has been ordered, and will be done. Possible ultrasound-guided thoracentesis of left pleural effusion has also been ordered. For the possible infectious pneumonia, the patient is on intravenous antibiotics. The patient will be continued on steroids for right now. The patient's voiced interest in following up with MD Aguirre, but he wants to do that after the bronchoscopy and pleural effusion tap has been done. 2. Coronary artery disease: Status post bypass graft. Will continue on his medications. 3. Atrial fibrillation: Eliquis has been stopped in lieu of getting a pleural tap. For further recommendations, look in the chart. Will continue to follow the patient along with the consultants. Job#: [id number] YAKOV
--- NOTE | 2018-03-10 08:50 | NUR ---
PT RECEIVED FROM OUT GOING NURSE, SCHEDULED FOR THORACENTESIS THIS MORNING, DR. CAMERON VELOZ ORDERS TO HOLD ALL PO MEDICATIONS DUE TO PROCEDURE, AND TO D/C ASPIRIN.
[2018-03-10] MEDS: SENNOSIDES 8.6 MG TAB PO SCH (09:00)
[2018-03-10] MEDS: MEMANTINE 10 MG TAB PO SCH ×2 (09:00→16:54)
[2018-03-10] MEDS: GABAPENTIN 400 MG CAP PO SCH ×3 (09:00→21:33)
[2018-03-10] MEDS: MORPHINE SULFATE 30 MG TAB ER PO SCH ×2 (09:00→21:33)
[2018-03-10] MEDS: FOLIC ACID 1 MG TAB PO SCH (09:00)
[2018-03-10] MEDS: POLYETHYLENE GLYCOL 3350 17 GM PACK PO SCH (09:00)
[2018-03-10] MEDS: FINASTERIDE 5 MG TAB PO SCH (09:00)
[2018-03-10] MEDS: FAMOTIDINE 20 MG/2 ML VIAL IV SCH ×2 (09:00→21:32)
[2018-03-10] MEDS: METOCLOPRAMIDE HCL 10 MG TAB PO SCH ×3 (09:00→21:33)
[2018-03-10] MEDS ORDERED: MEMANTINE 10 MG TAB PO SCH (09:00)
[2018-03-10] MEDS: FUROSEMIDE 20 MG TAB PO SCH (09:00)
--- NOTE | 2018-03-10 12:06 | Diagnostic Imaging Report ---
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 Gricelda Alfred Pre-operative diagnosis: Small left pleural effusion Post-operative diagnosis: Small left pleural effusion Local sedation: 5 cc of 1% subcutaneous lidocaine Estimated blood loss: None. Implants: None TECHNIQUE/FINDINGS: Informed consent was obtained from the patient and documented in the medical record. The patient was positioned in the upright position. The left back was prepped and draped in standard sterile fashion. 1% lidocaine was infiltrated into the skin and subcutaneous tissues for local anesthesia. Preliminary ultrasound demonstrated small left pleural effusion. Then under sonographic guidance, a 20 gauge spinal needle was advanced into the left pleural space and 10 cc of tea colored serous fluid was aspirated. Post procedural ultrasound demonstrated a small residual effusion. The needle was removed and a sterile, occlusive dressing was applied. The patient tolerated the procedure well. IMPRESSION: Ultrasound-guided diagnostic left thoracentesis with removal of 10 cc of serous fluid. Signed by: Dr. Gricelda Alfred MD on 03/10/2018 12:02 PM
[2018-03-10 12:08] LABS: RBC,BODY FLUID 9603 cells/uL; WBC,BODY FLUID 693 cells/uL
--- NOTE | 2018-03-10 12:12 | Diagnostic Imaging Report ---
EXAMINATION: CHEST XRAY POST PROCEDURE INDICATION: Status post left thoracentesis COMPARISON: Chest radiograph 03/09/[address] Chest 03/08/2018. FINDINGS: TUBES and LINES: Partially seen neurostimulator leads overlying the spine. Lungs and pleura: Again noted is a left upper lobe opacity, better characterized on CT from 03/08/2018. Cystic changes are present in the right upper lung. Patchy right lung peripheral opacity. No new consolidation. Small right and trace left pleural effusions. No evidence of pneumothorax. HEART AND MEDIASTINUM: The cardiomediastinal silhouette is unremarkable. BONES AND SOFT TISSUES: No acute osseous lesion. Soft tissues are unremarkable. Status post median sternotomy. UPPER ABDOMEN: No free air under the diaphragm. IMPRESSION: Status post left thoracentesis with no evidence of pneumothorax. Small right and trace left pleural effusions. Unchanged appearance of left upper lobe opacity and patchy right lung opacity, better characterized on CT from 03/08/18. Signed by: Dr. Gricelda Alfred MD on 03/10/2018 12:09 PM
--- NOTE | 2018-03-10 12:30 | NUR ---
Left posterior lung thoracenthesis completed by Dr Alfred 10cc serious fluid sent to lab . 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
[2018-03-10 12:51] LABS: LYMPHOCYTES,BODY FLUID 86 %; MONO/MACROPHG,BODY FLUID 6 %; NEUTROPHILS,BODY FLUID 3 %; OTHER CELLS,BODY FLUID 5 %
[2018-03-10 13:09] LABS: BODY FLUID COLOR YELLOW; BODY FLUID TYPE PLEURAL
[2018-03-10 13:10] LABS: BODY FLUID APPEARANCE SL.CLOUDY
--- NOTE | 2018-03-10 13:32 | NUR ---
THORACENTESIS DONE ON PT , NURSE REPORTED 10ML OF SEROUS FLUIDS REMOVED AND SENT TO LAB. IN BED, V/S STABLE, NO C/O OF PAIN OR DISCOMFORT AT THIS TIME.
[2018-03-10] MEDS: AZITHROMYCIN 500MG/NS 250 ML 250 ML IV SCH (15:41)
[2018-03-10] MEDS: PREDNISONE 5 MG TAB PO SCH (16:54)
[2018-03-10] MEDS: DILTIAZEM HCL ER 120 MG CAPCR PO SCH (16:54)
[2018-03-10] MEDS: HYDROMORPHONE 2MG/ML 2 MG/ML ML IV PRN (18:56)
--- NOTE | 2018-03-10 19:22 | NUR ---
PT IN BED ,PRN PAIN MEDS GIVEN, WITH GOOD EFFECT, SITE ON LT SIDE THORACIC AREA LOOKS CLEAN AND DRY,NO REDNESS OR SWELLING NOTED.
--- NOTE | 2018-03-10 20:21 | Progress Note ---
DATE: March 10, 2018 PULMONARY MEDICINE PROGRESS NOTE SUBJECTIVE: Mr. Luna was seen and examined at bedside. He continues with low, probably insufficient progress. Patient ambulates around still with difficulty. He had thoracentesis and had 10 mL that were removed from the thoracic space under ultrasound guidance. Patient afterwards was eating. He is still feeling kind of weak. REVIEW OF SYSTEMS: No headaches, no rash. OBJECTIVE VITAL SIGNS: Afebrile, vital signs noted per the chart. GENERAL: No acute distress, alert and oriented, calm. Kind of weak in bed. HEENT: Normocephalic, atraumatic. NECK: Supple. Throat midline. LUNGS: Bilateral air entry, decreased breath sounds throughout, limited. CARDIOVASCULAR: S1, S2. No murmurs, rubs, or gallops. ABDOMEN: Soft, nontender. EXTREMITIES: No clubbing, no cyanosis. There is no edema. INTEGUMENT: No rash or purpura. LABS: Pleural fluid analysis is pending. BUN 17, creatinine 0.8. White count 6, hematocrit 30. IMPRESSION AND PLAN 1. Slightly increased left pleural effusion, status post thoracentesis. 2. Worsening left upper lobe atelectasis. 3. Postobstructive pneumonia. 4. Chronic obstructive pulmonary disease. 5. Chronic respiratory failure, chronic hypoxemia. 6. Lung cancer. At this time, we will continue current treatment. Patient had thoracentesis today, will followup pleural fluid analysis. Upon discussion, patient may consider having bronchoscopy with assessment and considerations for debridement of any obstructive lesion on Saturday after the holiday. We will follow along closely. Job#: [id number] LAM
[2018-03-10] MEDS: FERROUS SULFATE 325 MG TAB PO SCH (21:33)
[2018-03-10] MEDS: DOXEPIN HCL 25 MG CAP PO SCH (21:33)
[2018-03-10] MEDS: DULOXETINE HCL 30 MG DELAYED RELEASE PO SCH (21:33)
[2018-03-10] MEDS: DONEPEZIL HCL 5 MG TAB PO SCH (21:33)
[2018-03-10] MEDS: MIRTAZAPINE 15 MG TAB PO SCH (21:33)
[2018-03-10] MEDS: PANTOPRAZOLE SOD 40 MG TABEC PO SCH (21:33)
[2018-03-10] MEDS: CEFTRIAXONE SOD 1 GM/NS 50 ML 50 ML IV SCH (21:33)
[2018-03-10] MEDS: ATORVASTATIN 10 MG TAB PO SCH (21:33)
[2018-03-11] VITALS (7 sets, daily range): BP systolic 92–142; BP diastolic 61–98
[2018-03-11] MEDS: CLINDAMYCIN PHOS 900MG/ 50ML 50 ML IV SCH ×3 (00:59→17:00)
[2018-03-11] MEDS: ALBUTEROL SULF 0.083% NEB SOLN 3 ML NEB NEB SCH ×7 (03:20→23:20)
[2018-03-11] MEDS: IPRATROPIUM BROMIDE 0.02% 2.5 ML NEB NEB SCH ×6 (03:20→23:20)
[2018-03-11] MEDS: LEVOTHYROXINE SODIUM 100 MCG TAB PO SCH (05:50)
--- NOTE | 2018-03-11 07:35 | NUR ---
PT IN BED SLEEPING ,NO DISTRESS NTOED,O2 [address],NO S/S DISCOMFORT.
--- NOTE | 2018-03-11 08:12 | Progress Note ---
DATE: March 11, 2018 SUBJECTIVE: Patient is here for left-sided chest pain. Patient is supposed to get a bronchoscopy yesterday, did not get because of unavailability of OR. Patient had a thoracentesis yesterday. Doing better. No chest pain and no chest pain on breathing at this time. Patient is currently afebrile, with no complaints, awaiting a bronchoscopy tomorrow possibly. OBJECTIVE VITAL SIGNS: Temperature is 97.6, pulse of 95, respirations of 19, blood pressure is 99/63, pulse oximetry 91%. HEENT: Normocephalic, atraumatic. Pupils are reactive to light and accommodation. CVS: S1, S2 normal. Regular rate and rhythm. ABDOMEN: Nontender, nondistended. LUNGS: Decreased air entry in the left lung, positive for some rhonchi present also. EXTREMITIES: No clubbing, no cyanosis. Possible trace edema. IMAGING STUDIES: From yesterday, status post left thoracentesis, with no evidence of pneumothorax, unchanged appearance of left upper lobe opacity. ASSESSMENT AND PLAN 1. Left-sided chest pain, possibly secondary to pleural effusion. 2. Pleural effusion, status post thoracentesis. 3. History of lung cancer, needs bronchoscopy, scheduled for Saturday. 4. Atrial fibrillation. We will start back on the anticoagulation tomorrow. 5. Coronary artery disease. Continue with his medications including beta-blockade and hyperlipidemic agent, atorvastatin. 6. Dementia. Continue on memantine and also on donepezil. Patient is on empiric antibiotic, azithromycin and Rocephin, we will continue the same. Breathing treatments to be given. Further recommendations per clinical course. Patient can be discharged after bronchoscopy and after restarting his anticoagulation. Job#: [id number] LAM
[2018-03-11] MEDS: TIOTROPIUM 18 MCG INH POWDER INH SCH (08:17)
[2018-03-11] MEDS: FUROSEMIDE 20 MG TAB PO SCH (09:30)
[2018-03-11] MEDS: FAMOTIDINE 20 MG/2 ML VIAL IV SCH ×2 (09:30→21:02)
[2018-03-11] MEDS: SENNOSIDES 8.6 MG TAB PO SCH (09:30)
[2018-03-11] MEDS: MEMANTINE 10 MG TAB PO SCH ×2 (09:30→17:00)
[2018-03-11] MEDS: METOCLOPRAMIDE HCL 10 MG TAB PO SCH ×3 (09:30→21:02)
[2018-03-11] MEDS: FINASTERIDE 5 MG TAB PO SCH (09:30)
[2018-03-11] MEDS: GABAPENTIN 400 MG CAP PO SCH ×3 (09:30→21:02)
[2018-03-11] MEDS: FOLIC ACID 1 MG TAB PO SCH (09:30)
[2018-03-11] MEDS: MORPHINE SULFATE 30 MG TAB ER PO SCH ×2 (09:30→21:02)
[2018-03-11] MEDS: POLYETHYLENE GLYCOL 3350 17 GM PACK PO SCH (09:30)
--- NOTE | 2018-03-11 11:00 | NUR ---
PT SATS 88% RESP.PT PT ON HIGH DARIAN AT 6L
--- NOTE | 2018-03-11 13:07 | Progress Note ---
DATE: March 11, 2018 PULMONARY MEDICINE PROGRESS NOTE SUBJECTIVE: Mr. Luna was seen and examined at bedside. He continues to have delay in progress. He has very little functional endurance. Patient states that his appetite is not very good. He is tolerating the medications, however. REVIEW OF SYSTEMS: No headaches, no bleeding. OBJECTIVE VITAL SIGNS: Afebrile. Vital signs noted per electronic record. GENERAL: In no acute distress, alert, calm, is kind of weak. HEENT: Normocephalic, atraumatic. NECK: Supple. Throat midline. LUNGS: Bilateral air entry is decreased. Decreased breath sounds throughout. CARDIOVASCULAR: S1, S2. No murmurs, rubs, or gallops. ABDOMEN: Soft, nontender. EXTREMITIES: No clubbing, no cyanosis. There is no edema. INTEGUMENT: No rash. No purpura. IMPRESSION 1. Left upper lobe progressive atelectasis. 2. Postobstructive pneumonia. 3. Lung cancer. 4. Transudative pleural effusion, status post diagnostic thoracentesis. 5. Radiation pneumonitis. PLAN: Plan for a bronchoscopy, overbook hopefully tomorrow. Discussed benefits. I discussed risks including pneumothorax, hemorrhage, anesthesia reaction, and as this is a potentially high-risk bronchoscopy if we intervene on the lung. Patient should continue diet as much as possible. He will stay on the low dose of prednisone at this time. We will follow along closely. Continue antibiotics. Job#: [id number] NATHANAEL
[2018-03-11] MEDS ORDERED: ONDANSETRON HCL INJ 2 MG/ML VIAL ONE (13:31)
[2018-03-11] MEDS ORDERED: PROPOFOL IV EMULSION 10 MG/ML 20 ML VIAL ONE (13:31)
[2018-03-11] MEDS ORDERED: LIDOCAINE HCL 2% LOCAL INJ 5 ML SDV VIAL INJ ONE (13:31)
[2018-03-11] MEDS ORDERED: DEXAMETHASONE SOD PHOS INJ 4 MG/ML VIAL ONE (13:31)
[2018-03-11] MEDS ORDERED: SEVOFLURANE INHAL SOLN 250 ML PEN BTL ONE (13:31)
[2018-03-11] MEDS ORDERED: ROCURONIUM BROMIDE 10 MG/ML 5ML VIAL ONE (13:31)
[2018-03-11] MEDS: AZITHROMYCIN 500MG/NS 250 ML 250 ML IV SCH (16:30)
[2018-03-11] MEDS: PREDNISONE 5 MG TAB PO SCH (17:00)
[2018-03-11] MEDS: DILTIAZEM HCL ER 120 MG CAPCR PO SCH (17:00)
--- NOTE | 2018-03-11 18:46 | NUR ---
PT IN BED RESTING ,HOB LOW,PAIN LEVEL 3,O2 HIGH DARIAN 5 L
--- NOTE | 2018-03-11 19:25 | NUR ---
Received patient asleep, on high flow O2 at 5L, no distress noted, at the bedside. Call light within easy reached, informed of the plan for bronchoscopy tomorrow and NPO after midnight, verbalized understanding. Will continue to monitor
[2018-03-11] MEDS: DULOXETINE HCL 30 MG DELAYED RELEASE PO SCH (21:02)
[2018-03-11] MEDS: PANTOPRAZOLE SOD 40 MG TABEC PO SCH (21:02)
[2018-03-11] MEDS: ATORVASTATIN 10 MG TAB PO SCH (21:02)
[2018-03-11] MEDS: DONEPEZIL HCL 5 MG TAB PO SCH (21:02)
[2018-03-11] MEDS: FERROUS SULFATE 325 MG TAB PO SCH (21:02)
[2018-03-11] MEDS: CEFTRIAXONE SOD 1 GM/NS 50 ML 50 ML IV SCH (21:02)
[2018-03-11] MEDS: DOXEPIN HCL 25 MG CAP PO SCH (21:03)
[2018-03-11] MEDS: MIRTAZAPINE 15 MG TAB PO SCH (21:03)
[2018-03-12] VITALS (15 sets, daily range): BP systolic 80–125; BP diastolic 52–87
[2018-03-12] MEDS: CLINDAMYCIN PHOS 900MG/ 50ML 50 ML IV SCH ×3 (00:35→16:30)
[2018-03-12] MEDS: IPRATROPIUM BROMIDE 0.02% 2.5 ML NEB NEB SCH ×5 (03:05→23:10)
[2018-03-12] MEDS: ALBUTEROL SULF 0.083% NEB SOLN 3 ML NEB NEB SCH ×5 (03:05→23:17)
[2018-03-12] MEDS: LEVOTHYROXINE SODIUM 100 MCG TAB PO SCH (04:43)
[2018-03-12] MEDS: TIOTROPIUM 18 MCG INH POWDER INH SCH (06:41)
--- NOTE | 2018-03-12 07:09 | NUR ---
Patient had a hibiclens bath, NPO maintained
--- NOTE | 2018-03-12 07:15 | NUR ---
pt alert just had shower resp even and unlabored, tele replaced on pt, no distress noted, pt able to make needs known, call light in reach
[2018-03-12] MEDS: FAMOTIDINE 20 MG/2 ML VIAL IV SCH ×2 (09:00→22:16)
[2018-03-12] MEDS: METOCLOPRAMIDE HCL 10 MG TAB PO SCH ×3 (09:00→22:17)
[2018-03-12] MEDS: MEMANTINE 10 MG TAB PO SCH ×2 (09:00→17:00)
[2018-03-12] MEDS: POLYETHYLENE GLYCOL 3350 17 GM PACK PO SCH (09:00)
[2018-03-12] MEDS: GABAPENTIN 400 MG CAP PO SCH ×3 (09:00→22:17)
[2018-03-12] MEDS: HYDROMORPHONE 2MG/ML 2 MG/ML ML IV PRN (10:40)
[2018-03-12] MEDS: ONDANSETRON HCL INJ 2 MG/ML VIAL IV PRN (10:41)
--- NOTE | 2018-03-12 10:47 | NUR ---
pt off unit for procedure
[2018-03-12] MEDS ORDERED: LIDOCAINE JELLY 2% 10ML URO-JET ONE (11:15)
[2018-03-12] MEDS ORDERED: LIDOCAINE HCL 4% 50 ML BTL ONE (11:15)
--- NOTE | 2018-03-12 13:13 | NUR ---
Received report from Millie in recovery, patient is s/p bronchoscopy with biopsy and washings, coming back to room 215.
[2018-03-12] MEDS ORDERED: KETOROLAC TROMETHAMINE 30 MG/ML VIAL ONE (13:19)
--- NOTE | 2018-03-12 13:37 | Progress Note ---
DATE: March 12, 2018 PULMONARY MEDICINE PROGRESS NOTE SUBJECTIVE: Mr. Luna was seen and examined at bedside. He continues to have some low function endurance. Not much sputum is being expectorated. He remains stable on an amount of oxygen. He had bronchoscopy today with limited ability to open the distal airways, although the proximal left upper airway was opened as seen in pictures. REVIEW OF SYSTEMS: No headaches. No rash. OBJECTIVE VITALS: Afebrile. Vital signs noted per electronic record. GENERAL: In no acute distress. Alert and calm. Slightly tired. HEENT: Normocephalic and atraumatic. NECK: Supple. Throat midline. LUNGS: Bilateral air entry. Decreased breath sounds throughout. Difficult to auscultate. CARDIOVASCULAR: S1 and S2. No murmurs, rubs or gallops. ABDOMEN: Soft and nontender. EXTREMITIES: No clubbing. No cyanosis. There is no edema. INTEGUMENT: No rash. No purpura. LABS: Potassium 4.1, BUN 17, creatinine 0.8. White count 6.4, hematocrit 30 and platelets 168,000. IMPRESSION AND PLAN 1. Left upper lobe atelectasis secondary to previous tumor or tumor treatment. 2. Treat like postobstructive pneumonia. 3. Chronic obstructive pulmonary disease. 4. Worsening function endurance. 5. Chronic respiratory failure, hypoxemic. Will continue antibiotics. The patient with bronchoscopy done today. He is recovering and we await chest x-ray after. Prednisone is known for radiation pneumonitis and radiation fibrosis at least locally to where they gave radiation. Await biopsies from the lung debridement and to see if this is more tumor versus progression of fibrosis. There is no clear evidence that local treatment will help open the left upper lung, although subsequent chest x-rays will let us know if we were able to open it. If the left upper lung does not open, the patient should be considered for either brachytherapy or other radiation therapy if it is felt to be related to tumor. Job#: [id number] AL
--- NOTE | 2018-03-12 13:40 | NUR ---
Patient arrived back to the floor awake alert and oriented x3, he is on 6L NC, he states he wears 6L at home and feels his breathing is better s/p bronchoscopy. at the bedside, the patient denies needing anything at this time, call light in reach
--- NOTE | 2018-03-12 14:02 | Operative Report ---
DATE OF PROCEDURE: March 12, 2018 PROCEDURES 1. Fiberoptic bronchoscopy. 2. Endobronchial biopsy. 3. Mechanical debridement of tumor/scarring in airway 4. Bronchoscopic washings. 5. Fluoroscopy for guidance INDICATIONS: Progressive left upper lobe airway obstruction. ANESTHESIA: Monitored anesthesia care per anesthesiology. CONSENT: Informed consent from the patient and . FINDINGS: Mr. Luna went for bronchoscopy. He had an endotracheal tube inserted via the mouth. This was secured. Fiberoptic bronchoscope was inserted into the tracheobronchial tree beyond the endotracheal tube and the airways were inspected. The right-sided airways were unremarkable. The left-sided airways did demonstrate some abnormality. The left lower lobe airways were patent and normal. Left lingula was without remarkable findings. The left upper lobe airway was with a greater than 95% airway obstruction at the orifice. It was difficult to advance to the left upper lobe apical segment, but were able to do it with inverted bronchoscopy configuration. The REMY foraminal surface was irregular given the possibility that this could be related to tumor infiltration. Biopsies were done. Serial debridement was done here with forceps. As the field was not very bloody, no need for laser photocoagulation. Debridements were performed serially. Eventually, we took a look with the forceps under fluoroscopy to try to pass distally. We continued with serial debridements. On multiple looks, we could not pass into the distal left upper lobe lung tissue with the forceps. Eventually, the proximal airway was deemed reasonably open yet the distal airways were not reached. Therefore, the procedure was ended. The patient was left to recover with anesthesia. COMPLICATIONS: None. ESTIMATED BLOOD LOSS: Minimal. Debridement was not very bloody at all. IMPRESSION: Greater than 95% left upper lobe stenosis at foramen. Status post biopsy, mechanical debridement and unsuccessful attempts to pass to distal left upper lobe lung tissue. RECOMMENDATIONS: Follow up biopsies and determine the extent of neoplastic cancer versus post radiation fibrosis. Consideration can be made for brachytherapy or more radiation therapy to the field if the patient is a candidate. Serial x-rays can show if we were able to open the left upper lung field with the debridements that I did, although we could not pass distally using the forceps during this procedure. Job#: [id number] YAKOV GARCIA
--- NOTE | 2018-03-12 14:13 | Diagnostic Imaging Report ---
PROCEDURE: CHEST SINGLE (PORTABLE) COMPARISON: 03/10/2018. INDICATIONS: POST SX LUNG DEBRIDEMENT FINDINGS: LUNGS: Increased opacification in the remaining left lower lung field that is aerated. Persistent left upper lobe total opacification. Increased opacification in the poorly ventilated right lung. PLEURA: No effusions or pneumothorax. HEART & MEDIASTINUM: The heart is enlarged. BONES & SOFT TISSUES: No acute findings. CONCLUSION: Increased opacification within portions of the right and left lung may represent fluid overload. Trino Santos D.O. Dictated by: Trino Santos D.O. on 03/12/2018 at 14:25 Electronically approved by: Trino Santos D.O. on 03/12/2018 at 14:25
--- NOTE | 2018-03-12 14:18 | NUR ---
Patient given ice chips and water to see if he is able to swallow OK before resuming regular food. Will continue to monitor.
[2018-03-12] MEDS: FUROSEMIDE 20 MG TAB PO SCH (15:14)
[2018-03-12] MEDS: FOLIC ACID 1 MG TAB PO SCH (15:14)
[2018-03-12] MEDS: MORPHINE SULFATE 30 MG TAB ER PO SCH ×2 (15:15→22:17)
[2018-03-12] MEDS: FINASTERIDE 5 MG TAB PO SCH (15:15)
[2018-03-12] MEDS: SENNOSIDES 8.6 MG TAB PO SCH (15:15)
--- NOTE | 2018-03-12 15:23 | NUR ---
Paged Dr. Chaney to make sure he has seen the s/p chest xray following today's bronchoscopy. Awaiting call back.
[2018-03-12] MEDS ORDERED: FENTANYL CITRATE/PF 100MCG/2 ML INJ ONE (15:33)
--- NOTE | 2018-03-12 16:50 | NUR ---
Tech reported BP 86/52 and patient's 02 saturation on 8l NC is ranging from 85-88%. He is lethargic with labored breathing. Manual BP taken at the bedside twice with a reading of 120/80. Called telemetry to verify the patient's rhythm, telegraphic instrument supervisor reported SR with PAC's at 85. Patient's is at the bedside. Paged Dr. Chaney stat and updated him on patient's current condition. New orders were received, including to place patient on BIPAP. anode crew supervisor was notified of BIPAP order.
[2018-03-12] MEDS: PREDNISONE 5 MG TAB PO SCH (17:00)
[2018-03-12] MEDS: DILTIAZEM HCL ER 120 MG CAPCR PO SCH (17:00)
--- NOTE | 2018-03-12 17:15 | NUR ---
Rapid response was called due to lethargy and respiratory distress, ER doc and rapid response team at the bedside. ER doc updated on patient's status, new orders were received including to transfer patient to ICU room 189.
[2018-03-12 17:25] LABS: ABG PH 7.33 (7.31-7.41)
--- NOTE | 2018-03-12 17:25 | NUR ---
Dr. Chaney and Dr. Martins were both notified of patient's condition and transferring to ICU [place] [phone].
[2018-03-12 17:26] LABS: ABG HCO3 37 mmol/L (23-28); ABG PCO2 70 mmHg (41-51); ABG PO2 57 mmHg (80-105)
--- NOTE | 2018-03-12 17:30 | NUR ---
Report called to ICU nurse and patient transferred to ICU on BIPAP to room 189.
--- NOTE | 2018-03-12 17:40 | NUR ---
Repeat EKG was taken to Dr. Murcia at his request.
--- NOTE | 2018-03-12 17:42 | NUR ---
RECEIVED PT FROM [facility], PT CAME WITH LABORED BREATHING AND LOW SATS PT HAD BRONCHOSCOPY DONE THIS DAY PT PLACED ON BIPAP AND BROUGHT TO ICU ROOM 189. AT BEDSIDE WILL CONTINUE TO MONITOR CLOSELY
--- NOTE | 2018-03-12 18:02 | Diagnostic Imaging Report ---
EXAMINATION: CHEST SINGLE (PORTABLE) INDICATION: Shortness of breath. Left lung atelectasis. COMPARISON: Chest x-ray 03/12/2018. CT chest PE study 03/08/2018. FINDINGS: AP view TUBES and LINES: Median sternotomy wires. Partially visualized spinal stimulator wires visualized. LUNGS: Right lung is hypoinflated with elevated right hemidiaphragm. Right perihilar atelectasis. Complete atelectasis of the left upper lobe is again seen. PLEURA: Tiny bilateral pleural effusions. HEART AND MEDIASTINUM: The cardiomediastinal silhouette is unremarkable. BONES AND SOFT TISSUES: Left posterior sixth rib is not visualized, consistent with partial resection.. Soft tissues are unremarkable. UPPER ABDOMEN: No free air under the diaphragm. IMPRESSION: 1. Unchanged hypoinflated right lung with slight improvement in right lung atelectasis. 2. Unchanged complete left upper lobe collapse. Signed by: Dr. Arnoldo Ovalles M.D. on 03/12/2018 5:59 PM
[2018-03-12] MEDS: AZITHROMYCIN 500MG/NS 250 ML 250 ML IV SCH (18:19)
--- NOTE | 2018-03-12 19:00 | NUR ---
Report received. Assumed care. Assessment done. See interventions. On Bipap with sats 98-100%. IV saline locked.
[2018-03-12 19:03] LABS: ABG PH 7.28 (7.31-7.41)
[2018-03-12 19:04] LABS: ABG HCO3 36 mmol/L (23-28); ABG PCO2 76 mmHg (41-51); ABG PO2 115 mmHg (80-105)
--- NOTE | 2018-03-12 19:20 | NUR ---
Spoke with Dr. Chaney. Orders given.
[2018-03-12] MEDS ORDERED: METHYLPREDNISOLONE SOD SUCC 40 MG/ML VIAL ONE (19:21)
[2018-03-12] MEDS ORDERED: FUROSEMIDE INJ 10 MG/ML 4 ML VIAL ONE (19:21)
--- NOTE | 2018-03-12 19:30 | NUR ---
Summers inserted without difficulty.
[2018-03-12] MEDS: FUROSEMIDE INJ 10 MG/ML 4 ML VIAL IV SCH (19:45)
[2018-03-12] MEDS: METHYLPREDNISOLONE SOD SUCC 125 MG/2ML VIAL IV SCH (19:45)
--- NOTE | 2018-03-12 19:45 | NUR ---
Solumedrol 80mg IV & Lasix 40mg IV given per orders.
[2018-03-12] MEDS ORDERED: SODIUM CHLORIDE 0.9% 250ML 250 ML ONE (22:10)
[2018-03-12] MEDS: DULOXETINE HCL 30 MG DELAYED RELEASE PO SCH (22:16)
[2018-03-12] MEDS: FERROUS SULFATE 325 MG TAB PO SCH (22:16)
[2018-03-12] MEDS: DONEPEZIL HCL 5 MG TAB PO SCH (22:16)
[2018-03-12] MEDS: ATORVASTATIN 10 MG TAB PO SCH (22:16)
[2018-03-12] MEDS: CEFTRIAXONE SOD 1 GM/NS 50 ML 50 ML IV SCH (22:16)
[2018-03-12] MEDS: MIRTAZAPINE 15 MG TAB PO SCH (22:17)
[2018-03-12] MEDS: PANTOPRAZOLE SOD 40 MG TABEC PO SCH (22:17)
[2018-03-12] MEDS: DOXEPIN HCL 25 MG CAP PO SCH (22:17)
--- NOTE | 2018-03-12 23:10 | Progress Note ---
DATE: March 12, 2018 PULMONARY PROGRESS NOTE Mr. Luna was seen and examined at bedside. Multiple cough . Gradual shortness of breath. Gradual decreased breathing with more obtundation. Patient was given BiPAP. As he worsened, we gave steroids and diuretics. Patient already had large amounts of urination. When I came to bedside, later that evening, he is more breathing pattern while on BiPAP. REVIEW OF SYSTEMS: Cannot get as he is on respiratory support. IMPRESSIONS AND PLAN 1. Acute respiratory distress, presumed more likely fluid excess. Rule out other. 2. Status post bronchoscopy. 3. Right upper lobe obstruction, status post mechanical debridement with failure to open distal segments. 4. No lung cancer. 5. Chronic obstructive pulmonary disease. 6. Hypoxemia. Diuretics given. Repeat another diuretic dose in a few more hours. Steroids given. Repeat another steroid dose. Bronchodilators as needed. Continue BiPAP. Follow up clinically or by blood gas analysis regarding his respiratory status. Greater than 30 minutes on direct care today, multiple evaluation. This does not include procedure time. Job#: [id number]
[2018-03-12 23:15] LABS: ABG HCO3 39 mmol/L (23-28); ABG PCO2 68 mmHg (41-51); ABG PH 7.36 (7.31-7.41); ABG PO2 83 mmHg (80-105)
[2018-03-13] VITALS (25 sets, daily range): BP systolic 86–120; BP diastolic 56–92
[2018-03-13] MEDS: CLINDAMYCIN PHOS 900MG/ 50ML 50 ML IV SCH ×3 (01:20→17:57)
[2018-03-13] MEDS: FUROSEMIDE INJ 10 MG/ML 4 ML VIAL IV SCH (03:05)
[2018-03-13] MEDS: METHYLPREDNISOLONE SOD SUCC 125 MG/2ML VIAL IV SCH (03:05)
[2018-03-13] MEDS: ALBUTEROL SULF 0.083% NEB SOLN 3 ML NEB NEB SCH ×6 (03:15→23:00)
[2018-03-13] MEDS: IPRATROPIUM BROMIDE 0.02% 2.5 ML NEB NEB SCH ×6 (03:15→23:00)
[2018-03-13 04:48] LABS: HEMATOCRIT 29.3 % (38.2-49.6); HEMOGLOBIN 8.6 g/dL (14.0-18.0); LYMPHOCYTES # (AUTO) 0.2 (1.0-3.2); LYMPHOCYTES % 4.5 % (18.0-39.1); MEAN CORPUSCULAR HGB CONC 29.4 g/dL (31-35); MEAN CORPUSCULAR VOLUME 92.1 fL (81-99); MONOCYTES # (AUTO) 0.1 (0.2-0.8); MONOCYTES % 1.5 % (4.4-11.3); NEUTROPHILS % 93.6 % (38.7-80.0); PLATELET COUNT 155 x10e3/uL (140-360); RED BLOOD COUNT 3.18 x10e6/uL (4.3-5.7); RED CELL DISTRIBUTION WIDTH 15.4 % (11.7-14.4)
[2018-03-13 05:17] LABS: ALANINE AMINOTRANSFERASE 16 IU/L (0-55); ALBUMIN 2.7 g/dL (3.5-5.0); ALBUMIN/GLOBULIN RATIO 0.8 (0.8-2.0); ALKALINE PHOSPHATASE 65 IU/L (40-150); BLOOD UREA NITROGEN 19 mg/dL (7-26); BUN/CREATININE RATIO 23 (6-25); CARBON DIOXIDE 35 mmol/L (22-29); CHLORIDE 95 mmol/L (98-107); CREATININE, SERUM 0.82 mg/dL (0.72-1.25); EST GLOMERULAR FILTRATION RATE > 60 ML/MIN (60-); GLUCOSE 128 mg/dL (74-118); PHOSPHORUS 4.3 MG/DL (2.3-4.7); SODIUM 140 mmol/L (136-145)
[2018-03-13] MEDS: LEVOTHYROXINE SODIUM 100 MCG TAB PO SCH (05:48)
[2018-03-13] MEDS: TIOTROPIUM 18 MCG INH POWDER INH SCH (06:00)
--- NOTE | 2018-03-13 06:43 | Diagnostic Imaging Report ---
EXAM: CHEST SINGLE (PORTABLE), AP 1 view INDICATION: Pneumonia COMPARISON: AP view of the chest March 12, 2018 FINDINGS: LINES/TUBES: None LUNGS: Low inspiration. Complete opacification of the left upper lung and increasing atelectasis of the left lower lung. PLEURA: Indeterminate for effusions. HEART AND MEDIASTINUM: Obscured BONES AND SOFT TISSUES: No acute findings. IMPRESSION: Persistent opacification of the left upper lung and increasing atelectasis of the left lower lobe. Signed by: Dr. Susan Clarke M.D. on 03/13/2018 6:39 AM
--- NOTE | 2018-03-13 07:19 | NUR ---
Patient moved from Med surg 2 to a higher level of care in ICU. Hold all PT services until pt is stable and a resume PT order is placed by the MD. Addendum: 03/13/18 at 0720 by Nettie Rodriguez PT Amended: Links added.
[2018-03-13] MEDS: SENNOSIDES 8.6 MG TAB PO SCH ×2 (08:20→08:57)
[2018-03-13] MEDS: METOCLOPRAMIDE HCL 10 MG TAB PO SCH ×4 (08:20→21:07)
[2018-03-13] MEDS: FUROSEMIDE 20 MG TAB PO SCH (08:20)
[2018-03-13] MEDS: MEMANTINE 10 MG TAB PO SCH ×2 (08:20→17:57)
[2018-03-13] MEDS: FOLIC ACID 1 MG TAB PO SCH (08:20)
[2018-03-13] MEDS: FAMOTIDINE 20 MG/2 ML VIAL IV SCH ×2 (08:20→21:07)
[2018-03-13] MEDS: FINASTERIDE 5 MG TAB PO SCH (08:20)
[2018-03-13] MEDS: GABAPENTIN 400 MG CAP PO SCH ×3 (08:20→21:07)
[2018-03-13] MEDS: POLYETHYLENE GLYCOL 3350 17 GM PACK PO SCH (08:20)
--- NOTE | 2018-03-13 08:33 | Diagnostic Imaging Report ---
PROCEDURE:FLUORO ASSIST LITHO/BROCH/ERCP INDICATION:Persistent left upper lobe opacification COMPARISON:Patients [facility], CT, CT CHEST W, 03/08/2018, 16:30. Patients [facility], DX, CHEST SINGLE (PORTABLE), 03/09/2018, 5:50. FINDINGS:Total of 10 fluoroscopic images were obtained and saved to the radiology record. Images show a bronchoscope in place in the left upper lobe. Alligator forceps biopsy device has been deployed. Please see the full report provided by the performing physician. Fluoroscopy time: 53 seconds Cumulative area dose product: 628.22 cGycm2 Cumulative air kerma: 38.80 m Gy CONCLUSION: 1. Bronchoscopy involving the left upper lobe opacity/atelectasis with biopsies performed. 2. Please see the full report provided by the performing physician. Trino Santos D.O. Dictated by: Trino Santos D.O. on 03/13/2018 at 8:44 Electronically approved by: Trino Santos D.O. on 03/13/2018 at 8:44
[2018-03-13] MEDS: MORPHINE SULFATE 30 MG TAB ER PO SCH ×2 (08:44→21:07)
[2018-03-13] MEDS ORDERED: POLYETHYLENE GLYCOL 3350 17 GM PACK PO PRN (09:00)
[2018-03-13 09:24] LABS: ABG HCO3 40 mmol/L (23-28); ABG PCO2 62 mmHg (41-51); ABG PH 7.42 (7.31-7.41); ABG PO2 70 mmHg (80-105)
--- NOTE | 2018-03-13 13:15 | NUR ---
Nutrition Screen Note RD Recommendation for Physician: -Continue cardiac diet as ordered Plan of Care: RD following, monitoring for tolerance and adequacy Nutrition reason for involvement: LOS Primary Diagnose(s): 1. Acute respiratory distress, presumed more likely fluid excess. Rule out other. 2. Status post bronchoscopy. 3. Right upper lobe obstruction, status post mechanical debridement with failure to open distal segments. PMH: COPD, Alzheimer's disease, benign prostatic hypertrophy, reflux esophagitis, hyperlipidemia, CABG, atrial fibrillation, coronary artery disease, lung cancer Ht: 66in Wt: 214.04lb BMI: 34.5kg/m2 IBW: 142lb RD Assessment: (03/13) Chart reviewed. Labs and meds reviewed. 67 yo M, who is admitted for acute respiratory distress. On BiPAP, IV abx and nebs. Visited pt in the room. Pt reports improved appetite with 100% observed lunch intake. No GI complains noted. LBM 03/13, loose stool after Miralax was given. No complain of chewing or swallowing difficulty. No recent weight loss reported. Will continue to monitor and follow. Current Diet: Cardiac diet Malnutrition Evaluation (03/13/18) The patient does not meet criteria for a specified degree of malnutrition at this time. Will re-evaluate at follow-up as appropriate. Diet Education Needs Assessment: Diet education not indicated. Nutrition Care Level: low Signed: Lilia Castro, , RD, LD
--- NOTE | 2018-03-13 14:57 | NUR ---
notified Dr Fontana's office regarding new consult for tachycardia w junctional escape complexes.
[2018-03-13] MEDS: DILTIAZEM HCL ER 120 MG CAPCR PO SCH (16:01)
[2018-03-13] MEDS: AZITHROMYCIN 500MG/NS 250 ML 250 ML IV SCH (16:30)
[2018-03-13] MEDS: PREDNISONE 5 MG TAB PO SCH (17:57)
--- NOTE | 2018-03-13 18:08 | Consultation ---
DATE OF CONSULTATION: March 13, 2018 CARDIAC CONSULTATION REASON FOR CONSULTATION: Respiratory distress and tachyarrhythmias. HISTORY: This is a 67-year-old gentleman, who is known with longstanding history of hypertension, hyperlipidemia, COPD, factor V Leiden thrombophilia, diagnosed in 2001, hypothyroidism, GERD, and prostate problem. Cardiac mike, patient had coronary artery bypass surgery on October 19, [address] Álvarez for 3 vessels. Regarding his pulmonary issue, he got chronic history of advanced lung disease; furthermore, he had lung mass. This was 3.4 cm. He was seen at [facility]. He had 5 rounds of radiation therapy in April 2017. Repeat CT scan showed decrease in the lung mass size with resolution of lymph node involvement as per family. Patient currently on steroids for his chronic lung disease. Patient came to this institution on March 08, 2018 with respiratory distress. He needs to be on BiPAP and yesterday, he was very ill. With that, it was noted his tachycardia becoming out of control with heart rate of 130 to 140. He does have severe shortness of breath. Patient needs to be on BiPAP. He was just taken off BiPAP. Of note, his BNP was low at 220. His chest x-ray showed opacity and changes in the left upper lobe. He had CT scan on admission, which was negative for pulmonary embolism. Patient, in summary, is having shortness of breath at rest. He is on oxygen. His latest ABGs showed pH of 7.42 pCO2 of 62 pO2 of 70. Patient is baseline on oxygen and now his condition it deteriorating despite aggressive care. He is in intensive care unit. CURRENT MEDICATIONS 1. Patient started on antibiotics including, azithromycin, clindamycin, and ceftriaxone. 2. He continued on his Cardizem CD 120 mg daily. 3. His Eliquis 2.5 mg twice a day stopped. 4. He is on prednisone and Solu-Medrol. 5. He is on aspirin. 6. He is on several inhalers. 7. In addition to that, patient given Lasix intravenously on admission and now his Lasix decreased to 20 mg per day. 8. Patient also on levothyroxine 100 mcg a day. ALLERGIES: PENICILLIN AND TAPE. PAST MEDICAL HISTORY 1. Coronary artery bypass surgery in October 2016 for 3 vessels. 2. Hypertension. 3. Advanced lung disease on home oxygen since 2011. 4. Thrombophilia. 5. Left lung mass, status post radiation therapy. 6. Cervical radiculopathy. 7. Hypothyroidism. 8. Severe back pain. 9. Neurostimulator implant. 10. Appendectomy. 11. Right foot surgery. 12. Lung surgery in December 2016. SOCIAL HISTORY: He is . He stopped a few years back. He is jse-giqplrw-wbinduh. 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 FAMILY HISTORY: Mother at 86 of complication of factor V. Father at age 89 with pneumonia, skin cancer. One sister had stroke at age 38 and there is also history of leukemia. PHYSICAL EXAM VITALS: Height of 5'6, weight of 208 pounds. Blood pressure 120/80. Heart rate of 110 per minute. Afebrile. Respiratory rate of 20. GENERAL: Acutely and chronically ill gentleman. HEENT: Pupils are reactive. NECK: Definitely no elevation of jugular venous pulsation. CHEST: Barrel shaped chest with marked decreased lung expansion and crackles. HEART: Right ventricular heave. Increased intensity of second heart sound. Tricuspid regurgitation murmur. ABDOMEN: Obese. EXTREMITIES: No peripheral edema. No gross signs of deep venous thrombosis. NEUROLOGIC: Awake alert. Able to move his extremities. LAB DATA: Sodium of 140, potassium of 4, BUN of 19, creatinine 0.82. White blood cell count of 5.4, hemoglobin of 8.6, hematocrit 29%, platelet of 155,000. Serial cardiac enzymes are normal. BNP of 220. TSH 1.24. Triglyceride of 53, cholesterol 118, HDL of 46, LDL of 61. EKG: Several EKGs are noted and reviewed telemetry. There is definitely an EKG with paroxysmal atrial tachycardia and reviewing telemetry, patient having also paroxysmal atrial tachycardia. Possible atrial fibrillation in one of the tracing. IMPRESSIONS AND PLAN 1. Fikqw-ke-hilbsmk respiratory distress. 2. Paroxysmal atrial tachycardia and arrhythmia and possible one episode of paroxysmal atrial fibrillation. 3. Debility. 4. Coronary artery disease, status post coronary bypass surgery. 5. Advanced lung disease. 6. Lung nodule and lung cancer, status post radiation. 7. History of thrombophilia. 8. Hypothyroidism. Cardiac-mike, will continue Cardizem, supportive care to work his pulmonary issue. Prognosis is guarded because of the advanced and severity of his lung disease. Care discussed with patient and his . Care discussed with ICU staff. Adjustment of medications are also explained. Will follow patient's progression with you and would like to thank you for kind referral. Job#: [id number] CQ
--- NOTE | 2018-03-13 19:14 | NUR ---
Report received. Assumed care. Assessment done. See interventions.
[2018-03-13] MEDS: FERROUS SULFATE 325 MG TAB PO SCH (21:07)
[2018-03-13] MEDS: ATORVASTATIN 10 MG TAB PO SCH (21:07)
[2018-03-13] MEDS: DOXEPIN HCL 25 MG CAP PO SCH (21:07)
[2018-03-13] MEDS: PANTOPRAZOLE SOD 40 MG TABEC PO SCH (21:07)
[2018-03-13] MEDS: DULOXETINE HCL 30 MG DELAYED RELEASE PO SCH (21:07)
[2018-03-13] MEDS: DONEPEZIL HCL 5 MG TAB PO SCH (21:07)
[2018-03-13] MEDS: CEFTRIAXONE SOD 1 GM/NS 50 ML 50 ML IV SCH (21:07)
[2018-03-13] MEDS: MIRTAZAPINE 15 MG TAB PO SCH (21:07)
[2018-03-13] MEDS ORDERED: FUROSEMIDE INJ 10 MG/ML 2 ML VIAL IV NR (22:00)
--- NOTE | 2018-03-13 23:17 | NUR ---
Cleaned for mod soft brown stool. Partial linen change.
[2018-03-14] VITALS (21 sets, daily range): BP systolic 86–120; BP diastolic 68–99
[2018-03-14] MEDS: CLINDAMYCIN PHOS 900MG/ 50ML 50 ML IV SCH ×3 (01:05→17:19)
--- NOTE | 2018-03-14 01:19 | Progress Note ---
DATE: March 13, 2018 PULMONARY MEDICINE PROGRESS NOTE SUBJECTIVE: Mr. Luna was seen and examined at bedside. Patient was put on high-flow nasal cannula in the morning. He was weaned down to 4 liters per minute nasal cannula towards the evening. He ate well. Bowel movement is today. Summers in place with 800 mL over 12 hours. Chest x-ray with atelectasis still. I had called his thoracic oncologist and left a message for callback for me and also with the pathologist number as she has the specimens in her lab. REVIEW OF SYSTEMS: No headaches, no rash. OBJECTIVE: VITAL SIGNS: Afebrile, vital signs noted per electronic record. GENERAL: In no acute distress, calm in bed. Appears weak. HEENT: Normocephalic, atraumatic. NECK: Supple. Throat midline. LUNGS: Bilateral air entry, decreased in various lung buenrostro. CARDIOVASCULAR: S1, S2. No murmurs, rubs, or gallops. ABDOMEN: Soft, nontender. EXTREMITIES: No clubbing, no cyanosis, there is no edema. INTEGUMENT: No rash, no purpura. LABS: 4.0 potassium, 19 BUN, 0.8 creatinine. 5 white count, 29 hematocrit, 155,000 platelets. IMPRESSION AND PLAN: 1. Fluid overload, iatrogenic component. 2. Multifocal atelectasis due to various etiologies including compressive and resorptive, and scarring. 3. New evolution of left upper lobe proximal and distal airway collapse. 4. 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 5. Chronic obstructive pulmonary disease with exacerbation. 6. Chronic respiratory failure/chronic hypoxemia. Continue weaning off bilevel positive airway pressure. BiPAP if they want to continue using for possibility of sleep apnea, although it is not a high-grade recommendation. Oxygen should be continued as he has approached his home dose. Continue appetite and diet encouragement. Will get physical therapy to see the patient. Discontinue Summers in the morning. Give 1 more dose of Lasix given the limited chest x-ray, but possibility of mild residual overload. Will follow along closely. Job#: [id number] DR GARCIA
[2018-03-14] MEDS: ALBUTEROL SULF 0.083% NEB SOLN 3 ML NEB NEB SCH ×6 (02:40→22:25)
[2018-03-14] MEDS: IPRATROPIUM BROMIDE 0.02% 2.5 ML NEB NEB SCH ×6 (02:40→22:25)
[2018-03-14] MEDS: ACETAMINOPHEN 325 MG TAB PO PRN (04:51)
--- NOTE | 2018-03-14 04:51 | NUR ---
Medicated for c/o headache.
--- NOTE | 2018-03-14 05:34 | Diagnostic Imaging Report ---
EXAM: CHEST SINGLE (PORTABLE), AP 1 view INDICATION: Respiratory failure COMPARISON: AP view of the chest March 13, 2018 FINDINGS: LINES/TUBES: None LUNGS: Persistent opacification of the left upper lung. Slight improved aeration of the left lung base. Low volumes in the right lung. PLEURA: No effusions or pneumothorax. HEART AND MEDIASTINUM: Stable appearance BONES AND SOFT TISSUES: No acute findings. IMPRESSION: Stable large opacification in the left upper lung and smaller in the right upper lung. Signed by: Dr. Susan Clarke M.D. on 03/14/2018 5:31 AM
[2018-03-14 05:47] LABS: ALANINE AMINOTRANSFERASE 18 IU/L (0-55); ALBUMIN 2.8 g/dL (3.5-5.0); ALBUMIN/GLOBULIN RATIO 0.8 (0.8-2.0); ALKALINE PHOSPHATASE 68 IU/L (40-150); ANION GAP 13.9 mmol/L (8-16); BLOOD UREA NITROGEN 24 mg/dL (7-26); BUN/CREATININE RATIO 24 (6-25); CALCIUM 9.1 mg/dL (8.4-10.2); CARBON DIOXIDE 38 mmol/L (22-29); CHLORIDE 92 mmol/L (98-107); CREATININE, SERUM 0.98 mg/dL (0.72-1.25); EST GLOMERULAR FILTRATION RATE > 60 ML/MIN (60-); GLUCOSE 110 mg/dL (74-118); POTASSIUM 3.9 mmol/L (3.5-5.1); SODIUM 140 mmol/L (136-145)
[2018-03-14] MEDS: LEVOTHYROXINE SODIUM 100 MCG TAB PO SCH (06:20)
--- NOTE | 2018-03-14 08:00 | NUR ---
patient out of bed to chair with minimum assistance.
[2018-03-14] MEDS: SENNOSIDES 8.6 MG TAB PO SCH (09:00)
[2018-03-14] MEDS: METOCLOPRAMIDE HCL 10 MG TAB PO SCH ×3 (09:00→21:00)
[2018-03-14] MEDS: FAMOTIDINE 20 MG/2 ML VIAL IV SCH ×2 (09:15→21:00)
[2018-03-14] MEDS: FOLIC ACID 1 MG TAB PO SCH (09:15)
[2018-03-14] MEDS: FUROSEMIDE 20 MG TAB PO SCH (09:15)
[2018-03-14] MEDS: MEMANTINE 10 MG TAB PO SCH ×3 (09:16→18:33)
[2018-03-14] MEDS: GABAPENTIN 400 MG CAP PO SCH ×3 (09:16→21:00)
[2018-03-14] MEDS: FINASTERIDE 5 MG TAB PO SCH (09:16)
[2018-03-14] MEDS: MORPHINE SULFATE 30 MG TAB ER PO SCH ×2 (09:26→21:00)
[2018-03-14] MEDS: TIOTROPIUM 18 MCG INH POWDER INH SCH (11:08)
--- NOTE | 2018-03-14 14:49 | NUR ---
PATIENT TRANSFERRED TO ICU ON 03/13 FROM [facility] Template Cutter to bedside to discuss plan of care with patient/family. CM/SW role and care transitions discussed. Anticipated discharge plan discussed along with duration of care. CM discussed patients right to make decisions in care. CM/SW work hours given. Patient lives: PATIENT LIVES WITH IN [address] HOME IN [place], [place]. PATIENT INDEPENDENT PRIOR TO HOSPITALIZATION Admit/Transfer: ED POA/Emergency contact: : DARIUS BARRIOS: [phone] Current/Previous Home Health: NONE PCP/Follow-up Care: CHAN CRUMP MD Current/Previous DME: PATIENT WITH ROLLATOR, CANE, ELECTRIC SCOOTER AND SHOWER CHAIR AT HOME Other Services: NONE Employment Status: RETIRED Areas of Concerns: NONE Referral Needs: POSSIBLE HOME HEALTH IF PATIENT DOES NOT INCREASE FT AMBULATED Education Needs: NONE AT THIS TIME IMM/PERERA given and signed (if applicable): Goal for discharge: PATIENT GOAL IS TO RETURN HOME INDEPENDENT WITH NO NEEDS CM left business card at the bedside with contact information. Name and number was also written on the patients whiteboard. Patient verbalized understanding of discussion. CM will follow-up with ongoing discharge and transition of care needs.
--- NOTE | 2018-03-14 15:04 | NUR ---
PATIENT WITH HOME O2. PATIENT TO CALL TO GET COMPANY AND FOLLOW UP WITH CM. CM TO FOLLOW UP PRIOR TO DISCHARGE.
[2018-03-14] MEDS: AZITHROMYCIN 500MG/NS 250 ML 250 ML IV SCH (16:10)
[2018-03-14] MEDS ORDERED: DILTIAZEM HCL ER 90MG CAPSULE PO SCH (17:00)
[2018-03-14] MEDS: DILTIAZEM HCL 180 MG CAP ER PO SCH ×2 (17:19→18:33)
[2018-03-14] MEDS: PREDNISONE 5 MG TAB PO SCH (17:19)
--- NOTE | 2018-03-14 19:30 | NUR ---
Received patient hemodynamically stable medsurg/tele status but on continuos spo2 monitoring, on scheduled morphine for pain. no complaints raised. Summers catheter removed, expected to void by 0100hrs
[2018-03-14] MEDS: ATORVASTATIN 10 MG TAB PO SCH (21:00)
[2018-03-14] MEDS: DONEPEZIL HCL 5 MG TAB PO SCH (21:00)
[2018-03-14] MEDS: CEFTRIAXONE SOD 1 GM/NS 50 ML 50 ML IV SCH (21:00)
[2018-03-14] MEDS: PANTOPRAZOLE SOD 40 MG TABEC PO SCH (21:00)
[2018-03-14] MEDS: DULOXETINE HCL 30 MG DELAYED RELEASE PO SCH (21:00)
[2018-03-14] MEDS: MIRTAZAPINE 15 MG TAB PO SCH (21:00)
[2018-03-14] MEDS: DOXEPIN HCL 25 MG CAP PO SCH (21:00)
[2018-03-14] MEDS: FERROUS SULFATE 325 MG TAB PO SCH (22:27)
--- NOTE | 2018-03-14 23:30 | NUR ---
Patient assisted to bathroom and back to bed, had a bowel movement and voided once, remains on oxygen at 8 liters, vitals stable. all due medications administered as prescribed.
[2018-03-15] VITALS (11 sets, daily range): BP systolic 109–125; BP diastolic 66–105
[2018-03-15] MEDS: CLINDAMYCIN PHOS 900MG/ 50ML 50 ML IV SCH ×3 (01:00→16:06)
--- NOTE | 2018-03-15 01:54 | Progress Note ---
DATE: March 14, 2018 PULMONARY MEDICINE PROGRESS NOTE SUBJECTIVE: Mr. Luna was seen and examined at bedside. He continues to have progress. Chest x-ray looks slightly better with better expansion. Ten liters per minute via nasal cannula. He was able to walk with standby assist. REVIEW OF SYSTEMS: No headaches, no bleeding. OBJECTIVE VITAL SIGNS: Afebrile, vital signs noted per electronic record. GENERAL: HEENT: Normocephalic, atraumatic. NECK: Supple. Throat midline. LUNGS: Bilateral air entry, decreased especially in the right base, okay in the left lung field. CARDIOVASCULAR: S1, S2. No murmurs, rubs, or gallops. ABDOMEN: Soft, nontender. EXTREMITIES: No clubbing, no cyanosis, there is no edema. INTEGUMENT: No rash, no purpura. LABS: Potassium 3.9, BUN 24, creatinine 1.0. White count 5, hematocrit 29, platelets 155. IMPRESSION 1. Acute respiratory failure, resolving partially. 2. Chronic hypoxemia. 3. Chronic obstructive pulmonary disease with exacerbation. 4. Atelectasis, involving left upper lobe. 5. Lung cancer, squamous cell. PLAN: We will await callback from primary oncologist in [place]. Continue weaning down oxygen. Discontinue Summers. PT to walk the patient. We will follow along closely. Continue empiric antibiotics for pneumonia. Job#: [id number] NADER
[2018-03-15] MEDS: ALBUTEROL SULF 0.083% NEB SOLN 3 ML NEB NEB SCH ×6 (02:20→23:05)
[2018-03-15] MEDS: IPRATROPIUM BROMIDE 0.02% 2.5 ML NEB NEB SCH ×6 (02:20→23:05)
[2018-03-15] MEDS: LEVOTHYROXINE SODIUM 100 MCG TAB PO SCH (06:00)
[2018-03-15] MEDS: TIOTROPIUM 18 MCG INH POWDER INH SCH (08:05)
[2018-03-15] MEDS: SENNOSIDES 8.6 MG TAB PO SCH (09:00)
[2018-03-15] MEDS: FAMOTIDINE 20 MG/2 ML VIAL IV SCH ×2 (09:34→21:04)
[2018-03-15] MEDS: FUROSEMIDE 20 MG TAB PO SCH (09:36)
[2018-03-15] MEDS: FOLIC ACID 1 MG TAB PO SCH (09:36)
[2018-03-15] MEDS: GABAPENTIN 400 MG CAP PO SCH ×3 (09:37→21:04)
[2018-03-15] MEDS: FINASTERIDE 5 MG TAB PO SCH (09:37)
[2018-03-15] MEDS: MEMANTINE 10 MG TAB PO SCH ×2 (09:37→16:06)
[2018-03-15] MEDS: MORPHINE SULFATE 30 MG TAB ER PO SCH ×2 (09:37→21:04)
[2018-03-15] MEDS: METOCLOPRAMIDE HCL 10 MG TAB PO SCH ×3 (09:37→21:04)
[2018-03-15] MEDS: DILTIAZEM HCL 180 MG CAP ER PO SCH (09:54)
[2018-03-15] MEDS: PREDNISONE 5 MG TAB PO SCH (16:06)
--- NOTE | 2018-03-15 17:03 | Progress Note ---
DATE: March 15, 2018 PULMONARY MEDICINE PROGRESS NOTE SUBJECTIVE: Mr. Luna was seen and examined at bedside. He continues to have steady progress. He is walking and independent on his balance, 6 liters per minute of oxygen which is the home dose, 93% oxygen saturation. He had a bowel movement yesterday. He is eating well. REVIEW OF SYSTEMS: No headaches. No bleeding. OBJECTIVE VITAL SIGNS: Afebrile. Vital signs noted per electronic record. GENERAL: In no acute distress. Alert and calm. HEENT: Normocephalic, atraumatic. NECK: Supple. Throat midline. LUNGS: Bilateral air entry, rare rhonchi. CARDIOVASCULAR: S1, S2. No murmurs, rubs, or gallops. ABDOMEN: Soft, nontender. EXTREMITIES: No clubbing. No cyanosis. There is no edema. INTEGUMENT: No rash. No purpura. LABS: No new updates. IMPRESSION 1. Acute respiratory failure, bilevel positive airway pressure salvage. 2. Chronic respiratory failure. 3. Chronic hypoxemia. 4. History of lung cancer, status post radiation. 5. Evolving left upper lobe atelectasis due to recurrence of lung cancer. 6. Weakness. PLAN: Patient can leave the ICU. Continue to allow him to ambulate. Continue oxygen home dosing. We will see if he can go home soon. I did leave that message a few days ago with his oncologist, and I still await a callback. Job#: [id number] NATHANAEL
--- NOTE | 2018-03-15 17:51 | NUR ---
Patient ambulated in ICU, completed 3 laps with walker and 8L [id number] cannula. encouraged pt to take a break during ambulation as he was walking quickly and desating to 86%. sats resolve with several minutes of rest as his sob too.
[2018-03-15] MEDS: ATORVASTATIN 10 MG TAB PO SCH (21:04)
[2018-03-15] MEDS: DONEPEZIL HCL 5 MG TAB PO SCH (21:04)
[2018-03-15] MEDS: FERROUS SULFATE 325 MG TAB PO SCH (21:04)
[2018-03-15] MEDS: MIRTAZAPINE 15 MG TAB PO SCH (21:04)
[2018-03-15] MEDS: DULOXETINE HCL 30 MG DELAYED RELEASE PO SCH (21:04)
[2018-03-15] MEDS: DOXEPIN HCL 25 MG CAP PO SCH (21:04)
[2018-03-15] MEDS: PANTOPRAZOLE SOD 40 MG TABEC PO SCH (21:04)
[2018-03-15] MEDS: CEFTRIAXONE SOD 1 GM/NS 50 ML 50 ML IV SCH (21:04)
--- NOTE | 2018-03-15 22:22 | NUR ---
RECEIVED THE PT FROM ICU IN A HOSPITAL BED.ASSESSMENT DONE.NO RESP.DISTRESS.HUMIDIFIED O2 8L NC PLACED.TELE# [address]IV TO R WRIST#20 PATENT. AAOX4.FAMILY MEMBER @ BED SIDE.ORIENTED THE PT TO THE UNIT.BED LOCKED AND IN LOWEST POSITION.PHONE AND CALL LIGHT WITHIN REACH.INSTRUCTED TO CALL FOR ASSISTANCE NEEDED.
--- NOTE | 2018-03-15 22:43 | NUR ---
REPORT CALLED TO EUNICE ANGUIANO, TRANSFERRED TO ROOM IN BED, ALL BELONGINGS TAKEN WITH PATIENT. AT BEDSIDE
[2018-03-15] MEDS ORDERED: SODIUM CHLORIDE 0.9% 250ML 250 ML ONE (23:59)
[2018-03-16] VITALS (7 sets, daily range): BP systolic 111–133; BP diastolic 68–81
[2018-03-16] MEDS: CLINDAMYCIN PHOS 900MG/ 50ML 50 ML IV SCH ×2 (01:16→08:53)
--- NOTE | 2018-03-16 01:17 | NUR ---
IV CANNULA REMOVED ACCIDENTALLY.NEW IV STARTED @ L WRIST.#20.
[2018-03-16] MEDS: IPRATROPIUM BROMIDE 0.02% 2.5 ML NEB NEB SCH ×5 (03:00→20:30)
[2018-03-16] MEDS: ALBUTEROL SULF 0.083% NEB SOLN 3 ML NEB NEB SCH ×5 (03:00→20:30)
[2018-03-16] MEDS: LEVOTHYROXINE SODIUM 100 MCG TAB PO SCH (05:25)
[2018-03-16 06:30] LABS: BASOPHILS % 0.3 % (0.0-1.0); EOSINOPHILS # (AUTO) 0.1 (0.0-0.4); EOSINOPHILS % 1.4 % (0.0-6.0); HEMATOCRIT 31.2 % (38.2-49.6); HEMOGLOBIN 9.4 g/dL (14.0-18.0); LYMPHOCYTES # (AUTO) 0.4 (1.0-3.2); MEAN CORPUSCULAR HEMOGLOBIN 27.5 pg (28-32); MEAN CORPUSCULAR HGB CONC 30.1 g/dL (31-35); MEAN CORPUSCULAR VOLUME 91.2 fL (81-99); MONOCYTES # (AUTO) 0.9 (0.2-0.8); MONOCYTES % 9.3 % (4.4-11.3); NEUTROPHILS # (AUTO) 8.3 (2.1-6.9); NEUTROPHILS % 84.6 % (38.7-80.0); PLATELET COUNT 204 x10e3/uL (140-360); RED BLOOD COUNT 3.42 x10e6/uL (4.3-5.7)
--- NOTE | 2018-03-16 06:40 | Diagnostic Imaging Report ---
EXAM: CHEST SINGLE (PORTABLE), AP 1 view INDICATION: Left atelectasis COMPARISON: AP view of the chest March 14, 2018 FINDINGS: LINES/TUBES: None LUNGS: Stable opacification of the left upper lung and patchy opacity in the right upper lung. PLEURA: No effusions or pneumothorax. HEART AND MEDIASTINUM: Stable appearance BONES AND SOFT TISSUES: No acute findings. IMPRESSION: Stable complete opacification of the left upper lung and patchy opacity in the right upper lung. Signed by: Dr. uSsan Clarke M.D. on 03/16/2018 6:37 AM
--- NOTE | 2018-03-16 06:53 | NUR ---
REPORT GIVEN TO THE ONCOMING RN.WALKING ROUNDS DONE.STABLE CONDITION.
[2018-03-16] MEDS: TIOTROPIUM 18 MCG INH POWDER INH SCH (07:10)
[2018-03-16 08:42] LABS: ALANINE AMINOTRANSFERASE 19 IU/L (0-55); ALBUMIN/GLOBULIN RATIO 0.8 (0.8-2.0); ALKALINE PHOSPHATASE 69 IU/L (40-150); ANION GAP 17.5 mmol/L (8-16); BLOOD UREA NITROGEN 30 mg/dL (7-26); BUN/CREATININE RATIO 32 (6-25); CALCIUM 9.5 mg/dL (8.4-10.2); CARBON DIOXIDE 34 mmol/L (22-29); CHLORIDE 90 mmol/L (98-107); CREATININE, SERUM 0.93 mg/dL (0.72-1.25); EST GLOMERULAR FILTRATION RATE > 60 ML/MIN (60-); GLUCOSE 100 mg/dL (74-118); POTASSIUM 3.5 mmol/L (3.5-5.1); SODIUM 138 mmol/L (136-145)
[2018-03-16] MEDS: FINASTERIDE 5 MG TAB PO SCH (08:47)
[2018-03-16] MEDS: METOCLOPRAMIDE HCL 10 MG TAB PO SCH ×3 (08:53→21:22)
[2018-03-16] MEDS: FAMOTIDINE 20 MG/2 ML VIAL IV SCH ×2 (08:53→20:53)
[2018-03-16] MEDS: SENNOSIDES 8.6 MG TAB PO SCH (08:53)
[2018-03-16] MEDS: FOLIC ACID 1 MG TAB PO SCH (08:54)
[2018-03-16] MEDS: DILTIAZEM HCL 180 MG CAP ER PO SCH (08:54)
[2018-03-16] MEDS: MEMANTINE 10 MG TAB PO SCH ×2 (08:54→17:06)
[2018-03-16] MEDS: FUROSEMIDE 20 MG TAB PO SCH (08:54)
[2018-03-16] MEDS: GABAPENTIN 400 MG CAP PO SCH ×3 (08:54→21:10)
[2018-03-16 10:08] LABS: BAND NEUTROPHILS % (MANUAL) 2 %; EOSINOPHILS % (MANUAL) 1 % (0-7); LYMPHOCYTES % (MANUAL) 4 % (19-48); MONOCYTES % (MANUAL) 5 % (3.4-9.0); NEUTROPHILS % (MANUAL) 88 % (40-74); PLATELET ESTIMATE SLIGHTLY INCREASED; PLATELET MORPHOLOGY COMMENT NORMAL; RBC MORPHOLOGY COMMENT NORMAL
--- NOTE | 2018-03-16 16:42 | Progress Note ---
DATE: March 16, 2018 PULMONARY MEDICINE PROGRESS NOTE SUBJECTIVE: Mr. Luna was seen and examined at bedside. He continues to have slow progress. He was able to walk up and down the millan today. Patient remains on oxygen 6 liters per minute by nasal cannula which is his home dose. Chest x-ray with stable patches of opacity of the lobes. He is eating well and is having bowel movements. REVIEW OF SYSTEMS: No headaches, no rash. OBJECTIVE VITAL SIGNS: Afebrile. Vital signs noted per electronic record. GENERAL: In no acute distress, alert and calm. HEENT: Normocephalic, atraumatic. NECK: Supple. Throat midline. LUNGS: Moderate to good air entry with rare rhonchi. CARDIOVASCULAR: S1, S2. No murmurs, rubs, or gallops. ABDOMEN: Soft, nontender. EXTREMITIES: No clubbing, no cyanosis. There is no edema. INTEGUMENT: No rash. No purpura. LABS: Potassium 3.5, BUN 30, creatinine 0.9. White count 9.8, hematocrit 31, platelets 204. IMPRESSION 1. Chronic obstructive pulmonary disease with exacerbation. 2. Postobstructive pneumonia. 3. Recent right upper lobe evolving atelectasis, unable to be open with one bronchoscopy attempt due to recurrence of squamous cell carcinoma per pathology. 4. Low functional endurance. 5. Chronic respiratory failure and hypoxemia. Continue oxygen, and he has reached the home dose if he 6 liters or below. Patient will continue low dose of steroids for his radiation pneumonitis. Await call back from primary hematology/oncology team at [facility] regarding coordination of care. Patient can possibly be discharged if he regained his baseline functional status with the knowledge that he can continue close follow up with [place]. As of now, he does not have an appointment until June which he would definitively have to move up. Continue bronchodilators. Job#: [id number] BENJAMÍN
--- NOTE | 2018-03-16 19:45 | NUR ---
REPORT TAKEN FROM MORNING ANNMARIE LAMA .NO RESP.DISTRESS.NO PAIN VOICED.AAOX4.AMBULATES .PHONE AND CALL LIGHT WITHIN REACH.INSTRUCTED TO CALL FOR ASSISTANCE NEEDED.
[2018-03-16] MEDS: CEFTRIAXONE SOD 1 GM/NS 50 ML 50 ML IV SCH (20:53)
[2018-03-16] MEDS: PANTOPRAZOLE SOD 40 MG TABEC PO SCH (21:00)
[2018-03-16] MEDS: FERROUS SULFATE 325 MG TAB PO SCH (21:22)
[2018-03-16] MEDS: DOXEPIN HCL 25 MG CAP PO SCH (21:22)
[2018-03-16] MEDS: DULOXETINE HCL 30 MG DELAYED RELEASE PO SCH (21:22)
[2018-03-16] MEDS: MIRTAZAPINE 15 MG TAB PO SCH (21:22)
[2018-03-16] MEDS: ATORVASTATIN 10 MG TAB PO SCH (21:22)
[2018-03-16] MEDS: DONEPEZIL HCL 5 MG TAB PO SCH (21:22)
[2018-03-17] MEDS: IPRATROPIUM BROMIDE 0.02% 2.5 ML NEB NEB SCH ×7 (03:00→23:25)
[2018-03-17] MEDS: ALBUTEROL SULF 0.083% NEB SOLN 3 ML NEB NEB SCH ×7 (03:00→23:25)
[2018-03-17] MEDS: LEVOTHYROXINE SODIUM 100 MCG TAB PO SCH (05:33)
[2018-03-17] MEDS: TIOTROPIUM 18 MCG INH POWDER INH SCH (06:00)
[2018-03-17 06:49] VITALS: BP 97/68
--- NOTE | 2018-03-17 07:00 | NUR ---
REPORT GIVEN TO THE ONCOMING RN.WALKING ROUNDS DONE.STABLE CONDITION.
[2018-03-17 07:20] VITALS: BP 106/73
--- NOTE | 2018-03-17 08:20 | NUR ---
patient sitting up in bed, not in any distress, ready to getting up for shower, on Oxygen , daughter at bed side, keep monitoring
[2018-03-17] MEDS: SENNOSIDES 8.6 MG TAB PO SCH (09:00)
[2018-03-17] MEDS: DILTIAZEM HCL 180 MG CAP ER PO SCH (09:15)
[2018-03-17] MEDS: MEMANTINE 10 MG TAB PO SCH ×2 (09:50→16:12)
[2018-03-17] MEDS: FUROSEMIDE 20 MG TAB PO SCH (09:50)
[2018-03-17] MEDS: METOCLOPRAMIDE HCL 10 MG TAB PO SCH ×3 (09:50→20:45)
[2018-03-17] MEDS: FOLIC ACID 1 MG TAB PO SCH (09:50)
[2018-03-17] MEDS: GABAPENTIN 400 MG CAP PO SCH ×3 (09:50→20:45)
[2018-03-17] MEDS: FAMOTIDINE 20 MG/2 ML VIAL IV SCH ×2 (09:50→20:45)
[2018-03-17] MEDS: FINASTERIDE 5 MG TAB PO SCH (09:50)
[2018-03-17] MEDS: MORPHINE SULFATE 30 MG TAB ER PO SCH (10:28)
[2018-03-17 11:00] VITALS: BP 106/73
[2018-03-17 12:10] VITALS: BP 128/86
[2018-03-17] MEDS ORDERED: IPRATROPIUM BROMIDE 0.06% 42 MCG NASPR NS PRN (14:00)
[2018-03-17] MEDS ORDERED: LEVAQUIN500 MG PO (15:04)
--- NOTE | 2018-03-17 15:28 | Progress Note ---
DATE: March 17, 2018 PULMONARY MEDICINE PROGRESS NOTE SUBJECTIVE: Mr. Luna was seen and examined at bedside. I updated him on treatment plan. I did talk to MD Aguirre, contact number [phone], and spoke to Dr. Weiss's nurse, and they did receive the message. We do expect to hear back from him. The patient although with steady progress. He is today on 8 L per minute by nasal cannula. Eating well. REVIEW OF SYSTEMS: No headaches. No diarrhea. OBJECTIVE VITALS: Afebrile. Vital signs noted per electronic record. GENERAL: No acute distress. Alert and calm. HEENT: Normocephalic and atraumatic. NECK: Supple. Throat midline. LUNGS: Bilateral air entry with few rhonchi. CARDIOVASCULAR: S1 and S2. No murmurs, rubs or gallops. ABDOMEN: Soft and nontender. EXTREMITIES: No clubbing. No cyanosis. There is no edema. INTEGUMENT: No rash. No purpura. LABS: Potassium 2.5. White count 9, hematocrit 31. IMPRESSION AND PLAN 1. Chronic obstructive pulmonary disease with exacerbation. 2. Postobstructive pneumonia. 3. Left upper lobe evolved evolution 100% of atelectasis. 4. Chronic hypoxemia, chronic respiratory failure. 5. Radiation pneumonia, on low-dose steroids as an outpatient. At this time, we wish to consider continue further therapy. We will wait for a call back from MD Aguirre's team to designate what they want us to do with the pathology specimens or what the best treatment should be. They have both my number and the pathologist's phone number, which I confirmed. Patient will continue bronchodilators. Continue low-dose steroids of prednisone 5 mg per day even as an outpatient. Continue diuretics to keep him slightly negative in balance. Encourage mobilization and good nutrition. Mainly, MD Aguirre should inform us if they want to do any brachytherapy or wide field radiation therapy, or if they need any special stains, such as PVL concentration density on the pathology. Job#: [id number] DC
[2018-03-17] MEDS: ACETAMINOPHEN 325 MG TAB PO PRN ×3 (16:20→20:45)
--- NOTE | 2018-03-17 16:23 | NUR ---
IMM SIGNED AND ON CHART COPY LEFT WITH PATIENT GAVE CARD FOR QUESTIONS AND OR CONCERNS.
--- NOTE | 2018-03-17 17:26 | NUR ---
Patient sitting up in bed, Walked with therapy not in any distress, call light in reah, daughter at bed side
[2018-03-17 20:00] VITALS: BP 105/59
[2018-03-17 20:05] VITALS: BP 105/59
--- NOTE | 2018-03-17 20:05 | NUR ---
Pt laying in bed, right lateral position, sleeping with eyes closed. Awakes easily when called. Pt denies any distress/discomfort. Breathing even, unlabored. Skin warm, dry to touch. Call light within reach. Will continue to monitor.
[2018-03-17] MEDS: PANTOPRAZOLE SOD 40 MG TABEC PO SCH (20:45)
[2018-03-17] MEDS: DOXEPIN HCL 25 MG CAP PO SCH (20:45)
[2018-03-17] MEDS: ATORVASTATIN 10 MG TAB PO SCH (20:45)
[2018-03-17] MEDS: DONEPEZIL HCL 5 MG TAB PO SCH (20:45)
[2018-03-17] MEDS: MIRTAZAPINE 15 MG TAB PO SCH (20:45)
[2018-03-17] MEDS: DULOXETINE HCL 30 MG DELAYED RELEASE PO SCH (20:45)
[2018-03-17] MEDS: FERROUS SULFATE 325 MG TAB PO SCH (20:45)
[2018-03-17] MEDS ORDERED: MORPHINE SULFATE 30 MG TAB ER PO SCH (21:00)
[2018-03-18] VITALS: BP 101/55
[2018-03-18] MEDS: IPRATROPIUM BROMIDE 0.02% 2.5 ML NEB NEB SCH ×3 (03:07→10:52)
[2018-03-18] MEDS: ALBUTEROL SULF 0.083% NEB SOLN 3 ML NEB NEB SCH ×3 (03:07→10:51)
[2018-03-18 04:00] VITALS: BP 129/68
[2018-03-18] MEDS: LEVOTHYROXINE SODIUM 100 MCG TAB PO SCH (05:58)
[2018-03-18 07:20] VITALS: BP 114/75
--- NOTE | 2018-03-18 07:20 | NUR ---
PATIENT IN BED WITH HEAD OF BED ELEVATED RECEIVING NEB TREATMENT, NO RESPIRATORY DISTRESS OBSERVED. BED IN LOWER POSITION, CALL LIGHT AT REACH. FAMILY MEMBER AT BED SIDE.
[2018-03-18] MEDS: TIOTROPIUM 18 MCG INH POWDER INH SCH (08:02)
[2018-03-18 09:00] VITALS: BP 114/75
[2018-03-18] MEDS ORDERED: MORPHINE SULFATE 30 MG TAB ER PO SCH (09:00)
[2018-03-18] MEDS: FUROSEMIDE 20 MG TAB PO SCH (09:45)
[2018-03-18] MEDS: FAMOTIDINE 20 MG/2 ML VIAL IV SCH (09:45)
[2018-03-18] MEDS: FOLIC ACID 1 MG TAB PO SCH (09:45)
[2018-03-18] MEDS: DILTIAZEM HCL 180 MG CAP ER PO SCH (09:45)
[2018-03-18] MEDS: FINASTERIDE 5 MG TAB PO SCH (09:46)
[2018-03-18] MEDS: METOCLOPRAMIDE HCL 10 MG TAB PO SCH (09:46)
[2018-03-18] MEDS: GABAPENTIN 400 MG CAP PO SCH (09:46)
[2018-03-18] MEDS: SENNOSIDES 8.6 MG TAB PO SCH (09:46)
[2018-03-18] MEDS: MEMANTINE 10 MG TAB PO SCH (09:46)
[2018-03-18] MEDS: MORPHINE SULFATE 30 MG TAB ER PO SCH (09:46)
--- NOTE | 2018-03-18 10:50 | NUR ---
PATIENT DISCHARGED HOME. DISCHARGE INSTRUCTIONS, PRESCRIPTIONS, AND FOLLOW UP GIVEN TO PATIENT, HE VERBALIZED UNDERSTANDING. IV TO LEFT WRIST REMOVED WITH TIP INTACT. ALL PERSONAL ITEMS TAKEN WITH PATIENT. LEFT UNIT PER WHEEL CHAIR TO FRONT LOBBY.
== END 2018-03-18 10:57 | disposition home or self-care (01) | DRG 166 ==
LOC: ER 13:58 → ERHOLD 18:47 → MED/SURG2 21:34 → ICU 03-12 17:32 → MED/SURG 03-15 22:22
PROVIDERS: ADMIT Internal Medicine; ATTEND Internal Medicine
PROC: 0W9B3ZX Drainage of Left Pleural Cavity, Percutaneous Approach, Diagnostic (ICD-10-PCS; principal; 2018-03-10)
PROC: 0BBG8ZX Excision of Left Upper Lung Lobe, Via Natural or Artificial Opening Endoscopic, Diagnostic (ICD-10-PCS; 2018-03-12)
PROC: 0BDG8ZX Extraction of Left Upper Lung Lobe, Via Natural or Artificial Opening Endoscopic, Diagnostic (ICD-10-PCS; 2018-03-12)
DX: C34.12 Malignant neoplasm of upper lobe, left bronchus or lung (principal); J96.21 Acute and chronic respiratory failure with hypoxia; J70.0 Acute pulmonary manifestations due to radiation; I47.1 Supraventricular tachycardia; J90 Pleural effusion, not elsewhere classified; J98.11 Atelectasis; D68.51 Activated protein C resistance; J44.1 Chronic obstructive pulmonary disease with (acute) exacerbation; G93.40 Encephalopathy, unspecified; R07.89 Other chest pain; I25.10 Atherosclerotic heart disease of native coronary artery without angina pectoris; Z95.1 Presence of aortocoronary bypass graft; I48.91 Unspecified atrial fibrillation; Z79.01 Long term (current) use of anticoagulants; E78.5 Hyperlipidemia, unspecified; Z85.118 Personal history of other malignant neoplasm of bronchus and lung; K21.9 Gastro-esophageal reflux disease without esophagitis; F02.80 Dementia in other diseases classified elsewhere, unspecified severity, without behavioral disturbance, psychotic disturbance, mood disturbance, and anxiety; Z87.891 Personal history of nicotine dependence; Z99.81 Dependence on supplemental oxygen; Z88.0 Allergy status to penicillin; Z91.048 Other nonmedicinal substance allergy status; M54.12 Radiculopathy, cervical region; E03.9 Hypothyroidism, unspecified; I10 Essential (primary) hypertension; G30.0 Alzheimer's disease with early onset; Z79.82 Long term (current) use of aspirin; Z79.51 Long term (current) use of inhaled steroids; E87.70 Fluid overload, unspecified; D64.9 Anemia, unspecified; R53.81 Other malaise
CPT/HCPCS: 32555; 36415; 36600; 71045; 71260; 74470; 76001; 80048; 80053; 80061; 80076; 81001; 82550; 82553; 82805; 82945; 83605; 83615; 83690; 83735; 83880; 84100; 84157; 84443; 84484; 85025; 85379; 85610; 85730; 87040; 87070; 87086; 87102; 87116; 87205; 87206; 87335; 88112; 88305; 89051; 93005; 93306; 94640; 94660; 99283; J0456; J0696; J1100; J1885; J1940; J2001; J2405; J2920; J2930; J3420; J7040; J7050; J7512; Q9967

== ENCOUNTER 2018-06-22 22:43 | Inpatient (IN) | payer MEDICARE, OTHER ==
[~2018-06-22] VITALS: Ht 165.1 cm; Wt 75.6 kg
[~2018-06-22 22:43] MED LIST changes: +DILTIAZEM 24HR120 MG PO; +LASIX20 MG PO; +PREDNISONE5 MG
--- OUTSIDE RECORDS SUMMARY | 2018-06-22 22:46 | XMS REPORT | Clinical Summary ---
Author Author MOHIT [employer] [facility] [employer] [facility] Address Unknown Phone Unavailable Care Team Providers Care Under Seal Operator Name Role Phone Sabas Celeste A PCP [...] Not on file Results Not on fileafter 06/21/2017 Insurance Payer Benefit Subscriber ID Type Phone Address Plan / Group MEDICARE MEDICARE A xxxxxxxxxx Medicare B [facility] xxxxxxxxx CARE COMMERCIAL HEALTHCARE INDEMNITY Advance Directives Patient has advance care planning documents, and code status on file. For more i nformation, please contact: [facility] [address] [place] [address] Date Inactivated Comments Code Status Date Activated 10/26/2016 6:38 PM Full Code 10/19/2016 6:01 PM This code status was determined by: Person holding Power of Punchboard Inserter 10/19/2016 6:01 PM Full Code 10/19/2016 6:06 AM This code status was determined by: Patient
[2018-06-22] MEDS ORDERED: METHYLPREDNISOLONE SOD SUCC 125 MG/2ML VIAL IV ONE (23:00)
[2018-06-22] MEDS ORDERED: IPRATROPIUM BROMIDE 0.02% 2.5 ML NEB NEB ONE (23:00)
[2018-06-22] MEDS ORDERED: LEVALBUTEROL HCL SOLN NEBU 1.25 MG/3 ML NEB INH ONE (23:00)
[2018-06-22 23:11] LABS: BASOPHILS # (AUTO) 0.1 (0.0-0.1); BASOPHILS % 0.3 % (0.0-1.0); EOSINOPHILS # (AUTO) 0.1 (0.0-0.4); EOSINOPHILS % 0.6 % (0.0-6.0); HEMATOCRIT 35.2 % (38.2-49.6); HEMOGLOBIN 10.8 g/dL (14.0-18.0); LYMPHOCYTES # (AUTO) 0.5 (1.0-3.2); LYMPHOCYTES % 2.8 % (18.0-39.1); MEAN CORPUSCULAR HEMOGLOBIN 27.8 pg (28-32); MEAN CORPUSCULAR HGB CONC 30.7 g/dL (31-35); MEAN CORPUSCULAR VOLUME 90.5 fL (81-99); MONOCYTES # (AUTO) 1.2 (0.2-0.8); MONOCYTES % 6.5 % (4.4-11.3); NEUTROPHILS # (AUTO) 16.7 (2.1-6.9); NEUTROPHILS % 88.1 % (38.7-80.0); PLATELET COUNT 283 x10e3/uL (140-360); RED BLOOD COUNT 3.89 x10e6/uL (4.3-5.7); RED CELL DISTRIBUTION WIDTH 17.1 % (11.7-14.4)
--- NOTE | 2018-06-22 23:12 | NUR ---
PT PLACED ON BIPAP 02/20 60% SATS 100%
[2018-06-22 23:28] LABS: INR 1.15; PROTHROMBIN TIME 15.3 seconds (11.9-14.5)
[2018-06-22 23:29] LABS: PARTIAL THROMBOPLASTIN TIME 38.1 seconds (23.8-35.5)
[2018-06-22 23:35] LABS: ALANINE AMINOTRANSFERASE 13 IU/L (0-55); ALBUMIN 2.5 g/dL (3.5-5.0); ALBUMIN/GLOBULIN RATIO 0.6 (0.8-2.0); ALKALINE PHOSPHATASE 113 IU/L (40-150); ANION GAP 12.7 mmol/L (8-16); BLOOD UREA NITROGEN 18 mg/dL (7-26); BUN/CREATININE RATIO 22 (6-25); CALCIUM 9.6 mg/dL (8.4-10.2); CARBON DIOXIDE 28 mmol/L (22-29); CHLORIDE 103 mmol/L (98-107); CREATINE KINASE 51 IU/L (30-200); CREATININE, SERUM 0.82 mg/dL (0.72-1.25); EST GLOMERULAR FILTRATION RATE > 60 ML/MIN (60-); GLUCOSE 140 mg/dL (74-118); POTASSIUM 3.7 mmol/L (3.5-5.1); SODIUM 140 mmol/L (136-145)
[2018-06-23] VITALS (13 sets, daily range): BP systolic 110–130; BP diastolic 71–106
[2018-06-23] MEDS ORDERED: GLUCOSAMINE1000 MG PO (00:29)
[2018-06-23] MEDS ORDERED: ARICEPT5 MG PO (00:29)
[2018-06-23] MEDS ORDERED: ACETAMINOPHEN325 M1 PO (00:29)
[2018-06-23] MEDS ORDERED: MEGESTROL400 MG/10 PO (00:29)
[2018-06-23] MEDS ORDERED: SALINE NOSE SPR45 ML (00:29)
[2018-06-23] MEDS ORDERED: HUMALOG100 UNIT/3 (00:29)
[2018-06-23] MEDS ORDERED: IPRAT-ALBUT 0.5-3 ML NEB (00:29)
[2018-06-23] MEDS ORDERED: NAMENDA10 MG PO (00:29)
[2018-06-23] MEDS ORDERED: MELATONIN3 M1 PO (00:29)
[2018-06-23] MEDS ORDERED: ZOFRAN4 MG PO (00:29)
[2018-06-23] MEDS ORDERED: DICLOFENAC SODI25 MG PO (00:29)
[2018-06-23] MEDS ORDERED: LOVENOX60 MG/0.6 SC (00:29)
[2018-06-23] MEDS ORDERED: PERCOCET 10-321 EACH PO (00:29)
[2018-06-23] MEDS ORDERED: MS CONTIN15 MG PO (00:29)
[2018-06-23] MEDS ORDERED: LORAZEPAM0.5 MG PO (00:29)
[2018-06-23] MEDS ORDERED: BUDESONIDE0.5 MG/2 M NEB (00:29)
[2018-06-23] MEDS ORDERED: NYSTATIN1 EAC2 TOP (00:29)
[2018-06-23] MEDS ORDERED: BISACODYL5 MG PO (00:29)
--- NOTE | 2018-06-23 00:29 | Diagnostic Imaging Report ---
Examination: Single AP view of the chest. COMPARISON: March 16, 2018 INDICATION: Shortness of breath DISCUSSION: Lines/tubes: Sternotomy wires. Lungs: Stable consolidation/mass of the left upper lobe.. Low lung volumes. Pleura: Small left effusion. Heart and mediastinum: The heart and the mediastinum are unremarkable. Bones and soft tissues: No acute bony abnormalities. IMPRESSION: Stable opacification of the left upper lobe and small left effusion. Signed by: Dr. Ariel Hernandez M.D. on 06/23/2018 12:26 AM
[2018-06-23] MEDS: LEVOFLOXACIN 500MG/D5W 100ML 100 ML IV SCH (00:38)
[2018-06-23] MEDS ORDERED: SODIUM CHLORIDE 0.9% 1000ML 1,000 ML ONE (00:42)
[2018-06-23] MEDS ORDERED: NON-FORMULARY MEDICATION (Oxycodone Hcl/Acetaminophen (Percocet 10-325 Mg Tablet) 1 TAB) PO PRN (00:45)
[2018-06-23] MEDS ORDERED: DEXTROSE 50% SYRINGE 50 ML IV PRN (00:45)
[2018-06-23] MEDS ORDERED: SODIUM CHLORIDE 0.9% 1000ML 1,000 ML IV ONE (00:45)
[2018-06-23] MEDS ORDERED: ONDANSETRON HCL INJ 2MG/ML 2ML 2 MG/ML VIAL IV PRN (00:45)
--- OUTSIDE RECORDS SUMMARY | 2018-06-23 00:49 | XMS REPORT | Clinical Summary ---
Author Author MOHIT [employer] [facility] [employer] [facility] Address Unknown Phone Unavailable Care Team Providers Care Vest Baster Name Role Phone Sabas Celeste A PCP [...] Not on file Results Not on fileafter 06/22/2017 Insurance Payer Benefit Subscriber ID Type Phone Address Plan / Group MEDICARE MEDICARE A xxxxxxxxxx Medicare B [facility] UN xxxxxxxxx CARE COMMERCIAL HEALTHCARE INDEMNITY Advance Directives Patient has advance care planning documents, and code status on file. For more i nformation, please contact: [facility] [address] [place] [address] Date Inactivated Comments Code Status Date Activated 10/26/2016 6:38 PM Full Code 10/19/2016 6:01 PM This code status was determined by: Person holding Power of Stoneworking [employer] Sander 10/19/2016 6:01 PM Full Code 10/19/2016 6:06 AM This code status was determined by: Patient
[2018-06-23] MEDS: VANCOMYCIN 1GM/NS 250 ML 250 ML IV SCH ×2 (02:20→12:07)
[2018-06-23] MEDS: MORPHINE SULFATE 15MG TAB CR PO PRN ×2 (02:35→16:54)
[2018-06-23] MEDS: ACETAMINOPHEN 325 MG TAB PO PRN (02:35)
[2018-06-23] MEDS: ALBUTEROL SULF 0.083% NEB SOLN 3 ML NEB NEB SCH ×6 (03:00→19:15)
[2018-06-23] MEDS: INSULIN REGULAR, HUMAN 100 UNIT/1 ML 3ML VIAL SQ SCH ×4 (07:30→23:54)
[2018-06-23] MEDS: IPRATROPIUM BROMIDE 0.02% 2.5 ML NEB NEB SCH ×3 (07:40→19:15)
[2018-06-23] MEDS: BUDESONIDE 0.5MG/2 ML NEB NEB SCH ×2 (08:00→19:15)
[2018-06-23] MEDS ORDERED: IBUPROFEN 400 MG TAB PO SCH (09:00)
[2018-06-23] MEDS ORDERED: GLUCOSAMINE SULFATE 1000 MG PO SCH (09:00)
[2018-06-23] MEDS: GLUCOSAMINE 1000 MG PO SCH (09:00)
[2018-06-23] MEDS: NYSTATIN 15 GM POWDER UD BTL TOP SCH ×3 (09:00→21:01)
[2018-06-23] MEDS ORDERED: LEVOTHYROXINE SODIUM 50 MCG TAB PO SCH (09:00)
[2018-06-23] MEDS ORDERED: NON-FORMULARY MEDICATION (Polyethylene Glycol 3350 (Miralax) 17 GM) PO SCH (09:00)
[2018-06-23] MEDS: BISACODYL 5 MG TAB EC PO SCH (09:00)
[2018-06-23 09:22] LABS: CREATINE KINASE MB 7.9 ng/mL (0-5.0)
[2018-06-23] MEDS: POLYETHYLENE GLYCOL 3350 17 GM PACK PO SCH (10:15)
[2018-06-23] MEDS: ASPIRIN 81 MG CHEW TAB PO SCH (10:15)
[2018-06-23] MEDS: FUROSEMIDE 20 MG TAB PO SCH (10:15)
[2018-06-23] MEDS: MEGACE 400MG/ 10ML CUP PO SCH (10:15)
[2018-06-23] MEDS: FINASTERIDE 5 MG TAB PO SCH (10:16)
[2018-06-23] MEDS: MEMANTINE 10 MG TAB PO SCH ×2 (10:16→16:54)
[2018-06-23] MEDS: MORPHINE SULFATE 30 MG TAB ER PO SCH ×2 (10:16→21:01)
[2018-06-23] MEDS: SENNOSIDES 8.6 MG TAB PO SCH (10:16)
[2018-06-23] MEDS: PANTOPRAZOLE SOD 40 MG TABEC PO SCH (10:16)
[2018-06-23] MEDS: SALINE 0.65% NAS SOLN 1 SPRAY BTL SCH ×2 (10:17→21:00)
[2018-06-23] MEDS ORDERED: METHYLPREDNISOLONE SOD SUCC 125 MG/2ML VIAL IV NR (12:00)
[2018-06-23] MEDS: OXYCODONE/ACETAMINOPHEN 5-325 1 EACH TABLET PO PRN ×3 (15:27→23:35)
--- NOTE | 2018-06-23 15:47 | Consultation ---
DATE OF CONSULTATION: 06/23/2018 REASON FOR CONSULTATION: Evaluate cardiac status. REASON FOR HOSPITALIZATION: Respiratory distress and early respiratory failure. HISTORY OF PRESENT ILLNESS: Mr. Luna is a 68-year-old gentleman, who is well known to us with past medical history of hypertension, hyperlipidemia, COPD, advanced on 4 L home oxygen, factor V Leiden thrombophilia diagnosed in 2001, CAD with prior history of two vessel CABG, nonoperable large lung masses on radiation therapy with MD Aguirre, hypothyroidism, GERD, and BPH. The patient was in his usual state of health up until last week where he went to visit grand kids and was noted to be getting over an upper respiratory illness, which was noted to be bronchitis. He had wedding of his daughter on Saturday and over the course of the day and the following day, he deteriorated from Respiratory standpoint with progressively worsening cough, rattling in his lungs, just fatigue, malaise, and increased work of breathing. The patient's was concerned and the patient was brought to the hospital for further care and management. He was placed on BiPAP for early hypoxic respiratory failure where O2 sats were in the 80s on his usual 4 L nasal cannula. He was noted to be wheezing given IV steroid therapy and started on broad spectrum antibiotic therapy. He reports that the rattling is now better; however, still breathing little bit worse as compared to his baseline stage. The patient denied any chest pain or discomfort. He denies any orthopnea or PND. X-ray reviewed showing some atelectatic changes and left lung opacity. PAST MEDICAL HISTORY: 1. Hypertension, essential. 2. Hypercholesterolemia. 3. COPD, on home oxygen since 2011. 4. History of lung mass unresectable, status post radiation therapy. 5. History of coronary artery disease with prior history of CABG in October of 2016. 6. History of cervical radiculopathy. 7. Hypothyroidism. 8. History of severe back pain with nerve stimulator implant. 9. History of appendectomy. 10. History of right foot surgery. 11. History of radiation therapy to the lung mass. FAMILY HISTORY: Mother at 86 with complications of factor V Leiden. Father at age of 89 with pneumonia and skin cancer. One sister had stroke at age of 38. There is also family history of leukemia. SOCIAL HISTORY: He is . He is retired. He is former smoker, quit many years ago. Denies any alcohol or illicit drug use. ALLERGIES: INCLUDE PENICILLIN AND TAPE. HOME MEDICATIONS: Cardizem 120 mg daily, aspirin 81 mg daily, Lasix 20 mg daily, Synthroid 100 mcg daily. See electronic medical record for remainder of medications including inhalers. REVIEW OF SYSTEMS: GENERAL: Denies any fevers or chills. Positive for fatigue, malaise, and decreased energy. HEENT: No headaches or visual complaints. Positive for sore throat and stuffy nose. RESPIRATORY: Denies any pleuritic chest pain. Has cough and difficulty breathing as noted above. CARDIOVASCULAR: Denies any chest pain or discomfort. No orthopnea or PND. Occasional palpitations. GI: Denies any abdominal pain, bright red blood per rectum, melena, hematemesis, nausea, or vomiting. : Denies any dysuria or pyuria. Positive for urinary frequency. MUSCULOSKELETAL: Has chronic lower back pain. No leg swelling. ENDOCRINE: Denies any heat or cold intolerance. ID: Positive history of frequent upper respiratory tract infections. NEUROLOGIC: Denies any focal weakness, numbness, tingling, seizures, headache, TIA, or stroke. Remainder of review of systems is negative otherwise as mentioned. PHYSICAL EXAMINATION: VITAL SIGNS: Height of 65 inches, weight of 187 pounds, BMI is 31.2. Temperature of 98.7, pulse of 118, blood pressure of 124/86, respiratory rate of 22, and O2 sats 95% on 4 L nasal cannula. GENERAL: This is acutely ill gentleman, who is chronically debilitated with mild increased work of breathing. HEENT: Normocephalic, atraumatic. Pupils are equal, round, and reactive to light. Extraocular movements are intact. Oropharynx is clear. NECK: No elevation of jugular venous pulsation. There is a large eric that is limiting full evaluation. CARDIOVASCULAR: Regular rate and rhythm . Normal S1 and S2. . There is prominent C-V wave and 3/6 systolic murmur at left lower sternal border. LUNGS: Reveal barrel type chest with poor air entry and diminished air expansion and some rhonchi, left more than right. ABDOMEN: Soft, nontender, and nondistended. Normoactive bowel sounds. No hepatosplenomegaly. BACK: No costovertebral angle tenderness. EXTREMITIES: Warm with no edema, 1+ pedal pulses. NEUROLOGIC: Alert and oriented. He has generalized weakness, but moves all four extremities symmetrically. LABORATORY DATA: White count 19.0, hemoglobin 10.8, hematocrit 35.2, and platelets of 283. Sodium 140, potassium 3.7, chloride 103, bicarb 28, BUN 18, creatinine 0.82, glucose of 140. AST 114, ALT 13, alk phos 113, total protein 6.4, albumin of 2.5, BNP is 327. Flu screen is negative. Chest x-ray reveal left upper lobe opacification and small left pleural effusion. EKG reveals multifocal atrial tachycardiac and non specific ST-T wave changes. Cardiac enzymes were negative. DIAGNOSES: 1. Acute on chronic respiratory failure, hypoxic/hypercapnic. 2. Multifocal atrial tachycardia, exacerbated secondary to acute on chronic respiratory failure, hypoxic/hypercapnic. 3. Coronary artery disease with prior history of coronary artery bypass graft. 4. Chronic obstructive pulmonary disease exacerbation secondary to bronchopneumonia. 5. Advanced lung disease. 6. History of lung cancer, status post XRT. 7. History of factor V Leiden deficiency. 8. Hypothyroidism. 9. Instability. PLAN/RECOMMENDATIONS: 1. Agree with steroid and antibiotic therapy for his lung issue. 2. We will continue p.r.n. BiPAP therapy to help support him during his acute illness. 3. The patient does not demonstrate any typical angina symptoms and we will recommend just cardiac medical therapy. 4. We will restart his Cardizem therapy for minimizing his atrial arrhythmia which is very typical on this type of lung condition. 5. We will continue following this patient with you. Thank you for this referral. MD LOLI Bueno/ROSALINA /[id number]
[2018-06-23] MEDS: ENOXAPARIN SOD INJ 40 MG/0.4 ML SYR SC SCH (16:54)
[2018-06-23] MEDS: DILTIAZEM HCL 30 MG TAB PO SCH ×2 (16:54→21:01)
[2018-06-23] MEDS ORDERED: ENOXAPARIN SOD INJ 60 MG/0.6 ML SYR SC SCH (17:00)
--- NOTE | 2018-06-23 17:29 | NUR ---
Nutrition Screen Note RD Recommendation for Physician: - Continue 1800 ADA diet Plan of Care: RD following, monitoring for tolerance and adequacy Nutrition reason for involvement: Nutrition Risk Trigger- MST Primary Diagnose(s): Atelectasis of L lung, respiratory failure, chronic Afib PMH: HTN, HLD, COPD, CAD, CABG x 2, 2 nonoperable lung masses treated with radiation Ht: 65 in Wt: 187.5 lb BMI: 31.2 kg/m2 IBW: [address] Assessment: (06/23) 68 YOM admitted for Atelectasis of L lung, respiratory failure, and chronic Afib. Pt seen today per MST score. Pt and pt's at bedside report decreased appetite recently CLUB LICENSEE, states that he eats a light breakfst, 1 "good meal", and then snacks often during the day. Pt reports chronic intermittent nausea, denies additional GI distress. Pt and can not recall UBW, estimate that the pt was weight 190# at the beginning of the year. Per RN pt eating ~75% of meals currently. Pt reports swallowing difficulties CLUB LICENSEE and that he has been seen by a DROP WIRE STRINGER, he and report that he follows swallowing strategies at home as instructed. Skin intact. Chart reviewed. Labs and meds reviewed. Will monitor and continue to follow. Current Diet: 1800 ADA Malnutrition Evaluation (06/23/18) The patient does not meet criteria for a specified degree of malnutrition at this time. Will re-evaluate at follow-up as appropriate. Diet Education Needs Assessment: Diet education not indicated. Nutrition Care Level: Low Signed: Toshia Hernandez RD, LD, [facility]
[2018-06-23 17:34] LABS: CREATINE KINASE MB 4.5 ng/mL (0-5.0)
[2018-06-23] MEDS: METHYLPREDNISOLONE SOD SUCC 40 MG/ML VIAL 1ML IV SCH (21:00)
[2018-06-23] MEDS: DULOXETINE HCL 30 MG DELAYED RELEASE PO SCH (21:01)
[2018-06-23] MEDS: DONEPEZIL HCL 5 MG TAB PO SCH (21:01)
[2018-06-23] MEDS: MELATONIN 3 MG TAB PO PRN (23:35)
[2018-06-23] MEDS: LORAZEPAM 0.5 MG TAB PO PRN (23:46)
[2018-06-24] VITALS (10 sets, daily range): BP systolic 112–141; BP diastolic 81–127
[2018-06-24] MEDS: METHYLPREDNISOLONE SOD SUCC 40 MG/ML VIAL 1ML IV SCH ×3 (00:26→21:28)
[2018-06-24] MEDS: LEVOFLOXACIN 500MG/D5W 100ML 100 ML IV SCH (00:26)
[2018-06-24] MEDS: VANCOMYCIN 1GM/NS 250 ML 250 ML IV SCH ×2 (01:37→13:12)
[2018-06-24] MEDS: ALBUTEROL SULF 0.083% NEB SOLN 3 ML NEB NEB SCH ×5 (03:15→20:00)
[2018-06-24] MEDS: OXYCODONE/ACETAMINOPHEN 5-325 1 EACH TABLET PO PRN ×4 (04:20→23:48)
--- NOTE | 2018-06-24 05:10 | NUR ---
Pt's bipap keeps leaking, RN and RT unable to make Bipap stop alarming, placed on 4LNC. Pt continues to refuse to have eric trimmed or shaved. Notified pt of risks of hypoxemia and necessitating intubation, pt continues to refuse
--- NOTE | 2018-06-24 06:11 | Diagnostic Imaging Report ---
EXAMINATION: CHEST SINGLE (PORTABLE) INDICATION: ^PNEMONIA COMPARISON: Chest x-ray 06/22/2018. 03/16/2018. CT chest 03/08/2018. FINDINGS: AP view TUBES and LINES: Median sternotomy wires are present. 2 spinal stimulator wires are present. LUNGS: Slightly better lung aeration compared to prior exam. Persistent elevation of the right hemidiaphragm. Airspace opacity in the lateral right upper lung remain stable. Stable consolidation/mass of the left upper lobe. PLEURA: Stable small left pleural effusion. HEART AND MEDIASTINUM: The cardiomediastinal silhouette is unremarkable. BONES AND SOFT TISSUES: No acute osseous lesion. Soft tissues are unremarkable. UPPER ABDOMEN: No free air under the diaphragm. IMPRESSION: Stable atelectasis and mass in the left lung and small left pleural effusion. Signed by: Dr. Arnoldo Ovalles M.D. on 06/24/2018 6:08 AM
[2018-06-24] MEDS: INSULIN REGULAR, HUMAN 100 UNIT/1 ML 3ML VIAL SQ SCH ×4 (07:30→21:00)
[2018-06-24] MEDS: BUDESONIDE 0.5MG/2 ML NEB NEB SCH ×2 (07:33→20:00)
[2018-06-24] MEDS: IPRATROPIUM BROMIDE 0.02% 2.5 ML NEB NEB SCH ×5 (07:33→23:45)
[2018-06-24] MEDS: GLUCOSAMINE 1000 MG PO SCH (09:00)
[2018-06-24] MEDS: NYSTATIN 15 GM POWDER UD BTL TOP SCH ×3 (09:00→21:28)
[2018-06-24] MEDS: SALINE 0.65% NAS SOLN 1 SPRAY BTL SCH ×2 (09:00→21:27)
[2018-06-24] MEDS: BISACODYL 5 MG TAB EC PO SCH (09:00)
[2018-06-24] MEDS: LEVOTHYROXINE SODIUM 100 MCG TAB PO SCH (09:33)
[2018-06-24] MEDS: DILTIAZEM HCL 30 MG TAB PO SCH ×4 (09:35→23:48)
[2018-06-24] MEDS: ASPIRIN 81 MG CHEW TAB PO SCH (09:37)
[2018-06-24] MEDS: POLYETHYLENE GLYCOL 3350 17 GM PACK PO SCH (09:37)
[2018-06-24] MEDS: MEGACE 400MG/ 10ML CUP PO SCH (09:37)
[2018-06-24] MEDS: FUROSEMIDE 20 MG TAB PO SCH (09:37)
[2018-06-24] MEDS: PANTOPRAZOLE SOD 40 MG TABEC PO SCH (09:38)
[2018-06-24] MEDS: FINASTERIDE 5 MG TAB PO SCH (09:38)
[2018-06-24] MEDS: SENNOSIDES 8.6 MG TAB PO SCH (09:38)
[2018-06-24] MEDS: MEMANTINE 10 MG TAB PO SCH ×2 (09:38→17:59)
[2018-06-24] MEDS: MORPHINE SULFATE 30 MG TAB ER PO SCH ×2 (09:59→21:28)
[2018-06-24] MEDS ORDERED: DIPHENHYDRAMINE HCL INJ 50 MG/ML VIAL IV NR (14:45)
[2018-06-24] MEDS: NYSTATIN SUSPENSION 5 ML UDC PO SCH ×2 (17:59→21:28)
[2018-06-24] MEDS: ENOXAPARIN SOD INJ 40 MG/0.4 ML SYR SC SCH (17:59)
[2018-06-24] MEDS: DULOXETINE HCL 30 MG DELAYED RELEASE PO SCH (21:28)
[2018-06-24] MEDS: DONEPEZIL HCL 5 MG TAB PO SCH (21:28)
[2018-06-24] MEDS: LORAZEPAM 0.5 MG TAB PO PRN (23:48)
[2018-06-25] VITALS (19 sets, daily range): BP systolic 114–141; BP diastolic 78–98
[2018-06-25] MEDS: MORPHINE SULFATE 15MG TAB CR PO PRN ×2 (00:21→14:28)
[2018-06-25] MEDS: MELATONIN 3 MG TAB PO PRN (00:21)
[2018-06-25] MEDS: ALBUTEROL SULF 0.083% NEB SOLN 3 ML NEB NEB SCH ×3 (00:45→20:15)
[2018-06-25] MEDS: IPRATROPIUM BROMIDE 0.02% 2.5 ML NEB NEB SCH ×2 (03:15→20:15)
[2018-06-25] MEDS: LEVOFLOXACIN 500MG/D5W 100ML 100 ML IV SCH (03:55)
[2018-06-25] MEDS: OXYCODONE/ACETAMINOPHEN 5-325 1 EACH TABLET PO PRN ×2 (04:00→20:24)
--- NOTE | 2018-06-25 05:46 | Diagnostic Imaging Report ---
EXAMINATION: CHEST SINGLE (PORTABLE) INDICATION: ^copd COMPARISON: Chest x-ray 06/24/2018 FINDINGS: AP view TUBES and LINES: Median sternotomy wires are present. 2 spinal stimulator wires are present. LUNGS: Worsening lung aeration compared to prior exam. Persistent elevation of the right hemidiaphragm. Airspace opacity in the lateral right upper lung remain stable. Stable consolidation/mass of the left upper lobe. PLEURA: Stable small left pleural effusion. HEART AND MEDIASTINUM: The cardiomediastinal silhouette is unremarkable. BONES AND SOFT TISSUES: No acute osseous lesion. Soft tissues are unremarkable. UPPER ABDOMEN: No free air under the diaphragm. IMPRESSION: Stable atelectasis and mass in the left lung and small left pleural effusion. Worsening lung inspiration. Signed by: Dr. Arnoldo Ovalles M.D. on 06/25/2018 5:42 AM
[2018-06-25 06:23] LABS: ANION GAP 12.8 mmol/L (8-16); BLOOD UREA NITROGEN 20 mg/dL (7-26); BUN/CREATININE RATIO 26 (6-25); CALCIUM 9.6 mg/dL (8.4-10.2); CARBON DIOXIDE 28 mmol/L (22-29); CHLORIDE 101 mmol/L (98-107); CREATININE, SERUM 0.77 mg/dL (0.72-1.25); EST GLOMERULAR FILTRATION RATE > 60 ML/MIN (60-); GLUCOSE 109 mg/dL (74-118); POTASSIUM 3.8 mmol/L (3.5-5.1); SODIUM 138 mmol/L (136-145); VANCOMYCIN,RANDOM 12.3 ug/mL
[2018-06-25] MEDS: LEVOTHYROXINE SODIUM 100 MCG TAB PO SCH (06:27)
[2018-06-25] MEDS: VANCOMYCIN 1GM/NS 250 ML 250 ML IV SCH (06:27)
[2018-06-25] MEDS: DILTIAZEM HCL 30 MG TAB PO SCH ×4 (06:27→22:58)
--- NOTE | 2018-06-25 06:37 | Consultation ---
DATE OF CONSULTATION: 06/24/2018 Pulmonary Medicine Consult REFERRING PHYSICIAN: Dr. Quinteros. REASON FOR REFERRAL: Acute respiratory failure. HISTORY OF PRESENT ILLNESS: Mr. Luna is a pleasant 68-year-old gentleman with acute respiratory failure. The patient was admitted to [facility] on June 23, 2018. I saw the patient on June 24, 2018. The patient was complaining of shortness of breath. No associated cough. He had trouble clearing his throat. Onset for 4 days. He was using BiPAP all night after coming to the emergency room. Even daytime, he needed 2 hours of BiPAP for rescue. The patient is known to have lung cancer with mediastinal lymph node involvement. The patient has received radiation therapy in the past. He also had some interval radiation pneumonitis and had some transient prednisone, for which he is off right now. Recently, he has had a recurrence of the lung cancer and as of April 2018, it was only local recurrence in the left upper lobe. The patient just had a CAT scan two days ago. The family does not have that result in yet. PAST MEDICAL HISTORY: Hypertension, coronary artery disease, status post CABG, lung cancer, hypothyroidism, BPH, early Alzheimer's, chronic respiratory failure on home oxygen, and atrial fibrillation. MEDICATIONS: Medication list was reviewed per the chart record. ALLERGIES: ADHESIVE TAPE AND PENICILLIN. SOCIAL HISTORY: He is former smoker, but quit. No alcohol. No drugs. Lives with his . FAMILY HISTORY: Noncontributory to this. REVIEW OF SYSTEMS: Cannot get reliably if he is not able to talk consistently due to shortness of breath. OBJECTIVE: VITAL SIGNS: Afebrile, vital signs noted and reviewed per the chart record. GENERAL: He looks weak. He is pale, in bed. Not too much energy. HEENT: Normocephalic, atraumatic. NECK: Supple. Throat midline. LUNGS: Bilateral air entry is moderate, really no rales, no rhonchi, or wheezes when I listen to him now, although he reportedly had bilateral rhonchi before. CARDIOVASCULAR: S1, S2. No murmurs, rubs, or gallops. ABDOMEN: Soft, nontender. EXTREMITIES: No clubbing, no cyanosis, there is no significant edema. INTEGUMENT: No rash or purpura. LABORATORY DATA: 18 BUN, 0.8 creatinine. 3.7 potassium. 19 white count, 35 hematocrit, 283 platelets. Serum albumin was 2.5. BNP level is 326. Influenza assay negative. IMPRESSION AND PLAN: 1. Acute respiratory failure, BiPAP . 2. Chronic respiratory failure, hypoxemic predominant. 3. Lung cancer, probably stage IIIA with repeat CAT scan just done. 4. Chronic obstructive pulmonary disease with exacerbation. 5. Chronic debility/weakness. 6. History of atrial fibrillation. 7. Coronary artery disease, status post coronary artery bypass graft. 8. Hypertension. 9. Hypothyroidism. 10. Benign prostatic hyperplasia. 11. History of radiation pneumonitis and he has been off steroids. 12. History of restrictive lung disease with hemidiaphragmatic . At this time, the patient will continue on appetite stimulant. Continue to encourage diet. We will get Physical therapy and Occupational therapy see him in next couple of days after he improves, he has more energy reserves. For now, continue BiPAP rescue. Continue steroids and bronchodilators. antibiotics. Treat for postobstructive pneumonia. We will request the CT report and consider the need to see the images. Thank you very much, Dr. Quinteros for this consult. Please feel free to contact me if there are any questions. MD RAFAELA Camacho/ROSALINA /[id number]
[2018-06-25] MEDS: INSULIN REGULAR, HUMAN 100 UNIT/1 ML 3ML VIAL SQ SCH ×4 (07:23→21:00)
[2018-06-25] MEDS: BUDESONIDE 0.5MG/2 ML NEB NEB SCH ×2 (07:35→20:15)
[2018-06-25] MEDS: POLYETHYLENE GLYCOL 3350 17 GM PACK PO SCH (08:46)
[2018-06-25] MEDS: METHYLPREDNISOLONE SOD SUCC 40 MG/ML VIAL 1ML IV SCH ×2 (08:46→20:24)
[2018-06-25] MEDS: BISACODYL 5 MG TAB EC PO SCH (08:46)
[2018-06-25] MEDS: MEGACE 400MG/ 10ML CUP PO SCH (08:46)
[2018-06-25] MEDS: FUROSEMIDE 20 MG TAB PO SCH (08:46)
[2018-06-25] MEDS: ASPIRIN 81 MG CHEW TAB PO SCH (08:46)
[2018-06-25] MEDS: SENNOSIDES 8.6 MG TAB PO SCH (08:47)
[2018-06-25] MEDS: FINASTERIDE 5 MG TAB PO SCH (08:47)
[2018-06-25] MEDS: NYSTATIN 15 GM POWDER UD BTL TOP SCH ×3 (08:47→22:57)
[2018-06-25] MEDS: PANTOPRAZOLE SOD 40 MG TABEC PO SCH (08:47)
[2018-06-25] MEDS: MORPHINE SULFATE 30 MG TAB ER PO SCH ×2 (08:47→20:35)
[2018-06-25] MEDS: NYSTATIN SUSPENSION 5 ML UDC PO SCH ×3 (08:47→22:57)
[2018-06-25] MEDS: MEMANTINE 10 MG TAB PO SCH ×2 (08:47→16:09)
[2018-06-25] MEDS: GLUCOSAMINE 1000 MG PO SCH (08:48)
[2018-06-25] MEDS: SALINE 0.65% NAS SOLN 1 SPRAY BTL SCH ×2 (09:00→20:34)
--- NOTE | 2018-06-25 10:31 | NUR ---
PT REFUSING TO REMOVE WAFFLE MATTRESS FROM UNDER HIM AND REFUSES TO BE TURNED. STATES CHRONIC PAIN IS TOLERABLE WITHOUT TURNING AND ON CURRENT WAFFLE. ENCOURAGED TURNING TO PREVENT BEDSORES, PT DENIES HAVING ANY SKIN PROBLEMS AND STATES USING WAFFLE SINCE FEBRUARY 2018
--- NOTE | 2018-06-25 10:47 | NUR ---
PT REFUSING TO TURN, WANTS JOSÉ LAY TO REMAIN, AND PT AWARE OF POSSIBLE BEDSORES. Addendum: 06/25/18 at 1048 by Mia Sanders RN Amended: Links added.
[2018-06-25] MEDS: ONDANSETRON HCL 4 MG ORAL DISINTEGRATING TAB PO PRN ×2 (11:25→20:24)
--- NOTE | 2018-06-25 14:37 | NUR ---
WOUND CARE - PUP SCREEN Lexx Score 14 LOS 2 days Age68 Alternating Pressure Air Mattress in Place settings at current patient weight. Waffle Overlay in Place per patient request. Bilateral Heel Protectors in place HOB </= 30 Degrees. Patient Position congruent with Wall Clock Turning Schedule. Able to do minimal turning on his own. Requires Min assistance to turn. RECOMMENDATION: Continue Current Treatment Plan. Addendum: 06/25/18 at 1447 by Festus Rice RN Amended: Links added.
[2018-06-25] MEDS: ENOXAPARIN SOD INJ 40 MG/0.4 ML SYR SC SCH (16:09)
[2018-06-25] MEDS: DULOXETINE HCL 30 MG DELAYED RELEASE PO SCH (20:34)
[2018-06-25] MEDS: DONEPEZIL HCL 5 MG TAB PO SCH (20:34)
--- NOTE | 2018-06-25 22:22 | Progress Note ---
DATE: 06/25/2018 Pulmonary Medicine Progress Note SUBJECTIVE: Mr. Luna was seen and examined at bedside. He was able to sit up for about 20 seconds. He did get very dizzy. He felt like he is going to throw up. He then desaturated. He went back to bed. Today, he has been on BiPAP 14/7 for much of the day. 45% FiO2 on BiPAP. He did go to 4 L/minute nasal cannula for a couple of hours in the morning. He is not eating much. REVIEW OF SYSTEMS: No bleeding, no headaches. OBJECTIVE: VITAL SIGNS: Afebrile, vital signs noted per the chart record. GENERAL: In no acute distress, alert and calm, but looks chronic. HEENT: Normocephalic, atraumatic. NECK: Supple. Throat midline. LUNGS: Bilateral air entry, decreased breath sounds, few rhonchi. CARDIOVASCULAR: S1, S2. No murmurs, rubs, or gallops. ABDOMEN: Soft, nontender. EXTREMITIES: No clubbing, no cyanosis. There is no edema. INTEGUMENT: No rash. No purpura. LABORATORY DATA: 20 BUN, 0.8 creatinine. 19 white count, 35 hematocrit. IMPRESSION AND PLAN: 1. Acute respiratory failure, BiPAP therapy. 2. Chronic obstructive pulmonary disease with exacerbation. 3. Possible pneumonia. 4. Possible fluid overload, less likely. 5. Known lung cancer, stage 3A. 6. Weakness/debility. At this time, we will continue current treatment. Continue deep vein thrombosis prophylaxis. Low-dose Lasix. Antibiotics as indicated. He will need a trough likely to be done today. Trough of vancomycin. Encourage nutrition as feasible. Slow PT as tolerated. Travis Chaney MD GMN/MODL /[id number]
[2018-06-25] MEDS: LORAZEPAM 0.5 MG TAB PO PRN (22:57)
[2018-06-26] VITALS (13 sets, daily range): BP systolic 116–142; BP diastolic 74–103
[2018-06-26] MEDS: OXYCODONE/ACETAMINOPHEN 5-325 1 EACH TABLET PO PRN ×4 (01:30→23:30)
[2018-06-26] MEDS: LEVOFLOXACIN 500MG/D5W 100ML 100 ML IV SCH (01:35)
[2018-06-26] MEDS: VANCOMYCIN 1GM/NS 250 ML 250 ML IV SCH ×2 (02:20→12:22)
[2018-06-26] MEDS: IPRATROPIUM BROMIDE 0.02% 2.5 ML NEB NEB SCH ×4 (03:30→20:30)
[2018-06-26] MEDS: ALBUTEROL SULF 0.083% NEB SOLN 3 ML NEB NEB SCH ×6 (03:30→23:50)
[2018-06-26] MEDS: LEVOTHYROXINE SODIUM 100 MCG TAB PO SCH (05:29)
[2018-06-26] MEDS: DILTIAZEM HCL 30 MG TAB PO SCH ×2 (05:30→14:17)
[2018-06-26] MEDS: NYSTATIN SUSPENSION 5 ML UDC PO SCH ×3 (05:30→20:50)
[2018-06-26] MEDS: ONDANSETRON HCL 4 MG ORAL DISINTEGRATING TAB PO PRN ×2 (05:31→14:06)
[2018-06-26 06:03] LABS: BASOPHILS # (AUTO) 0.1 (0.0-0.1); BASOPHILS % 0.3 % (0.0-1.0); HEMATOCRIT 33.6 % (38.2-49.6); HEMOGLOBIN 10.1 g/dL (14.0-18.0); LYMPHOCYTES # (AUTO) 0.2 (1.0-3.2); LYMPHOCYTES % 1.2 % (18.0-39.1); MEAN CORPUSCULAR HEMOGLOBIN 27.5 pg (28-32); MEAN CORPUSCULAR HGB CONC 30.1 g/dL (31-35); MEAN CORPUSCULAR VOLUME 91.6 fL (81-99); MONOCYTES # (AUTO) 0.7 (0.2-0.8); MONOCYTES % 3.8 % (4.4-11.3); NEUTROPHILS # (AUTO) 17.1 (2.1-6.9); NEUTROPHILS % 89.6 % (38.7-80.0); PLATELET COUNT 275 x10e3/uL (140-360); RED BLOOD COUNT 3.67 x10e6/uL (4.3-5.7); RED CELL DISTRIBUTION WIDTH 17.2 % (11.7-14.4)
[2018-06-26 06:17] LABS: ANION GAP 11.9 mmol/L (8-16); BLOOD UREA NITROGEN 20 mg/dL (7-26); BUN/CREATININE RATIO 29 (6-25); CALCIUM 9.8 mg/dL (8.4-10.2); CARBON DIOXIDE 31 mmol/L (22-29); CHLORIDE 102 mmol/L (98-107); CREATININE, SERUM 0.69 mg/dL (0.72-1.25); EST GLOMERULAR FILTRATION RATE > 60 ML/MIN (60-); GLUCOSE 116 mg/dL (74-118); POTASSIUM 3.9 mmol/L (3.5-5.1); SODIUM 141 mmol/L (136-145)
--- NOTE | 2018-06-26 07:00 | NUR ---
Pt refused turning, bathing, HOB above 20 degrees, stating that he wanted to be comfortable. Pt desaturates quickly without Bipap despite HFNC. Notified pt and spouse of risk of not performing ADLs, pt verbalized understanding. Spouse verbalized understanding that adequate analgesia for pt's pain and illnesses could yield lower VS, verbalized understanding, stated that pt would want current cofmort over a bed bath.
[2018-06-26] MEDS: INSULIN REGULAR, HUMAN 100 UNIT/1 ML 3ML VIAL SQ SCH ×4 (07:30→20:18)
[2018-06-26] MEDS: POLYETHYLENE GLYCOL 3350 17 GM PACK PO SCH (07:45)
[2018-06-26] MEDS: FUROSEMIDE 20 MG TAB PO SCH (07:45)
[2018-06-26] MEDS: MEGACE 400MG/ 10ML CUP PO SCH ×2 (07:45→09:00)
[2018-06-26] MEDS: METHYLPREDNISOLONE SOD SUCC 40 MG/ML VIAL 1ML IV SCH ×2 (07:45→20:50)
[2018-06-26] MEDS: ASPIRIN 81 MG CHEW TAB PO SCH (07:45)
[2018-06-26] MEDS: BISACODYL 5 MG TAB EC PO SCH (07:45)
[2018-06-26] MEDS: MEMANTINE 10 MG TAB PO SCH ×2 (07:46→16:45)
[2018-06-26] MEDS: SENNOSIDES 8.6 MG TAB PO SCH (07:46)
[2018-06-26] MEDS: PANTOPRAZOLE SOD 40 MG TABEC PO SCH (07:46)
[2018-06-26] MEDS: MORPHINE SULFATE 30 MG TAB ER PO SCH ×2 (07:46→20:50)
[2018-06-26] MEDS: NYSTATIN 15 GM POWDER UD BTL TOP SCH ×4 (07:46→20:50)
[2018-06-26] MEDS: FINASTERIDE 5 MG TAB PO SCH (07:46)
[2018-06-26 08:08] LABS: LYMPHOCYTES % (MANUAL) 2 % (19-48); METAMYELOCYTES % (MANUAL) 3 % (0-0); MONOCYTES % (MANUAL) 4 % (3.4-9.0); NEUTROPHILS % (MANUAL) 91 % (40-74)
[2018-06-26] MEDS: BUDESONIDE 0.5MG/2 ML NEB NEB SCH ×2 (08:08→20:30)
[2018-06-26 08:09] LABS: HYPOCHROMASIA SLIGHT
[2018-06-26 08:10] LABS: PLATELET MORPHOLOGY COMMENT NORMAL; RBC MORPHOLOGY COMMENT NORMAL
[2018-06-26] MEDS: SALINE 0.65% NAS SOLN 1 SPRAY BTL SCH ×2 (09:00→20:50)
[2018-06-26] MEDS: GLUCOSAMINE 1000 MG PO SCH (09:00)
--- NOTE | 2018-06-26 10:40 | NUR ---
TRANSFERRED PT TO ROOM 199 AFTER REPORT WAS GIVEN. IS AT BEDSIDE. PT TOLERATES TRANSFER FAIR.
[2018-06-26] MEDS ORDERED: FUROSEMIDE INJ 10 MG/ML 4 ML VIAL IV NR (11:30)
--- NOTE | 2018-06-26 11:45 | NUR ---
ASSESSMENT: Spiritual distress Pt's overwhelmed by 's illness and the news that they will not be returning home. Pt's states they were "hoping to go home" but their plans were changed. Pt's states that because of his illness they have not been home since Thanksgiving. Pt's expressed emotions thru words and tears. Pt states he is "fighting this." Intervention: Provided unhurried pastoral presence, hospitality and empathic listening. Facilitated illness review. Provided prayer. Outcome: Pt & expressed appreciation for visit. Will follow as able. RIVAS ELAM Patient Experience Coordinator Spiritual Care Department O: [phone] Pager: [phone] ([phone] number calling from)
--- NOTE | 2018-06-26 14:09 | Diagnostic Imaging Report ---
EXAM: CHEST SINGLE (PORTABLE) DATE: 06/26/2018 11:18 AM INDICATION: Shortness of breath COMPARISON: Chest x-ray, 06/25/2018 FINDINGS: Lines and tubes: Spinal electrodes again noted. Wire sternotomy sutures again seen. Heart size normal. Continued extensive airspace opacity in the left chest with opacification of the apex. Persistent elevation of the right hemidiaphragm with atelectasis in the right upper lobe. Stable small left pleural effusion. Upper abdomen unremarkable. The fourth and fifth left ribs appear disrupted and there is apparent absence of the posterior left sixth rib. IMPRESSION: 1. Stable extensive airspace opacity in the left chest, including opacity at the left apex which may represent fluid, atelectasis or mass. 2. Stable elevation of right hemidiaphragm with right upper lobe atelectasis or infection. Signed by: Dr. Raheel Magallanes M.D. on 06/26/2018 2:06 PM
[2018-06-26] MEDS ORDERED: FUROSEMIDE INJ 10 MG/ML 4 ML VIAL ONE (15:24)
[2018-06-26] MEDS: ENOXAPARIN SOD INJ 40 MG/0.4 ML SYR SC SCH (16:45)
--- NOTE | 2018-06-26 19:04 | NUR ---
PATIENT RESTING IN BED, ROUNDS DONE PER NURSE, PATIENT REMAIN ON BIPAP, NO COMPLAINTS VOICED. CALL LIGHT IN REACH. WILL CONTINUE TO MONITOR.
[2018-06-26] MEDS ORDERED: DILTIAZEM HCL 30 MG TAB PO SCH (20:00)
[2018-06-26] MEDS: DULOXETINE HCL 30 MG DELAYED RELEASE PO SCH (20:50)
[2018-06-26] MEDS: DONEPEZIL HCL 5 MG TAB PO SCH (20:50)
--- NOTE | 2018-06-26 23:14 | Progress Note ---
DATE: 06/26/2018 Pulmonary Medicine Progress Note SUBJECTIVE: Mr. Luna was seen and examined at bedside. He continues with slow progress. He was able to come off BiPAP only for a few hours yesterday. The patient today came off BiPAP for 15 minutes to eat, but then he desaturated and became short of breath. There is no abdominal distention. No constipation. A 14/7 cm water pressure with 80% FiO2. Minute ventilation is 13 L/minute. OBJECTIVE: GENERAL: No acute distress. The patient looks tired on BiPAP. HEENT: Normocephalic and atraumatic. NECK: Supple. Throat midline. LUNGS: Bilateral air entry, moderate, few rhonchi. CARDIOVASCULAR: S1 and S2. No murmurs, rubs, or gallops. ABDOMEN: Soft and nontender. EXTREMITIES: No clubbing. No cyanosis. There is only trace edema. INTEGUMENT: No rash or purpura. LABORATORY DATA: Labs reviewed per the chart record. Creatinine 0.7 and 3.9 potassium. White count 19. IMPRESSION: 1. Acute respiratory failure, BiPAP salvage. 2. Chronic obstructive pulmonary disease with exacerbation. 3. Lung cancer, with recent recurrence. 4. Possible fluid overload. 5. Small left side pleural effusion, not otherwise specified. 6. Treat for pneumonia. 7. Possible fluid overload. 8. Debility/weakness. PLAN: At this time, he is to continue steroids. Try Lasix today. Continue BiPAP for salvage. Bronchodilators. Antibiotics. The patient needs intermittent vancomycin troughs. We will follow along closely. If he gets better, we will engage more physical therapy. We will await CT chest from [facility]. MD RAFAELA Camacho/ROSALINA /[id number]
[2018-06-26] MEDS: MELATONIN 5 MG TABLET PO PRN (23:30)
[2018-06-26] MEDS ORDERED: SODIUM CHLORIDE 0.9% 250ML 250 ML ONE (23:48)
[2018-06-27 01:00] VITALS: BP 122/76
[2018-06-27] MEDS: VANCOMYCIN 1GM/NS 250 ML 250 ML IV SCH ×2 (01:01→13:01)
[2018-06-27] MEDS: LEVOFLOXACIN 500MG/D5W 100ML 100 ML IV SCH (01:01)
[2018-06-27] MEDS: MORPHINE SULFATE 15MG TAB CR PO PRN (01:20)
[2018-06-27] MEDS: LORAZEPAM 0.5 MG TAB PO PRN (01:20)
[2018-06-27] MEDS: DILTIAZEM HCL 60 MG TAB PO SCH ×4 (03:26→21:00)
[2018-06-27] MEDS: IPRATROPIUM BROMIDE 0.02% 2.5 ML NEB NEB SCH ×5 (03:30→23:41)
[2018-06-27] MEDS: ALBUTEROL SULF 0.083% NEB SOLN 3 ML NEB NEB SCH ×6 (03:30→23:41)
[2018-06-27] MEDS: OXYCODONE/ACETAMINOPHEN 5-325 1 EACH TABLET PO PRN ×2 (03:35→15:51)
[2018-06-27 05:48] LABS: BASOPHILS # (AUTO) 0.1 (0.0-0.1); BASOPHILS % 0.3 % (0.0-1.0); HEMATOCRIT 34.6 % (38.2-49.6); HEMOGLOBIN 10.7 g/dL (14.0-18.0); LYMPHOCYTES # (AUTO) 0.2 (1.0-3.2); LYMPHOCYTES % 1.1 % (18.0-39.1); MEAN CORPUSCULAR HGB CONC 30.9 g/dL (31-35); MEAN CORPUSCULAR VOLUME 90.6 fL (81-99); MONOCYTES # (AUTO) 0.8 (0.2-0.8); MONOCYTES % 4.1 % (4.4-11.3); NEUTROPHILS # (AUTO) 16.8 (2.1-6.9); NEUTROPHILS % 87.7 % (38.7-80.0); PLATELET COUNT 282 x10e3/uL (140-360); RED BLOOD COUNT 3.82 x10e6/uL (4.3-5.7); RED CELL DISTRIBUTION WIDTH 17.2 % (11.7-14.4)
--- NOTE | 2018-06-27 06:01 | NUR ---
EMPTIED PATIENTS FARIAS BAG AND ONLY 100CC WAS NOTED, CHECKED PATIENTS AND URINE NOTED ON HIS GOWN, PATIENTS HAS HIS HANDS DIRECTLY ON HIS PRIVATE AREA AND JUST INSTRUCTED HIM THAT IT WOULD PROBABLY BE BEST NOT TO KEEP YOU HANDS ON YOUR PRIVATE AREA, PATIENT BECAME UPSET AND STATED THAT HE DIDN'T HAVE HIS HANDS THERE AND WHERE SHOULD HE PUT THEM AND i INFORMED HIM ON HIS STOMACH, INCONTINENT CARE GIVEN, PATIENT CAN TURN HIMSELF, HE'S NOT TRYING TO DO MUCH EVEN RAISING HIS ARMS HE WILL NOT HE WOULD PREFER HIS OR THE NURSE TO GIVE HIM HIS DRINK. PATIENT DOES NEED ENCOURAGING TO HELP WITH HIS CARE WHEN HE'S STILL ABLE TO MOVE HIS ARMS WITHOUT DIFFICULTY. LARGE BOOTS TO HIS FEET REMAIN INTACT, STATED THAT HE NEED THEM BECAUSE HIS FEET GETS COLD AND THAT HELPS. WILL CONTINUE TO MONITOR. CALL LIGHT REMAIN IN PATIENT'S REACH.
[2018-06-27 06:08] LABS: ALANINE AMINOTRANSFERASE 13 IU/L (0-55); ALBUMIN 2.4 g/dL (3.5-5.0); ALBUMIN/GLOBULIN RATIO 0.7 (0.8-2.0); ALKALINE PHOSPHATASE 105 IU/L (40-150); ANION GAP 15.4 mmol/L (8-16); BLOOD UREA NITROGEN 21 mg/dL (7-26); BUN/CREATININE RATIO 30 (6-25); CALCIUM 9.5 mg/dL (8.4-10.2); CARBON DIOXIDE 35 mmol/L (22-29); CHLORIDE 97 mmol/L (98-107); EST GLOMERULAR FILTRATION RATE > 60 ML/MIN (60-); GLUCOSE 119 mg/dL (74-118); MAGNESIUM 1.9 MG/DL (1.3-2.1); POTASSIUM 3.4 mmol/L (3.5-5.1); SODIUM 144 mmol/L (136-145)
[2018-06-27] MEDS: LEVOTHYROXINE SODIUM 100 MCG TAB PO SCH (06:22)
--- NOTE | 2018-06-27 06:34 | Diagnostic Imaging Report ---
EXAMINATION: CHEST SINGLE (PORTABLE) INDICATION: CHF COMPARISON: Chest x-ray 06/26/2018. 06/25/2018. 06/24/2018. FINDINGS: AP view TUBES and LINES: Median sternotomy wires are present. 2 spinal stimulator wires are present. LUNGS: Stable poor lung aeration compared to prior exam. Persistent elevation of the right hemidiaphragm. Airspace opacity in the lateral right upper lung has significantly improved. Stable consolidation/mass of the left upper lobe. PLEURA: Stable small left pleural effusion. HEART AND MEDIASTINUM: The cardiomediastinal silhouette is unremarkable. BONES AND SOFT TISSUES: No acute osseous lesion. Soft tissues are unremarkable. UPPER ABDOMEN: No free air under the diaphragm. IMPRESSION: 1. Stable atelectasis and mass in the left lung and small left pleural effusion. 2. Improved right lung airspace opacities. Signed by: Dr. Arnoldo Ovalles M.D. on 06/27/2018 6:30 AM
[2018-06-27] MEDS: BUDESONIDE 0.5MG/2 ML NEB NEB SCH ×2 (07:07→20:17)
--- NOTE | 2018-06-27 07:11 | NUR ---
report given to am nurse, rounds done, patient continue resting with hob elevated, remain on bi-pap, call light remain in reach. remain at the bedside.
[2018-06-27] MEDS: INSULIN REGULAR, HUMAN 100 UNIT/1 ML 3ML VIAL SQ SCH ×4 (07:30→21:00)
[2018-06-27 07:37] VITALS: BP 119/87
[2018-06-27] MEDS: SALINE 0.65% NAS SOLN 1 SPRAY BTL SCH ×2 (09:00→21:00)
[2018-06-27] MEDS: GLUCOSAMINE 1000 MG PO SCH (09:00)
[2018-06-27] MEDS: FUROSEMIDE 20 MG TAB PO SCH ×2 (09:00→10:34)
[2018-06-27] MEDS: POLYETHYLENE GLYCOL 3350 17 GM PACK PO SCH (09:00)
[2018-06-27] MEDS: METHYLPREDNISOLONE SOD SUCC 40 MG/ML VIAL 1ML IV SCH ×2 (10:33→21:00)
[2018-06-27] MEDS: BISACODYL 5 MG TAB EC PO SCH (10:35)
[2018-06-27] MEDS: NYSTATIN SUSPENSION 5 ML UDC PO SCH ×3 (10:35→21:00)
[2018-06-27] MEDS: MEMANTINE 10 MG TAB PO SCH ×2 (10:35→19:42)
[2018-06-27] MEDS: ASPIRIN 81 MG CHEW TAB PO SCH (10:35)
[2018-06-27] MEDS: NYSTATIN 15 GM POWDER UD BTL TOP SCH ×3 (10:36→21:00)
[2018-06-27] MEDS: FINASTERIDE 5 MG TAB PO SCH (10:36)
[2018-06-27] MEDS: PANTOPRAZOLE SOD 40 MG TABEC PO SCH (10:36)
[2018-06-27] MEDS: MORPHINE SULFATE 30 MG TAB ER PO SCH ×2 (10:37→21:00)
[2018-06-27] MEDS: MEGACE 400MG/ 10ML CUP PO SCH (10:37)
[2018-06-27] MEDS ORDERED: FUROSEMIDE INJ 10 MG/ML 4 ML VIAL IV NR ×2 (11:00→11:45)
--- NOTE | 2018-06-27 11:10 | NUR ---
ASSESSMENT: Spiritual distress Pt's hopeful. Pt's family at bedside. Pt's states "he had a rough night but is better today." Intervention: Provided empathic listening. Reminded pt & family of availability of graphic technician, if needed. Outcome: Will continue to follow as able. RIVAS ELAM Sleeve Sewer Spiritual Care Department O: [phone] Pager: [phone] ([phone] number calling from)
[2018-06-27 11:51] LABS: MONOCYTES % (MANUAL) 4 % (3.4-9.0); NEUTROPHILS % (MANUAL) 96 % (40-74)
[2018-06-27 11:52] LABS: ANISOCYTOSIS SLIGHT; HYPOCHROMASIA SLIGHT; PLATELET ESTIMATE ADEQUATE; PLATELET MORPHOLOGY COMMENT NORMAL; RBC MORPHOLOGY COMMENT NORMAL
[2018-06-27] MEDS: SENNOSIDES 8.6 MG TAB PO SCH (12:10)
[2018-06-27 12:14] VITALS: BP 143/98
[2018-06-27 16:03] VITALS: BP 119/70
[2018-06-27] MEDS: ENOXAPARIN SOD INJ 40 MG/0.4 ML SYR SC SCH (19:42)
--- NOTE | 2018-06-27 19:44 | NUR ---
Received change of shift report from AM nurse. Walking rounds completed.
--- NOTE | 2018-06-27 19:45 | NUR ---
patient refused Lovenox in abdomen area requested to be injected left upper arm. Patient educated the need for Lovenox to be injected in abdomen requested in left upper arm.
[2018-06-27] MEDS: DULOXETINE HCL 30 MG DELAYED RELEASE PO SCH (21:00)
[2018-06-27] MEDS: DONEPEZIL HCL 5 MG TAB PO SCH (21:00)
--- NOTE | 2018-06-28 00:25 | Progress Note ---
DATE: 06/27/2018 Pulmonary Medicine Progress Note SUBJECTIVE: Mr. Luna was seen and examined at bedside. He continues to have slow progress. He was not able to come off the BiPAP today except for a few seconds. The patient rapidly desaturated. The patient had trial of Lasix yesterday with poor effect. The patient is awake, trying to communicate to the BiPAP. REVIEW OF SYSTEMS: No chest pain, no rash. OBJECTIVE: VITAL SIGNS: Afebrile, vital signs noted per the chart record. GENERAL: In no acute distress, alert, calm, on BiPAP. HEENT: Normocephalic, atraumatic. NECK: Supple. Throat midline. LUNGS: Bilateral air entry, few rhonchi heard. CARDIOVASCULAR: S1, S2. No murmurs, rubs, or gallops. ABDOMEN: Soft, nontender. EXTREMITIES: No clubbing, no cyanosis, there is no edema. INTEGUMENT: No rash. No purpura. LABORATORY DATA: 3.4 potassium, 21 BUN, 0.7 creatinine. 19 white count, 35 hematocrit. IMPRESSION AND PLAN: 1. Acute respiratory failure, BiPAP salvage. 2. . 3. Weakness/debility. 4. Outside CT chest report was suggestive of aspiration pneumonitis. 5. History of MAC pneumonitis. 6. History of MAC on previous bronchoscopy. 7. Lung cancer previously stage IIIA, possibly metastatic now with red lesions. At this time, we will continue current treatment. The patient will be on BiPAP. We will consider empirical treatment for MAC. The patient not in a good state to have repeat testing of his lungs. Continue treatment for reflux pneumonia. The patient will have repeat swallow evaluation if he is able to. We will consider D5W IV drip in the meantime, if he is not eating or drinking too much. MD RAFAELA Camacho/ROSALINA /[id number]
[2018-06-28] MEDS: LEVOFLOXACIN 500MG/D5W 100ML 100 ML IV SCH (00:30)
[2018-06-28] MEDS: OXYCODONE/ACETAMINOPHEN 5-325 1 EACH TABLET PO PRN ×4 (00:30→16:50)
[2018-06-28] MEDS: LORAZEPAM 0.5 MG TAB PO PRN ×2 (02:29→23:55)
[2018-06-28] MEDS: DILTIAZEM HCL 60 MG TAB PO SCH ×5 (03:00→21:05)
[2018-06-28] MEDS: ALBUTEROL SULF 0.083% NEB SOLN 3 ML NEB NEB SCH ×6 (03:00→22:40)
[2018-06-28] MEDS: LEVOTHYROXINE SODIUM 100 MCG TAB PO SCH (04:33)
[2018-06-28] MEDS: IPRATROPIUM BROMIDE 0.02% 2.5 ML NEB NEB SCH ×2 (06:40→18:55)
--- NOTE | 2018-06-28 06:45 | NUR ---
Handoff report and walking rounds received with outgoing rn shift mgr nurse. Pt rec'd awake, in bed, unlabored respirations on continuous BiPAP, c/o pain 10/10 to back and bilateral shoulders.
--- NOTE | 2018-06-28 07:20 | NUR ---
Patient refusing to be turned/repositioned. Pt on waffle mattress and low air loss.
[2018-06-28] MEDS: INSULIN REGULAR, HUMAN 100 UNIT/1 ML 3ML VIAL SQ SCH ×4 (07:30→20:52)
[2018-06-28 08:00] VITALS: BP 120/81
--- NOTE | 2018-06-28 08:20 | NUR ---
Alerted by [employer]bird that patient's O2 sat were in the 60s. Went to patient's room, per pt spouse, the tube from the BiPAP machine came loose. Patient RR 43 with O2 sat 78%. Checked tube connections, checked pulse oximeter. Sat with patient until O2 sats stable. O2 saturation at 94% with RR at 20, sitting in high fowlers position. Provided reassurance to patient and spouse. Explained that the door to the room will be left open so that the BiPAP machine can be heard at nurses station. Patient and spouse verbalized understanding and agreed.
--- NOTE | 2018-06-28 08:49 | NUR ---
Lab called to request blood draw.
[2018-06-28 09:00] VITALS: BP 120/81
[2018-06-28] MEDS: POLYETHYLENE GLYCOL 3350 17 GM PACK PO SCH (09:00)
[2018-06-28] MEDS: BISACODYL 5 MG TAB EC PO SCH (09:00)
[2018-06-28] MEDS: SALINE 0.65% NAS SOLN 1 SPRAY BTL SCH (09:00)
[2018-06-28] MEDS: NYSTATIN 15 GM POWDER UD BTL TOP SCH ×3 (09:00→21:05)
[2018-06-28] MEDS: METHYLPREDNISOLONE SOD SUCC 40 MG/ML VIAL 1ML IV SCH ×2 (09:04→21:05)
[2018-06-28] MEDS: ACETAMINOPHEN 325 MG TAB PO PRN (09:05)
[2018-06-28] MEDS: MORPHINE SULFATE 30 MG TAB ER PO SCH ×2 (09:05→21:05)
--- NOTE | 2018-06-28 09:05 | NUR ---
Gave patient scheduled MS Contin and PRN APAP for pain 10/. Pt O2 sat went from 92% to 80% to swallow all pills at once, while mask hovering over patient's face. Pt O2 sat's increased to 94% once mask reapplied.
--- NOTE | 2018-06-28 09:55 | NUR ---
Rounds with Dr. Fontana
[2018-06-28] MEDS: BUDESONIDE 0.5MG/2 ML NEB NEB SCH ×2 (10:00→19:50)
--- NOTE | 2018-06-28 10:09 | NUR ---
Lab called, 2nd request to draw labs per order.
[2018-06-28 10:21] LABS: BASOPHILS % 0.2 % (0.0-1.0); HEMATOCRIT 36.1 % (38.2-49.6); HEMOGLOBIN 10.9 g/dL (14.0-18.0); LYMPHOCYTES # (AUTO) 0.2 (1.0-3.2); LYMPHOCYTES % 0.9 % (18.0-39.1); MEAN CORPUSCULAR HEMOGLOBIN 27.7 pg (28-32); MEAN CORPUSCULAR HGB CONC 30.2 g/dL (31-35); MEAN CORPUSCULAR VOLUME 91.6 fL (81-99); MONOCYTES # (AUTO) 0.7 (0.2-0.8); MONOCYTES % 4.1 % (4.4-11.3); NEUTROPHILS # (AUTO) 15.7 (2.1-6.9); NEUTROPHILS % 89.2 % (38.7-80.0); PLATELET COUNT 239 x10e3/uL (140-360); RED BLOOD COUNT 3.94 x10e6/uL (4.3-5.7)
[2018-06-28 10:39] LABS: ALANINE AMINOTRANSFERASE 13 IU/L (0-55); ALBUMIN 2.4 g/dL (3.5-5.0); ALBUMIN/GLOBULIN RATIO 0.8 (0.8-2.0); ALKALINE PHOSPHATASE 99 IU/L (40-150); ANION GAP 14.7 mmol/L (8-16); BLOOD UREA NITROGEN 25 mg/dL (7-26); BUN/CREATININE RATIO 38 (6-25); CALCIUM 9.6 mg/dL (8.4-10.2); CARBON DIOXIDE 36 mmol/L (22-29); CHLORIDE 95 mmol/L (98-107); CREATININE, SERUM 0.65 mg/dL (0.72-1.25); EST GLOMERULAR FILTRATION RATE > 60 ML/MIN (60-); GLUCOSE 108 mg/dL (74-118); POTASSIUM 3.7 mmol/L (3.5-5.1); SODIUM 142 mmol/L (136-145)
--- NOTE | 2018-06-28 10:44 | Diagnostic Imaging Report ---
EXAMINATION: CHEST SINGLE (PORTABLE) INDICATION: Dyspnea. COMPARISON: Chest radiograph 06/27/2018. FINDINGS: AP view TUBES and LINES: Median sternotomy wires are present. 2 spinal stimulator wires are present. LUNGS: Interval decrease in lung volumes. Lung volumes are very low. Increasing opacities throughout the left lung with near complete opacification of the left hemithorax. Increasing patchy opacities in the right midlung. PLEURA: Increasing left-sided pleural effusion. HEART AND MEDIASTINUM: The left cardiac margin is silhouetted. BONES AND SOFT TISSUES: No acute osseous abnormality. UPPER ABDOMEN: No free air under the diaphragm. IMPRESSION: Increasing opacities throughout the left lung, which may represent a combination of pneumonia or atelectasis, pleural effusion, and mass. Suggest follow-up radiograph. Increasing patchy opacities in the right midlung, which may represent atelectasis or pneumonia in the appropriate clinical setting. Signed by: Dr. Gricelda Alfred MD on 06/28/2018 10:41 AM
[2018-06-28 10:56] LABS: BAND NEUTROPHILS % (MANUAL) 4 %; LYMPHOCYTES % (MANUAL) 6 % (19-48); METAMYELOCYTES % (MANUAL) 1 % (0-0); MONOCYTES % (MANUAL) 1 % (3.4-9.0); MYELOCYTES % (MANUAL) 2 % (0-0); NEUTROPHILS % (MANUAL) 85 % (40-74); PLATELET ESTIMATE ADEQUATE; PLATELET MORPHOLOGY COMMENT NORMAL; RBC MORPHOLOGY COMMENT NORMAL
[2018-06-28] MEDS: MEMANTINE 10 MG TAB PO SCH ×2 (11:14→16:50)
[2018-06-28] MEDS: FUROSEMIDE 20 MG TAB PO SCH (11:14)
[2018-06-28] MEDS: FINASTERIDE 5 MG TAB PO SCH (11:14)
[2018-06-28 12:00] VITALS: BP 129/84
[2018-06-28] MEDS: VANCOMYCIN 1GM/NS 250 ML 250 ML IV SCH ×2 (15:14)
[2018-06-28] MEDS: ENOXAPARIN SOD INJ 40 MG/0.4 ML SYR SC SCH (17:00)
--- NOTE | 2018-06-28 17:39 | Progress Note ---
DATE: 06/28/2018 Internal Medicine Progress Note SUBJECTIVE: The patient is very short of breath. He is on a BiPAP. He desaturated easily once he stopped the BiPAP. OBJECTIVE: VITAL SIGNS: Blood pressure 129/84, temperature 97.5, heart rate 96 per minute, respiratory rate 24 per minute, and oxygen saturation 96%. HEART: Irregularly irregular heart rate. No murmur or added sound. LUNGS: Showing decreased breath sounds bilaterally. ABDOMEN: Soft. LABORATORY DATA: BMP; sodium 142, potassium 3.7, chloride 95, CO2 36, BUN 25, creatinine 0.66, glucose 108. CBC; white blood count 15,500, hemoglobin 10.9, hematocrit 36.1, and platelet count of 239,000. PT 15.3, INR 1.15, and PTT 38.1. AST 22, ALT 13, total bilirubin 0.7, alkaline phosphatase of 99. FINAL IMPRESSION: 1. Acute on chronic hypoxic respiratory failure. 2. Chronic obstructive pulmonary disease exacerbation. 3. Lung cancer, stage III. 4. Coronary artery disease, status post coronary artery bypass graft. 5. Uncontrolled diabetes mellitus, type 2. 6. Atrial arrhythmia. 7. Bilateral pneumonia. PLAN OF TREATMENT: We are going to continue the BiPAP. Continue budesonide twice a day, albuterol q.4 hours, Atrovent q.6 hours, Levaquin 500 mg IV daily, bisacodyl 5 mg daily, Lovenox 40 mg subcutaneously daily, lorazepam 0.5 mg daily, morphine 15 mg twice a day, senna one tablet daily, methylprednisolone 40 mg IV twice a day, finasteride 5 mg daily, Megace 400 mg daily, Nystatin three times a day. Continue Bellamy 2 tablets q.4 hours as needed, Tylenol 650 mg q.4 hours as needed, 10 mg daily, furosemide 20 mg daily, Namenda 10 mg twice a day, Protonix 40 mg daily, levothyroxine 100 mcg daily, daily, aspirin 81 mg daily, Cymbalta 60 mg daily. Continue monitoring blood sugar before meals and at bedtime, morphine 30 mg times a day. I talked with the family about hospice due to the poor prognosis of the patient with COPD, which is end-stage. family and the patient consider hospice. Very poor prognosis. MD CRISTI Vital/ROSALINA /[id number]
--- NOTE | 2018-06-28 19:00 | NUR ---
Report received. Assumed care. Assessment done. See interventions.
--- NOTE | 2018-06-28 19:05 | NUR ---
Handoff report given to oncoming overnight stocker nurse.
--- NOTE | 2018-06-28 19:09 | NUR ---
No change in medical status at this time. Pt was transferred to an ICU room today because hospital needed to close IMCU. Addendum: 06/28/18 at 1911 by Carl Macias PT Amended: Links added.
[2018-06-28 20:00] VITALS: BP 120/77
--- NOTE | 2018-06-28 20:00 | NUR ---
assisting with dinner. Putting bipap mask back on after each bite. Advised and patient he shouldn't eat while on bipap. Placed on HF NC withs sats 94-95%. Patient refuses to just use cannula. States "it makes me short of breath". Advised he is putting himself at risk for aspiration. States "I just know what's been working for me."
[2018-06-28] MEDS: DONEPEZIL HCL 5 MG TAB PO SCH (21:05)
[2018-06-28] MEDS: DULOXETINE HCL 30 MG DELAYED RELEASE PO SCH (21:05)
--- NOTE | 2018-06-28 22:10 | Progress Note ---
DATE: 06/28/2018 Pulmonary Medicine Progress Note SUBJECTIVE: Mr. Luna was seen and examined at bedside. He continues to have slow progress. He was able to come off BiPAP for about 30 minutes today and eat about half of his tray. CT chest from the outside was reviewed demonstrating small nodular opacities, not with the same atelectasis as he has on today's x-ray and without any definite tumor involvement that contribute to airway stenosis based on CAT scan appearance only the possibility of tumor involvement. The lungs for the most part are not significantly worse per the cancer, as were previous. Today's chest x-ray with worsening and atelectasis of left lobe. REVIEW OF SYSTEMS: No bleeding, no chest pain. OBJECTIVE: VITAL SIGNS: Afebrile, vital signs noted per the chart record. GENERAL: In no acute distress, but he is on respiratory support and appears pale. HEENT: Normocephalic, atraumatic. NECK: Supple. Throat midline. LUNGS: Bilateral air entry with slightly decreased breath sounds at both bases, rare rhonchi, mostly without rhonchi. CARDIOVASCULAR: S1, S2. No murmurs, rubs, or gallops. ABDOMEN: Soft, nontender. EXTREMITIES: No clubbing, no cyanosis. There is no edema. INTEGUMENT: No rash. No purpura. LABORATORY DATA: 25 BUN, 0.7 creatinine, 3.7 potassium. 18 white count, 36 hematocrit, 239 platelets. IMPRESSION AND PLAN: 1. Acute respiratory failure, BiPAP salvage. 2. Chronic obstructive pulmonary disease with exacerbation. 3. Treat for acute pneumonia, aspiration versus other type, including healthcare associated. 4. Lung cancer, previously stage IIIA, possibly stage IV now per imaging. 5. Elevated right-sided hemidiaphragm. 6. History of MAC, cannot rule out MAC pneumonia. 7. New atelectasis, left lung, although there is some functional improvement today, still unclear. at the outside facility. Consider starting MAC therapy. Continue antibiotic definitely for the quick growing bacteria pneumonitis. Continue BiPAP salvage and have him eat as possible. Travis Chaney MD GMN/MODL /[id number]
[2018-06-28] MEDS ORDERED: SODIUM CHLORIDE 0.9% 250ML 250 ML ONE (23:53)
[2018-06-28] MEDS: ACETAMINOPHEN PO PRN (23:55)
[2018-06-28] MEDS: OXYCODONE PO PRN (23:55)
--- NOTE | 2018-06-28 23:55 | NUR ---
Medicated with Percocet & Ativan po per request for c/o pain and anxiety.
[2018-06-29] VITALS (8 sets, daily range): BP systolic 109–135; BP diastolic 72–93
[2018-06-29] MEDS: LEVOFLOXACIN 500MG/D5W 100ML 100 ML IV SCH (00:03)
[2018-06-29] MEDS: VANCOMYCIN 1GM/NS 250 ML 250 ML IV SCH ×2 (01:00→12:35)
[2018-06-29] MEDS: IPRATROPIUM BROMIDE 0.02% 2.5 ML NEB NEB SCH ×6 (02:20→22:50)
[2018-06-29] MEDS: ALBUTEROL SULF 0.083% NEB SOLN 3 ML NEB NEB SCH ×6 (02:20→22:50)
[2018-06-29] MEDS: OXYCODONE PO PRN (03:38)
[2018-06-29] MEDS: ACETAMINOPHEN PO PRN (03:38)
--- NOTE | 2018-06-29 03:38 | NUR ---
Medicated with Percocet per request for c/o pain.
[2018-06-29] MEDS: DILTIAZEM HCL 60 MG TAB PO SCH ×4 (03:40→21:09)
[2018-06-29] MEDS: INSULIN REGULAR, HUMAN 100 UNIT/1 ML 3ML VIAL SQ SCH ×4 (07:30→20:35)
[2018-06-29] MEDS: ACETYLCYSTEINE 200 MG/ML 4ML VIAL INH SCH ×3 (07:45→22:50)
[2018-06-29] MEDS: OXYCODONE/ACETAMINOPHEN 5-325 1 EACH TABLET PO PRN ×3 (07:55→15:55)
[2018-06-29] MEDS: METHYLPREDNISOLONE SOD SUCC 40 MG/ML VIAL 1ML IV SCH ×2 (08:11→20:56)
[2018-06-29] MEDS: MEMANTINE 10 MG TAB PO SCH ×2 (08:11→17:16)
[2018-06-29 08:12] LABS: BASOPHILS # (AUTO) 0.1 (0.0-0.1); BASOPHILS % 0.3 % (0.0-1.0); HEMATOCRIT 36.2 % (38.2-49.6); HEMOGLOBIN 10.9 g/dL (14.0-18.0); LYMPHOCYTES # (AUTO) 0.2 (1.0-3.2); LYMPHOCYTES % 0.9 % (18.0-39.1); MEAN CORPUSCULAR HEMOGLOBIN 27.7 pg (28-32); MEAN CORPUSCULAR HGB CONC 30.1 g/dL (31-35); MEAN CORPUSCULAR VOLUME 92.1 fL (81-99); MONOCYTES # (AUTO) 0.7 (0.2-0.8); MONOCYTES % 3.9 % (4.4-11.3); NEUTROPHILS # (AUTO) 16.9 (2.1-6.9); NEUTROPHILS % 90.1 % (38.7-80.0); PLATELET COUNT 223 x10e3/uL (140-360); RED BLOOD COUNT 3.93 x10e6/uL (4.3-5.7); RED CELL DISTRIBUTION WIDTH 16.9 % (11.7-14.4)
[2018-06-29] MEDS: NYSTATIN 15 GM POWDER UD BTL TOP SCH ×3 (09:30→20:57)
[2018-06-29] MEDS: MORPHINE SULFATE 30 MG TAB ER PO SCH (10:00)
[2018-06-29] MEDS: BUDESONIDE 0.5MG/2 ML NEB NEB SCH ×2 (11:40→22:55)
[2018-06-29 13:22] LABS: LYMPHOCYTES % (MANUAL) 3 % (19-48); MONOCYTES % (MANUAL) 4 % (3.4-9.0); NEUTROPHILS % (MANUAL) 89 % (40-74)
[2018-06-29 13:23] LABS: BAND NEUTROPHILS % (MANUAL) 4 %
[2018-06-29 13:24] LABS: PLATELET ESTIMATE ADEQUATE; PLATELET MORPHOLOGY COMMENT NORMAL; STOMATOCYTES SLIGHT
[2018-06-29 13:25] LABS: RBC MORPHOLOGY COMMENT ABNORMAL
--- NOTE | 2018-06-29 15:00 | NUR ---
Dr. Fontana at bedside. new orders received to help improve pain control. consult called to Dr. Sheth for pain management
[2018-06-29] MEDS: MORPHINE SULFATE 15MG TAB CR PO PRN (15:55)
[2018-06-29] MEDS ORDERED: DRONABINOL 2.5MG PO SCH (16:30)
--- NOTE | 2018-06-29 16:38 | Progress Note ---
DATE: 06/29/2018 Internal Medicine Progress Note SUBJECTIVE: The patient is now in the intensive care unit on BiPAP machine, very poor prognosis with end-stage COPD, lung cancer, and now has pneumonia. I talked with the family about hospice, the patient declined hospice. He has some issues eating of course because he had BiPAP all the time, but the refusing a feeding tube, she wants him to eat by mouth. I discontinued the medication because of the risks of DVT, so we are going to put him on Marinol twice a day to increase appetite. PHYSICAL EXAMINATION: VITAL SIGNS: The blood pressure 124/59, temperature 99.0, heart rate 73 per minute, respiratory rate 16 per minute, oxygen saturation 96%. HEART: Showed regular rhythm. Normal S1, S2 sound. LUNGS: Decreased breath sounds bilaterally. ABDOMEN: Soft. IMPRESSION: 1. Acute respiratory failure on a BiPAP machine. 2. History of lung cancer. 3. Severe chronic obstructive pulmonary disease. 4. He has coronary artery disease, status post coronary artery bypass grafting. 5. Uncontrolled diabetes mellitus type 2. 6. Atrial arrhythmia. 7. Bilateral pneumonia. PLAN OF TREATMENT: We are going to put him on Marinol 2.5 mg twice a day for appetite, budesonide one inhalation twice a day, albuterol q.4 hours, Atrovent q.4 hours, Levaquin 500 mg IV daily, vancomycin 1 g IV twice a day, bisacodyl suppository 5 mg daily, Lovenox 40 mg daily for DVT prophylaxis, lorazepam 0.5 mg daily, Nystatin one application three times a day, continue oxycodone acetaminophen 2 tablet q.4 hours as needed. Continue Proscar 5 mg daily, Namenda 10 mg twice a day, Protonix 40 mg daily, PEG-stearate 17 g daily, levothyroxine 100 mcg daily, donepezil 10 mg daily, furosemide 20 mg daily, morphine 30 mg twice a day, Nystatin three times a day, aspirin 81 mg daily, Cymbalta 60 mg daily. Continue to monitor blood sugar before meals and at bedtime, morphine 50 mg twice a day, Solu-Medrol 40 mg IV twice, Zofran 4 mg q.4 hours. The patient is in critical condition, very poor prognosis with a combination of lung cancers, end-stage COPD, and also bilateral pneumonia as I said, the patient is refusing hospice. The want him to be fed by mouth given the fact that it is very difficult with BiPAP machine, but we hold on the BiPAP machine and they feed him by mouth at times, they are aware of the risk of aspiration. Time spent approximately 45 to 50 minutes. Discussed with the nurse at the bedside and family. MD CRISTI Vital/ROSALINA /[id number]
[2018-06-29] MEDS: ENOXAPARIN SOD INJ 40 MG/0.4 ML SYR SC SCH (17:16)
[2018-06-29] MEDS: HYDROMORPHONE 2MG/ML 2 MG/ML ML IV PRN (17:30)
[2018-06-29] MEDS ORDERED: MORPHINE SULFATE 15MG TAB CR PO PRN (18:00)
[2018-06-29] MEDS ORDERED: OXYCODONE/ACETAMINOPHEN 5-325 1 EACH TABLET PO PRN (18:00)
[2018-06-29] MEDS: AZITHROMYCIN 250MG/NS 100 ML 100 ML IV SCH (20:03)
--- NOTE | 2018-06-29 20:03 | NUR ---
offered to turn patient in bed, stated he just fall asleep and will let nurse know when patient needs to be turned.
--- NOTE | 2018-06-29 20:29 | Progress Note ---
DATE: 06/29/2018 Pulmonary Medicine Progress Note SUBJECTIVE: Mr. Luna was seen and examined at bedside. He continues with slow progress. He is mostly on continuous BiPAP. He comes off for a couple of minutes at time to take a few bites, but overall he does get some nutrition in. 18/9 BiPAP, 85% FiO2. 96% oxygen saturation. The patient had discussion with today regarding hospice as an option. REVIEW OF SYSTEMS: Cannot get reliably, as he is unable to talk due to BiPAP. OBJECTIVE: VITAL SIGNS: Afebrile, vital signs noted per the chart record. His heart rate is in 90s and 100s. Semistable on BiPAP. GENERAL: Looks weak, in bed. HEENT: Normocephalic, atraumatic. NECK: Supple. Throat midline. LUNGS: Bilateral air entry, decreased breath sounds at the bases. CARDIOVASCULAR: S1, S2. No murmurs, rubs, or gallops. ABDOMEN: Soft, nontender. EXTREMITIES: No clubbing, no cyanosis. There is no edema. INTEGUMENT: No rash or purpura. LABORATORY DATA: 3.7 potassium, 0.7 creatinine. 19 white count, 36 hematocrit, 223 platelets. IMPRESSION AND PLAN: 1. Acute respiratory failure, BiPAP salvage. 2. Chronic hypoxemia. 3. Lung cancer, probably stage IV now. 4. Debility and weakness. 5. Treat for acute pneumonia. 6. Previously small left-sided pleural effusion on outside CT. 7. History of radiation pneumonitis. 8. Treat for possible MAC pneumonia. Start MAC drugs after discussion with family. Mucomyst continue. If there will be quick progress, Mucomyst has to breakthrough. The only other possibility for quick progress it is that the pleural effusion if diagnosed to be increased in size and we can actually drain that and therefore ultrasound will be done and we will consider a CT chest to be done if ultrasound is nondiagnostic. Continue treatment for acute pneumonia. Regarding MAC, no quick improvement is expected and if there is no quick possibility for improvement, there may be consideration to have a second time if they want to try hospice. The patient is not in condition for bronchoscopy at this time to diagnose the possibility if there are any airway strictures. MD RAFAELA Camacho/ROSALINA /[id number]
[2018-06-29] MEDS: MORPHINE SULFATE 15MG TAB CR PO SCH (20:56)
[2018-06-29] MEDS: DULOXETINE HCL 30 MG DELAYED RELEASE PO SCH (20:56)
[2018-06-29] MEDS: RIFAMPIN 300 MG CAP PO SCH (20:56)
[2018-06-29] MEDS: ETHAMBUTOL HCL 400 MG TAB PO SCH (20:56)
--- NOTE | 2018-06-29 21:00 | NUR ---
called and spoke with dr Chaney, regarding Merem order. previously nurse asked to patient's what kind of reaction if patient had penicillin, the stated that they dont know and its because the mother of the patient told her that he is allergic to penicillin. made the MD aware about that, and he ordered to go ahead to give the Merem dose.
[2018-06-29] MEDS ORDERED: MEROPENEM 1 GM VIAL ONE (21:17)
[2018-06-29] MEDS ORDERED: SODIUM CHLORIDE 0.9% 100 ML ONE (21:28)
[2018-06-29] MEDS: MEROPENEM 1GRAM 1 GM in SODIUM CHLORIDE 0.9% 100 ML 100 ML IV SCH (21:34)
[2018-06-30] VITALS (7 sets, daily range): BP systolic 123–144; BP diastolic 84–106
[2018-06-30] MEDS: VANCOMYCIN 1GM/NS 250 ML 250 ML IV SCH ×3 (00:15→23:20)
[2018-06-30] MEDS: HYDROMORPHONE 2MG/ML 2 MG/ML ML IV PRN ×2 (01:49→19:33)
--- NOTE | 2018-06-30 01:50 | NUR ---
PATIENT C/O GENERALIZED PAIN, MEDICATED WITH DILAUDID ORDERED. CALL LIGHT WITHIN EASY REACH, PATIENT INSTRUCTED TO CALL FOR ASSISTANCE NEEDED. PRIMARY NURSE IS AWARE THAT THE PATIENT HAS BEEN MEDICATED FOR PAIN.
--- NOTE | 2018-06-30 01:50 | NUR ---
patient is awake, complained of pain, gave dilaudid PRN. patient refused to be turned.
[2018-06-30] MEDS: IPRATROPIUM BROMIDE 0.02% 2.5 ML NEB NEB SCH ×6 (03:18→23:00)
[2018-06-30] MEDS: ALBUTEROL SULF 0.083% NEB SOLN 3 ML NEB NEB SCH ×6 (03:18→23:00)
[2018-06-30] MEDS: DILTIAZEM HCL 60 MG TAB PO SCH ×4 (03:51→21:34)
[2018-06-30] MEDS: LORAZEPAM 0.5 MG TAB PO PRN (04:06)
[2018-06-30 05:11] LABS: BASOPHILS # (AUTO) 0.1 (0.0-0.1); BASOPHILS % 0.3 % (0.0-1.0); HEMATOCRIT 37.1 % (38.2-49.6); LYMPHOCYTES # (AUTO) 0.1 (1.0-3.2); LYMPHOCYTES % 0.5 % (18.0-39.1); MEAN CORPUSCULAR HEMOGLOBIN 27.4 pg (28-32); MEAN CORPUSCULAR HGB CONC 29.6 g/dL (31-35); MEAN CORPUSCULAR VOLUME 92.3 fL (81-99); MONOCYTES # (AUTO) 0.9 (0.2-0.8); MONOCYTES % 4.3 % (4.4-11.3); NEUTROPHILS # (AUTO) 18.1 (2.1-6.9); NEUTROPHILS % 89.8 % (38.7-80.0); PLATELET COUNT 217 x10e3/uL (140-360); RED BLOOD COUNT 4.02 x10e6/uL (4.3-5.7); RED CELL DISTRIBUTION WIDTH 16.8 % (11.7-14.4)
[2018-06-30 05:34] LABS: ALANINE AMINOTRANSFERASE 30 IU/L (0-55); ALBUMIN 2.6 g/dL (3.5-5.0); ALBUMIN/GLOBULIN RATIO 0.8 (0.8-2.0); ALKALINE PHOSPHATASE 112 IU/L (40-150); ANION GAP 12.7 mmol/L (8-16); BLOOD UREA NITROGEN 24 mg/dL (7-26); BUN/CREATININE RATIO 38 (6-25); CALCIUM 9.8 mg/dL (8.4-10.2); CHLORIDE 93 mmol/L (98-107); CREATININE, SERUM 0.64 mg/dL (0.72-1.25); EST GLOMERULAR FILTRATION RATE > 60 ML/MIN (60-); GLUCOSE 106 mg/dL (74-118); MAGNESIUM 2.3 MG/DL (1.3-2.1); POTASSIUM 3.7 mmol/L (3.5-5.1); SODIUM 143 mmol/L (136-145)
[2018-06-30 05:36] LABS: CARBON DIOXIDE 41 mmol/L (22-29)
--- NOTE | 2018-06-30 05:45 | NUR ---
called and spoke with dr Chaney, made him aware that the Co2 level this morning is 41, no order obtained at this time.
[2018-06-30] MEDS ORDERED: MEROPENEM 1 GM VIAL ONE (05:50)
[2018-06-30] MEDS ORDERED: SODIUM CHLORIDE 0.9% 100 ML ONE (05:52)
[2018-06-30] MEDS: MEROPENEM 1GRAM 1 GM in SODIUM CHLORIDE 0.9% 100 ML 100 ML IV SCH (05:59)
--- NOTE | 2018-06-30 06:41 | Diagnostic Imaging Report ---
EXAMINATION: CHEST SINGLE (PORTABLE) INDICATION: ^pneumonia COMPARISON: Chest x-ray 06/28/2018. 06/27/2018. FINDINGS: AP view TUBES and LINES: Median sternotomy wires are present. 2 spinal stimulator wires are present. LUNGS: Interval improvement in lung volumes. Lung volumes are very low. Unchanged complete opacification of the left lung apex. Improved aeration of the left lung base. Increasing patchy opacities in the right midlung. PLEURA: Small left-sided pleural effusion. HEART AND MEDIASTINUM: The left cardiac margin is silhouetted. BONES AND SOFT TISSUES: No acute osseous abnormality. UPPER ABDOMEN: No free air under the diaphragm. IMPRESSION: Improvement of aeration of the left lung base. Increasing patchy opacities in the right midlung, which may represent atelectasis or pneumonia in the appropriate clinical setting. Signed by: Dr. Arnoldo Ovalles M.D. on 06/30/2018 6:38 AM
[2018-06-30] MEDS: ACETYLCYSTEINE 200 MG/ML 4ML VIAL INH SCH ×3 (07:00→23:00)
[2018-06-30] MEDS: BUDESONIDE 0.5MG/2 ML NEB NEB SCH ×2 (08:05→21:00)
[2018-06-30] MEDS: NYSTATIN 15 GM POWDER UD BTL TOP SCH ×3 (08:42→21:34)
[2018-06-30] MEDS: INSULIN REGULAR, HUMAN 100 UNIT/1 ML 3ML VIAL SQ SCH ×4 (08:50→21:35)
[2018-06-30] MEDS: METHYLPREDNISOLONE SOD SUCC 40 MG/ML VIAL 1ML IV SCH ×2 (08:50→21:33)
[2018-06-30] MEDS: MORPHINE SULFATE 15MG TAB CR PO SCH ×2 (08:51→21:34)
[2018-06-30] MEDS: ETHAMBUTOL HCL 400 MG TAB PO SCH (08:51)
[2018-06-30] MEDS: RIFAMPIN 300 MG CAP PO SCH (09:50)
--- NOTE | 2018-06-30 10:04 | Diagnostic Imaging Report ---
Limited bilateral chest ultrasound History: Evaluate for pleural effusion. Comparison: Chest radiograph 06/30/2018. Technique/findings: Limited bilateral chest ultrasound was performed to evaluate for pleural effusion. No right pleural effusion. Trace left pleural effusion. IMPRESSION: Trace left pleural effusion. No right pleural effusion. Signed by: Dr. Gricelda Alfred MD on 06/30/2018 10:01 AM
[2018-06-30 11:53] LABS: LYMPHOCYTES % (MANUAL) 1 % (19-48); METAMYELOCYTES % (MANUAL) 1 % (0-0); MONOCYTES % (MANUAL) 7 % (3.4-9.0); MYELOCYTES % (MANUAL) 3 % (0-0); NEUTROPHILS % (MANUAL) 87 % (40-74); PROMYELOCYTES % (MANUAL) 1 % (0-0)
[2018-06-30 11:55] LABS: HYPOCHROMASIA SLIGHT; PLATELET ESTIMATE ADEQUATE; PLATELET MORPHOLOGY COMMENT NORMAL; RBC MORPHOLOGY COMMENT NORMAL
[2018-06-30 11:56] LABS: ANISOCYTOSIS SLIGHT
[2018-06-30] MEDS ORDERED: SODIUM CHLORIDE 0.9% 250ML 250 ML ONE (13:12)
--- NOTE | 2018-06-30 13:29 | NUR ---
Nutrition Screen Note RD Recommendation for Physician: - Continue 1800 ADA diet Plan of Care: RD following, monitoring for tolerance and adequacy Nutrition reason for involvement: Follow up Primary Diagnose(s): Atelectasis of L lung, chronic Afib PMH: HTN, HLD, COPD, CAD, CABG x 2, 2 nonoperable lung masses treated with radiation Ht: 65 in Wt: 173 lb BMI: 28.8 kg/m2 IBW: [address] Assessment: (06/30) Follow up: Pt was transferred from ICU to [facility] and was discussed during rounds. Pt was unable to be interviewed at this current time d/t being on cpap machine, no family at bedside. Possible [place] eval is pending. Noted pt was 187 lbs 06/23, and is currently 173 lbs suggesting a 14 pound weight loss within a week which could also be r/t the use of different scales. No meal percentages were recorded within EMR. Will continue to monitor to ensure he is consuming adequate protein and calories daily. (06/23) 68 YOM admitted for Atelectasis of L lung, respiratory failure, and chronic Afib. Pt seen today per MST score. 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 Pt reports chronic intermittent nausea, denies additional GI distress. Pt and can not recall UBW, estimate that the pt was weight 190# at the beginning of the year. Per RN pt eating ~75% of meals currently. 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 Skin intact. Chart reviewed. Labs and meds reviewed. Will monitor and continue to follow. Current Diet: 1800 ADA Malnutrition Evaluation (06/30/18) The patient does not meet criteria for a specified degree of malnutrition at this time. Will re-evaluate at follow-up as appropriate. Diet Education Needs Assessment: Diet education not indicated. Nutrition Care Level: Low Signed: Ivon Schwartz RD, LD Addendum: 06/30/18 at 1330 by Ivon Schwartz DIET Nutrition care level- mod
[2018-06-30] MEDS: MEROPENEM 1GM 100 ML IV SCH ×2 (14:11→22:29)
--- NOTE | 2018-06-30 16:14 | NUR ---
RECEIVED ORDER FOR LTAC. MET W THE PT'S FOR LTAC CHOICE. STATES THE DOCTOR HAD DISCUSSED [facility] [address]. PROVIDED CHOICE. CHOICE LETTER WAS SIGNED AND COPY TO PT AND COPY TO CHART. INQUIRED ABOUT HOME HOSPICE. STATES SHE WOULD LIKE TO SPEAK W SOMEONE ABOUT HOSPICE. CALL TO [facility]. SPOKE W SALLIE. AGREED TO MEET W SALLIE / [facility] BETWEEN 330 AND 4PM. CONTACTED [facility] FOR EVAL.
[2018-06-30] MEDS: AZITHROMYCIN 250MG/NS 100 ML 100 ML IV SCH (20:43)
[2018-06-30] MEDS: DULOXETINE HCL 30 MG DELAYED RELEASE PO SCH (21:34)
--- NOTE | 2018-06-30 22:27 | Diagnostic Imaging Report ---
CT chest, abdomen with intravenous contrast Indication: Lung cancer, hypoxia Technique: Thin collimation axial images obtained from the thoracic inlet to the level of the pubic symphysis following the uneventful administration of 100 cc of low osmolar, nonionic intravenous contrast. RADIATION DOSE: Total DLP: 654.78 mGy*cm Estimated effective dose: (DLP x 0.015 x size factor) mSv CTDIvol has been reviewed. It is below the limits set by the Radiation Protocol Committee (RPC). Dose reduction techniques used: Automated exposure control, adjustment of the mAs and/or kVp according to patient size, standardized low-dose protocol, and/or iterative reconstruction technique. Comparison: CT chest and abdomen performed at [facility] 06/22/2018. CHEST FINDINGS: Lymph nodes: No enlarged axillary or supraclavicular lymph nodes. Mediastinal lymph nodes are increased in number. Lymph nodes in the AP window measure up to 9 x 11 mm and are stable. A prevascular lymph node measures 1.5 x 1.2 cm and is stable. Thyroid: Normal in size without mass in the visualized parenchyma.. Mediastinum: No pericardial effusion. Cardiac bypass changes are redemonstrated with extensive calcifications of the coronary arteries. Main pulmonary artery measures 3.3 cm in diameter. No filling defects. The ascending aorta measures 3.4 cm in diameter. The esophagus is collapsed. Lungs: Right Lung: Emphysematous changes are redemonstrated. There are patchy areas of groundglass attenuation throughout the lung that have progressed in the interim, particularly in the lower lobe. There is no discrete mass. Eventration of the diaphragm is stable. Left Lung: Collapse of the upper lobe is redemonstrated secondary to tumor. Emphysematous changes in the aerated lung are redemonstrated. There is groundglass attenuation in the aerated lung particularly in the lingula and lower lobe. This is new. Pleura:Posterior layering left pleural effusion measures 1.5 cm and is stable. Pleural-based tumor between the descending thoracic aorta and the left fifth and sixth ribs is redemonstrated, measuring 3.4 x 3.9 cm in the axial plane with invasion into the spinal canal. ABDOMEN FINDINGS: Liver: Normal attenuation. No evidence for mass. Gallbladder: Present and appears normal. No biliary ductal dilatation. Pancreas: Normal attenuation without mass or ductal dilatation. Spleen: Normal in size without mass. Adrenal Glands: No evidence for mass. Kidneys: Right: Normal enhancement. No cortical mass. No hydronephrosis. Left: Normal enhancement. No cortical mass. No hydronephrosis. Lymph Nodes: No enlarged mesenteric or periaortic lymph nodes. Aorta: Tortuous but normal in diameter with diffuse calcifications. Bowel: Stomach: Normal. Small Bowel: Visualized portions are normal in diameter with normal wall thickness. Large Bowel: Visualized portions contain diverticula without associated inflammation Peritoneum/retroperitoneum: No free fluid or fluid collection. Bones: The bones are diffusely demineralized. There is a spinal stimulator in the posterior upper abdomen with the leads terminating at T8. There are postoperative changes of the left hemithorax. There are several fractured left ribs. Tumor invasion of the left fourth and fifth ribs cannot be entirely excluded. Median sternotomy is well-healed. There are degenerative changes of the lower lumbar spine with grade 2 anterolisthesis of L5 on S1. IMPRESSION: 1. No change in tumor involving the left lung with upper lobe collapse. Pleural-based tumor in the posterior left chest is stable with invasion into the spinal canal. Stable metastatic mediastinal lymphadenopathy. 2. New groundglass attenuation of the aerated portions of the right and left lungs. This could be due to volume replenishment or postchemotherapy changes. 3. Emphysema. Stable left pleural effusion. 4. Prominent main pulmonary artery suggestive of pulmonary artery hypertension. 5. No evidence of metastatic disease in the upper abdomen. 4. Postoperative changes of the left hemithorax. Metastatic lesions in the upper left ribs cannot be entirely excluded. Bone scan is a more sensitive modality to detect osseous metastases. Signed by: Dr. Andres Patrick MD on 06/30/2018 10:24 PM
[2018-06-30] MEDS ORDERED: SODIUM CHLORIDE 0.9% 50ML 50 ML ONE (22:29)
[2018-06-30] MEDS ORDERED: IOPAMIDOL 370 MG/ML 200 ML INFUS..BTL INJ ONE (22:29)
[2018-07-01] VITALS (7 sets, daily range): BP systolic 129–149; BP diastolic 86–109
[2018-07-01] MEDS: HYDROMORPHONE 2MG/ML 2 MG/ML ML IV PRN ×3 (00:25→12:23)
[2018-07-01] MEDS: IPRATROPIUM BROMIDE 0.02% 2.5 ML NEB NEB SCH ×6 (01:40→23:22)
[2018-07-01] MEDS: ALBUTEROL SULF 0.083% NEB SOLN 3 ML NEB NEB SCH ×6 (01:40→23:22)
--- NOTE | 2018-07-01 02:35 | Progress Note ---
DATE: 06/30/2018 Pulmonary Medicine Progress Note. SUBJECTIVE: Mr. Luna was seen and examined at bedside. BiPAP 18/9, 75% FiO2. Minute ventilation 16 L/minute. Respiratory rate 23. The patient hardly able to come off BiPAP. He is eating a few bites at a time. The patient with chest x-ray showing more open left lower lobe. Ultrasound could not discern any kind of effusion on the left side and was limited on the right. REVIEW OF SYSTEMS: No headaches, no GI bleed. OBJECTIVE: VITAL SIGNS: Afebrile, vital signs noted per the chart record. GENERAL: In no acute distress, alert, calm, pale, but on BiPAP. HEENT: Normocephalic, atraumatic. NECK: Supple. Throat midline. LUNGS: Bilateral air entry, few rhonchi. CARDIOVASCULAR: S1, S2. No murmurs, rubs, or gallops. ABDOMEN: Soft, nontender. EXTREMITIES: No clubbing, no cyanosis. There is no edema. INTEGUMENT: No rash or purpura. LABORATORY DATA: 3.7 potassium, 0.6 creatinine, 41 bicarbonate, 20 white count, 37 hematocrit, 223 platelets. IMPRESSION AND PLAN: 1. Acute respiratory failure, BiPAP salvage. 2. Chronic obstructive pulmonary disease with exacerbation. 3. Stage IV lung cancer with newly found bone metastases. 4. Pleural effusion left, not otherwise specified. 5. Treat for pneumonia. 6. Worsening metabolic alkalosis. 7. Weakness/debility. I discussed with the the low chance of survival. The patient at this time will get CT abdomen and pelvis. The patient will get a CT of chest. We need to see with better resolution if there is anything quick and resolvable on the chest or abdomen in order to improve his breathing quickly or else we expect him not to survive. Continue antibiotics. N-acetylcysteine will continue for now. Continue treatment for possible MAC infection. We will follow along closely. MD RAFAELA Camacho/ROSALINA /[id number]
[2018-07-01] MEDS: LORAZEPAM 0.5 MG TAB PO PRN (03:38)
[2018-07-01] MEDS: DILTIAZEM HCL 60 MG TAB PO SCH ×4 (03:39→20:40)
[2018-07-01] MEDS: MEROPENEM 1GM 100 ML IV SCH ×3 (05:59→22:00)
--- NOTE | 2018-07-01 06:29 | Diagnostic Imaging Report ---
EXAMINATION: CHEST SINGLE (PORTABLE) COMPARISON: CT chest 06/30/2018, chest x-ray 06/30/2018 INDICATION: Lung cancer ^pneumonia DISCUSSION: Frontal view of the chest obtained at 0550 hours. HEART AND MEDIASTINUM: Stable postoperative changes from cardiac bypass LINES: Spinal stimulator is redemonstrated. LUNGS: Stable decreased volume of the right hemithorax. Right perihilar airspace opacity is similar in morphology correspond to groundglass attenuation on CT. No new findings in the right lung. Left upper lobe collapse is redemonstrated with groundglass airspace opacities in the aerated portion of the left lung. PLEURA: Small left pleural effusion is similar in appearance. Stable eventration of the right diaphragm BONES AND SOFT TISSUES: Stable. IMPRESSION: Stable groundglass airspace opacities which may be the result of edema. Stable small left pleural effusion and left upper lobe collapse secondary to tumor. No new cardiopulmonary process. Signed by: Dr. Andres Patrick MD on 07/01/2018 6:25 AM
[2018-07-01] MEDS: INSULIN REGULAR, HUMAN 100 UNIT/1 ML 3ML VIAL SQ SCH ×4 (07:30→21:00)
[2018-07-01] MEDS: ACETYLCYSTEINE 200 MG/ML 4ML VIAL INH SCH ×3 (08:00→23:22)
[2018-07-01] MEDS: BUDESONIDE 0.5MG/2 ML NEB NEB SCH ×2 (08:00→19:45)
[2018-07-01] MEDS: NYSTATIN 15 GM POWDER UD BTL TOP SCH ×3 (10:54→20:40)
[2018-07-01] MEDS: ETHAMBUTOL HCL 400 MG TAB PO SCH (10:54)
[2018-07-01] MEDS: RIFAMPIN 300 MG CAP PO SCH (10:54)
[2018-07-01] MEDS: MORPHINE SULFATE 15MG TAB CR PO SCH ×2 (10:54→20:40)
[2018-07-01] MEDS: METHYLPREDNISOLONE SOD SUCC 40 MG/ML VIAL 1ML IV SCH ×2 (10:54→20:40)
--- NOTE | 2018-07-01 11:10 | NUR ---
ASSESSMENT: Spiritual Distress Pt's feels overwhelmed and out of control. Pt's states she wants to take her home as soon as possible. Pt's states she desires to bring him home because "it would be best for him." Intervention: Provided empathic pastoral presence. provided compassionate touch. Encouraged self-care. Reminded pt's of availability of butting saw operator. Outcome: Will continue to follow as able. RIVAS Sawantlain Spiritual Care Department O: [phone] Pager: [phone] ([phone] number calling from)
[2018-07-01] MEDS: VANCOMYCIN 1GM/NS 250 ML 250 ML IV SCH (11:38)
--- NOTE | 2018-07-01 14:09 | Progress Note ---
DATE: 07/01/2018 Pulmonary Medicine Progress Note SUBJECTIVE: Mr. Luna was seen and examined at bedside. He continues with slow progress. BiPAP 18/9 cm water pressure, 80% FiO2. 12 respiratory rate. He is having 91% oxygen saturation. Chest x-ray stable with left lung mostly open, effusion, mild pneumonitis. REVIEW OF SYSTEMS: No bleeding, no rash. OBJECTIVE: VITAL SIGNS: Afebrile, vital signs noted per the chart record. GENERAL: In no acute distress, alert and calm. HEENT: Normocephalic, atraumatic. NECK: Supple. Throat midline. LUNGS: Bilateral air entry, limited, rhonchi. CARDIOVASCULAR: S1, S2. No murmurs, rubs, or gallops. ABDOMEN: Soft, nontender. EXTREMITIES: No clubbing, no cyanosis. There is no edema. INTEGUMENT: No rash or purpura. LABORATORY DATA: 24 BUN, 0.6 creatinine. 20 white count, 37 hematocrit, 217 platelets. IMPRESSION AND PLAN: 1. Acute respiratory failure, on BiPAP. 2. Treat for acute pneumonia, bacterial type. 3. Treat for mycobacterium avium complex pneumonitis. 4. History of radiation pneumonitis treatment. 5. Stage IV lung cancer, apparently encroaching toward the axial skeleton and to the waistline. At this time, we will continue BiPAP. The patient should continue to have bowel movement as the CT chest showed a significant excrement burden. The patient will continue to have the antimycobacterial antibiotics being given. The patient as well remain on BiPAP and we will wean if the patient can tolerate, as of now it is very limited. Family is trying to consider hospice versus LTAC it seems like. We will follow along closely. MD RAFAELA Camacho/ROSALINA /[id number]
--- NOTE | 2018-07-01 15:59 | NUR ---
pt has remained stable throughout shift. currently sats 85-89% on bipap. notified RT, pt assessed and tx provided. pt sats currently >90%. asymptomatic. will continue to monitor.
[2018-07-01] MEDS: ONDANSETRON HCL 4 MG ORAL DISINTEGRATING TAB PO PRN (17:10)
[2018-07-01] MEDS ORDERED: AMIKACIN SULFATE 500 MG in SODIUM CHLORIDE 0.9% 100 ML IV ONE (19:30)
[2018-07-01] MEDS ORDERED: AMIKACIN SULFATE 250 MG/ML 2ML VIAL IV ONE (19:30)
[2018-07-01] MEDS: DULOXETINE HCL 30 MG DELAYED RELEASE PO SCH (20:40)
[2018-07-01] MEDS: AZITHROMYCIN 250MG/NS 100 ML 100 ML IV SCH (21:00)
[2018-07-02] VITALS: BP 132/93
[2018-07-02] MEDS: VANCOMYCIN 1GM/NS 250 ML 250 ML IV SCH (00:55)
--- NOTE | 2018-07-02 01:08 | NUR ---
received report from pm nurse, patient continue resting on the bipap, remain at his side, call light in reach. will continue to monitor.
[2018-07-02 01:14] VITALS: BP 134/96
[2018-07-02] MEDS: LORAZEPAM 0.5 MG TAB PO PRN (02:17)
[2018-07-02] MEDS: MELATONIN 5 MG TABLET PO PRN (02:17)
--- NOTE | 2018-07-02 02:18 | NUR ---
patient is very anxious, medicated as ordered, at the bedside. will continue to monitor. remain on bipap.
[2018-07-02] MEDS: IPRATROPIUM BROMIDE 0.02% 2.5 ML NEB NEB SCH (03:10)
[2018-07-02] MEDS: ALBUTEROL SULF 0.083% NEB SOLN 3 ML NEB NEB SCH (03:10)
[2018-07-02] MEDS: DILTIAZEM HCL 60 MG TAB PO SCH (03:30)
[2018-07-02 04:21] VITALS: BP 122/88
[2018-07-02 04:43] LABS: ABG PCO2 53 mmHg (41-51); ABG PH 7.39 (7.31-7.41)
[2018-07-02 04:44] LABS: ABG PO2 43 mmHg (80-105)
--- NOTE | 2018-07-02 04:44 | NUR ---
PATIENT 02 STATS IN THE 80%, USED RESPIRATORY PULSE OX REMAIN IN THE 80%., TALKED WITH DR. BARAJAS TO INFORM HIM OF THE STAT ABG'S DRAWN, 02 SATS IN THE 80% AND HR IN THE 150'S, PATIENT BEING VERY ANXIOUS, DR.S BARAJAS STATED, "WHY ARE YOU CALLING ME, CALL THE NETWORK COMMUNICATIONS ENGINEER, DR. GUTHRIE AT [phone] AND ASKED WHAT DOES THE WANT, I EXPLAINED TO HIM THAT SHE WANTED HIM TO BE INTUBATED AND HE STATED, " WELL, THAT'S THE PLAN, INTUBATION", RAPID CALLED AND TALKED WITH THE PATIENT AND ASKED HIM IF HE WANTED TO BE INTUBATED AND THE HE STATED NO, DR. DAMON ASKED A FEW QUESTIONS TO MAKE SURE HE'S ORIENTED, AND HE ANSWERED EVERY QUESTION CORRECTLY AND STATED, NO, TO INTUBATION. DR. DAMON TALKED WITH HIS AND SHE UNDERSTOOD WHAT WAS GOING ON AND HER 'S CHOICE. NO COMPLAINTS VOICED.
[2018-07-02 04:45] LABS: ABG HCO3 32 mmol/L (23-28)
[2018-07-02 05:25] LABS: BASOPHILS # (AUTO) 0.2 (0.0-0.1); BASOPHILS % 0.4 % (0.0-1.0); HEMATOCRIT 44.4 % (38.2-49.6); HEMOGLOBIN 12.9 g/dL (14.0-18.0); LYMPHOCYTES # (AUTO) 0.3 (1.0-3.2); LYMPHOCYTES % 0.8 % (18.0-39.1); MEAN CORPUSCULAR HEMOGLOBIN 27.7 pg (28-32); MEAN CORPUSCULAR HGB CONC 29.1 g/dL (31-35); MEAN CORPUSCULAR VOLUME 95.3 fL (81-99); MONOCYTES # (AUTO) 1.5 (0.2-0.8); MONOCYTES % 4.3 % (4.4-11.3); NEUTROPHILS # (AUTO) 31.3 (2.1-6.9); NEUTROPHILS % 89.8 % (38.7-80.0); PLATELET COUNT 226 x10e3/uL (140-360); RED BLOOD COUNT 4.66 x10e6/uL (4.3-5.7); RED CELL DISTRIBUTION WIDTH 17.4 % (11.7-14.4)
--- NOTE | 2018-07-02 05:37 | NUR ---
CALLED [facility] AND INFORMED OF HIS CHANGE OF CONDITION. TALKED WITH VAMSI AND WAS INFORMED THAT SOMEONE WILL VISIT HIM TODAY. INFORMED THE FAMILY.
[2018-07-02] MEDS: MEROPENEM 1GM 100 ML IV SCH (06:26)
--- NOTE | 2018-07-02 06:41 | NUR ---
Spoke to Dr. Jacques Fontana regarding patient's status and vital signs. Dr. Fontana requested to d/c telemetry at this time.
--- NOTE | 2018-07-02 06:46 | NUR ---
TELEMETRY D/C. AT THE BEDSIDE.
--- NOTE | 2018-07-02 07:00 | NUR ---
Received report handoff at bedside, patient is on bi-pap, non-verbal, he is a DNR, appears very pale, respirations 10, delayed capillary refill, pulse, bilateral radial pulses faint, extremities cool to touch.
[2018-07-02 07:22] LABS: ALANINE AMINOTRANSFERASE 305 IU/L (0-55); ALBUMIN 2.5 g/dL (3.5-5.0); ALBUMIN/GLOBULIN RATIO 0.8 (0.8-2.0); ALKALINE PHOSPHATASE 169 IU/L (40-150); ANION GAP 23.5 mmol/L (8-16); BLOOD UREA NITROGEN 27 mg/dL (7-26); BUN/CREATININE RATIO 29 (6-25); CALCIUM 9.9 mg/dL (8.4-10.2); CARBON DIOXIDE 31 mmol/L (22-29); CHLORIDE 96 mmol/L (98-107); CREATININE, SERUM 0.92 mg/dL (0.72-1.25); EST GLOMERULAR FILTRATION RATE > 60 ML/MIN (60-); GLUCOSE 118 mg/dL (74-118); MAGNESIUM 2.8 MG/DL (1.3-2.1); POTASSIUM 4.5 mmol/L (3.5-5.1); SODIUM 146 mmol/L (136-145)
--- NOTE | 2018-07-02 07:30 | NUR ---
Unable to obtain blood pressure, with electronic, cuff, obtained manually to left upper arm systolic 36/ no diastolic heard, 02 saturation 57, appears respirations ranging 4-6.
--- NOTE | 2018-07-02 07:40 | NUR ---
REPORT GIVEN TO ONCOMING NURSE, ROUNDS DONE, PATIENT CONTINUE RESTING WITH CONTINOUS BIPAP, CALL LIGHT REMAIN IN REACH. REMAIN AT HIS BEDSIDE.
--- NOTE | 2018-07-02 07:43 | NUR ---
PATIENT FAMILY MEMBER () REFUSE TO HAVE PORTABLE CHEST XRAY DONE.
--- NOTE | 2018-07-02 08:02 | NUR ---
HAS SPOKEN TO HOSPICE A FEW TIMES AND THE DOCTORS, STILL HAS NOT MADE CHOICE FOR NEXT STEP. WILL FOLLOW UP TO GET UPDATE.
[2018-07-02 08:07] VITALS: BP_SYST 35
--- NOTE | 2018-07-02 08:20 | NUR ---
ASSESSMENT: Spiritual distress Pt's experiencing anticipatory grief. Pt's expressing emotions thru words and tears. Intervention: Provided pastoral presence, empathic listening and prayer. Outcome: Pt's expressed appreciation for support during 's hospitalization. Will mail grief brochure and condolence letter. RIVAS ELAM [employer] Professional Spiritual Care Department O: [phone] Pager: [phone] ([phone] number calling from)
--- NOTE | 2018-07-02 08:25 | NUR ---
Patient 's pronounced by ER doctor, @08:25, called placed to Dr. Gagan Quinteros @[phone] [facility] for call back.
--- NOTE | 2018-07-02 08:33 | NUR ---
WENT TO SPEAK WITH FAMILY ABOUT UPDATE, PT IS .
--- NOTE | 2018-07-02 11:43 | Consultation ---
DATE OF CONSULTATION: 06/30/2018 HISTORY OF PRESENT ILLNESS: Mr. Luna is a 68-year-old white male, who presents with bronchopneumonia, pleural effusion, respiratory distress, presently on BiPAP and aggressive antibiotic therapy. HISTORY OF PAST ILLNESS: The patient is known to me for many years. 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 The patient also was diagnosed with lung cancer, inoperable. The patient subsequently sought medical attention at [facility], they had given him radiation. Inoperability of this patient was because of severe COPD. SOCIAL HISTORY: History of smoking in the past. FAMILY HISTORY: Noncontributory. ALLERGIES: REPORTED TO PENICILLIN. MEDICATIONS: At this time: 1. Budesonide. 2. Albuterol. 3. Vancomycin. 4. Zithromax. 5. Aspirin. 6. Finasteride. 7. Protonix. 8. Ondansetron. 9. Dronabinol. 10. Zithromax. 11. Lasix. 12. Melatonin. 13. Hydromorphone. 14. Meropenem. 15. Insulin. 16. Levothyroxine. 17. Diltiazem. 18. Morphine. 19. Donepezil. 20. Memantine. REVIEW OF SYSTEMS: HEENT: Normal. CARDIAC: History of hypertension. RESPIRATORY: Severe COPD, lung cancer inoperable, treated with radiation at [facility], radiation fibrosis, now bronchopneumonia. GI: Normal. : History of BPH. MUSCULOSKELETAL: Normal. SKIN AND BREASTS: Normal. NEUROENDOCRINE: History of hypothyroidism. PHYSICAL EXAMINATION: GENERAL: Moderately built male, in acute distress with short of breath. At the present time of examination, he is almost obtunded on BiPAP struggling to breathe. HEART: Tachycardic. LUNGS: Coarse crepitations throughout. ABDOMEN: Soft. RECTAL: Could not be done. CENTRAL NERVOUS SYSTEM: Could not be done. LABORATORY DATA: Sodium of 143, potassium 3.7, chloride is 93, CO2 41, BUN 24, creatinine 0.64. Hemoglobin 11, hematocrit 37.1, white count 20,100, and platelets of 217,000. INR 1.15, SGOT 29, bilirubin high at 2.1, alkaline phosphatase 112, SGOT 30. Chest x-ray shows the patient to have bilateral pleural effusions, right upper lobe fibrotic mass with possible bronchopneumonia. IMPRESSION: 1. Lung cancer, squamous cell, treated at [facility]. 2. Respiratory failure. 3. Chronic hypoxia. 4. Debility. 5. Acute bronchopneumonia. 6. History of radiation therapy pneumonitis. 7. Anemia of chronic disease. 8. Leukemoid reaction. 9. Hypoproteinemia. 10. Hypoalbuminemia. 11. Hyperglobulinemia. PLAN/COMMENTS/SUGGESTIONS: Suggest supportive care to this patient with far advanced malignancy and respiratory failure. He is terminally ill. Celeste Obregon MD MAQ/MODL /[id number] cc: Dr. Marizol Chaney MD
--- NOTE | 2018-07-02 14:15 | NUR ---
Patient ER pronounced @08:25. home called at 12:00.
== END 2018-07-02 08:25 | disposition expired | DRG 177 ==
LOC: ER 22:43 → ERHOLD 06-23 00:47 → ICU 06-23 02:20 → IMCU 06-26 10:39 → ICU 06-28 18:30 → IMCU 06-30 09:38
PROC: 5A09457 Assistance with Respiratory Ventilation, 24-96 Consecutive Hours, Continuous Positive Airway Pressure (ICD-10-PCS; principal; 2018-06-22)
DX: A31.0 Pulmonary mycobacterial infection (principal); J96.21 Acute and chronic respiratory failure with hypoxia; J96.22 Acute and chronic respiratory failure with hypercapnia; J91.8 Pleural effusion in other conditions classified elsewhere; C34.12 Malignant neoplasm of upper lobe, left bronchus or lung; J44.0 Chronic obstructive pulmonary disease with (acute) lower respiratory infection; J44.1 Chronic obstructive pulmonary disease with (acute) exacerbation; D68.51 Activated protein C resistance; C77.1 Secondary and unspecified malignant neoplasm of intrathoracic lymph nodes; F11.20 Opioid dependence, uncomplicated; J98.11 Atelectasis; E87.3 Alkalosis; Z99.81 Dependence on supplemental oxygen; Z66 Do not resuscitate; Z88.0 Allergy status to penicillin; Z91.048 Other nonmedicinal substance allergy status; I48.91 Unspecified atrial fibrillation; K21.9 Gastro-esophageal reflux disease without esophagitis; E78.5 Hyperlipidemia, unspecified; M19.90 Unspecified osteoarthritis, unspecified site; Z95.1 Presence of aortocoronary bypass graft; Z87.891 Personal history of nicotine dependence; Z82.49 Family history of ischemic heart disease and other diseases of the circulatory system; E11.9 Type 2 diabetes mellitus without complications; E03.9 Hypothyroidism, unspecified; N40.0 Benign prostatic hyperplasia without lower urinary tract symptoms; E78.00 Pure hypercholesterolemia, unspecified; Z80.6 Family history of leukemia; Z80.8 Family history of malignant neoplasm of other organs or systems; Z79.82 Long term (current) use of aspirin; I25.10 Atherosclerotic heart disease of native coronary artery without angina pectoris; R53.81 Other malaise; G30.9 Alzheimer's disease, unspecified; F02.80 Dementia in other diseases classified elsewhere, unspecified severity, without behavioral disturbance, psychotic disturbance, mood disturbance, and anxiety; D63.8 Anemia in other chronic diseases classified elsewhere; D72.823 Leukemoid reaction; E77.8 Other disorders of glycoprotein metabolism; E88.09 Other disorders of plasma-protein metabolism, not elsewhere classified; R77.1 Abnormality of globulin; G89.3 Neoplasm related pain (acute) (chronic); G89.4 Chronic pain syndrome; Z79.4 Long term (current) use of insulin; E11.65 Type 2 diabetes mellitus with hyperglycemia
CPT/HCPCS: 36415; 36600; 71045; 71260; 74160; 76604; 80048; 80053; 80202; 82550; 82553; 82805; 82948; 83735; 83880; 84443; 84484; 85025; 85610; 85730; 87040; 87400; 93005; 94640; 94660; 97139; 99284; J1200; J1650; J1940; J1956; J2185; J2920; J2930; J3370; J7030; J7050; Q9967